=== PATIENT | male | born 1940 | race African-American/Black ===

== ENCOUNTER 2016-12-06 12:54 | Inpatient (IN) | payer MEDICARE, OTHER ==
[~2016-12-06] VITALS: Ht 121.9 cm; Wt 70.5 kg
[~2016-12-06 12:54] MED LIST: ACET325T9 PO; AMIT25TA PO; AMLO10TA2 PO; ASPI-482 PO; ASPI81TA9 PO; CALC500T PO; CARV12.52 PO; CARV6.25 PO; CETI10TA16 PO; CHOL10003 PO; CINA30TA PO; CLON1PAT2 TD; CLOP75TA PO; CLOP75TA27 PO; CYCL10TA2 PO; DOCU100C5 PO; EMOL250L TP; EPOE20006 IJ; ERGO500012 PO; FAMO20TA5 PO; FERROUS GLUCON325 M1 PO; FLUT16SP NS; FOLI1CAP10 PO; GABA-586 PO; HYDR-2672 PO; HYDR-2868 PO; HYDR-2869 PO; HYDR-971 PO; Hydrocodone/Acetaminophen PO; LACT1CAP6 PO; LANT1000 PO; LISI40TA PO; LOPE2TAB27 PO; LORA0.5T PO; MIRT15TA3 PO; NITR0.4T SL; OMEG1CAP6 PO; OXYC5TAB88 PO; PANT40TA5 PO; SERT100T PO; VITA1CAP PO
--- NOTE | 2016-12-06 13:40 | EKG ---
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
[2016-12-06 13:48] LABS: BASO # 0.1 x10^3/uL (0.0-0.2); BASO % 1 % (0-3); EOS % 0 % (0-3); HEMATOCRIT 35.8 % (39.0-53.0); HEMOGLOBIN 11.5 g/dL (13.0-17.5); LYMPH # 0.6 x10^3/uL (1.0-4.8); LYMPH % 6 % (24-48); MEAN CORPUSCULAR HEMOGLOBIN 28 pg (25-35); MEAN CORPUSCULAR HGB CONC 32 g/dL (31-37); MEAN CORPUSCULAR VOLUME 85 fL (79-100); MONO % 7 % (0-9); NEUT % 87 % (31-73); PLATELET COUNT 77 x10^3/uL (140-400); RED CELL DISTRIBUTION WIDTH 18.2 % (11.5-14.5); WHITE BLOOD COUNT 10.4 x10^3/uL (4.0-11.0)
--- NOTE | 2016-12-06 13:52 | PHYS DOC ---
Past Medical History Past Medical History: Heart Disease, Renal Failure (on Dialysis) Past Surgical History: Other Additional Past Surgical Histo: right AKA, left BKA, LUE dialysis shunt Alcohol Use: None Drug Use: None Adult General Chief Complaint Chief Complaint: WEAKNESS/GENERALIZED HPI HPI Patient is a 76 year old male who presents with for concern of inability to care for self at home in current condition. 3 days ago, he fell at home, had right hip pain, and was taken to the [place] emergency department to be diagnosed with a right hip fracture. Since that time, he has been unable to assist his with transfer from bed to chair and chair to bed. is greatly struggling to care for him at home and feels she is hurting herself to do so. He otherwise feels well and being weaker than normal. He was to attend dialysis today, however she brought him here for evaluation due to inability to care for him at home. He denies headache, chest pain, vision changes, palpitations, abdominal pain, nausea or vomiting, diarrhea, fever or chills, other injury. states he spent less than 2 hours in the emergency department at the [place] and was not admitted. Review of Systems Review of Systems Constitutional: Denies fever or chills [] Eyes: Denies change in visual acuity, redness, or eye pain [] HENT: Denies nasal congestion or sore throat [] Respiratory: Denies cough or shortness of breath [] Cardiovascular: No additional information not addressed in HPI [] GI: Denies abdominal pain, nausea, vomiting, bloody stools or diarrhea [] : Denies dysuria or hematuria [] Musculoskeletal: Denies back pain [] Integument: Denies rash or skin lesions [] Neurologic: Denies headache, focal weakness or sensory changes [] Endocrine: Denies polyuria or polydipsia [] Allergies Allergies Allergies Coded Allergies Type Severity Reaction Last Updated Verified aspirin Allergy Intermediate 07/19/15 Yes barium sulfate Allergy Intermediate 07/19/15 Yes calcium acetate Allergy Intermediate 07/19/15 Yes sevelamer Allergy Intermediate 07/19/15 Yes Physical Exam Physical Exam Constitutional: Well developed, well nourished, no acute distress, non-toxic appearance. [] HENT: Normocephalic, atraumatic, bilateral external ears normal, oropharynx moist, nose normal. [] Eyes: PERRLA, EOMI. [] Neck: Normal range of motion, supple. [] Cardiovascular:Heart rate regular rhythm [] Lungs & Thorax: Bilateral breath sounds clear to auscultation [] Abdomen: Bowel sounds normal, soft, no tenderness. [] Skin: Warm, dry, no erythema, no rash. [] Back: No tenderness, no CVA tenderness. [] Extremities: Right above-knee amputation, right lower extremity otherwise appears normal with no discoloration, has moderate tenderness to right groin with no palpable abnormality, femoral pulses intact, sensation intact to limp, will move some at the hip but with severe pain. [] Neurologic: Alert and oriented X 3, normal motor function, normal sensory function, no focal deficits noted. [] Psychologic: Affect normal, judgement normal, mood normal. [] Current Patient Data Vital Signs Vital Signs Date Time Temp Pulse Resp B/P Pulse Ox O2 Delivery O2 Flow Rate FiO2 12/06/16 14:57 81 20 155/67 97 Room Air 12/06/16 13:00 97.7 97.7 Lab Values Laboratory Tests Test 12/06/16 13:40 White Blood Count 10.4x10^3/uL (4.0-11.0) Red Blood Count 4.20x10^6/uL (4.30-5.70) L Hemoglobin 11.5g/dL (13.0-17.5) L Hematocrit 35.8% (39.0-53.0) L Mean Corpuscular Volume 85fL (79-100) Mean Corpuscular Hemoglobin 28pg (25-35) Mean Corpuscular Hemoglobin Concent 32g/dL (31-37) Red Cell Distribution Width 18.2% (11.5-14.5) H Platelet Count 77x10^3/uL (140-400) L Neutrophils (%) (Auto) 87% (31-73) H Lymphocytes (%) (Auto) 6% (24-48) L Monocytes (%) (Auto) 7% (0-9) Eosinophils (%) (Auto) 0% (0-3) Basophils (%) (Auto) 1% (0-3) Neutrophils # (Auto) 9.0x10^3uL (1.8-7.7) H Lymphocytes # (Auto) 0.6x10^3/uL (1.0-4.8) L Monocytes # (Auto) 0.7x10^3/uL (0.0-1.1) Eosinophils # (Auto) 0.0x10^3/uL (0.0-0.7) Basophils # (Auto) 0.1x10^3/uL (0.0-0.2) Segmented Neutrophils % 94% (35-66) H Lymphocytes % 3% (24-48) L Monocytes % 3% (0-10) Platelet Estimate Decreased (ADEQUATE) Polychromasia Slight Poikilocytosis Mod Anisocytosis Slight Target Cells Few Tear Drop Cells Occ Irena Cells Mod Schistocytes Few RBC Morphology Bizarre Forms Few Sodium Level 139mmol/L (136-145) Potassium Level 4.5mmol/L (3.5-5.1) Chloride Level 96mmol/L (98-107) L Carbon Dioxide Level 21mmol/L (21-32) Anion Gap 22 (6-14) H Blood Urea Nitrogen 75mg/dL (8-26) H Creatinine 12.3mg/dL (0.7-1.3) H Estimated GFR (Cockcroft-Gault) 4.8 Glucose Level 50mg/dL (70-99) L Calcium Level 9.6mg/dL (8.5-10.1) Laboratory Tests 12/06/16 13:40 Laboratory Tests 12/06/16 13:40 EKG EKG EKG as interpreted by me as sinus rhythm with interventricular block, rate 87, RI 222, QTC 513, no ectopy Radiology/Procedures Radiology/Procedures X-ray right hip and pelvis as interpreted by me with no obvious fracture or dislocation, but is difficult to interpret due to poor positioning and low bone density Pelvis CT without contrast IMPRESSION: Recent or acute minimally distracted right inferior pubic ramus fracture DICTATED and SIGNED BY: MADINA FERNANDES MD DATE: 12/06/16 3999 Course & Med Decision Making Course & Med Decision Making Pertinent Labs and Imaging studies reviewed. (See chart for details) Laboratory evaluation is unremarkable. Imaging as above. Will admit for pain control and possible placement. Discussed case with Dr. Morfin, who will admit. Orthopedics consult placed. Dragon Disclaimer Dragon Disclaimer This electronic medical record was generated, in whole or in part, using a voice recognition dictation system. Departure Departure Impression: Primary Impression: Inferior pubic ramus fracture Additional Impression: End stage renal disease on dialysis Disposition: 09 ADMITTED INPATIENT Condition: STABLE Referrals: NO PCP (PCP) Problem Qualifiers Primary Impression: Inferior pubic ramus fracture Encounter type: initial encounter Fracture type: closed Laterality: right Qualified Code: S32.591A - Other specified fracture of right pubis, initial encounter for closed fracture Karey ARDON MD Dec 06, 2016 13:52
[2016-12-06 13:56] LABS: CALCIUM 9.6 mg/dL (8.5-10.1); CREATININE 12.3 mg/dL (0.7-1.3); GFR 4.8; POTASSIUM 4.5 mmol/L (3.5-5.1)
[2016-12-06 14:37] LABS: ANISOCYTOSIS SLIGHT; BURR CELLS MOD; PLT ESTIMATE DECREASED (ADEQUATE); TARGET CELLS FEW
[2016-12-06 14:38] LABS: POIKILOCYTOSIS MOD; POLYCHROMASIA SLIGHT
[2016-12-06 14:39] LABS: SCHISTOCYTES FEW; TEAR DROP CELLS OCC
--- NOTE | 2016-12-06 14:42 | RAD ---
Pelvis with right hip, 2 views, 12/06/2016: History: Fall, injury The bony structures are demineralized. There are extensive arterial calcifications. Numerous artifacts overlie the pelvis. The bony structures are not optimally delineated. No fracture or dislocation is evident. There are moderate degenerative change at the hips, worse on the right.
--- NOTE | 2016-12-06 15:04 | RAD ---
Indication fall, pain. Axial images through the pelvis were obtained. Images were reformatted in the coronal and sagittal planes. Note is made of a plain film examination prior to the CT. A significant soft tissue finding is not seen. There is extensive vascular calcification. There may be a small left renal calculus. There is probable bony demineralization. There are degenerative changes in the visualized lumbar spine. There are advanced degenerative changes involving both hips right greater than left. No definite hip fracture is seen. There is, however, a minimally distracted acute or recent traumatic right inferior pubic ramus fracture. IMPRESSION: Recent or acute minimally distracted right inferior pubic ramus fracture PQRS Compliance Statement: One or more of the following individualized dose reduction techniques were utilized for this examination: 1. Automated exposure control 2. Adjustment of the mA and/or kV according to patient size 3. Use of iterative reconstruction technique
[2016-12-06] MEDS ORDERED: ACETAMINOPHEN 325 MG TABLET. PO PRN (15:15)
[2016-12-06] MEDS ORDERED: ONDANSETRON PF 4 MG/2 ML VIAL. IV PRN ×2 (15:15→17:00)
--- NOTE | 2016-12-06 16:02 | ACF ---
Admission Forms Criteria MUSCULOSKELETAL DISEASE GRG Clinical Indications for Admission to Inpatient Care (Place 'X' for any and all applicable criteria): Hospital admission is needed for appropriate care of the patient because of 1 or more of the following: [X]I. Fracture, dislocation, or other musculoskeletal injury requiring inpatient care(medical) as indicated by 1 or more of the following(4)(5)(6)(7) [ ]a) Vertebral fracture requiring observation for instability or neurologic compromise (8) [ ]b) Compartment syndrome (proven or cannot be ruled out during observation level of care) (9) [ ]c) Limb-threatening injury [ ]d) Major injury requiring inpatient stabilization such as traction initiation or external fixation before internal fixation or closure of complex or open fracture [X]e) Major injury requiring inpatient treatment after emergency or observation level care (as appropriate) [ ]f) Severe pain requiring acute inpatient management [ ]g) Injury with suspicion of abuse or neglect (eg., child, dependent elderly) [ ]II. Newly diagnosed or suspected bone, joint, or orthopedic device infection (e.g., osteomyelitis, septic arthritis) needing 1 or more of the following(1)(2)(3) [ ]a) IV antibiotics that cannot be initiated in other than inpatient setting (e.g., patient too unstable or home infusion not available) [ ]b) Device removal or replacement [ ]c) Bone or soft tissue debridement [ ]d) Joint drainage (drain placement or repetitive aspirations) [ ]III. Severe rheumatologic disease (e.g., systemic lupus erythematosus, rheumatoid arthritis) with complications or comorbidities (Also use Optimal Recovery Care Criteria or General Recovery Criteria as appropriate on the basis of predominant condition), including 1 or more of the following( 10)(11)(12)(13) [ ]a) Severe infection (e.g., OPEN HEAR[employer] STOCKYARD SUPERVISOR infection, sepsis) (14) [ ]b) Respiratory complications, including 1 or more of the following : [ ]i) Pleural effusion with respiratory compromise [ ]ii) Pulmonary hypertension with congestive failure [ ]iii) Respiratory failure [ ]iv) Pulmonary hemorrhage (15) [ ]c) Hematologic disease, including 1 or more of the following: [ ]i) Coagulopathy with bleeding [ ]ii) Thrombosis with hypercoagulable state [ ]iii) Thrombotic thrombocytopenic purpura [ ]d) Cerebritis with seizures, psychosis, or other severe abnormalities [ ]e) Vertebral destruction with monitoring needed for cervical myelopathy& possible respiratory compromise [ ]f) Exacerbation that requires inpatient treatment (e.g., intravenous immunosuppression) (16) [ ]g) Acute renal failure [ ]h) Cerebritis with seizures, psychosis, Altered mental status, or other neurologic abnormalities [ ]i) Pericardial effusion with tamponade [ ]j) Vertebral destruction, with monitoring needed for cervical myelopathy and possible respiratory compromise [ ]IV. Severe vasculitis with complications or comorbidities (Also use Optimal Recovery Care Criteria General Recovery Criteria as appropriate on the basis of predominant condition), including 1 or more of the following(11)(12)(17)(18)(19)(20) [ ]a) Exacerbation that requires inpatient treatment (e.g., intravenous immunosuppression) (19)(21) [ ]b) Pulmonary hemorrhage (15) [ ]c) OPEN HEAR[employer] STOCKYARD SUPERVISOR vasculitis with seizures, psychosis, Altered mental status that is severe or persistent, or other severe abnormalities (22) [ ]d) Cerebral infarction [ ]e) Gastrointestinal ischemia [ ]f) Gangrene or threatened amputation [ ]g) Renal failure (16) [ ]h) Other significant complications of vasculitis ( eg., tissue or organ ischemia, organ dysfunction ) [ ]V. Severe myopathy as indicated by 1 or more of the following (28)(29) [ ]a) New onset of airway compromise or inability to swallow [ ]b) Respiratory deterioration with observation needed for impending respiratory failure [ ]c) Exacerbation that requires inpatient treatment (e.g., intravenous immunosuppression) [ ]. Severe crystal gout (arthropathy) indicated by 1 or more of the following (23)(24) [ ]a) Severe pain requiring acute inpatient management [ ]b) Exacerbation that requires inpatient treatment (e.g., intravenous treatment) [ ]VII.Rhabdomyolysis and 1 or more of the following (25)(26)(27) [ ]a) Acute renal failure [ ]b) Need for intravenous hydration after emergency or observation level care (as appropriate) [ ]c) Inability to maintain oral hydration [ ]d) Change in mental status [ ]e) Electrolyte abnormality that remains after emergency or observation level care (as appropriate) [ ]VIII Post amputation complication, as indicated by ANY ONE of the following [ ]a) Infection [ ]b) Dehiscence [ ]c) Myodesis failure [ ]IX. Severe pain requiring acute inpatient management due to musculoskeletal condition [ ]X. Musculoskeletal Disease and ALL of the following: [ ]a) Symptom or finding for which emergency and observation care have failed or are not considered appropriate (Use General Criteria: Observation Care as appropriate) [ ]b) Presence of ANY ONE of the following [ ]i) A General Admission Criteria [ ]ii) A Pediatric General Admission Criteria The original [facility] content created by [facility] [employer] has been revised. The portions of the content which have been revised are identified through the use of italic text or in bold, and [facility] has neither reviewed nor approved the modified material. All other unmodified content is copyright [facility]. Please see references footnoted in the original [facility] edition 2016 Admission Criteria Met?: Yes BLAS JONAS Dec 06, 2016 16:02
[2016-12-06] MEDS: FENTANYL PF 100 MCG/2 ML VIAL. IV PRN ×2 (16:38→20:46)
[2016-12-06] MEDS ORDERED: LORAZEPAM 0.5 MG TABLET. PO PRN (17:00)
[2016-12-06] MEDS ORDERED: LANTHANUM CARBONATE 1,000 MG TAB.CHEW PO SCH (17:00)
--- NOTE | 2016-12-06 17:06 | PDOC1 ---
History and Physical Date of Admission Date of Admission DATE: 12/06/16 TIME: 17:01 Identification/Chief Complaint Chief Complaint hip pain from fx/fall - unable to take care of him at home Problems: Source Source: Caregiver, Chart review, Patient History of Present Illness History of Present Illness 76 y.o AA male who usually follows at [facility], fell last saturday, fx his pubis, non operable. Sent home, Lives with but unable to take care of him. PAin continues, VS and labs ok, MEds reviewed, Pt admitted for SNU/rehab, Pt agreeable to SNU, has been to [facility] 3 yrs ago Also ESRd on HD MWF missed sat session bec of pain.mobility issues. Seen at [facility], foreign hightower personally reviewed: IMPRESSION: Recent or acute minimally distracted right inferior pubic ramus fracture Past Medical History Cardiovascular: CAD, HTN, Other Pulmonary: COPD GI: Constipation Heme/Onc: Anemia NOS Musculoskeletal: Osteoarthritis Renal/: Chronic renal insuff Endocrine: Diabetes, Hyperparathyroidism Past Surgical History Past Surgical History: Other Family History Family History: No Significant, Diabetes, Heart Disease, Hypertension Social History Smoke: No ALCOHOL: none Drugs: None Current Problem List Problem List Problems Medical Problems: (1) End stage renal disease on dialysis Status: Acute (2) Inferior pubic ramus fracture Status: Acute Problems: Current Medications Current Medications Current Medications Ondansetron HCl (Zofran) 4 mg PRN Q8HRS PRN IV NAUSEA/VOMITING; Start 12/06/16 at 15:15; Stop 12/07/16 at 15:14 Fentanyl Citrate (Fentanyl 2ml Vial) 50 mcg PRN Q2HR PRN IV PAIN Last administered on 12/06/16t 16:38; Start 12/06/16 at 15:15; Stop 12/07/16 at 15:14 Acetaminophen (Tylenol) 650 mg PRN Q4HRS PRN PO FEVER; Start 12/06/16 at 15:15 ; Stop 12/07/16 at 15:14 Amlodipine Besylate (Norvasc) 10 mg DAILY PO ; Start 12/07/16 at 09:00; Status UNV Calcium Carbonate/ Glycine (Oscal) 500 mg TID PO ; Start 12/06/16 at 21:00; Status UNV Vitamin D (Vitamin D3) 2,000 unit QODAY PO ; Start 12/08/16 at 09:00; Status UNV Cinacalcet (Sensipar) 90 mg HS PO ; Start 12/06/16 at 21:00; Status UNV Ergocalciferol (Vitamin D2) 50,000 unit WEEKLY PO ; Start 12/13/16 at 09:00; Status UNV Famotidine (Pepcid) 20 mg HS PO ; Start 12/06/16 at 21:00; Status UNV Lanthanum Carbonate (Fosrenol) 1,000 mg TIDWMEALS PO ; Start 12/06/16 at 17:00; Status UNV Lorazepam (Ativan) 0.25 mg PRN DAILY PRN PO ANXIETY; Start 12/06/16 at 17:00; Status UNV Mirtazapine (Remeron) 15 mg QHS PO ; Start 12/06/16 at 21:00; Status UNV Non-Formulary Medication 14,300 unit three times a week IJ anemia; Start at 17:00; Status UNV Non-Formulary Medication 325 mg DAILY PO ; Start 12/07/16 at 09:00; Status UNV Non-Formulary Medication 1 mg DAILY PO ; Start 12/07/16 at 09:00; Status UNV Non-Formulary Medication 200 mg DAILY PO ANTI-DEPRESSANT; Start 12/07/16 at 09: 00; Status UNV Non-Formulary Medication 1 each DAILY PO ; Start 12/07/16 at 09:00; Status UNV Active Scripts Active Reported Fosrenol (Lanthanum Carbonate) 1,000 Mg Tab.chew 1,000 Mg PO TIDWMEALS Amlodipine Besylate 10 Mg Tablet 10 Mg PO DAILY Mirtazapine 15 Mg Tablet 5 Tab PO QHS Eucerin Intensive Repair (Emollient Combination No.72) 250 Ml Lotion 250 Ml TP Amlodipine Besylate 10 Mg Tablet 10 Mg PO DAILY Vitamin B Complex 1 Each Capsule 1 Each PO DAILY Renal Caps Softgel (Folic Acid/Vitamin B Comp W-C) 1 Mg Capsule 1 Mg PO DAILY Lorazepam 0.5 Mg Tablet 0.25 Mg PO PRN DAILY PRN Vitamin D2 (Ergocalciferol (Vitamin D2)) 50,000 Unit Capsule 50,000 Unit PO WEEKLY Vitamin D3 (Cholecalciferol (Vitamin D3)) 1,000 Unit Tablet 2,000 Unit PO QODAY Epogen (Epoetin Placido) 20,000 Unit/1 Ml Vial 14,300 Unit IJ THREE TIMES A WEEK Zoloft (Sertraline Hcl) 100 Mg Tablet 200 Mg PO DAILY Ferrous Gluconate 325 Mg Tablet 325 Mg PO DAILY Famotidine 20 Mg Tablet 20 Mg PO HS Sensipar (Cinacalcet Hcl) 30 Mg Tablet 90 Mg PO HS Calcium Carbonate 500 Mg Tablet 500 Mg PO TID Allergies Allergies: Coded Allergies: aspirin (Verified Allergy, Intermediate, 07/19/15) 07/01 PER RN, PT REPORTS BEING TESTED AT [facility], HE CAN TOLERATE UP TO 81MG X 2 DAILY WITHOUT DIFFICULTIES. barium sulfate (Verified Allergy, Intermediate, 07/19/15) calcium acetate (Verified Allergy, Intermediate, 07/19/15) sevelamer (Verified Allergy, Intermediate, 07/19/15) ROS General: No: Appetite, Chills, Fatigue, Malaise, Night Sweats, Other PSYCHOLOGICAL ROS: No: Anxiety, Behavioral Disorder, Concentration difficultie , Decreased libido, Depression, Disorientation, Hallucinations, Hostility, Irritablity, Memory difficulties, Mood Swings, Obsessive thoughts, Other, Physical abuse, Sexual abuse, Sleep disturbances, Suicidal ideation Eyes: No Blurry vision, No Decreased vision, No Double vision, No Dry eyes, No Excessive tearing, No Eye Pain, No Itchy Eyes, No Loss of vision, No Other, No Photophobia, No Scotomata, No Uses contacts, No Uses glasses HEENT: No: Epistaxis, Heacaches, Hearing change, Nasal congestion, Nasal discharge, Oral lesions, Other, Sinus pain, Sneezing, Snoring, Sore Throat, Tinnitus, Vertigo, Visual Changes, Vocal changes ALLERGY AND IMMUNOLOGY: No: Hives, Insect Bite Sensitivity, Itchy/Watery Eyes, Nasal Congestion, Other, Post Nasal Drip, Seasonal Allergies Hematological and Lymphatic: No: Bleeding Problems, Blood Clots, Blood Transfusions, Brusing, Night Sweats, Other, Pallor, Swollen Lymph Nodes Breast: No New/Changing Breast Lumps, No Nipple changes, No Nipple discharge, No Other Respiratory: No: Cough, Hemoptysis, Orthopnea, Other, Pleuritic Pain, SOB with excertion, Shortness of breath, Sputum Changes, Stridor, Tachypnea, Wheezing Cardiovascular: No Chest Pain, No Edema, No Lt Headedness, No Orthopnea, No Other, No Palpitations, No Paroxysmal Noc. Dyspnea Gastrointestinal: No Abdominal Pain, No Constipation, No Diarrhea, No Hematochezia, No Melena, No Nausea, No Other, No Vomiting Genitourinary: No , No , No , No , No , No , No , No Discharge, No Dysuria, No Flank Pain, No Frequency, No Hematuria, No Incontinence, No Other, No Pain, No Retention, No Urgency Musculoskeletal: Yes Joint Pain Neurological: No Behavorial Changes, No Bowel/Bladder ControlChng, No Confusion , No Dizziness, No Gait Disturbance, No Headaches, No Impaired Coord/balance, No Memory Loss, No Numbness/Tingling, No Other, No Seizures, No Speech Problems , No Tremors, No Visual Changes, No Weakness Skin: No Acne, No Dry Skin, No Eczema, No Hair Changes, No Lumps, No Mole Changes, No Mottling, No Nail Changes, No Other, No Pruritus, No Rash, No Skin Lesion Changes Physical Exam General: Alert, Oriented X3, Cooperative, No acute distress HEENT: Atraumatic, PERRLA, EOMI, Mucous membr. moist/pink Lungs: Clear to auscultation, Normal air movement Heart: S1S2 Cardiovascular: S1, S2 Breasts: Normal Male Genitals Exam: normal genitalia, normal prostate Rectal Exam: not examined PELVIC: Nml ext genitalia Extremities: No clubbing, No cyanosis, No edema, Normal pulses, No tenderness/ swelling Skin: No rashes, No breakdown, No significant lesion Neuro: Normal gait, Normal speech, Strength at 5/5 X4 ext, Normal tone, Sensation intact, Cranial nerves 3-12 NL, Reflexes 2+ Vitals Vitals Vital Signs Date Time Temp Pulse Resp B/P Pulse Ox O2 Delivery O2 Flow Rate FiO2 12/06/16 15:55 20 155/70 96 Room Air 12/06/16 14:57 81 12/06/16 13:00 97.7 97.7 Labs Labs Laboratory Tests Test 12/06/16 13:40 White Blood Count 10.4x10^3/uL (4.0-11.0) Red Blood Count 4.20x10^6/uL (4.30-5.70) Hemoglobin 11.5g/dL (13.0-17.5) Hematocrit 35.8% (39.0-53.0) Mean Corpuscular Volume 85fL (79-100) Mean Corpuscular Hemoglobin 28pg (25-35) Mean Corpuscular Hemoglobin Concent 32g/dL (31-37) Red Cell Distribution Width 18.2% (11.5-14.5) Platelet Count 77x10^3/uL (140-400) Neutrophils (%) (Auto) 87% (31-73) Lymphocytes (%) (Auto) 6% (24-48) Monocytes (%) (Auto) 7% (0-9) Eosinophils (%) (Auto) 0% (0-3) Basophils (%) (Auto) 1% (0-3) Neutrophils # (Auto) 9.0x10^3uL (1.8-7.7) Lymphocytes # (Auto) 0.6x10^3/uL (1.0-4.8) Monocytes # (Auto) 0.7x10^3/uL (0.0-1.1) Eosinophils # (Auto) 0.0x10^3/uL (0.0-0.7) Basophils # (Auto) 0.1x10^3/uL (0.0-0.2) Segmented Neutrophils % 94% (35-66) Lymphocytes % 3% (24-48) Monocytes % 3% (0-10) Platelet Estimate Decreased (ADEQUATE) Polychromasia Slight Poikilocytosis Mod Anisocytosis Slight Target Cells Few Tear Drop Cells Occ [place] Cells Mod Schistocytes Few RBC Morphology Bizarre Forms Few Sodium Level 139mmol/L (136-145) Potassium Level 4.5mmol/L (3.5-5.1) Chloride Level 96mmol/L (98-107) Carbon Dioxide Level 21mmol/L (21-32) Anion Gap 22 (6-14) Blood Urea Nitrogen 75mg/dL (8-26) Creatinine 12.3mg/dL (0.7-1.3) Estimated GFR (Cockcroft-Gault) 4.8 Glucose Level 50mg/dL (70-99) Calcium Level 9.6mg/dL (8.5-10.1) Laboratory Tests Test 12/06/16 13:40 White Blood Count 10.4x10^3/uL (4.0-11.0) Red Blood Count 4.20x10^6/uL (4.30-5.70) Hemoglobin 11.5g/dL (13.0-17.5) Hematocrit 35.8% (39.0-53.0) Mean Corpuscular Volume 85fL (79-100) Mean Corpuscular Hemoglobin 28pg (25-35) Mean Corpuscular Hemoglobin Concent 32g/dL (31-37) Red Cell Distribution Width 18.2% (11.5-14.5) Platelet Count 77x10^3/uL (140-400) Neutrophils (%) (Auto) 87% (31-73) Lymphocytes (%) (Auto) 6% (24-48) Monocytes (%) (Auto) 7% (0-9) Eosinophils (%) (Auto) 0% (0-3) Basophils (%) (Auto) 1% (0-3) Neutrophils # (Auto) 9.0x10^3uL (1.8-7.7) Lymphocytes # (Auto) 0.6x10^3/uL (1.0-4.8) Monocytes # (Auto) 0.7x10^3/uL (0.0-1.1) Eosinophils # (Auto) 0.0x10^3/uL (0.0-0.7) Basophils # (Auto) 0.1x10^3/uL (0.0-0.2) Segmented Neutrophils % 94% (35-66) Lymphocytes % 3% (24-48) Monocytes % 3% (0-10) Platelet Estimate Decreased (ADEQUATE) Polychromasia Slight Poikilocytosis Mod Anisocytosis Slight Target Cells Few Tear Drop Cells Occ [place] Cells Mod Schistocytes Few RBC Morphology Bizarre Forms Few Sodium Level 139mmol/L (136-145) Potassium Level 4.5mmol/L (3.5-5.1) Chloride Level 96mmol/L (98-107) Carbon Dioxide Level 21mmol/L (21-32) Anion Gap 22 (6-14) Blood Urea Nitrogen 75mg/dL (8-26) Creatinine 12.3mg/dL (0.7-1.3) Estimated GFR (Cockcroft-Gault) 4.8 Glucose Level 50mg/dL (70-99) Calcium Level 9.6mg/dL (8.5-10.1) VTE Prophylaxis Ordered VTE Prophylaxis Devices: Yes VTE Pharmacological Prophylaxi: Yes Assessment/Plan Assessment/Plan IMP: right inferior pubic ramus fracture from a fall ESRD o HD MWF CAD, COPD, AOCD, constipation - all chronic stable PLAn: PT/OT SW snu WBAT - verify with ortho HD per renal Can check vit 25 levels Resum meds Ok for renal diet Seen at ER 2 BEN ASHLEY MD Dec 06, 2016 17:06
[2016-12-06 17:23] VITALS: BP 153/63
[2016-12-06 17:40] VITALS: BP 153/63
[2016-12-06 19:00] VITALS: BP 140/65
[2016-12-06] MEDS: CALCIUM CARBONATE 500 MG TABLET PO SCH ×2 (20:44→20:55)
[2016-12-06] MEDS: FAMOTIDINE 20 MG TABLET. PO SCH ×2 (20:45→20:56)
[2016-12-06] MEDS: OXYCODONE/APAP 5/325 TABLET. PO PRN (20:45)
[2016-12-06] MEDS: MIRTAZAPINE 15 MG TABLET PO SCH ×2 (20:45→20:56)
[2016-12-06] MEDS: CINACALCET HCL 30 MG TABLET PO SCH ×2 (20:45→20:56)
[2016-12-06] MEDS: LANTHANUM CARBONATE 500 MG TAB.CHEW PO SCH (20:45)
[2016-12-06 22:34] VITALS: BP 147/62
[2016-12-07] MEDS: FENTANYL PF 100 MCG/2 ML VIAL. IV PRN (00:13)
[2016-12-07 03:00] VITALS: BP 123/66
[2016-12-07 07:00] VITALS: BP 160/61
[2016-12-07] MEDS ORDERED: DEXTROSE 50% 25 GM / 50ML DISP.SYRIN. IV ONE (07:43)
[2016-12-07] MEDS: DEXTROSE 50% 25 GM / 50ML DISP.SYRIN. IV PRN ×7 (07:48→20:53)
[2016-12-07] MEDS: FERROUS SULFATE 325 MG TABLET. PO SCH (08:00)
[2016-12-07] MEDS: VITAMIN B COMPLEX TABLET. PO SCH (09:00)
[2016-12-07] MEDS: FOLIC/VIT B COMP W-C (RENAL) TABLET. PO SCH (09:00)
[2016-12-07] MEDS: LANTHANUM CARBONATE 500 MG TAB.CHEW PO SCH ×3 (09:00→17:55)
[2016-12-07] MEDS: AMLODIPINE BESYLATE 10 MG TABLET. PO SCH (09:00)
[2016-12-07] MEDS: SERTRALINE 50 MG TABLET. PO SCH (09:00)
[2016-12-07] MEDS: CALCIUM CARBONATE 500 MG TABLET PO SCH ×3 (09:00→20:22)
--- NOTE | 2016-12-07 10:10 | PDOC ---
PROGRESS NOTES Chief Complaint Chief Complaint right inferior pubic ramus fracture from a fall - non surgical ESRD o HD MWF CAD, COPD, AOCD, constipation - all chronic stable NON COMPLIANCE History of Present Illness History of Present Illness Refused to atke his home meds yesterday "just because" Scheduled HD MWF MIssed wed session bec of hip pain - inf pubic ramus fx PLAN: HD per renal SW - SNU - reason for admit Encouraged complaince Dw RN and pt Vitals Vitals Vital Signs Date Time Temp Pulse Resp B/P Pulse Ox O2 Delivery O2 Flow Rate FiO2 12/07/16 07:00 98.0 80 18 160/61 Room Air 98.0 12/07/16 03:00 92 Physical Exam General: Alert, Oriented X3, Cooperative, No acute distress Lungs: Clear Extremities: No clubbing, No cyanosis, No edema, Normal pulses, No tenderness/ swelling Skin: No rashes, No breakdown, No significant lesion Labs LABS Laboratory Tests Test 12/06/16 13:40 12/07/16 08:23 12/07/16 08:30 12/07/16 08:47 White Blood Count 10.4x10^3/uL (4.0-11.0) Red Blood Count 4.20x10^6/uL (4.30-5.70) Hemoglobin 11.5g/dL (13.0-17.5) Hematocrit 35.8% (39.0-53.0) Mean Corpuscular Volume 85fL (79-100) Mean Corpuscular Hemoglobin 28pg (25-35) Mean Corpuscular Hemoglobin Concent 32g/dL (31-37) Red Cell Distribution Width 18.2% (11.5-14.5) Platelet Count 77x10^3/uL (140-400) Neutrophils (%) (Auto) 87% (31-73) Lymphocytes (%) (Auto) 6% (24-48) Monocytes (%) (Auto) 7% (0-9) Eosinophils (%) (Auto) 0% (0-3) Basophils (%) (Auto) 1% (0-3) Neutrophils # (Auto) 9.0x10^3uL (1.8-7.7) Lymphocytes # (Auto) 0.6x10^3/uL (1.0-4.8) Monocytes # (Auto) 0.7x10^3/uL (0.0-1.1) Eosinophils # (Auto) 0.0x10^3/uL (0.0-0.7) Basophils # (Auto) 0.1x10^3/uL (0.0-0.2) Segmented Neutrophils % 94% (35-66) Lymphocytes % 3% (24-48) Monocytes % 3% (0-10) Platelet Estimate Decreased (ADEQUATE) Polychromasia Slight Poikilocytosis Mod Anisocytosis Slight Target Cells Few Tear Drop Cells Occ [place] Cells Mod Schistocytes Few RBC Morphology Bizarre Forms Few Sodium Level 139mmol/L (136-145) Potassium Level 4.5mmol/L (3.5-5.1) Chloride Level 96mmol/L (98-107) Carbon Dioxide Level 21mmol/L (21-32) Anion Gap 22 (6-14) Blood Urea Nitrogen 75mg/dL (8-26) Creatinine 12.3mg/dL (0.7-1.3) Estimated GFR (Cockcroft-Gault) 4.8 Glucose Level 50mg/dL (70-99) 67mg/dL (70-99) Calcium Level 9.6mg/dL (8.5-10.1) Glucose (Fingerstick) 30mg/dL (70-99) 39mg/dL (70-99) Test 12/07/16 09:09 12/07/16 09:37 Glucose (Fingerstick) 64mg/dL (70-99) 136mg/dL (70-99) Review of Systems Review of Systems hip pain, non .v.d, cp, soa Assessment and Plan Assessmemt and Plan Problems Medical Problems: (1) End stage renal disease on dialysis Status: Acute (2) Inferior pubic ramus fracture Status: Acute Problems: Comment Review of Relevant I have reviewed the following items katherine (where applicable) has been applied. Labs Laboratory Tests Test 12/06/16 13:40 12/07/16 08:23 12/07/16 08:30 12/07/16 08:47 White Blood Count 10.4x10^3/uL (4.0-11.0) Red Blood Count 4.20x10^6/uL (4.30-5.70) Hemoglobin 11.5g/dL (13.0-17.5) Hematocrit 35.8% (39.0-53.0) Mean Corpuscular Volume 85fL (79-100) Mean Corpuscular Hemoglobin 28pg (25-35) Mean Corpuscular Hemoglobin Concent 32g/dL (31-37) Red Cell Distribution Width 18.2% (11.5-14.5) Platelet Count 77x10^3/uL (140-400) Neutrophils (%) (Auto) 87% (31-73) Lymphocytes (%) (Auto) 6% (24-48) Monocytes (%) (Auto) 7% (0-9) Eosinophils (%) (Auto) 0% (0-3) Basophils (%) (Auto) 1% (0-3) Neutrophils # (Auto) 9.0x10^3uL (1.8-7.7) Lymphocytes # (Auto) 0.6x10^3/uL (1.0-4.8) Monocytes # (Auto) 0.7x10^3/uL (0.0-1.1) Eosinophils # (Auto) 0.0x10^3/uL (0.0-0.7) Basophils # (Auto) 0.1x10^3/uL (0.0-0.2) Segmented Neutrophils % 94% (35-66) Lymphocytes % 3% (24-48) Monocytes % 3% (0-10) Platelet Estimate Decreased (ADEQUATE) Polychromasia Slight Poikilocytosis Mod Anisocytosis Slight Target Cells Few Tear Drop Cells Occ [place] Cells Mod Schistocytes Few RBC Morphology Bizarre Forms Few Sodium Level 139mmol/L (136-145) Potassium Level 4.5mmol/L (3.5-5.1) Chloride Level 96mmol/L (98-107) Carbon Dioxide Level 21mmol/L (21-32) Anion Gap 22 (6-14) Blood Urea Nitrogen 75mg/dL (8-26) Creatinine 12.3mg/dL (0.7-1.3) Estimated GFR (Cockcroft-Gault) 4.8 Glucose Level 50mg/dL (70-99) 67mg/dL (70-99) Calcium Level 9.6mg/dL (8.5-10.1) Glucose (Fingerstick) 30mg/dL (70-99) 39mg/dL (70-99) Test 12/07/16 09:09 12/07/16 09:37 Glucose (Fingerstick) 64mg/dL (70-99) 136mg/dL (70-99) Laboratory Tests Test 12/06/16 13:40 12/07/16 08:23 12/07/16 08:30 12/07/16 08:47 White Blood Count 10.4x10^3/uL (4.0-11.0) Red Blood Count 4.20x10^6/uL (4.30-5.70) Hemoglobin 11.5g/dL (13.0-17.5) Hematocrit 35.8% (39.0-53.0) Mean Corpuscular Volume 85fL (79-100) Mean Corpuscular Hemoglobin 28pg (25-35) Mean Corpuscular Hemoglobin Concent 32g/dL (31-37) Red Cell Distribution Width 18.2% (11.5-14.5) Platelet Count 77x10^3/uL (140-400) Neutrophils (%) (Auto) 87% (31-73) Lymphocytes (%) (Auto) 6% (24-48) Monocytes (%) (Auto) 7% (0-9) Eosinophils (%) (Auto) 0% (0-3) Basophils (%) (Auto) 1% (0-3) Neutrophils # (Auto) 9.0x10^3uL (1.8-7.7) Lymphocytes # (Auto) 0.6x10^3/uL (1.0-4.8) Monocytes # (Auto) 0.7x10^3/uL (0.0-1.1) Eosinophils # (Auto) 0.0x10^3/uL (0.0-0.7) Basophils # (Auto) 0.1x10^3/uL (0.0-0.2) Segmented Neutrophils % 94% (35-66) Lymphocytes % 3% (24-48) Monocytes % 3% (0-10) Platelet Estimate Decreased (ADEQUATE) Polychromasia Slight Poikilocytosis Mod Anisocytosis Slight Target Cells Few Tear Drop Cells Occ Irena Cells Mod Schistocytes Few RBC Morphology Bizarre Forms Few Sodium Level 139mmol/L (136-145) Potassium Level 4.5mmol/L (3.5-5.1) Chloride Level 96mmol/L (98-107) Carbon Dioxide Level 21mmol/L (21-32) Anion Gap 22 (6-14) Blood Urea Nitrogen 75mg/dL (8-26) Creatinine 12.3mg/dL (0.7-1.3) Estimated GFR (Cockcroft-Gault) 4.8 Glucose Level 50mg/dL (70-99) 67mg/dL (70-99) Calcium Level 9.6mg/dL (8.5-10.1) Glucose (Fingerstick) 30mg/dL (70-99) 39mg/dL (70-99) Test 12/07/16 09:09 12/07/16 09:37 Glucose (Fingerstick) 64mg/dL (70-99) 136mg/dL (70-99) Medications Current Medications Ondansetron HCl (Zofran) 4 mg PRN Q8HRS PRN IV NAUSEA/VOMITING; Start 12/06/16 at 15:15; Stop 12/06/16 at 17:01; Status DC Fentanyl Citrate (Fentanyl 2ml Vial) 50 mcg PRN Q2HR PRN IV PAIN Last administered on 12/07/16t 00:13; Start 12/06/16 at 15:15; Stop 12/07/16 at 15:14 Acetaminophen (Tylenol) 650 mg PRN Q4HRS PRN PO FEVER; Start 12/06/16 at 15:15 ; Stop 12/07/16 at 15:14 Amlodipine Besylate (Norvasc) 10 mg DAILY PO ; Start 12/07/16 at 09:00 Calcium Carbonate/ Glycine (Oscal) 500 mg TID PO ; Start 12/06/16 at 21:00 Vitamin D (Vitamin D3) 2,000 unit QODAY PO ; Start 12/08/16 at 09:00 Cinacalcet (Sensipar) 90 mg HS PO ; Start 12/06/16 at 21:00 Ergocalciferol (Vitamin D2) 50,000 unit WEEKLY PO ; Start 12/13/16 at 09:00 Famotidine (Pepcid) 20 mg Q48H PO ; Start 12/06/16 at 21:00 Lanthanum Carbonate (Fosrenol) 1,000 mg TIDWMEALS PO ; Start 12/06/16 at 17:00; Status Cancel Lorazepam (Ativan) 0.25 mg PRN DAILY PRN PO ANXIETY; Start 12/06/16 at 17:00 Mirtazapine (Remeron) 15 mg QHS PO ; Start 12/06/16 at 21:00 Darbepoetin Placido (Aranesp) 100 mcg WEEKLYHS SQ ; Start 12/13/16 at 21:00 Ferrous Sulfate (Feosol) 325 mg DAILYWBKFT PO ; Start 12/07/16 at 08:00 Vitamin B Complex/ Vitamin C (Blank-Cliff) 1 tab DAILY PO ; Start 12/07/16 at 09: 00 Sertraline HCl (Zoloft) 200 mg DAILY PO ; Start 12/07/16 at 09:00 Vitamin B Complex (Kirill B) 1 tab DAILY PO ; Start 12/07/16 at 09:00 Ondansetron HCl (Zofran) 4 mg PRN Q6HRS PRN IV NAUSEA/VOMITING Last administered on 12/07/16 00:13; Start 12/06/16 at 17:00 Oxycodone/ Acetaminophen (Percocet 5/325) 1 tab PRN Q4HRS PRN PO PAIN; Start at 17:00 Lanthanum Carbonate (Fosrenol) 1,000 mg TIDAFTMEAL PO Last administered on 12/06 20:45; Start 12/06/16 at 18:00 Dextrose (Dextrose 50%-Water Syringe) 25 gm STK-MED ONCE IV ; Start 12/07/16 at 07:43; Stop 12/07/16 at 07:44; Status DC Dextrose (Dextrose 50%-Water Syringe) 12.5 gm PRN Q15MIN PRN IV SEE COMMENTS Last administered on 12/07/16 09:15; Start 12/07/16 at 07:45 Active Scripts Active Reported Fosrenol (Lanthanum Carbonate) 1,000 Mg Tab.chew 1,000 Mg PO TIDWMEALS Amlodipine Besylate 10 Mg Tablet 10 Mg PO DAILY Mirtazapine 15 Mg Tablet 5 Tab PO QHS Eucerin Intensive Repair (Emollient Combination No.72) 250 Ml Lotion 250 Ml TP Amlodipine Besylate 10 Mg Tablet 10 Mg PO DAILY Vitamin B Complex 1 Each Capsule 1 Each PO DAILY Renal Caps Softgel (Folic Acid/Vitamin B Comp W-C) 1 Mg Capsule 1 Mg PO DAILY Lorazepam 0.5 Mg Tablet 0.25 Mg PO PRN DAILY PRN Vitamin D2 (Ergocalciferol (Vitamin D2)) 50,000 Unit Capsule 50,000 Unit PO WEEKLY Vitamin D3 (Cholecalciferol (Vitamin D3)) 1,000 Unit Tablet 2,000 Unit PO QODAY Epogen (Epoetin Placido) 20,000 Unit/1 Ml Vial 14,300 Unit IJ THREE TIMES A WEEK Zoloft (Sertraline Hcl) 100 Mg Tablet 200 Mg PO DAILY Ferrous Gluconate 325 Mg Tablet 325 Mg PO DAILY Famotidine 20 Mg Tablet 20 Mg PO HS Sensipar (Cinacalcet Hcl) 30 Mg Tablet 90 Mg PO HS Calcium Carbonate 500 Mg Tablet 500 Mg PO TID Vitals/I & O Vital Sign - Last 24 Hours 12/06/16 12/06/16 12/06/16 12/06/16 13:00 13:30 14:00 14:57 Temp 97.7 97.7 Pulse 91 82 81 Resp 18 20 B/P 176/78 185/80 150/65 155/67 Pulse Ox 98 99 97 97 O2 Delivery Room Air Room Air Room Air Room Air 12/06/16 12/06/16 12/06/16 12/06/16 15:55 17:22 17:23 17:23 Temp 98.6 98.6 98.6 98.6 Pulse 81 81 Resp 20 B/P 155/70 153/63 153/63 Pulse Ox 96 96 O2 Delivery Room Air Room Air Room Air 12/06/16 12/06/16 12/06/16 12/06/16 17:40 17:52 19:00 20:00 Temp 98.6 97.3 98.6 97.3 Pulse 81 80 Resp B/P 153/63 140/65 Pulse Ox 96 91 O2 Delivery Room Air Room Air Room Air 12/06/16 12/07/16 12/07/16 22:34 03:00 07:00 Temp 98.3 98.1 98.0 98.3 98.1 98.0 Pulse 74 87 80 Resp 18 B/P 147/62 123/66 160/61 Pulse Ox 92 92 O2 Delivery Room Air Room Air Room Air Intake and Output 12/06/16 12/06/16 12/07/16 15:00 23:00 07:00 Intake Total 120 ml 400 ml Balance 120 ml 400 ml BEN THEODORE MD Dec 07, 2016 10:10
[2016-12-07 11:10] VITALS: BP 132/52
--- NOTE | 2016-12-07 14:02 | PDOC2 ---
CONSULT Date of Consult Date of Consult DATE: 12/07/16 TIME: 14:01 Reason for Consult Reason for Consult: ESRD Referring Physician Referring Physician: Dr Morfin Identification/Chief Complaint Chief Complaint hiop Pain Problems: Source Source: Chart review, Patient History of Present Illness Reason for Visit: as Dictated Past Medical History Cardiovascular: CAD, HTN, Other Pulmonary: COPD GI: Constipation Heme/Onc: Anemia NOS Musculoskeletal: Osteoarthritis Renal/: Chronic renal insuff Endocrine: Diabetes, Hyperparathyroidism Past Surgical History Past Surgical History: Other Family History Family History: No Significant, Diabetes, Heart Disease, Hypertension Social History No ALCOHOL: none Drugs: None Lives: with Family Current Problem List Problem List Problems Medical Problems: (1) End stage renal disease on dialysis Status: Acute (2) Inferior pubic ramus fracture Status: Acute Current Medications Current Medications Current Medications Ondansetron HCl (Zofran) 4 mg PRN Q8HRS PRN IV NAUSEA/VOMITING; Start 12/06/16 at 15:15; Stop 12/06/16 at 17:01; Status DC Fentanyl Citrate (Fentanyl 2ml Vial) 50 mcg PRN Q2HR PRN IV PAIN Last administered on 12/07/16t 00:13; Start 12/06/16 at 15:15; Stop 12/07/16 at 15:14 Acetaminophen (Tylenol) 650 mg PRN Q4HRS PRN PO FEVER; Start 12/06/16 at 15:15 ; Stop 12/07/16 at 15:14 Amlodipine Besylate (Norvasc) 10 mg DAILY PO ; Start 12/07/16 at 09:00 Calcium Carbonate/ Glycine (Oscal) 500 mg TID PO ; Start 12/06/16 at 21:00 Vitamin D (Vitamin D3) 2,000 unit QODAY PO ; Start 12/08/16 at 09:00 Cinacalcet (Sensipar) 90 mg HS PO ; Start 12/06/16 at 21:00 Ergocalciferol (Vitamin D2) 50,000 unit WEEKLY PO ; Start 12/13/16 at 09:00 Famotidine (Pepcid) 20 mg Q48H PO ; Start 12/06/16 at 21:00 Lanthanum Carbonate (Fosrenol) 1,000 mg TIDWMEALS PO ; Start 12/06/16 at 17:00; Status Cancel Lorazepam (Ativan) 0.25 mg PRN DAILY PRN PO ANXIETY; Start 12/06/16 at 17:00 Mirtazapine (Remeron) 15 mg QHS PO ; Start 12/06/16 at 21:00 Darbepoetin Placido (Aranesp) 100 mcg WEEKLYHS SQ ; Start 12/13/16 at 21:00 Ferrous Sulfate (Feosol) 325 mg DAILYWBKFT PO ; Start 12/07/16 at 08:00 Vitamin B Complex/ Vitamin C (Blank-Cliff) 1 tab DAILY PO ; Start 12/07/16 at 09: 00 Sertraline HCl (Zoloft) 200 mg DAILY PO ; Start 12/07/16 at 09:00 Vitamin B Complex (Kirill B) 1 tab DAILY PO ; Start 12/07/16 at 09:00 Ondansetron HCl (Zofran) 4 mg PRN Q6HRS PRN IV NAUSEA/VOMITING Last administered on 12/07/16 00:13; Start 12/06/16 at 17:00 Oxycodone/ Acetaminophen (Percocet 5/325) 1 tab PRN Q4HRS PRN PO PAIN; Start at 17:00 Lanthanum Carbonate (Fosrenol) 1,000 mg TIDAFTMEAL PO Last administered on 12/06 20:45; Start 12/06/16 at 18:00 Dextrose (Dextrose 50%-Water Syringe) 25 gm STK-MED ONCE IV ; Start 12/07/16 at 07:43; Stop 12/07/16 at 07:44; Status DC Dextrose (Dextrose 50%-Water Syringe) 12.5 gm PRN Q15MIN PRN IV SEE COMMENTS Last administered on 12/07/16 12:01; Start 12/07/16 at 07:45 Active Scripts Active Reported Fosrenol (Lanthanum Carbonate) 1,000 Mg Tab.chew 1,000 Mg PO TIDWMEALS Amlodipine Besylate 10 Mg Tablet 10 Mg PO DAILY Mirtazapine 15 Mg Tablet 5 Tab PO QHS Eucerin Intensive Repair (Emollient Combination No.72) 250 Ml Lotion 250 Ml TP Amlodipine Besylate 10 Mg Tablet 10 Mg PO DAILY Vitamin B Complex 1 Each Capsule 1 Each PO DAILY Renal Caps Softgel (Folic Acid/Vitamin B Comp W-C) 1 Mg Capsule 1 Mg PO DAILY Lorazepam 0.5 Mg Tablet 0.25 Mg PO PRN DAILY PRN Vitamin D2 (Ergocalciferol (Vitamin D2)) 50,000 Unit Capsule 50,000 Unit PO WEEKLY Vitamin D3 (Cholecalciferol (Vitamin D3)) 1,000 Unit Tablet 2,000 Unit PO QODAY Epogen (Epoetin Placido) 20,000 Unit/1 Ml Vial 14,300 Unit IJ THREE TIMES A WEEK Zoloft (Sertraline Hcl) 100 Mg Tablet 200 Mg PO DAILY Ferrous Gluconate 325 Mg Tablet 325 Mg PO DAILY Famotidine 20 Mg Tablet 20 Mg PO HS Sensipar (Cinacalcet Hcl) 30 Mg Tablet 90 Mg PO HS Calcium Carbonate 500 Mg Tablet 500 Mg PO TID Allergies Allergies: Coded Allergies: aspirin (Verified Allergy, Intermediate, 07/19/15) 07/01 PER RN, PT REPORTS BEING TESTED AT [facility], HE CAN TOLERATE UP TO 81MG X 2 DAILY WITHOUT DIFFICULTIES. barium sulfate (Verified Allergy, Intermediate, 07/19/15) calcium acetate (Verified Allergy, Intermediate, 07/19/15) sevelamer (Verified Allergy, Intermediate, 07/19/15) Uncoded Allergies: dark paty (Adverse Reaction, Unknown, 12/07/16) ROS Review of System - ve x 14 systems x for hiop pain Physical Exam Physical Exam General Appearance: Awake Alert Oriented x 3 In min Distress Eyes: VIsion Unchanged Conjunctiva Normal EN: No EN Drainage Mucous Memb. dryish Neck: no JVD no JVP Supple no Thyromegaly CVS: S1 S2 + Murmur No Gallop No Rub no Edema Resp: no Rales no Rhonchi no Acc. Muscle use GI: BAS +ve NO Bruit Non Tender Non Distended : no CVA tenderness; no Suprapubic Tenderness SKIN: no visible Rashes Breast Exam deferred Mu.Sk: Adequate ROM ch Muscle Atrophy Obdulio lower ext amputation Heme: Unable to palpate Obvious LAD no palp Splenomegaly NEURO: Good Strength and Tone Cranial Nerves II - XII grossly intact Psych: Ch Depressed no Active hallucination Vital Signs Vital Signs Date Time Temp Pulse Resp B/P Pulse Ox O2 Delivery O2 Flow Rate FiO2 12/07/16 11:10 97.0 69 20 132/52 100 Room Air 97.0 Assessment & Plan ESRD: Dialysis as below F 180 NR 4.0 Hrs 3 K 2.5 Ca 140 Na 40 HC03 Qb 350 + Qd 500+ Heparin 0 Units Uf to dry weight as tolerated May give 25-50 gms of 25% Albumin if needed to maintain Hemodynamic stability Treatment plan reviewed and discussed with liability claims manager Anemia: no Epogen ordered for hgb > 10; Transfuse with next HD as needed. HTN: Current BP meds reviewed. See orders for changes. Bone & Mineral: follow phos and alter binder regimen based on PO Inkate and trend of labs. Discussed Plan of Care and prognosis etc. at length with family. Labs Labs Laboratory Tests Test 12/06/16 13:40 12/07/16 08:23 12/07/16 08:30 12/07/16 08:47 White Blood Count 10.4x10^3/uL (4.0-11.0) Red Blood Count 4.20x10^6/uL (4.30-5.70) Hemoglobin 11.5g/dL (13.0-17.5) Hematocrit 35.8% (39.0-53.0) Mean Corpuscular Volume 85fL (79-100) Mean Corpuscular Hemoglobin 28pg (25-35) Mean Corpuscular Hemoglobin Concent 32g/dL (31-37) Red Cell Distribution Width 18.2% (11.5-14.5) Platelet Count 77x10^3/uL (140-400) Neutrophils (%) (Auto) 87% (31-73) Lymphocytes (%) (Auto) 6% (24-48) Monocytes (%) (Auto) 7% (0-9) Eosinophils (%) (Auto) 0% (0-3) Basophils (%) (Auto) 1% (0-3) Neutrophils # (Auto) 9.0x10^3uL (1.8-7.7) Lymphocytes # (Auto) 0.6x10^3/uL (1.0-4.8) Monocytes # (Auto) 0.7x10^3/uL (0.0-1.1) Eosinophils # (Auto) 0.0x10^3/uL (0.0-0.7) Basophils # (Auto) 0.1x10^3/uL (0.0-0.2) Segmented Neutrophils % 94% (35-66) Lymphocytes % 3% (24-48) Monocytes % 3% (0-10) Platelet Estimate Decreased (ADEQUATE) Polychromasia Slight Poikilocytosis Mod Anisocytosis Slight Target Cells Few Tear Drop Cells Occ Irena Cells Mod Schistocytes Few RBC Morphology Bizarre Forms Few Sodium Level 139mmol/L (136-145) Potassium Level 4.5mmol/L (3.5-5.1) Chloride Level 96mmol/L (98-107) Carbon Dioxide Level 21mmol/L (21-32) Anion Gap 22 (6-14) Blood Urea Nitrogen 75mg/dL (8-26) Creatinine 12.3mg/dL (0.7-1.3) Estimated GFR (Cockcroft-Gault) 4.8 Glucose Level 50mg/dL (70-99) 67mg/dL (70-99) Calcium Level 9.6mg/dL (8.5-10.1) Glucose (Fingerstick) 30mg/dL (70-99) 39mg/dL (70-99) Test 12/07/16 09:09 12/07/16 09:37 12/07/16 11:57 12/07/16 12:23 Glucose (Fingerstick) 64mg/dL (70-99) 136mg/dL (70-99) 55mg/dL (70-99) 89mg/dL (70-99) Laboratory Tests Test 12/07/16 08:23 12/07/16 08:30 12/07/16 08:47 12/07/16 09:09 Glucose (Fingerstick) 30mg/dL (70-99) 39mg/dL (70-99) 64mg/dL (70-99) Glucose Level 67mg/dL (70-99) Test 12/07/16 09:37 12/07/16 11:57 12/07/16 12:23 Glucose (Fingerstick) 136mg/dL (70-99) 55mg/dL (70-99) 89mg/dL (70-99) Images Images IMPRESSION: Recent or acute minimally distracted right inferior pubic ramus fracture SHAQ KESSLER MD Dec 07, 2016 14:02
[2016-12-07] MEDS ORDERED: MAGNESIUM SULFATE 2GM 50 ML IV PRN (14:15)
--- NOTE | 2016-12-07 15:33 | PDOC ---
Dialysis Progress Note Dialysis Note Dialysis Note Seen on Hemodialysis, tolerating treatment Well Vitals on Hemodialysis: 104/73 57 afeb General Appearance: Awake: Alert Oriented x 2-3 Neck: No JVD or JVP Chest: CTA Obdulio Heart: S1 S2 Abdomen - Soft NTND Extremities - No Edema ESRD: Dialysis as below F 180 NR 3.5 Hrs 3 K 2.5 Ca 140 Na 35 HC03 Qb 350 + Qd 500+ Heparin 0 Units Uf 0 Kgs or to dry weight as tolerated May give 25-50 gms of 25% Albumin if needed to maintain Hemodynamic stability Treatment plan reviewed and discussed with teachers aide [ ] Vitals Vital Signs Vital Signs Date Time Temp Pulse Resp B/P Pulse Ox O2 Delivery O2 Flow Rate FiO2 12/07/16 11:10 97.0 69 20 132/52 100 Room Air 97.0 Labs Last Labs Laboratory Tests Test 12/06/16 13:40 12/07/16 08:23 12/07/16 08:30 12/07/16 08:47 White Blood Count 10.4x10^3/uL (4.0-11.0) Red Blood Count 4.20x10^6/uL (4.30-5.70) Hemoglobin 11.5g/dL (13.0-17.5) Hematocrit 35.8% (39.0-53.0) Mean Corpuscular Volume 85fL (79-100) Mean Corpuscular Hemoglobin 28pg (25-35) Mean Corpuscular Hemoglobin Concent 32g/dL (31-37) Red Cell Distribution Width 18.2% (11.5-14.5) Platelet Count 77x10^3/uL (140-400) Neutrophils (%) (Auto) 87% (31-73) Lymphocytes (%) (Auto) 6% (24-48) Monocytes (%) (Auto) 7% (0-9) Eosinophils (%) (Auto) 0% (0-3) Basophils (%) (Auto) 1% (0-3) Neutrophils # (Auto) 9.0x10^3uL (1.8-7.7) Lymphocytes # (Auto) 0.6x10^3/uL (1.0-4.8) Monocytes # (Auto) 0.7x10^3/uL (0.0-1.1) Eosinophils # (Auto) 0.0x10^3/uL (0.0-0.7) Basophils # (Auto) 0.1x10^3/uL (0.0-0.2) Segmented Neutrophils % 94% (35-66) Lymphocytes % 3% (24-48) Monocytes % 3% (0-10) Platelet Estimate Decreased (ADEQUATE) Polychromasia Slight Poikilocytosis Mod Anisocytosis Slight Target Cells Few Tear Drop Cells Occ Irena Cells Mod Schistocytes Few RBC Morphology Bizarre Forms Few Sodium Level 139mmol/L (136-145) Potassium Level 4.5mmol/L (3.5-5.1) Chloride Level 96mmol/L (98-107) Carbon Dioxide Level 21mmol/L (21-32) Anion Gap 22 (6-14) Blood Urea Nitrogen 75mg/dL (8-26) Creatinine 12.3mg/dL (0.7-1.3) Estimated GFR (Cockcroft-Gault) 4.8 Glucose Level 50mg/dL (70-99) 67mg/dL (70-99) Calcium Level 9.6mg/dL (8.5-10.1) Glucose (Fingerstick) 30mg/dL (70-99) 39mg/dL (70-99) Test 12/07/16 09:09 12/07/16 09:37 12/07/16 11:57 12/07/16 12:23 Glucose (Fingerstick) 64mg/dL (70-99) 136mg/dL (70-99) 55mg/dL (70-99) 89mg/dL (70-99) Test 12/07/16 15:03 Glucose (Fingerstick) 74mg/dL (70-99) Laboratory Tests Test 12/07/16 08:23 12/07/16 08:30 12/07/16 08:47 12/07/16 09:09 Glucose (Fingerstick) 30mg/dL (70-99) 39mg/dL (70-99) 64mg/dL (70-99) Glucose Level 67mg/dL (70-99) Test 12/07/16 09:37 12/07/16 11:57 12/07/16 12:23 12/07/16 15:03 Glucose (Fingerstick) 136mg/dL (70-99) 55mg/dL (70-99) 89mg/dL (70-99) 74mg/dL (70-99) Assessment Assessment Problems Medical Problems: (1) End stage renal disease on dialysis Status: Acute (2) Inferior pubic ramus fracture Status: Acute Problems: Plan Plan of Care Problems Medical Problems: (1) End stage renal disease on dialysis Status: Acute (2) Inferior pubic ramus fracture Status: Acute SHAQ KESSLER MD Dec 07, 2016 15:32
[2016-12-07] MEDS ORDERED: IV NORMAL SALINE 1000ML BAG 1,000 ML IV PRN (17:13)
[2016-12-07] MEDS ORDERED: DIALYSIS PATIENT. MC PRN ×2 (17:15)
[2016-12-07 19:25] VITALS: BP 149/56
[2016-12-07] MEDS: MIRTAZAPINE 15 MG TABLET PO SCH (20:22)
[2016-12-07] MEDS: CINACALCET HCL 30 MG TABLET PO SCH (20:22)
[2016-12-07 23:25] VITALS: BP 135/56
--- NOTE | 2016-12-08 00:20 | CONS ---
DATE OF CONSULTATION: 12/07/2016 REFERRING PROVIDER: Zenaida Morfin MD. CONSULTING PROVIDER: Wayne Vazquez MD REASON FOR CONSULTATION: Right pelvis fracture. CHIEF COMPLAINT: Right-sided hip and pelvis pain anteriorly. HISTORY OF PRESENT ILLNESS: The patient is a very pleasant 76-year-old male, who was apparently had a fall last Saturday; suffered a fractured pubic rami and was discharged from the [facility] from the ER for this injury. The patient went home with his who has been unable to provide care for him and he has lot of pain, he tells me. He was admitted for anticipated placement. He tells me that his pain is worse with any attempted movement of his right lower extremity. He feels in his groin, it does not really radiate. 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 ALLERGIES: ASPIRIN, BARIUM, CALCIUM, AND SEVELAMER. PAST MEDICAL HISTORY: Coronary artery disease, hypertension, COPD, constipation, anemia, osteoarthritis, bilateral lower extremity amputations and chronic kidney disease on dialysis, and hyperparathyroidism. FAMILY HISTORY: Noncontributory. SOCIAL HISTORY: No alcohol or tobacco. He lives with his . PHYSICAL EXAMINATION: GENERAL: The patient is alert and oriented. He answers and asks questions appropriately. He is examined lying in hospital bed. HEENT: Head, normocephalic, atraumatic. Extraocular muscles are intact. CARDIOVASCULAR: Regular rate and rhythm. No edema in his upper extremities. LUNGS: Respirations are unlabored with symmetric chest rise. ABDOMEN: Soft, nondistended. EXTREMITIES: Examination of bilateral lower extremities reveals above-knee amputation on the right and below-knee amputation on the left. He has a small superficial skin wound. He has a distal stump on his right knee and anteriorly at his left stump. He has pain with any attempted movement of his right lower extremity. Tenderness laterally at his hip as well. IMAGING: Hip and pelvis x-ray and pelvis CT were interpreted by myself. The report was also reviewed. He has an inferior pubic rami fracture on the right side. IMPRESSION: Closed right sided pelvis fracture. PLAN: He can participate in therapy and mobilization as tolerated. His fracture is not require any operative intervention. From my standpoint, he can be transferred whenever bed is available and he is medically stable. Thank you for this consultation. Please feel free to contact me should there be any question on this gentleman. WAYNE VAZQUEZ MD DR: TALON/eb JOB#: [id number] / [id number] GEORGINA
--- NOTE | 2016-12-08 01:24 | CONS ---
DATE OF CONSULTATION: PRIMARY PHYSICIAN: Dr. Rdz. REASON FOR CONSULTATION: ESRD dialysis. HISTORY OF PRESENT ILLNESS: The patient is a pleasant 76-year-old gentleman. He is also a and gets most of his care at the [facility], except when he gets in real trouble. He apparently missed his dialysis on Saturday after he sustained a fall while trying to transfer from his chair to the car. He was taken to the [facility]. I do not know if he was truly diagnosed with a right hip fracture as detailed in the ER note, however, that does not appear to be the case based on radiology studies from here. He is not able to tell me much. He, thereafter, missed Saturday dialysis and was brought here yesterday. We are consulted for the same. Today is his regular scheduled dialysis day and we will proceed with the same. His was having a lot of problems taking care of him at home, especially associated with his pain and the fact that he cannot assist himself with transferring. He also has ongoing issues with hypoglycemia here currently. 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 . SHAQ KESSLER MD DR: CECELIA/eb JOB#: [id number] / [id number]
[2016-12-08 03:30] VITALS: BP 121/62
[2016-12-08] MEDS: OXYCODONE/APAP 5/325 TABLET. PO PRN (05:02)
[2016-12-08 07:00] VITALS: BP 105/43
[2016-12-08] MEDS: DEXTROSE 50% 25 GM / 50ML DISP.SYRIN. IV PRN (07:50)
[2016-12-08 08:09] LABS: ALBUMIN 2.6 g/dL (3.4-5.0); CALCIUM 8.6 mg/dL (8.5-10.1); CREATININE 9.2 mg/dL (0.7-1.3); GFR 6.8; PHOSPHORUS 5.1 mg/dL (2.6-4.7); POTASSIUM 3.5 mmol/L (3.5-5.1)
[2016-12-08] MEDS: LANTHANUM CARBONATE 500 MG TAB.CHEW PO SCH ×3 (09:00→18:00)
--- NOTE | 2016-12-08 09:41 | PDOC ---
PROGRESS NOTES Chief Complaint Chief Complaint right inferior pubic ramus fracture from a fall - non surgical ESRD o HD MWF CAD, COPD, AOCD, constipation - all chronic stable NON COMPLIANCE History of Present Illness History of Present Illness Out having HD Dw SW Saturday - SNU on saturday ENTRY: Refused to atke his home meds yesterday "just because" Scheduled HD MWF MIssed sat session bec of hip pain - inf pubic ramus fx PLAN: HD per renal SW - SNU - reason for admit Encouraged complaince Bandar RN and pt Vitals Vitals Vital Signs Date Time Temp Pulse Resp B/P Pulse Ox O2 Delivery O2 Flow Rate FiO2 12/08/16 08:00 Room Air 12/08/16 07:00 97.9 62 20 105/43 98 97.9 Physical Exam General: Alert, Oriented X3, Cooperative, No acute distress Lungs: Clear Extremities: No clubbing, No cyanosis, No edema, Normal pulses, No tenderness/ swelling Skin: No rashes, No breakdown, No significant lesion Labs LABS Laboratory Tests Test 12/07/16 11:57 12/07/16 12:23 12/07/16 15:03 12/07/16 17:02 Glucose (Fingerstick) 55mg/dL (70-99) 89mg/dL (70-99) 74mg/dL (70-99) 70mg/dL (70-99) Test 12/07/16 20:39 12/07/16 21:38 12/08/16 07:00 12/08/16 07:44 Glucose (Fingerstick) 35mg/dL (70-99) 97mg/dL (70-99) 64mg/dL (70-99) Hemoglobin 10.2g/dL (13.0-17.5) Sodium Level 141mmol/L (136-145) Potassium Level 3.5mmol/L (3.5-5.1) Chloride Level 101mmol/L (98-107) Carbon Dioxide Level 25mmol/L (21-32) Anion Gap 15 (6-14) Blood Urea Nitrogen 53mg/dL (8-26) Creatinine 9.2mg/dL (0.7-1.3) Estimated GFR (Cockcroft-Gault) 6.8 Glucose Level 74mg/dL (70-99) Calcium Level 8.6mg/dL (8.5-10.1) Phosphorus Level 5.1mg/dL (2.6-4.7) Magnesium Level 1.9mg/dL (1.8-2.4) Albumin 2.6g/dL (3.4-5.0) Test 12/08/16 08:02 Glucose (Fingerstick) 93mg/dL (70-99) Review of Systems Review of Systems denies 14 pt Assessment and Plan Assessmemt and Plan Problems Medical Problems: (1) End stage renal disease on dialysis Status: Acute (2) Inferior pubic ramus fracture Status: Acute Problems: Comment Review of Relevant I have reviewed the following items katherine (where applicable) has been applied. Labs Laboratory Tests Test 12/06/16 13:40 12/07/16 07:00 12/07/16 08:23 12/07/16 08:30 White Blood Count 10.4x10^3/uL (4.0-11.0) Red Blood Count 4.20x10^6/uL (4.30-5.70) Hemoglobin 11.5g/dL (13.0-17.5) Hematocrit 35.8% (39.0-53.0) Mean Corpuscular Volume 85fL (79-100) Mean Corpuscular Hemoglobin 28pg (25-35) Mean Corpuscular Hemoglobin Concent 32g/dL (31-37) Red Cell Distribution Width 18.2% (11.5-14.5) Platelet Count 77x10^3/uL (140-400) Neutrophils (%) (Auto) 87% (31-73) Lymphocytes (%) (Auto) 6% (24-48) Monocytes (%) (Auto) 7% (0-9) Eosinophils (%) (Auto) 0% (0-3) Basophils (%) (Auto) 1% (0-3) Neutrophils # (Auto) 9.0x10^3uL (1.8-7.7) Lymphocytes # (Auto) 0.6x10^3/uL (1.0-4.8) Monocytes # (Auto) 0.7x10^3/uL (0.0-1.1) Eosinophils # (Auto) 0.0x10^3/uL (0.0-0.7) Basophils # (Auto) 0.1x10^3/uL (0.0-0.2) Segmented Neutrophils % 94% (35-66) Lymphocytes % 3% (24-48) Monocytes % 3% (0-10) Platelet Estimate Decreased (ADEQUATE) Polychromasia Slight Poikilocytosis Mod Anisocytosis Slight Target Cells Few Tear Drop Cells Occ Irena Cells Mod Schistocytes Few RBC Morphology Bizarre Forms Few Sodium Level 139mmol/L (136-145) Potassium Level 4.5mmol/L (3.5-5.1) Chloride Level 96mmol/L (98-107) Carbon Dioxide Level 21mmol/L (21-32) Anion Gap 22 (6-14) Blood Urea Nitrogen 75mg/dL (8-26) Creatinine 12.3mg/dL (0.7-1.3) Estimated GFR (Cockcroft-Gault) 4.8 Glucose Level 50mg/dL (70-99) 67mg/dL (70-99) Calcium Level 9.6mg/dL (8.5-10.1) Nasal Screen MRSA (PCR) Negative (Negative) Glucose (Fingerstick) 30mg/dL (70-99) Test 12/07/16 08:47 12/07/16 09:09 12/07/16 09:37 12/07/16 11:57 Glucose (Fingerstick) 39mg/dL (70-99) 64mg/dL (70-99) 136mg/dL (70-99) 55mg/dL (70-99) Test 12/07/16 12:23 12/07/16 15:03 12/07/16 17:02 12/07/16 20:39 Glucose (Fingerstick) 89mg/dL (70-99) 74mg/dL (70-99) 70mg/dL (70-99) 35mg/dL (70-99) Test 12/07/16 21:38 12/08/16 07:00 12/08/16 07:44 12/08/16 08:02 Glucose (Fingerstick) 97mg/dL (70-99) 64mg/dL (70-99) 93mg/dL (70-99) Hemoglobin 10.2g/dL (13.0-17.5) Sodium Level 141mmol/L (136-145) Potassium Level 3.5mmol/L (3.5-5.1) Chloride Level 101mmol/L (98-107) Carbon Dioxide Level 25mmol/L (21-32) Anion Gap 15 (6-14) Blood Urea Nitrogen 53mg/dL (8-26) Creatinine 9.2mg/dL (0.7-1.3) Estimated GFR (Cockcroft-Gault) 6.8 Glucose Level 74mg/dL (70-99) Calcium Level 8.6mg/dL (8.5-10.1) Phosphorus Level 5.1mg/dL (2.6-4.7) Magnesium Level 1.9mg/dL (1.8-2.4) Albumin 2.6g/dL (3.4-5.0) Laboratory Tests Test 12/07/16 11:57 12/07/16 12:23 12/07/16 15:03 12/07/16 17:02 Glucose (Fingerstick) 55mg/dL (70-99) 89mg/dL (70-99) 74mg/dL (70-99) 70mg/dL (70-99) Test 12/07/16 20:39 12/07/16 21:38 12/08/16 07:00 12/08/16 07:44 Glucose (Fingerstick) 35mg/dL (70-99) 97mg/dL (70-99) 64mg/dL (70-99) Hemoglobin 10.2g/dL (13.0-17.5) Sodium Level 141mmol/L (136-145) Potassium Level 3.5mmol/L (3.5-5.1) Chloride Level 101mmol/L (98-107) Carbon Dioxide Level 25mmol/L (21-32) Anion Gap 15 (6-14) Blood Urea Nitrogen 53mg/dL (8-26) Creatinine 9.2mg/dL (0.7-1.3) Estimated GFR (Cockcroft-Gault) 6.8 Glucose Level 74mg/dL (70-99) Calcium Level 8.6mg/dL (8.5-10.1) Phosphorus Level 5.1mg/dL (2.6-4.7) Magnesium Level 1.9mg/dL (1.8-2.4) Albumin 2.6g/dL (3.4-5.0) Test 12/08/16 08:02 Glucose (Fingerstick) 93mg/dL (70-99) Medications Current Medications Ondansetron HCl (Zofran) 4 mg PRN Q8HRS PRN IV NAUSEA/VOMITING; Start 12/06/16 at 15:15; Stop 12/06/16 at 17:01; Status DC Fentanyl Citrate (Fentanyl 2ml Vial) 50 mcg PRN Q2HR PRN IV PAIN Last administered on 12/07/16 00:13; Start 12/06/16 at 15:15; Stop 12/07/16 at 15:14 ; Status DC Acetaminophen (Tylenol) 650 mg PRN Q4HRS PRN PO FEVER; Start 12/06/16 at 15:15 ; Stop 12/07/16 at 15:14; Status DC Amlodipine Besylate (Norvasc) 10 mg DAILY PO ; Start 12/07/16 at 09:00 Calcium Carbonate/ Glycine (Oscal) 500 mg TID PO ; Start 12/06/16 at 21:00 Vitamin D (Vitamin D3) 2,000 unit QODAY PO ; Start 12/08/16 at 09:00 Cinacalcet (Sensipar) 90 mg HS PO ; Start 12/06/16 at 21:00 Ergocalciferol (Vitamin D2) 50,000 unit WEEKLY PO ; Start 12/13/16 at 09:00 Famotidine (Pepcid) 20 mg Q48H PO ; Start 12/06/16 at 21:00 Lanthanum Carbonate (Fosrenol) 1,000 mg TIDWMEALS PO ; Start 12/06/16 at 17:00; Status Cancel Lorazepam (Ativan) 0.25 mg PRN DAILY PRN PO ANXIETY Last administered on 04:59; Start 12/06/16 at 17:00 Mirtazapine (Remeron) 15 mg QHS PO ; Start 12/06/16 at 21:00 Darbepoetin Placido (Aranesp) 100 mcg WEEKLYHS SQ ; Start 12/13/16 at 21:00; Stop 12/13/16 at 21:00; Status DC Ferrous Sulfate (Feosol) 325 mg DAILYWBKFT PO ; Start 12/07/16 at 08:00 Vitamin B Complex/ Vitamin C (Blank-Cliff) 1 tab DAILY PO ; Start 12/07/16 at 09: 00 Sertraline HCl (Zoloft) 200 mg DAILY PO ; Start 12/07/16 at 09:00 Vitamin B Complex (Kirill B) 1 tab DAILY PO ; Start 12/07/16 at 09:00 Ondansetron HCl (Zofran) 4 mg PRN Q6HRS PRN IV NAUSEA/VOMITING Last administered on 12/07/16 00:13; Start 12/06/16 at 17:00 Oxycodone/ Acetaminophen (Percocet 5/325) 1 tab PRN Q4HRS PRN PO PAIN Last administered on 12/08/16 05:02; Start 12/06/16 at 17:00 Lanthanum Carbonate (Fosrenol) 1,000 mg TIDAFTMEAL PO Last administered on 12/06 20:45; Start 12/06/16 at 18:00 Dextrose (Dextrose 50%-Water Syringe) 25 gm STK-MED ONCE IV ; Start 12/07/16 at 07:43; Stop 12/07/16 at 07:44; Status DC Dextrose 12.5 gm 12.5 gm PRN Q15MIN PRN IV SEE COMMENTS Last administered on 07:50; Start 12/07/16 at 07:45 Magnesium Sulfate/ Dextrose 50 ml @ 25 mls/hr PRN DAILY PRN IV for Mag < 1.7 on am labs; Start 12/07/16 at 14:15 Sodium Chloride (Iv Sodium Chloride 0.9% 1000ml Bag) 1,000 ml @ 1,000 mls/hr Q1H PRN IV hypotension; Start 12/07/16 at 17:13; Stop 12/07/16 at 23:12; Status DC Info (PHARMACY MONITORING -- do not chart) 1 each PRN DAILY PRN MC SEE COMMENTS ; Start 12/07/16 at 17:15; Status UNV Info (PHARMACY MONITORING -- do not chart) 1 each PRN DAILY PRN MC SEE COMMENTS ; Start 12/07/16 at 17:15 Active Scripts Active Reported Fosrenol (Lanthanum Carbonate) 1,000 Mg Tab.chew 1,000 Mg PO TIDWMEALS Amlodipine Besylate 10 Mg Tablet 10 Mg PO DAILY Mirtazapine 15 Mg Tablet 5 Tab PO QHS Eucerin Intensive Repair (Emollient Combination No.72) 250 Ml Lotion 250 Ml TP Amlodipine Besylate 10 Mg Tablet 10 Mg PO DAILY Vitamin B Complex 1 Each Capsule 1 Each PO DAILY Renal Caps Softgel (Folic Acid/Vitamin B Comp W-C) 1 Mg Capsule 1 Mg PO DAILY Lorazepam 0.5 Mg Tablet 0.25 Mg PO PRN DAILY PRN Vitamin D2 (Ergocalciferol (Vitamin D2)) 50,000 Unit Capsule 50,000 Unit PO WEEKLY Vitamin D3 (Cholecalciferol (Vitamin D3)) 1,000 Unit Tablet 2,000 Unit PO QODAY Epogen (Epoetin Placido) 20,000 Unit/1 Ml Vial 14,300 Unit IJ THREE TIMES A WEEK Zoloft (Sertraline Hcl) 100 Mg Tablet 200 Mg PO DAILY Ferrous Gluconate 325 Mg Tablet 325 Mg PO DAILY Famotidine 20 Mg Tablet 20 Mg PO HS Sensipar (Cinacalcet Hcl) 30 Mg Tablet 90 Mg PO HS Calcium Carbonate 500 Mg Tablet 500 Mg PO TID Vitals/I & O Vital Sign - Last 24 Hours 12/07/16 12/07/16 12/07/16 12/07/16 11:10 19:25 20:00 23:25 Temp 97.0 96.6 96.5 97.0 96.6 96.5 Pulse 69 78 78 Resp 20 24 20 B/P 132/52 149/56 135/56 Pulse Ox 100 100 99 O2 Delivery Room Air Room Air Room Air Room Air 12/08/16 12/08/16 12/08/16 12/08/16 03:30 05:02 06:02 07:00 Temp 96.8 97.9 96.8 97.9 Pulse 78 62 Resp 20 20 B/P 121/62 105/43 Pulse Ox 98 98 98 98 O2 Delivery Room Air Room Air Room Air Room Air 12/08/16 08:00 O2 Delivery Room Air Intake and Output 12/07/16 12/07/16 12/08/16 15:00 23:00 07:00 Intake Total 120 ml 220 ml 200 ml Output Total 2 ml Balance 120 ml 218 ml 200 ml BEN THEODORE MD Dec 08, 2016 09:41
[2016-12-08] MEDS ORDERED: IV NORMAL SALINE 1000ML BAG 1,000 ML IV PRN (10:55)
[2016-12-08] MEDS ORDERED: DIALYSIS PATIENT. MC PRN (11:00)
--- NOTE | 2016-12-08 12:18 | PDOC ---
Renal-Progress Notes Subjective Notes Notes SOME HIP PAIN History of Present Illness Hx of present illness NO CHANGE Vitals Vitals Vital Signs Date Time Temp Pulse Resp B/P Pulse Ox O2 Delivery O2 Flow Rate FiO2 12/08/16 08:00 Room Air 12/08/16 07:00 97.9 62 20 105/43 98 97.9 Weight Weight [ ] I.O. Intake and Output Intake and Output 12/08/16 06:59 Intake Total 540 ml Output Total 2 ml Balance 538 ml Intake Oral 540 ml Output Urine Total 2 ml # Bowel Movements 3 Labs Labs Laboratory Tests Test 12/07/16 12:23 12/07/16 15:03 12/07/16 17:02 12/07/16 20:39 Glucose (Fingerstick) 89mg/dL (70-99) 74mg/dL (70-99) 70mg/dL (70-99) 35mg/dL (70-99) Test 12/07/16 21:38 12/08/16 07:00 12/08/16 07:44 12/08/16 08:02 Glucose (Fingerstick) 97mg/dL (70-99) 64mg/dL (70-99) 93mg/dL (70-99) Hemoglobin 10.2g/dL (13.0-17.5) Sodium Level 141mmol/L (136-145) Potassium Level 3.5mmol/L (3.5-5.1) Chloride Level 101mmol/L (98-107) Carbon Dioxide Level 25mmol/L (21-32) Anion Gap 15 (6-14) Blood Urea Nitrogen 53mg/dL (8-26) Creatinine 9.2mg/dL (0.7-1.3) Estimated GFR (Cockcroft-Gault) 6.8 Glucose Level 74mg/dL (70-99) Calcium Level 8.6mg/dL (8.5-10.1) Phosphorus Level 5.1mg/dL (2.6-4.7) Magnesium Level 1.9mg/dL (1.8-2.4) Albumin 2.6g/dL (3.4-5.0) Test 12/08/16 11:00 Glucose (Fingerstick) 92mg/dL (70-99) Review of Systems Constitutional: yes: alert Ears/Nose/Throat: Yes: no symptom reported Eyes: Yes: no symptom reported Musculoskeletal: Yes: joint pain Skin: Yes no symptom reported Psychiatric/Neurological: Yes: no symptom reported Physical Exam General Appearance: no apparent distress Skin: warm Respiratory: bilateral CTA Heart: S1S2 Abdomen: soft, bowel sounds present Extremities: pulses present Neurology: alert Musculoskeletal: Osteoarthritis Assessment Assessment IMP ESRD ANEMIA RIGHT HIP FX PLAN HD TODAY UF TO DW WILL FOLLOW CARLA BARRETO MD Dec 08, 2016 12:18
[2016-12-08] MEDS: AMLODIPINE BESYLATE 10 MG TABLET. PO SCH (12:54)
[2016-12-08] MEDS: CALCIUM CARBONATE 500 MG TABLET PO SCH ×3 (12:54→21:47)
[2016-12-08] MEDS: CHOLECALCIFEROL (VITAMIN D3) 1,000 UNIT TABLET PO SCH (12:54)
[2016-12-08] MEDS: FOLIC/VIT B COMP W-C (RENAL) TABLET. PO SCH (12:54)
[2016-12-08] MEDS: FERROUS SULFATE 325 MG TABLET. PO SCH (12:54)
[2016-12-08] MEDS: VITAMIN B COMPLEX TABLET. PO SCH (12:55)
[2016-12-08] MEDS: SERTRALINE 50 MG TABLET. PO SCH (12:55)
[2016-12-08 14:58] VITALS: BP 97/39
[2016-12-08] MEDS ORDERED: HALOPERIDOL LACTATE 5 MG/ML VIAL. IVP PRN (18:15)
[2016-12-08] MEDS ORDERED: LORAZEPAM 0.5 MG TABLET. PO PRN (18:15)
[2016-12-08 19:20] VITALS: BP 125/54
[2016-12-08] MEDS: CINACALCET HCL 30 MG TABLET PO SCH (21:46)
[2016-12-08] MEDS: FAMOTIDINE 20 MG TABLET. PO SCH (21:47)
[2016-12-08] MEDS: MIRTAZAPINE 15 MG TABLET PO SCH (21:47)
[2016-12-09] MEDS: DEXTROSE 50% 25 GM / 50ML DISP.SYRIN. IV PRN ×3 (03:05→11:53)
[2016-12-09 03:56] VITALS: BP 131/53
[2016-12-09 07:00] VITALS: BP 117/48
[2016-12-09 07:11] LABS: ALBUMIN 2.8 g/dL (3.4-5.0); CALCIUM 8.8 mg/dL (8.5-10.1); CREATININE 7.9 mg/dL (0.7-1.3); GFR 8.1; PHOSPHORUS 4.5 mg/dL (2.6-4.7); POTASSIUM 3.6 mmol/L (3.5-5.1)
[2016-12-09] MEDS: FERROUS SULFATE 325 MG TABLET. PO SCH (08:00)
[2016-12-09] MEDS: AMLODIPINE BESYLATE 10 MG TABLET. PO SCH (09:00)
[2016-12-09] MEDS: FOLIC/VIT B COMP W-C (RENAL) TABLET. PO SCH (09:00)
[2016-12-09] MEDS: LANTHANUM CARBONATE 500 MG TAB.CHEW PO SCH ×3 (09:00→17:24)
[2016-12-09] MEDS: SERTRALINE 50 MG TABLET. PO SCH (09:00)
[2016-12-09] MEDS: CALCIUM CARBONATE 500 MG TABLET PO SCH ×3 (09:00→21:09)
[2016-12-09] MEDS: VITAMIN B COMPLEX TABLET. PO SCH (09:00)
--- NOTE | 2016-12-09 10:45 | PDOC ---
Renal-Progress Notes Subjective Notes Notes NONE History of Present Illness Hx of present illness NO CHANGE Vitals Vitals Vital Signs Date Time Temp Pulse Resp B/P Pulse Ox O2 Delivery O2 Flow Rate FiO2 12/09/16 07:41 Room Air 12/09/16 07:00 97.1 71 20 117/48 97 97.1 Weight Weight [ ] I.O. Intake and Output Intake and Output 12/09/16 07:00 Intake Total 590 ml Balance 590 ml Intake Oral 590 ml # Bowel Movements 1 Labs Labs Laboratory Tests Test 12/08/16 11:00 12/08/16 12:28 12/08/16 14:57 12/08/16 16:44 Glucose (Fingerstick) 92mg/dL (70-99) 79mg/dL (70-99) 82mg/dL (70-99) 92mg/dL (70-99) Test 12/08/16 21:46 12/09/16 02:58 12/09/16 03:50 12/09/16 06:48 Glucose (Fingerstick) 97mg/dL (70-99) 62mg/dL (70-99) 91mg/dL (70-99) Sodium Level 139mmol/L (136-145) Potassium Level 3.6mmol/L (3.5-5.1) Chloride Level 100mmol/L (98-107) Carbon Dioxide Level 27mmol/L (21-32) Anion Gap 12 (6-14) Blood Urea Nitrogen 40mg/dL (8-26) Creatinine 7.9mg/dL (0.7-1.3) Estimated GFR (Cockcroft-Gault) 8.1 Glucose Level 86mg/dL (70-99) Calcium Level 8.8mg/dL (8.5-10.1) Phosphorus Level 4.5mg/dL (2.6-4.7) Magnesium Level 1.7mg/dL (1.8-2.4) Albumin 2.8g/dL (3.4-5.0) Test 12/09/16 08:15 Glucose (Fingerstick) 85mg/dL (70-99) Review of Systems Constitutional: yes: alert Ears/Nose/Throat: Yes: no symptom reported Eyes: Yes: no symptom reported Musculoskeletal: Yes: joint pain Skin: Yes no symptom reported Psychiatric/Neurological: Yes: no symptom reported Physical Exam General Appearance: no apparent distress Skin: warm Respiratory: bilateral CTA Heart: S1S2 Abdomen: soft, bowel sounds present Extremities: pulses present Neurology: alert Musculoskeletal: Osteoarthritis Assessment Assessment IMP ESRD ANEMIA RIGHT HIP FX PLAN HD TOMORROW WILL FOLLOW LABS IN AM CARLA BARRETO MD Dec 09, 2016 10:45
[2016-12-09 11:00] VITALS: BP 115/54
--- NOTE | 2016-12-09 12:48 | PDOC ---
PROGRESS NOTES Chief Complaint Chief Complaint right inferior pubic ramus fracture from a fall - non surgical ESRD on HD MWF CAD, COPD, AOCD, constipation - all chronic stable NON COMPLIANCE gen weakness, needs SNU (REASON for admission) History of Present Illness History of Present Illness NO issues over the weekend Asleep did not awaken SOme non compliance - wont take meds certain days ESRD on HD= Pubic rami fxs are non surgical Needs SNU hence this admission PLan: saturday - SNU ut saturday Saturday Ny saturday toSNU Vitals Vitals Vital Signs Date Time Temp Pulse Resp B/P Pulse Ox O2 Delivery O2 Flow Rate FiO2 12/09/16 11:00 98.6 60 18 115/54 98 Room Air 98.6 Physical Exam General: Alert, Oriented X3, Cooperative, No acute distress Lungs: Clear Extremities: No clubbing, No cyanosis, No edema, Normal pulses, No tenderness/ swelling Skin: No rashes, No breakdown, No significant lesion Labs LABS Laboratory Tests Test 12/08/16 14:57 12/08/16 16:44 12/08/16 21:46 12/09/16 02:58 Glucose (Fingerstick) 82mg/dL (70-99) 92mg/dL (70-99) 97mg/dL (70-99) 62mg/dL (70-99) Test 12/09/16 03:50 12/09/16 06:48 12/09/16 08:15 12/09/16 11:40 Glucose (Fingerstick) 91mg/dL (70-99) 85mg/dL (70-99) 66mg/dL (70-99) Sodium Level 139mmol/L (136-145) Potassium Level 3.6mmol/L (3.5-5.1) Chloride Level 100mmol/L (98-107) Carbon Dioxide Level 27mmol/L (21-32) Anion Gap 12 (6-14) Blood Urea Nitrogen 40mg/dL (8-26) Creatinine 7.9mg/dL (0.7-1.3) Estimated GFR (Cockcroft-Gault) 8.1 Glucose Level 86mg/dL (70-99) Calcium Level 8.8mg/dL (8.5-10.1) Phosphorus Level 4.5mg/dL (2.6-4.7) Magnesium Level 1.7mg/dL (1.8-2.4) Albumin 2.8g/dL (3.4-5.0) Test 12/09/16 12:05 Glucose (Fingerstick) 121mg/dL (70-99) Review of Systems Review of Systems dementia Assessment and Plan Assessmemt and Plan Problems Medical Problems: (1) End stage renal disease on dialysis Status: Acute (2) Inferior pubic ramus fracture Status: Acute Problems: Comment Review of Relevant I have reviewed the following items katherine (where applicable) has been applied. Labs Laboratory Tests Test 12/07/16 15:03 12/07/16 17:02 12/07/16 20:39 12/07/16 21:38 Glucose (Fingerstick) 74mg/dL (70-99) 70mg/dL (70-99) 35mg/dL (70-99) 97mg/dL (70-99) Test 12/08/16 07:00 12/08/16 07:44 12/08/16 08:02 12/08/16 11:00 Hemoglobin 10.2g/dL (13.0-17.5) Sodium Level 141mmol/L (136-145) Potassium Level 3.5mmol/L (3.5-5.1) Chloride Level 101mmol/L (98-107) Carbon Dioxide Level 25mmol/L (21-32) Anion Gap 15 (6-14) Blood Urea Nitrogen 53mg/dL (8-26) Creatinine 9.2mg/dL (0.7-1.3) Estimated GFR (Cockcroft-Gault) 6.8 Glucose Level 74mg/dL (70-99) Calcium Level 8.6mg/dL (8.5-10.1) Phosphorus Level 5.1mg/dL (2.6-4.7) Magnesium Level 1.9mg/dL (1.8-2.4) Albumin 2.6g/dL (3.4-5.0) Glucose (Fingerstick) 64mg/dL (70-99) 93mg/dL (70-99) 92mg/dL (70-99) Test 12/08/16 12:28 12/08/16 14:57 12/08/16 16:44 12/08/16 21:46 Glucose (Fingerstick) 79mg/dL (70-99) 82mg/dL (70-99) 92mg/dL (70-99) 97mg/dL (70-99) Test 12/09/16 02:58 12/09/16 03:50 12/09/16 06:48 12/09/16 08:15 Glucose (Fingerstick) 62mg/dL (70-99) 91mg/dL (70-99) 85mg/dL (70-99) Sodium Level 139mmol/L (136-145) Potassium Level 3.6mmol/L (3.5-5.1) Chloride Level 100mmol/L (98-107) Carbon Dioxide Level 27mmol/L (21-32) Anion Gap 12 (6-14) Blood Urea Nitrogen 40mg/dL (8-26) Creatinine 7.9mg/dL (0.7-1.3) Estimated GFR (Cockcroft-Gault) 8.1 Glucose Level 86mg/dL (70-99) Calcium Level 8.8mg/dL (8.5-10.1) Phosphorus Level 4.5mg/dL (2.6-4.7) Magnesium Level 1.7mg/dL (1.8-2.4) Albumin 2.8g/dL (3.4-5.0) Test 12/09/16 11:40 12/09/16 12:05 Glucose (Fingerstick) 66mg/dL (70-99) 121mg/dL (70-99) Laboratory Tests Test 12/08/16 14:57 12/08/16 16:44 12/08/16 21:46 12/09/16 02:58 Glucose (Fingerstick) 82mg/dL (70-99) 92mg/dL (70-99) 97mg/dL (70-99) 62mg/dL (70-99) Test 12/09/16 03:50 12/09/16 06:48 12/09/16 08:15 12/09/16 11:40 Glucose (Fingerstick) 91mg/dL (70-99) 85mg/dL (70-99) 66mg/dL (70-99) Sodium Level 139mmol/L (136-145) Potassium Level 3.6mmol/L (3.5-5.1) Chloride Level 100mmol/L (98-107) Carbon Dioxide Level 27mmol/L (21-32) Anion Gap 12 (6-14) Blood Urea Nitrogen 40mg/dL (8-26) Creatinine 7.9mg/dL (0.7-1.3) Estimated GFR (Cockcroft-Gault) 8.1 Glucose Level 86mg/dL (70-99) Calcium Level 8.8mg/dL (8.5-10.1) Phosphorus Level 4.5mg/dL (2.6-4.7) Magnesium Level 1.7mg/dL (1.8-2.4) Albumin 2.8g/dL (3.4-5.0) Test 12/09/16 12:05 Glucose (Fingerstick) 121mg/dL (70-99) Medications Current Medications Ondansetron HCl (Zofran) 4 mg PRN Q8HRS PRN IV NAUSEA/VOMITING; Start 12/06/16 at 15:15; Stop 12/06/16 at 17:01; Status DC Fentanyl Citrate (Fentanyl 2ml Vial) 50 mcg PRN Q2HR PRN IV PAIN Last administered on 12/07/16 00:13; Start 12/06/16 at 15:15; Stop 12/07/16 at 15:14 ; Status DC Acetaminophen (Tylenol) 650 mg PRN Q4HRS PRN PO FEVER; Start 12/06/16 at 15:15 ; Stop 12/07/16 at 15:14; Status DC Amlodipine Besylate (Norvasc) 10 mg DAILY PO Last administered on 12/08/16 12: 54; Start 12/07/16 at 09:00 Calcium Carbonate/ Glycine (Oscal) 500 mg TID PO Last administered on 21:47; Start 12/06/16 at 21:00 Vitamin D (Vitamin D3) 2,000 unit QODAY PO Last administered on 12/08/16 12:54 ; Start 12/08/16 at 09:00 Cinacalcet (Sensipar) 90 mg HS PO Last administered on 12/08/16 21:46; Start 12/06/16 at 21:00 Ergocalciferol (Vitamin D2) 50,000 unit WEEKLY PO ; Start 12/13/16 at 09:00 Famotidine (Pepcid) 20 mg Q48H PO Last administered on 12/08/16 21:47; Start 12/06/16 at 21:00 Lanthanum Carbonate (Fosrenol) 1,000 mg TIDWMEALS PO ; Start 12/06/16 at 17:00; Status Cancel Lorazepam (Ativan) 0.25 mg PRN DAILY PRN PO ANXIETY Last administered on 04:59; Start 12/06/16 at 17:00; Stop 12/08/16 at 19:33; Status DC Mirtazapine (Remeron) 15 mg QHS PO Last administered on 12/08/16 21:47; Start 12/06/16 at 21:00 Darbepoetin Placido (Aranesp) 100 mcg WEEKLYHS SQ ; Start 12/13/16 at 21:00; Stop 12/13/16 at 21:00; Status DC Ferrous Sulfate (Feosol) 325 mg DAILYWBKFT PO Last administered on 12/08/16 12 :54; Start 12/07/16 at 08:00 Vitamin B Complex/ Vitamin C (Blank-Cliff) 1 tab DAILY PO Last administered on 12:54; Start 12/07/16 at 09:00 Sertraline HCl (Zoloft) 200 mg DAILY PO Last administered on 12/08/16 12:55; Start 12/07/16 at 09:00 Vitamin B Complex (Kirill B) 1 tab DAILY PO Last administered on 12/08/16 12:55 ; Start 12/07/16 at 09:00 Ondansetron HCl (Zofran) 4 mg PRN Q6HRS PRN IV NAUSEA/VOMITING Last administered on 12/07/16 00:13; Start 12/06/16 at 17:00 Oxycodone/ Acetaminophen (Percocet 5/325) 1 tab PRN Q4HRS PRN PO PAIN Last administered on 12/08/16 05:02; Start 12/06/16 at 17:00 Lanthanum Carbonate (Fosrenol) 1,000 mg TIDAFTMEAL PO Last administered on 12/08 12:55; Start 12/06/16 at 18:00 Dextrose (Dextrose 50%-Water Syringe) 25 gm STK-MED ONCE IV ; Start 12/07/16 at 07:43; Stop 12/07/16 at 07:44; Status DC Dextrose 12.5 gm 12.5 gm PRN Q15MIN PRN IV SEE COMMENTS Last administered on t 11:53; Start 12/07/16 at 07:45 Magnesium Sulfate/ Dextrose 50 ml @ 25 mls/hr PRN DAILY PRN IV for Mag < 1.7 on am labs; Start 12/07/16 at 14:15 Sodium Chloride (Iv Sodium Chloride 0.9% 1000ml Bag) 1,000 ml @ 1,000 mls/hr Q1H PRN IV hypotension; Start 12/07/16 at 17:13; Stop 12/07/16 at 23:12; Status DC Info (PHARMACY MONITORING -- do not chart) 1 each PRN DAILY PRN MC SEE COMMENTS ; Start 12/07/16 at 17:15; Status UNV Info 1 each 1 each PRN DAILY PRN MC SEE COMMENTS; Start 12/07/16 at 17:15 Sodium Chloride (Iv Sodium Chloride 0.9% 1000ml Bag) 1,000 ml @ 1,000 mls/hr Q1H PRN IV hypotension; Start 12/08/16 at 10:55; Stop 12/08/16 at 16:54; Status DC Info (PHARMACY MONITORING -- do not chart) 1 each PRN DAILY PRN MC SEE COMMENTS ; Start 12/08/16 at 11:00; Status UNV Haloperidol Lactate (Haldol) 2 mg PRN Q4HRS PRN IVP AGITATION; Start 12/08/16 at 18:15 Lorazepam (Ativan) 0.5 mg PRN Q6HRS PRN PO ANXIETY / AGITATION Last administered on 12/08/16 21:47; Start 12/08/16 at 18:15 Active Scripts Active Reported Fosrenol (Lanthanum Carbonate) 1,000 Mg Tab.chew 1,000 Mg PO TIDWMEALS Amlodipine Besylate 10 Mg Tablet 10 Mg PO DAILY Mirtazapine 15 Mg Tablet 5 Tab PO QHS Eucerin Intensive Repair (Emollient Combination No.72) 250 Ml Lotion 250 Ml TP Amlodipine Besylate 10 Mg Tablet 10 Mg PO DAILY Vitamin B Complex 1 Each Capsule 1 Each PO DAILY Renal Caps Softgel (Folic Acid/Vitamin B Comp W-C) 1 Mg Capsule 1 Mg PO DAILY Lorazepam 0.5 Mg Tablet 0.25 Mg PO PRN DAILY PRN Vitamin D2 (Ergocalciferol (Vitamin D2)) 50,000 Unit Capsule 50,000 Unit PO WEEKLY Vitamin D3 (Cholecalciferol (Vitamin D3)) 1,000 Unit Tablet 2,000 Unit PO QODAY Epogen (Epoetin [place]) 20,000 Unit/1 Ml Vial 14,300 Unit IJ THREE TIMES A WEEK Zoloft (Sertraline Hcl) 100 Mg Tablet 200 Mg PO DAILY Ferrous Gluconate 325 Mg Tablet 325 Mg PO DAILY Famotidine 20 Mg Tablet 20 Mg PO HS Sensipar (Cinacalcet Hcl) 30 Mg Tablet 90 Mg PO HS Calcium Carbonate 500 Mg Tablet 500 Mg PO TID Vitals/I & O Vital Sign - Last 24 Hours 12/08/16 12/08/16 12/08/16 12/08/16 12:54 14:58 19:20 20:00 Temp 97.9 97.9 97.9 97.9 Pulse 62 74 81 Resp 12 16 B/P 140/70 97/39 125/54 Pulse Ox 98 96 O2 Delivery Room Air Room Air Room Air 12/08/16 12/09/16 12/09/16 12/09/16 23:25 03:56 07:00 07:41 Temp 97.9 97.1 97.9 97.1 Pulse 84 71 Resp 16 20 B/P 131/53 117/48 Pulse Ox 90 97 O2 Delivery Room Air Room Air Room Air Room Air 12/09/16 11:00 Temp 98.6 98.6 Pulse 60 Resp 18 B/P 115/54 Pulse Ox 98 O2 Delivery Room Air Intake and Output 12/08/16 12/08/16 12/09/16 15:00 23:00 07:00 Intake Total 250 ml 340 ml Balance 250 ml 340 ml BEN THEODORE MD Dec 09, 2016 12:48
[2016-12-09 15:00] VITALS: BP 99/49
--- NOTE | 2016-12-09 15:09 | PDOC ---
ORTHO PROGRESS NOTES Subjective R hip pain with any motion. No acute events Vitals Vital Signs Date Time Temp Pulse Resp B/P Pulse Ox O2 Delivery O2 Flow Rate FiO2 12/09/16 15:00 99.2 71 20 99/49 94 Room Air 99.2 Labs Laboratory Tests Test 12/07/16 17:02 12/07/16 20:39 12/07/16 21:38 12/08/16 07:00 Glucose (Fingerstick) 70mg/dL (70-99) 35mg/dL (70-99) 97mg/dL (70-99) Hemoglobin 10.2g/dL (13.0-17.5) Sodium Level 141mmol/L (136-145) Potassium Level 3.5mmol/L (3.5-5.1) Chloride Level 101mmol/L (98-107) Carbon Dioxide Level 25mmol/L (21-32) Anion Gap 15 (6-14) Blood Urea Nitrogen 53mg/dL (8-26) Creatinine 9.2mg/dL (0.7-1.3) Estimated GFR (Cockcroft-Gault) 6.8 Glucose Level 74mg/dL (70-99) Calcium Level 8.6mg/dL (8.5-10.1) Phosphorus Level 5.1mg/dL (2.6-4.7) Magnesium Level 1.9mg/dL (1.8-2.4) Albumin 2.6g/dL (3.4-5.0) Test 12/08/16 07:44 12/08/16 08:02 12/08/16 11:00 12/08/16 12:28 Glucose (Fingerstick) 64mg/dL (70-99) 93mg/dL (70-99) 92mg/dL (70-99) 79mg/dL (70-99) Test 12/08/16 14:57 12/08/16 16:44 12/08/16 21:46 12/09/16 02:58 Glucose (Fingerstick) 82mg/dL (70-99) 92mg/dL (70-99) 97mg/dL (70-99) 62mg/dL (70-99) Test 12/09/16 03:50 12/09/16 06:48 12/09/16 08:15 12/09/16 11:40 Glucose (Fingerstick) 91mg/dL (70-99) 85mg/dL (70-99) 66mg/dL (70-99) Sodium Level 139mmol/L (136-145) Potassium Level 3.6mmol/L (3.5-5.1) Chloride Level 100mmol/L (98-107) Carbon Dioxide Level 27mmol/L (21-32) Anion Gap 12 (6-14) Blood Urea Nitrogen 40mg/dL (8-26) Creatinine 7.9mg/dL (0.7-1.3) Estimated GFR (Cockcroft-Gault) 8.1 Glucose Level 86mg/dL (70-99) Calcium Level 8.8mg/dL (8.5-10.1) Phosphorus Level 4.5mg/dL (2.6-4.7) Magnesium Level 1.7mg/dL (1.8-2.4) Albumin 2.8g/dL (3.4-5.0) Test 12/09/16 12:05 Glucose (Fingerstick) 121mg/dL (70-99) Laboratory Tests Test 12/08/16 16:44 12/08/16 21:46 12/09/16 02:58 12/09/16 03:50 Glucose (Fingerstick) 92mg/dL (70-99) 97mg/dL (70-99) 62mg/dL (70-99) 91mg/dL (70-99) Test 12/09/16 06:48 12/09/16 08:15 12/09/16 11:40 12/09/16 12:05 Sodium Level 139mmol/L (136-145) Potassium Level 3.6mmol/L (3.5-5.1) Chloride Level 100mmol/L (98-107) Carbon Dioxide Level 27mmol/L (21-32) Anion Gap 12 (6-14) Blood Urea Nitrogen 40mg/dL (8-26) Creatinine 7.9mg/dL (0.7-1.3) Estimated GFR (Cockcroft-Gault) 8.1 Glucose Level 86mg/dL (70-99) Calcium Level 8.8mg/dL (8.5-10.1) Phosphorus Level 4.5mg/dL (2.6-4.7) Magnesium Level 1.7mg/dL (1.8-2.4) Albumin 2.8g/dL (3.4-5.0) Glucose (Fingerstick) 85mg/dL (70-99) 66mg/dL (70-99) 121mg/dL (70-99) Notes Resting RLE: exam unchanged no new wounds Assessment and Plan placement activity/transfers as SHUN Calderon II, MD Dec 09, 2016 15:09
[2016-12-09 19:38] VITALS: BP 134/58
[2016-12-09] MEDS: MIRTAZAPINE 15 MG TABLET PO SCH (21:09)
[2016-12-09] MEDS: CINACALCET HCL 30 MG TABLET PO SCH (21:09)
[2016-12-09 23:44] VITALS: BP 122/53
[2016-12-10 03:15] VITALS: BP 126/55
[2016-12-10 06:12] LABS: ALBUMIN 2.7 g/dL (3.4-5.0); CREATININE 9.2 mg/dL (0.7-1.3); GFR 6.8; POTASSIUM 3.9 mmol/L (3.5-5.1)
[2016-12-10 06:58] LABS: CALCIUM 8.3 mg/dL (8.5-10.1)
[2016-12-10 07:00] VITALS: BP 115/47
[2016-12-10] MEDS: CALCIUM CARBONATE 500 MG TABLET PO SCH ×3 (09:00→20:34)
[2016-12-10] MEDS: LANTHANUM CARBONATE 500 MG TAB.CHEW PO SCH ×3 (09:00→18:00)
[2016-12-10] MEDS ORDERED: IV NORMAL SALINE 1000ML BAG 1,000 ML IV PRN (09:26)
[2016-12-10] MEDS ORDERED: DIALYSIS PATIENT. MC PRN ×2 (09:30)
--- NOTE | 2016-12-10 10:45 | PDOC ---
KENIAGABBIEWEN J LONG TERM CARE PHARMACIST 12/10/16 1045: ORTHO PROGRESS NOTES Subjective Patient denies any pain. Currently not feeling well, on dialysis. Vitals Vital Signs Date Time Temp Pulse Resp B/P Pulse Ox O2 Delivery O2 Flow Rate FiO2 12/10/16 08:00 Room Air 12/10/16 07:00 97.7 67 20 115/47 99 97.7 Labs Laboratory Tests Test 12/08/16 11:00 12/08/16 12:28 12/08/16 14:57 12/08/16 16:44 Glucose (Fingerstick) 92mg/dL (70-99) 79mg/dL (70-99) 82mg/dL (70-99) 92mg/dL (70-99) Test 12/08/16 21:46 12/09/16 02:58 12/09/16 03:50 12/09/16 06:48 Glucose (Fingerstick) 97mg/dL (70-99) 62mg/dL (70-99) 91mg/dL (70-99) Sodium Level 139mmol/L (136-145) Potassium Level 3.6mmol/L (3.5-5.1) Chloride Level 100mmol/L (98-107) Carbon Dioxide Level 27mmol/L (21-32) Anion Gap 12 (6-14) Blood Urea Nitrogen 40mg/dL (8-26) Creatinine 7.9mg/dL (0.7-1.3) Estimated GFR (Cockcroft-Gault) 8.1 Glucose Level 86mg/dL (70-99) Calcium Level 8.8mg/dL (8.5-10.1) Phosphorus Level 4.5mg/dL (2.6-4.7) Magnesium Level 1.7mg/dL (1.8-2.4) Albumin 2.8g/dL (3.4-5.0) Test 12/09/16 08:15 12/09/16 11:40 12/09/16 12:05 12/09/16 16:34 Glucose (Fingerstick) 85mg/dL (70-99) 66mg/dL (70-99) 121mg/dL (70-99) 74mg/dL (70-99) Test 12/09/16 20:42 12/09/16 22:10 12/10/16 02:13 12/10/16 05:25 Glucose (Fingerstick) 71mg/dL (70-99) 72mg/dL (70-99) 97mg/dL (70-99) Sodium Level 139mmol/L (136-145) Potassium Level 3.9mmol/L (3.5-5.1) Chloride Level 99mmol/L (98-107) Carbon Dioxide Level 27mmol/L (21-32) Anion Gap 13 (6-14) Blood Urea Nitrogen 47mg/dL (8-26) Creatinine 9.2mg/dL (0.7-1.3) Estimated GFR (Cockcroft-Gault) 6.8 Glucose Level 72mg/dL (70-99) Calcium Level 8.3mg/dL (8.5-10.1) Phosphorus Level 5.0mg/dL (2.6-4.7) Magnesium Level 1.7mg/dL (1.8-2.4) Albumin 2.7g/dL (3.4-5.0) Test 12/10/16 07:14 Glucose (Fingerstick) 68mg/dL (70-99) Laboratory Tests Test 12/09/16 11:40 12/09/16 12:05 12/09/16 16:34 12/09/16 20:42 Glucose (Fingerstick) 66mg/dL (70-99) 121mg/dL (70-99) 74mg/dL (70-99) 71mg/dL (70-99) Test 12/09/16 22:10 12/10/16 02:13 12/10/16 05:25 12/10/16 07:14 Glucose (Fingerstick) 72mg/dL (70-99) 97mg/dL (70-99) 68mg/dL (70-99) Sodium Level 139mmol/L (136-145) Potassium Level 3.9mmol/L (3.5-5.1) Chloride Level 99mmol/L (98-107) Carbon Dioxide Level 27mmol/L (21-32) Anion Gap 13 (6-14) Blood Urea Nitrogen 47mg/dL (8-26) Creatinine 9.2mg/dL (0.7-1.3) Estimated GFR (Cockcroft-Gault) 6.8 Glucose Level 72mg/dL (70-99) Calcium Level 8.3mg/dL (8.5-10.1) Phosphorus Level 5.0mg/dL (2.6-4.7) Magnesium Level 1.7mg/dL (1.8-2.4) Albumin 2.7g/dL (3.4-5.0) Notes Awake and answer questions appropriately. somewhat lethargic,currently getting dialysis treatment. Breathing nonlabored. Mildly tender over pubic rami. Bilateral LE amputations. Problems: (1) Inferior pubic ramus fracture Assessment and Plan AAT ok conservative treatment, no surgical treatment indicated. Educated patient that this will take time to heal but ok to be active as tolerated. Follow up with orthopedics in two weeks SHUN VAZQUEZ II, MD 12/10/16 1248: Problem Qualifiers (1) Inferior pubic ramus fracture: Encounter type: initial encounter Fracture type: closed Laterality: right Qualified Code: S32.591A - Other specified fracture of right pubis, initial encounter for closed fracture WEN LINCOLN APRN Dec 10, 2016 10:45 SHUN VAZQUEZ II, MD Dec 10, 2016 12:48
[2016-12-10] MEDS: VITAMIN B COMPLEX TABLET. PO SCH (14:33)
[2016-12-10] MEDS: FERROUS SULFATE 325 MG TABLET. PO SCH (14:34)
[2016-12-10] MEDS: FOLIC/VIT B COMP W-C (RENAL) TABLET. PO SCH (14:34)
[2016-12-10] MEDS: SERTRALINE 50 MG TABLET. PO SCH (14:35)
[2016-12-10] MEDS: CHOLECALCIFEROL (VITAMIN D3) 1,000 UNIT TABLET PO SCH (14:35)
[2016-12-10] MEDS: AMLODIPINE BESYLATE 10 MG TABLET. PO SCH (14:36)
[2016-12-10 15:00] VITALS: BP 147/57
[2016-12-10 19:54] VITALS: BP 136/55
[2016-12-10] MEDS: MIRTAZAPINE 15 MG TABLET PO SCH (20:34)
[2016-12-10] MEDS: CINACALCET HCL 30 MG TABLET PO SCH (20:34)
[2016-12-10] MEDS: FAMOTIDINE 20 MG TABLET. PO SCH (20:34)
--- NOTE | 2016-12-10 21:18 | PDOC ---
PROGRESS NOTES Chief Complaint Chief Complaint right inferior pubic ramus fracture from a fall: recommend non surgical management, PT/OT, SNU vs ARF, labs reviewed. ESRD on HD MWF: Nephrology following. CAD, COPD, AOCD, constipation - all chronic stable NON COMPLIANCE History of Present Illness History of Present Illness seen in hd no complaints no fever pain controlled Vitals Vitals Vital Signs Date Time Temp Pulse Resp B/P Pulse Ox O2 Delivery O2 Flow Rate FiO2 12/10/16 20:00 Room Air 12/10/16 19:54 99.3 76 20 136/55 99 99.3 Physical Exam General: Alert, Oriented X3, Cooperative, No acute distress Heart: Normal S1, Normal S2 Lungs: Clear Extremities: No clubbing, No cyanosis, No edema, Normal pulses, No tenderness/ swelling Skin: No rashes, No significant lesion Labs LABS Laboratory Tests Test 12/09/16 22:10 12/10/16 02:13 12/10/16 05:25 12/10/16 07:14 Glucose (Fingerstick) 72mg/dL (70-99) 97mg/dL (70-99) 68mg/dL (70-99) Sodium Level 139mmol/L (136-145) Potassium Level 3.9mmol/L (3.5-5.1) Chloride Level 99mmol/L (98-107) Carbon Dioxide Level 27mmol/L (21-32) Anion Gap 13 (6-14) Blood Urea Nitrogen 47mg/dL (8-26) Creatinine 9.2mg/dL (0.7-1.3) Estimated GFR (Cockcroft-Gault) 6.8 Glucose Level 72mg/dL (70-99) Calcium Level 8.3mg/dL (8.5-10.1) Phosphorus Level 5.0mg/dL (2.6-4.7) Magnesium Level 1.7mg/dL (1.8-2.4) Albumin 2.7g/dL (3.4-5.0) Test 12/10/16 16:49 12/10/16 20:56 Glucose (Fingerstick) 92mg/dL (70-99) 75mg/dL (70-99) Assessment and Plan Assessmemt and Plan Problems Medical Problems: (1) End stage renal disease on dialysis Status: Acute (2) Inferior pubic ramus fracture Status: Acute Problems: Comment Review of Relevant I have reviewed the following items katherine (where applicable) has been applied. Labs Laboratory Tests Test 12/08/16 21:46 12/09/16 02:58 12/09/16 03:50 12/09/16 06:48 Glucose (Fingerstick) 97mg/dL (70-99) 62mg/dL (70-99) 91mg/dL (70-99) Sodium Level 139mmol/L (136-145) Potassium Level 3.6mmol/L (3.5-5.1) Chloride Level 100mmol/L (98-107) Carbon Dioxide Level 27mmol/L (21-32) Anion Gap 12 (6-14) Blood Urea Nitrogen 40mg/dL (8-26) Creatinine 7.9mg/dL (0.7-1.3) Estimated GFR (Cockcroft-Gault) 8.1 Glucose Level 86mg/dL (70-99) Calcium Level 8.8mg/dL (8.5-10.1) Phosphorus Level 4.5mg/dL (2.6-4.7) Magnesium Level 1.7mg/dL (1.8-2.4) Albumin 2.8g/dL (3.4-5.0) Test 12/09/16 08:15 12/09/16 11:40 12/09/16 12:05 12/09/16 16:34 Glucose (Fingerstick) 85mg/dL (70-99) 66mg/dL (70-99) 121mg/dL (70-99) 74mg/dL (70-99) Test 12/09/16 20:42 12/09/16 22:10 12/10/16 02:13 12/10/16 05:25 Glucose (Fingerstick) 71mg/dL (70-99) 72mg/dL (70-99) 97mg/dL (70-99) Sodium Level 139mmol/L (136-145) Potassium Level 3.9mmol/L (3.5-5.1) Chloride Level 99mmol/L (98-107) Carbon Dioxide Level 27mmol/L (21-32) Anion Gap 13 (6-14) Blood Urea Nitrogen 47mg/dL (8-26) Creatinine 9.2mg/dL (0.7-1.3) Estimated GFR (Cockcroft-Gault) 6.8 Glucose Level 72mg/dL (70-99) Calcium Level 8.3mg/dL (8.5-10.1) Phosphorus Level 5.0mg/dL (2.6-4.7) Magnesium Level 1.7mg/dL (1.8-2.4) Albumin 2.7g/dL (3.4-5.0) Test 12/10/16 07:14 12/10/16 16:49 12/10/16 20:56 Glucose (Fingerstick) 68mg/dL (70-99) 92mg/dL (70-99) 75mg/dL (70-99) Laboratory Tests Test 12/09/16 22:10 12/10/16 02:13 12/10/16 05:25 12/10/16 07:14 Glucose (Fingerstick) 72mg/dL (70-99) 97mg/dL (70-99) 68mg/dL (70-99) Sodium Level 139mmol/L (136-145) Potassium Level 3.9mmol/L (3.5-5.1) Chloride Level 99mmol/L (98-107) Carbon Dioxide Level 27mmol/L (21-32) Anion Gap 13 (6-14) Blood Urea Nitrogen 47mg/dL (8-26) Creatinine 9.2mg/dL (0.7-1.3) Estimated GFR (Cockcroft-Gault) 6.8 Glucose Level 72mg/dL (70-99) Calcium Level 8.3mg/dL (8.5-10.1) Phosphorus Level 5.0mg/dL (2.6-4.7) Magnesium Level 1.7mg/dL (1.8-2.4) Albumin 2.7g/dL (3.4-5.0) Test 12/10/16 16:49 12/10/16 20:56 Glucose (Fingerstick) 92mg/dL (70-99) 75mg/dL (70-99) Medications Current Medications Ondansetron HCl (Zofran) 4 mg PRN Q8HRS PRN IV NAUSEA/VOMITING; Start 12/06/16 at 15:15; Stop 12/06/16 at 17:01; Status DC Fentanyl Citrate (Fentanyl 2ml Vial) 50 mcg PRN Q2HR PRN IV PAIN Last administered on 12/07/16 00:13; Start 12/06/16 at 15:15; Stop 12/07/16 at 15:14 ; Status DC Acetaminophen (Tylenol) 650 mg PRN Q4HRS PRN PO FEVER; Start 12/06/16 at 15:15 ; Stop 12/07/16 at 15:14; Status DC Amlodipine Besylate (Norvasc) 10 mg DAILY PO Last administered on 12/10/16 14: 36; Start 12/07/16 at 09:00 Calcium Carbonate/ Glycine (Oscal) 500 mg TID PO Last administered on 21:09; Start 12/06/16 at 21:00 Vitamin D (Vitamin D3) 2,000 unit QODAY PO Last administered on 12/10/16 14:35 ; Start 12/08/16 at 09:00 Cinacalcet (Sensipar) 90 mg HS PO Last administered on 12/09/16 21:09; Start 12/06/16 at 21:00 Ergocalciferol (Vitamin D2) 50,000 unit WEEKLY PO ; Start 12/13/16 at 09:00 Famotidine (Pepcid) 20 mg Q48H PO Last administered on 12/08/16 21:47; Start 12/06/16 at 21:00 Lanthanum Carbonate (Fosrenol) 1,000 mg TIDWMEALS PO ; Start 12/06/16 at 17:00; Status Cancel Lorazepam (Ativan) 0.25 mg PRN DAILY PRN PO ANXIETY Last administered on 04:59; Start 12/06/16 at 17:00; Stop 12/08/16 at 19:33; Status DC Mirtazapine (Remeron) 15 mg QHS PO Last administered on 12/09/16 21:09; Start 12/06/16 at 21:00 Darbepoetin Placido (Aranesp) 100 mcg WEEKLYHS SQ ; Start 12/13/16 at 21:00; Stop 12/13/16 at 21:00; Status DC Ferrous Sulfate (Feosol) 325 mg DAILYWBKFT PO Last administered on 12/10/16 14 :34; Start 12/07/16 at 08:00 Vitamin B Complex/ Vitamin C (Blank-Cliff) 1 tab DAILY PO Last administered on 14:34; Start 12/07/16 at 09:00 Sertraline HCl (Zoloft) 200 mg DAILY PO Last administered on 12/10/16 14:35; Start 12/07/16 at 09:00 Vitamin B Complex (Kirill B) 1 tab DAILY PO Last administered on 12/10/16 14:33 ; Start 12/07/16 at 09:00 Ondansetron HCl (Zofran) 4 mg PRN Q6HRS PRN IV NAUSEA/VOMITING Last administered on 12/07/16 00:13; Start 12/06/16 at 17:00 Oxycodone/ Acetaminophen (Percocet 5/325) 1 tab PRN Q4HRS PRN PO PAIN Last administered on 12/08/16 05:02; Start 12/06/16 at 17:00 Lanthanum Carbonate (Fosrenol) 1,000 mg TIDAFTMEAL PO Last administered on 12/08 12:55; Start 12/06/16 at 18:00 Dextrose (Dextrose 50%-Water Syringe) 25 gm STK-MED ONCE IV ; Start 12/07/16 at 07:43; Stop 12/07/16 at 07:44; Status DC Dextrose 12.5 gm 12.5 gm PRN Q15MIN PRN IV SEE COMMENTS Last administered on 11:53; Start 12/07/16 at 07:45 Magnesium Sulfate/ Dextrose 50 ml @ 25 mls/hr PRN DAILY PRN IV for Mag < 1.7 on am labs; Start 12/07/16 at 14:15 Sodium Chloride (Iv Sodium Chloride 0.9% 1000ml Bag) 1,000 ml @ 1,000 mls/hr Q1H PRN IV hypotension; Start 12/07/16 at 17:13; Stop 12/07/16 at 23:12; Status DC Info (PHARMACY MONITORING -- do not chart) 1 each PRN DAILY PRN MC SEE COMMENTS ; Start 12/07/16 at 17:15; Status UNV Info 1 each 1 each PRN DAILY PRN MC SEE COMMENTS; Start 12/07/16 at 17:15; Stop 12/10/16 at 09:32; Status DC Sodium Chloride (Iv Sodium Chloride 0.9% 1000ml Bag) 1,000 ml @ 1,000 mls/hr Q1H PRN IV hypotension; Start 12/08/16 at 10:55; Stop 12/08/16 at 16:54; Status DC Info (PHARMACY MONITORING -- do not chart) 1 each PRN DAILY PRN MC SEE COMMENTS ; Start 12/08/16 at 11:00; Status UNV Haloperidol Lactate (Haldol) 2 mg PRN Q4HRS PRN IVP AGITATION; Start 12/08/16 at 18:15 Lorazepam 0.5 mg 0.5 mg PRN Q6HRS PRN PO ANXIETY / AGITATION Last administered on 12/08/16t 21:47; Start 12/08/16 at 18:15 Sodium Chloride (Iv Sodium Chloride 0.9% 1000ml Bag) 1,000 ml @ 1,000 mls/hr Q1H PRN IV hypotension; Start 12/10/16 at 09:26; Stop 12/10/16 at 15:25; Status DC Info (PHARMACY MONITORING -- do not chart) 1 each PRN DAILY PRN MC SEE COMMENTS ; Start 12/10/16 at 09:30; Stop 12/10/16 at 09:32; Status DC Info (PHARMACY MONITORING -- do not chart) 1 each PRN DAILY PRN MC SEE COMMENTS ; Start 12/10/16 at 09:30 Active Scripts Active Reported Fosrenol (Lanthanum Carbonate) 1,000 Mg Tab.chew 1,000 Mg PO TIDWMEALS Amlodipine Besylate 10 Mg Tablet 10 Mg PO DAILY Mirtazapine 15 Mg Tablet 5 Tab PO QHS Eucerin Intensive Repair (Emollient Combination No.72) 250 Ml Lotion 250 Ml TP Amlodipine Besylate 10 Mg Tablet 10 Mg PO DAILY Vitamin B Complex 1 Each Capsule 1 Each PO DAILY Renal Caps Softgel (Folic Acid/Vitamin B Comp W-C) 1 Mg Capsule 1 Mg PO DAILY Lorazepam 0.5 Mg Tablet 0.25 Mg PO PRN DAILY PRN Vitamin D2 (Ergocalciferol (Vitamin D2)) 50,000 Unit Capsule 50,000 Unit PO WEEKLY Vitamin D3 (Cholecalciferol (Vitamin D3)) 1,000 Unit Tablet 2,000 Unit PO QODAY Epogen (Epoetin Placido) 20,000 Unit/1 Ml Vial 14,300 Unit IJ THREE TIMES A WEEK Zoloft (Sertraline Hcl) 100 Mg Tablet 200 Mg PO DAILY Ferrous Gluconate 325 Mg Tablet 325 Mg PO DAILY Famotidine 20 Mg Tablet 20 Mg PO HS Sensipar (Cinacalcet Hcl) 30 Mg Tablet 90 Mg PO HS Calcium Carbonate 500 Mg Tablet 500 Mg PO TID Vitals/I & O Vital Sign - Last 24 Hours 12/09/16 12/10/16 12/10/16 12/10/16 23:44 03:15 07:00 08:00 Temp 97.7 97.8 97.7 97.7 97.8 97.7 Pulse 63 61 67 Resp 18 18 20 B/P 122/53 126/55 115/47 Pulse Ox 100 100 99 O2 Delivery Room Air Room Air Room Air Room Air 12/10/16 12/10/16 12/10/16 12/10/16 14:36 15:00 19:54 20:00 Temp 97.7 99.3 97.7 99.3 Pulse 77 80 76 Resp 18 20 B/P 133/47 147/57 136/55 Pulse Ox 98 99 O2 Delivery Room Air Room Air Room Air Intake and Output 12/09/16 12/09/16 12/10/16 15:00 23:00 07:00 Intake Total 0 ml Output Total 0 ml 0 ml Balance 0 ml 0 ml ALYSSA WU MD Dec 10, 2016 21:18
[2016-12-10 23:20] VITALS: BP 126/61
--- NOTE | 2016-12-10 23:54 | PDOC4 ---
PROCEDURE Procedure RENAL DIALYSIS / [facility] HD done F 180/ HCO3 / 3 K Qb 450 Qd 600 UF 1-2 kg No complications. Well tolerated. MACARIO LOWE MD Dec 10, 2016 23:54
[2016-12-11 03:17] VITALS: BP 121/55
[2016-12-11 05:07] LABS: ALBUMIN 2.8 g/dL (3.4-5.0); CALCIUM 8.8 mg/dL (8.5-10.1); CREATININE 7.2 mg/dL (0.7-1.3); PHOSPHORUS 4.1 mg/dL (2.6-4.7); POTASSIUM 4.2 mmol/L (3.5-5.1)
[2016-12-11 07:00] VITALS: BP 145/52
[2016-12-11] MEDS: LANTHANUM CARBONATE 500 MG TAB.CHEW PO SCH ×3 (09:00→18:00)
[2016-12-11] MEDS: CALCIUM CARBONATE 500 MG TABLET PO SCH ×2 (09:00→15:50)
[2016-12-11] MEDS: AMLODIPINE BESYLATE 10 MG TABLET. PO SCH (09:23)
[2016-12-11] MEDS: SERTRALINE 50 MG TABLET. PO SCH (09:24)
[2016-12-11] MEDS: OXYCODONE/APAP 5/325 TABLET. PO PRN (09:25)
[2016-12-11] MEDS: FERROUS SULFATE 325 MG TABLET. PO SCH (09:27)
[2016-12-11] MEDS: VITAMIN B COMPLEX TABLET. PO SCH (09:27)
[2016-12-11] MEDS: FOLIC/VIT B COMP W-C (RENAL) TABLET. PO SCH (09:27)
[2016-12-11 11:00] VITALS: BP 136/47
--- NOTE | 2016-12-11 12:19 | PDOC ---
SUBJECTIVE ROS ESRD doing better, pain is controlled, still unable to transfer CVS: no Orthopnea, no CP RESP: no SOB, no ESTEVEZ GI: no Nausea, no Vomiting : no Dysuria, no Urgency OBJECTIVE Vital Signs Vital Signs Date Time Temp Pulse Resp B/P Pulse Ox O2 Delivery O2 Flow Rate FiO2 12/11/16 12:11 Room Air 12/11/16 11:00 97.6 69 18 136/47 96 97.6 I & 0 Intake and Output 12/11/16 07:00 Intake Total 180 ml Output Total 0 ml Balance 180 ml Intake Oral 180 ml Output Urine Total 0 ml # Voids 2 PHYSICAL EXAM Physical Exam General Appearance: Awake Alert Oriented x 3 In min Distress Eyes: VIsion Unchanged Conjunctiva Normal EN: No EN Drainage Mucous Memb. dryish Neck: no JVD no JVP Supple no Thyromegaly CVS: S1 S2 + Murmur No Gallop No Rub no Edema Resp: no Rales no Rhonchi no Acc. Muscle use GI: BAS +ve NO Bruit Non Tender Non Distended : no CVA tenderness; no Suprapubic Tenderness DIAGNOSIS/ASSESSMENT Assessment & Plan ESRD: Current fluid and E-lyte status does not necessitate emergent need for dialysis. Will re-evaluate for dialysis in the am and continue on MWf schedule. ANEMIA; no Aranap ordered for hgb > 10, Transfuse with next HD as needed HTN: Current BP meds as reviewed. See orders for changes. Pelvic # with difficulty transferring from bed to W/ch with slide board - to MAR today as i have been informed Discussed Plan of Care with pt at bedside Problems: COMMENT/RELEVANT DATA Meds Current Medications Medications (Trade) Dose Ordered Sig/Juan Carlos Start Time Stop Time Status Last Admin Dose Admin Acetaminophen (Tylenol) 650 mg PRN Q4HRS PRN 12/06/16 15:15 12/07/16 15:14 DC Amlodipine Besylate (Norvasc) 10 mg DAILY 12/07/16 09:00 12/11/16 09:23 10 MG Calcium Carbonate/ Glycine (Oscal) 500 mg TID 12/06/16 21:00 12/09/16 21:09 500 MG Cinacalcet (Sensipar) 90 mg HS 12/06/16 21:00 12/09/16 21:09 90 MG Darbepoetin Placido (Aranesp) 100 mcg WEEKLYHS 12/13/16 21:00 12/13/16 21:00 DC Dextrose (Dextrose 50%-Water Syringe) 25 gm STK-MED ONCE 12/07/16 07:43 12/07/16 07:44 DC Dextrose 12.5 gm 12.5 gm PRN Q15MIN PRN 12/07/16 07:45 12/09/16 11:53 12.5 GM Ergocalciferol (Vitamin D2) 50,000 unit WEEKLY 12/13/16 09:00 Famotidine (Pepcid) 20 mg Q48H 12/06/16 21:00 12/08/16 21:47 20 MG Fentanyl Citrate (Fentanyl 2ml Vial) 50 mcg PRN Q2HR PRN 12/06/16 15:15 12/07/16 15:14 DC 12/07/16 00:13 50 MCG Ferrous Sulfate (Feosol) 325 mg DAILYWBKFT 12/07/16 08:00 12/11/16 09:27 325 MG Haloperidol Lactate (Haldol) 2 mg PRN Q4HRS PRN 12/08/16 18:15 Info (PHARMACY MONITORING -- do not chart) 1 each PRN DAILY PRN 12/10/16 09:30 Lanthanum Carbonate (Fosrenol) 1,000 mg TIDAFTMEAL 12/06/16 18:00 12/08/16 12:55 1,000 MG Lorazepam (Ativan) 0.25 mg PRN DAILY PRN 12/06/16 17:00 12/08/16 19:33 DC 12/08/16 04:59 0.25 MG Lorazepam 0.5 mg 0.5 mg PRN Q6HRS PRN 12/08/16 18:15 12/08/16 21:47 0.5 MG Magnesium Sulfate/ Dextrose (Magnesium Sulfate PREMIX 2GM) 50 ml @ 25 mls/hr PRN DAILY PRN 12/07/16 14:15 Mirtazapine (Remeron) 15 mg QHS 12/06/16 21:00 12/09/16 21:09 15 MG Ondansetron HCl (Zofran) 4 mg PRN Q6HRS PRN 12/06/16 17:00 12/07/16 00:13 4 MG Oxycodone/ Acetaminophen (Percocet 5/325) 1 tab PRN Q4HRS PRN 12/06/16 17:00 12/11/16 09:25 1 TAB Sertraline HCl (Zoloft) 200 mg DAILY 12/07/16 09:00 12/11/16 09:24 200 MG Sodium Chloride (Iv Sodium Chloride 0.9% 1000ml Bag) 1,000 ml @ 1,000 mls/hr Q1H PRN 12/10/16 09:26 12/10/16 15:25 DC Vitamin B Complex (Kirill B) 1 tab DAILY 12/07/16 09:00 12/11/16 09:27 1 TAB Vitamin B Complex/ Vitamin C (Blank-Cliff) 1 tab DAILY 12/07/16 09:00 12/11/16 09:27 1 TAB Vitamin D (Vitamin D3) 2,000 unit QODAY 12/08/16 09:00 12/10/16 14:35 2,000 UNIT Lab Laboratory Tests Test 12/10/16 16:49 12/10/16 20:56 12/11/16 04:34 12/11/16 07:31 Glucose (Fingerstick) 92mg/dL (70-99) 75mg/dL (70-99) 66mg/dL (70-99) Sodium Level 138mmol/L (136-145) Potassium Level 4.2mmol/L (3.5-5.1) Chloride Level 102mmol/L (98-107) Carbon Dioxide Level 25mmol/L (21-32) Anion Gap 11 (6-14) Blood Urea Nitrogen 33mg/dL (8-26) Creatinine 7.2mg/dL (0.7-1.3) Estimated GFR (Cockcroft-Gault) 9.0 Glucose Level 80mg/dL (70-99) Calcium Level 8.8mg/dL (8.5-10.1) Phosphorus Level 4.1mg/dL (2.6-4.7) Magnesium Level 1.8mg/dL (1.8-2.4) Albumin 2.8g/dL (3.4-5.0) Test 12/11/16 11:59 Glucose (Fingerstick) 107mg/dL (70-99) SHAQ KESSLER MD Dec 11, 2016 12:19
--- NOTE | 2016-12-11 13:39 | PDOC ---
PROGRESS NOTES Chief Complaint Chief Complaint right inferior pubic ramus fracture from a fall: recommend non surgical management, PT/OT, SNU vs ARF, labs reviewed. ESRD on HD MWF: Nephrology following. CAD, COPD, AOCD, constipation - all chronic stable NON COMPLIANCE History of Present Illness History of Present Illness seen in hd no complaints no fever pain controlled Vitals Vitals Vital Signs Date Time Temp Pulse Resp B/P Pulse Ox O2 Delivery O2 Flow Rate FiO2 12/11/16 12:11 Room Air 12/11/16 11:00 97.6 69 18 136/47 96 97.6 Physical Exam General: Alert, Oriented X3, Cooperative, No acute distress Heart: Normal S1, Normal S2 Lungs: Clear Extremities: No clubbing, No cyanosis, No edema, Normal pulses, No tenderness/ swelling Skin: No rashes, No significant lesion Labs LABS Laboratory Tests Test 12/10/16 16:49 12/10/16 20:56 12/11/16 04:34 12/11/16 07:31 Glucose (Fingerstick) 92mg/dL (70-99) 75mg/dL (70-99) 66mg/dL (70-99) Sodium Level 138mmol/L (136-145) Potassium Level 4.2mmol/L (3.5-5.1) Chloride Level 102mmol/L (98-107) Carbon Dioxide Level 25mmol/L (21-32) Anion Gap 11 (6-14) Blood Urea Nitrogen 33mg/dL (8-26) Creatinine 7.2mg/dL (0.7-1.3) Estimated GFR (Cockcroft-Gault) 9.0 Glucose Level 80mg/dL (70-99) Calcium Level 8.8mg/dL (8.5-10.1) Phosphorus Level 4.1mg/dL (2.6-4.7) Magnesium Level 1.8mg/dL (1.8-2.4) Albumin 2.8g/dL (3.4-5.0) Test 12/11/16 11:59 Glucose (Fingerstick) 107mg/dL (70-99) Assessment and Plan Assessmemt and Plan Problems Medical Problems: (1) End stage renal disease on dialysis Status: Acute (2) Inferior pubic ramus fracture Status: Acute Problems: Comment Review of Relevant I have reviewed the following items katherine (where applicable) has been applied. Labs Laboratory Tests Test 12/09/16 16:34 12/09/16 20:42 12/09/16 22:10 12/10/16 02:13 Glucose (Fingerstick) 74mg/dL (70-99) 71mg/dL (70-99) 72mg/dL (70-99) 97mg/dL (70-99) Test 12/10/16 05:25 12/10/16 07:14 12/10/16 16:49 12/10/16 20:56 Sodium Level 139mmol/L (136-145) Potassium Level 3.9mmol/L (3.5-5.1) Chloride Level 99mmol/L (98-107) Carbon Dioxide Level 27mmol/L (21-32) Anion Gap 13 (6-14) Blood Urea Nitrogen 47mg/dL (8-26) Creatinine 9.2mg/dL (0.7-1.3) Estimated GFR (Cockcroft-Gault) 6.8 Glucose Level 72mg/dL (70-99) Calcium Level 8.3mg/dL (8.5-10.1) Phosphorus Level 5.0mg/dL (2.6-4.7) Magnesium Level 1.7mg/dL (1.8-2.4) Albumin 2.7g/dL (3.4-5.0) Glucose (Fingerstick) 68mg/dL (70-99) 92mg/dL (70-99) 75mg/dL (70-99) Test 12/11/16 04:34 12/11/16 07:31 12/11/16 11:59 Sodium Level 138mmol/L (136-145) Potassium Level 4.2mmol/L (3.5-5.1) Chloride Level 102mmol/L (98-107) Carbon Dioxide Level 25mmol/L (21-32) Anion Gap 11 (6-14) Blood Urea Nitrogen 33mg/dL (8-26) Creatinine 7.2mg/dL (0.7-1.3) Estimated GFR (Cockcroft-Gault) 9.0 Glucose Level 80mg/dL (70-99) Calcium Level 8.8mg/dL (8.5-10.1) Phosphorus Level 4.1mg/dL (2.6-4.7) Magnesium Level 1.8mg/dL (1.8-2.4) Albumin 2.8g/dL (3.4-5.0) Glucose (Fingerstick) 66mg/dL (70-99) 107mg/dL (70-99) Laboratory Tests Test 12/10/16 16:49 12/10/16 20:56 12/11/16 04:34 12/11/16 07:31 Glucose (Fingerstick) 92mg/dL (70-99) 75mg/dL (70-99) 66mg/dL (70-99) Sodium Level 138mmol/L (136-145) Potassium Level 4.2mmol/L (3.5-5.1) Chloride Level 102mmol/L (98-107) Carbon Dioxide Level 25mmol/L (21-32) Anion Gap 11 (6-14) Blood Urea Nitrogen 33mg/dL (8-26) Creatinine 7.2mg/dL (0.7-1.3) Estimated GFR (Cockcroft-Gault) 9.0 Glucose Level 80mg/dL (70-99) Calcium Level 8.8mg/dL (8.5-10.1) Phosphorus Level 4.1mg/dL (2.6-4.7) Magnesium Level 1.8mg/dL (1.8-2.4) Albumin 2.8g/dL (3.4-5.0) Test 12/11/16 11:59 Glucose (Fingerstick) 107mg/dL (70-99) Medications Current Medications Ondansetron HCl (Zofran) 4 mg PRN Q8HRS PRN IV NAUSEA/VOMITING; Start 12/06/16 at 15:15; Stop 12/06/16 at 17:01; Status DC Fentanyl Citrate (Fentanyl 2ml Vial) 50 mcg PRN Q2HR PRN IV PAIN Last administered on 12/07/16t 00:13; Start 12/06/16 at 15:15; Stop 12/07/16 at 15:14 ; Status DC Acetaminophen (Tylenol) 650 mg PRN Q4HRS PRN PO FEVER; Start 12/06/16 at 15:15 ; Stop 12/07/16 at 15:14; Status DC Amlodipine Besylate (Norvasc) 10 mg DAILY PO Last administered on 12/11/16 09: 23; Start 12/07/16 at 09:00 Calcium Carbonate/ Glycine (Oscal) 500 mg TID PO Last administered on 21:09; Start 12/06/16 at 21:00 Vitamin D (Vitamin D3) 2,000 unit QODAY PO Last administered on 12/10/16 14:35 ; Start 12/08/16 at 09:00 Cinacalcet (Sensipar) 90 mg HS PO Last administered on 12/09/16 21:09; Start 12/06/16 at 21:00 Ergocalciferol (Vitamin D2) 50,000 unit WEEKLY PO ; Start 12/13/16 at 09:00 Famotidine (Pepcid) 20 mg Q48H PO Last administered on 12/08/16 21:47; Start 12/06/16 at 21:00 Lanthanum Carbonate (Fosrenol) 1,000 mg TIDWMEALS PO ; Start 12/06/16 at 17:00; Status Cancel Lorazepam (Ativan) 0.25 mg PRN DAILY PRN PO ANXIETY Last administered on 04:59; Start 12/06/16 at 17:00; Stop 12/08/16 at 19:33; Status DC Mirtazapine (Remeron) 15 mg QHS PO Last administered on 12/09/16 21:09; Start 12/06/16 at 21:00 Darbepoetin Placido (Aranesp) 100 mcg WEEKLYHS SQ ; Start 12/13/16 at 21:00; Stop 12/13/16 at 21:00; Status DC Ferrous Sulfate (Feosol) 325 mg DAILYWBKFT PO Last administered on 12/11/16 09 :27; Start 12/07/16 at 08:00 Vitamin B Complex/ Vitamin C (Blank-Cliff) 1 tab DAILY PO Last administered on 09:27; Start 12/07/16 at 09:00 Sertraline HCl (Zoloft) 200 mg DAILY PO Last administered on 12/11/16 09:24; Start 12/07/16 at 09:00 Vitamin B Complex (Kirill B) 1 tab DAILY PO Last administered on 12/11/16 09:27 ; Start 12/07/16 at 09:00 Ondansetron HCl (Zofran) 4 mg PRN Q6HRS PRN IV NAUSEA/VOMITING Last administered on 12/07/16 00:13; Start 12/06/16 at 17:00 Oxycodone/ Acetaminophen (Percocet 5/325) 1 tab PRN Q4HRS PRN PO PAIN Last administered on 12/11/16 09:25; Start 12/06/16 at 17:00 Lanthanum Carbonate (Fosrenol) 1,000 mg TIDAFTMEAL PO Last administered on 12/08 12:55; Start 12/06/16 at 18:00 Dextrose (Dextrose 50%-Water Syringe) 25 gm STK-MED ONCE IV ; Start 12/07/16 at 07:43; Stop 12/07/16 at 07:44; Status DC Dextrose 12.5 gm 12.5 gm PRN Q15MIN PRN IV SEE COMMENTS Last administered on 11:53; Start 12/07/16 at 07:45 Magnesium Sulfate/ Dextrose 50 ml @ 25 mls/hr PRN DAILY PRN IV for Mag < 1.7 on am labs; Start 12/07/16 at 14:15 Sodium Chloride (Iv Sodium Chloride 0.9% 1000ml Bag) 1,000 ml @ 1,000 mls/hr Q1H PRN IV hypotension; Start 12/07/16 at 17:13; Stop 12/07/16 at 23:12; Status DC Info (PHARMACY MONITORING -- do not chart) 1 each PRN DAILY PRN MC SEE COMMENTS ; Start 12/07/16 at 17:15; Status UNV Info 1 each 1 each PRN DAILY PRN MC SEE COMMENTS; Start 12/07/16 at 17:15; Stop 12/10/16 at 09:32; Status DC Sodium Chloride (Iv Sodium Chloride 0.9% 1000ml Bag) 1,000 ml @ 1,000 mls/hr Q1H PRN IV hypotension; Start 12/08/16 at 10:55; Stop 12/08/16 at 16:54; Status DC Info (PHARMACY MONITORING -- do not chart) 1 each PRN DAILY PRN MC SEE COMMENTS ; Start 12/08/16 at 11:00; Status UNV Haloperidol Lactate (Haldol) 2 mg PRN Q4HRS PRN IVP AGITATION; Start 12/08/16 at 18:15 Lorazepam 0.5 mg 0.5 mg PRN Q6HRS PRN PO ANXIETY / AGITATION Last administered on 12/08/16t 21:47; Start 12/08/16 at 18:15 Sodium Chloride (Iv Sodium Chloride 0.9% 1000ml Bag) 1,000 ml @ 1,000 mls/hr Q1H PRN IV hypotension; Start 12/10/16 at 09:26; Stop 12/10/16 at 15:25; Status DC Info (PHARMACY MONITORING -- do not chart) 1 each PRN DAILY PRN MC SEE COMMENTS ; Start 12/10/16 at 09:30; Stop 12/10/16 at 09:32; Status DC Info (PHARMACY MONITORING -- do not chart) 1 each PRN DAILY PRN MC SEE COMMENTS ; Start 12/10/16 at 09:30 Active Scripts Active Reported Fosrenol (Lanthanum Carbonate) 1,000 Mg Tab.chew 1,000 Mg PO TIDWMEALS Amlodipine Besylate 10 Mg Tablet 10 Mg PO DAILY Mirtazapine 15 Mg Tablet 5 Tab PO QHS Eucerin Intensive Repair (Emollient Combination No.72) 250 Ml Lotion 250 Ml TP Amlodipine Besylate 10 Mg Tablet 10 Mg PO DAILY Vitamin B Complex 1 Each Capsule 1 Each PO DAILY Renal Caps Softgel (Folic Acid/Vitamin B Comp W-C) 1 Mg Capsule 1 Mg PO DAILY Lorazepam 0.5 Mg Tablet 0.25 Mg PO PRN DAILY PRN Vitamin D2 (Ergocalciferol (Vitamin D2)) 50,000 Unit Capsule 50,000 Unit PO WEEKLY Vitamin D3 (Cholecalciferol (Vitamin D3)) 1,000 Unit Tablet 2,000 Unit PO QODAY Epogen (Epoetin Placido) 20,000 Unit/1 Ml Vial 14,300 Unit IJ THREE TIMES A WEEK Zoloft (Sertraline Hcl) 100 Mg Tablet 200 Mg PO DAILY Ferrous Gluconate 325 Mg Tablet 325 Mg PO DAILY Famotidine 20 Mg Tablet 20 Mg PO HS Sensipar (Cinacalcet Hcl) 30 Mg Tablet 90 Mg PO HS Calcium Carbonate 500 Mg Tablet 500 Mg PO TID Vitals/I & O Vital Sign - Last 24 Hours 12/10/16 12/10/16 12/10/16 12/10/16 14:36 15:00 19:54 20:00 Temp 97.7 99.3 97.7 99.3 Pulse 77 80 76 Resp 20 B/P 133/47 147/57 136/55 Pulse Ox 98 99 O2 Delivery Room Air Room Air Room Air 12/10/16 12/11/16 12/11/16 12/11/16 23:20 03:17 07:00 08:00 Temp 96.4 96.0 98.1 96.4 96.0 98.1 Pulse 83 75 64 Resp 18 18 B/P 126/61 121/55 145/52 Pulse Ox 98 98 99 O2 Delivery Room Air Room Air Room Air Room Air 12/11/16 12/11/16 12/11/16 12/11/16 09:23 09:25 11:00 12:11 Temp 97.6 97.6 Pulse 64 69 Resp 18 B/P 145/52 136/47 Pulse Ox 96 O2 Delivery Room Air Room Air Room Air Intake and Output 12/10/16 12/10/16 12/11/16 15:00 23:00 07:00 Intake Total 180 ml Output Total 0 ml 0 ml Balance 0 ml 180 ml ALYSSA WU MD Dec 11, 2016 13:39
[2016-12-11 15:00] VITALS: BP 126/52
[2016-12-13] MEDS ORDERED: ERGOCALCIFEROL (VITAMIN D2) 50,000 UNIT CAPSULE. PO SCH (09:00)
[2016-12-13] MEDS ORDERED: DARBEPOETIN ALFA 100 MCG/0.5 ML DISP.SYRIN. SQ SCH (21:00)
== END 2016-12-11 19:40 | DRG 535 ==
LOC: ER 12:54 → 6 SOUTH 14:40
PROVIDERS: ADMIT Internal Medicine; ATTEND Internal Medicine
PROC: 5A1D60Z (ICD-10-PCS; principal; 2016-12-10)
DX: S32.591A Other specified fracture of right pubis, initial encounter for closed fracture (principal); N18.6 End stage renal disease; I13.2 Hypertensive heart and chronic kidney disease with heart failure and with stage 5 chronic kidney disease, or end stage renal disease; J44.9 Chronic obstructive pulmonary disease, unspecified; D63.8 Anemia in other chronic diseases classified elsewhere; E11.22 Type 2 diabetes mellitus with diabetic chronic kidney disease; E11.42 Type 2 diabetes mellitus with diabetic polyneuropathy; E11.649 Type 2 diabetes mellitus with hypoglycemia without coma; F43.10 Post-traumatic stress disorder, unspecified; I25.10 Atherosclerotic heart disease of native coronary artery without angina pectoris; I50.9 Heart failure, unspecified; K59.00 Constipation, unspecified; W19.XXXA Unspecified fall, initial encounter; M19.90 Unspecified osteoarthritis, unspecified site; E21.3 Hyperparathyroidism, unspecified; Z96.1 Presence of intraocular lens; Z82.49 Family history of ischemic heart disease and other diseases of the circulatory system; Z83.3 Family history of diabetes mellitus; Z86.73 Personal history of transient ischemic attack (TIA), and cerebral infarction without residual deficits; Z89.512 Acquired absence of left leg below knee; Z89.611 Acquired absence of right leg above knee; Z91.19 Patient's noncompliance with other medical treatment and regimen; Z99.2 Dependence on renal dialysis; Z88.6 Allergy status to analgesic agent; Z88.2 Allergy status to sulfonamides; Z88.8 Allergy status to other drugs, medicaments and biological substances; Z91.018 Allergy to other foods; Z91.15 Patient's noncompliance with renal dialysis; Y93.89 Activity, other specified; Y92.008 Other place in unspecified non-institutional (private) residence as the place of occurrence of the external cause; Y99.8 Other external cause status
CPT/HCPCS: 36415; 72192; 73501; 80048; 80069; 82947; 83735; 85007; 85018; 85027; 87641; 93005; J2405; J3010; J7042; 97530; 99285-25

== ENCOUNTER 2016-12-21 14:23 | Inpatient (IN) | payer MEDICARE, OTHER ==
[~2016-12-21] VITALS: Ht 188 cm; Wt 91.2 kg
[~2016-12-21 14:23] MED LIST changes: +ASPI-612 PO; -ASPI81TA9 PO; -CINA30TA PO; +CINA30TA2 PO; -CLOP75TA27 PO; +CLOP75TA57 PO; +DOCU100C28 PO; -DOCU100C5 PO; -ERGO500012 PO; +ERGO500027 PO; -HYDR-2672 PO; +HYDR-2766 PO
[2016-12-21] MEDS ORDERED: COLE1TAB PO (18:02)
[2016-12-21] MEDS ORDERED: TRAM50TA PO (18:02)
[2016-12-21] MEDS ORDERED: ACET325T9 PO (18:02)
[2016-12-21] MEDS ORDERED: ACETAMINOPHEN 325 MG TABLET. PO PRN ×2 (18:15)
[2016-12-21] MEDS ORDERED: PROCHLORPERAZINE 10 MG/2 ML VIAL. IV PRN (18:15)
[2016-12-21] MEDS ORDERED: traMADol 50 MG TABLET PO PRN (18:15)
[2016-12-21] MEDS ORDERED: MAGNESIUM HYDROXIDE 2,400 MG/30 ML ORAL.SUSP. PO PRN (18:15)
[2016-12-21] MEDS ORDERED: MAG HYDROX/ALUMINUM HYD/SIMETH 30 ML ORAL.SUSP PO PRN (18:15)
[2016-12-21] MEDS ORDERED: ONDANSETRON PF 4 MG/2 ML VIAL. IV PRN (18:15)
[2016-12-21] MEDS ORDERED: LORazepam 0.5 MG TABLET PO PRN (18:15)
[2016-12-21] MEDS ORDERED: BISACODYL 10 MG SUPP.RECT. PR PRN (18:15)
[2016-12-21] MEDS ORDERED: PROCHLORPERAZINE 25 MG SUPP.RECT. PR PRN (18:15)
[2016-12-21] MEDS ORDERED: CALCIUM CARBONATE 500 MG TAB.CHEW PO PRN (18:15)
[2016-12-21] MEDS ORDERED: MORPHINE SULFATE 2 MG/ML DISP.SYRIN. IV PRN (18:15)
[2016-12-21 19:00] VITALS: BP 123/47
[2016-12-21] MEDS ORDERED: VANCOMYCIN 1.25 GM in IV NORMAL SALINE 250ML 250 ML IV ONE (20:00)
[2016-12-21 20:44] VITALS: BP 123/47
[2016-12-21] MEDS: CINACALCET HCL 30 MG TABLET PO SCH (21:51)
[2016-12-21] MEDS: CALCIUM CARBONATE 500 MG TABLET PO SCH (21:51)
[2016-12-21] MEDS: COLESTIPOL HCL 1 GM TABLET PO SCH (21:51)
[2016-12-21] MEDS: DOCUSATE SODIUM 100 MG CAPSULE. PO SCH (21:52)
[2016-12-21] MEDS: MIRTAZAPINE 15 MG TABLET PO SCH (21:52)
[2016-12-21] MEDS: FAMOTIDINE 20 MG TABLET. PO SCH (21:54)
[2016-12-21] MEDS: oxyCODONE IR 5 MG TABLET PO PRN (21:56)
[2016-12-21 23:12] VITALS: BP 106/54
[2016-12-21 23:16] LABS: BASO # 0.1 x10^3/uL (0.0-0.2); BASO % 1 % (0-3); EOS % 1 % (0-3); HEMATOCRIT 38.6 % (39.0-53.0); HEMOGLOBIN 12.4 g/dL (13.0-17.5); LYMPH # 0.7 x10^3/uL (1.0-4.8); LYMPH % 7 % (24-48); MEAN CORPUSCULAR HEMOGLOBIN 27 pg (25-35); MEAN CORPUSCULAR HGB CONC 32 g/dL (31-37); MEAN CORPUSCULAR VOLUME 85 fL (79-100); MONO % 6 % (0-9); NEUT % 86 % (31-73); PLATELET COUNT 114 x10^3/uL (140-400); RED BLOOD COUNT 4.56 x10^6/uL (4.30-5.70); RED CELL DISTRIBUTION WIDTH 16.8 % (11.5-14.5); WHITE BLOOD COUNT 10.3 x10^3/uL (4.0-11.0)
[2016-12-21 23:39] LABS: % EOS 1 % (0-5)
[2016-12-21 23:41] LABS: PLT ESTIMATE DECREASED (ADEQUATE); POLYCHROMASIA SLIGHT; TOXIC GRANULATION SLIGHT
[2016-12-22] VITALS (8 sets, daily range): BP systolic 103–128; BP diastolic 37–69
[2016-12-22 06:03] LABS: INR 1.4 (0.8-1.1)
[2016-12-22] MEDS: FERROUS SULFATE 325 MG TABLET. PO SCH (08:00)
[2016-12-22] MEDS ORDERED: LANTHANUM CARBONATE 1,000 MG TAB.CHEW PO SCH (08:00)
--- NOTE | 2016-12-22 08:33 | PDOC2 ---
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 concern that coccyx ulcer required debridement. 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, fisulta ) Family History Family History: No Significant, Diabetes, Heart Disease, Hypertension Social History No ALCOHOL: none Drugs: None Lives: with Family Current Medications Current Medications Current Medications Ondansetron HCl (Zofran) 4 mg PRN Q6HRS PRN IV NAUSEA/VOMITING; Start 12/21/16 at 18:15 Prochlorperazine Edisylate (Compazine) 10 mg PRN Q6HRS PRN IV NAUSEA/VOMITING; Start 12/21/16 at 18:15 Prochlorperazine (Compazine) 25 mg PRN Q12HR PRN NE NAUSEA/VOMITING; Start 12/21 at 18:15 Al Hydroxide/Mg Hydroxide (Mylanta Plus Xs) 30 ml PRN Q3HRS PRN PO HEARTBURN / GAS; Start 12/21/16 at 18:15 Calcium Carbonate/ Glycine (Tums) 500 mg PRN Q3HRS PRN PO UPSET STOMACH; Start 12/21/16 at 18:15 Oxycodone HCl (Roxicodone) 5 mg PRN Q3HRS PRN PO BREAKTHROUGH PAIN Last administered on 12/21/16 21:56; Start 12/21/16 at 18:15 Morphine Sulfate 1 mg PRN Q1HR PRN IV PAIN Last administered on 12/22/16 01:28 ; Start 12/21/16 at 18:15 Acetaminophen (Tylenol) 650 mg PRN Q6HRS PRN PO Headaches, Temp > 101.5F; Start 12/21/16 at 18:15 Docusate Sodium (Colace) 100 mg BID PO Last administered on 12/21/16 21:52; Start 12/21/16 at 21:00 Magnesium Hydroxide (Milk Of Magnesia) 2,400 mg PRN Q12HR PRN PO CONSTIPATION; Start 12/21/16 at 18:15 Bisacodyl (Dulcolax Supp) 10 mg PRN DAILY PRN NE CONSTIPATION; Start 12/21/16 at 18:15 Acetaminophen (Tylenol) 325 mg PRN Q4HRS PRN PO PAIN/FEVER; Start 12/21/16 at 18 :15 Amlodipine Besylate (Norvasc) 10 mg DAILY PO ; Start 12/22/16 at 09:00 Calcium Carbonate/ Glycine (Oscal) 500 mg TID PO Last administered on 12/21/16 21:51; Start 12/21/16 at 21:00 Vitamin D (Vitamin D3) 2,000 unit QODAY PO ; Start 12/23/16 at 09:00 Cinacalcet (Sensipar) 90 mg HS PO Last administered on 12/21/16 21:51; Start at 21:00 Colestipol HCl (Colestid) 1 gm BID PO Last administered on 12/21/16 21:51; Start 12/21/16 at 21:00 Ergocalciferol (Vitamin D2) 50,000 unit WEEKLY PO ; Start 12/28/16 at 09:00 Famotidine (Pepcid) 20 mg HS PO Last administered on 12/21/16 21:54; Start 12/21 at 21:00 Lanthanum Carbonate (Fosrenol) 1,000 mg TIDWMEALS PO ; Start 12/22/16 at 08:00; Stop 12/22/16 at 08:00; Status DC Lorazepam (Ativan) 0.25 mg PRN DAILY PRN PO ANXIETY Last administered on 21:54; Start 12/21/16 at 18:15 Mirtazapine (Remeron) 7.5 mg QHS PO Last administered on 12/21/16 21:52; Start 12/21/16 at 21:00 Tramadol HCl (Ultram) 25 mg PRN Q6HRS PRN PO PAIN Last administered on 21:53; Start 12/21/16 at 18:15 Darbepoetin Placido (Aranesp) 100 mcg WEEKLYHS SQ ; Start 12/22/16 at 21:00 Ferrous Sulfate (Feosol) 325 mg DAILYWBKFT PO ; Start 12/22/16 at 08:00 Vitamin B Complex/ Vitamin C (Blank-Cliff) 1 tab DAILY PO ; Start 12/22/16 at 09:00 Sertraline HCl (Zoloft) 200 mg DAILY PO ; Start 12/22/16 at 09:00 Non-Formulary Medication 1 each DAILY PO ; Start 12/22/16 at 09:00; Status UNV Lanthanum Carbonate (Fosrenol) 1,000 mg TIDAFTMEAL PO ; Start 12/22/16 at 09:00; Stop 12/22/16 at 09:00; Status DC Lanthanum Carbonate (Fosrenol) 1,000 mg TIDAFTMEAL PO ; Start 12/22/16 at 09:00 Vancomycin HCl 1.25 gm/Sodium Chloride 250 ml @ 166.667 mls/hr 1X ONCE IV Last administered on 12/21/16t 22:31; Start 12/21/16 at 20:00; Stop 12/21/16 at 21: 29; Status DC Morphine Sulfate 2 mg PRN Q2HR PRN IV PAIN; Start 12/22/16 at 02:15 Active Scripts Active Reported Tylenol (Acetaminophen) 325 Mg Tablet 1 Tab PO PRN Q4HRS Tramadol Hcl 50 Mg Tablet 0.5 Tab PO PRN Q6HRS Colestid (Colestipol Hcl) 1 Gm Tablet 1 Gm PO BID Fosrenol (Lanthanum Carbonate) 1,000 Mg Tab.chew 1,000 Mg PO TIDWMEALS Amlodipine Besylate 10 Mg Tablet 10 Mg PO DAILY Mirtazapine 15 Mg Tablet 5 Tab PO QHS Eucerin Intensive Repair (Emollient Combination No.72) 250 Ml Lotion 250 Ml TP Amlodipine Besylate 10 Mg Tablet 10 Mg PO DAILY Vitamin B Complex 1 Each Capsule 1 Each PO DAILY Renal Caps Softgel (Folic Acid/Vitamin B Comp W-C) 1 Mg Capsule 1 Mg PO DAILY Lorazepam 0.5 Mg Tablet 0.25 Mg PO PRN DAILY PRN Vitamin D2 (Ergocalciferol (Vitamin D2)) 50,000 Unit Capsule 50,000 Unit PO WEEKLY Vitamin D3 (Cholecalciferol (Vitamin D3)) 1,000 Unit Tablet 2,000 Unit PO QODAY Epogen (Epoetin Placido) 20,000 Unit/1 Ml Vial 14,300 Unit IJ THREE TIMES A WEEK Zoloft (Sertraline Hcl) 100 Mg Tablet 200 Mg PO DAILY Ferrous Gluconate 325 Mg Tablet 325 Mg PO DAILY Famotidine 20 Mg Tablet 20 Mg PO HS Sensipar (Cinacalcet Hcl) 30 Mg Tablet 90 Mg PO HS Calcium Carbonate 500 Mg Tablet 500 Mg PO TID Allergies Allergies: Coded Allergies: aspirin (Verified Allergy, Intermediate, 07/19/15) 07/01 PER RN, PT REPORTS BEING TESTED AT [facility], HE CAN TOLERATE UP TO 81MG X 2 DAILY WITHOUT DIFFICULTIES. barium sulfate (Verified Allergy, Intermediate, 07/19/15) calcium acetate (Verified Allergy, Intermediate, 07/19/15) sevelamer (Verified Allergy, Intermediate, 07/19/15) Uncoded Allergies: dark paty (Adverse Reaction, Unknown, 12/07/16) ROS General: No: Chills, Other (fevers) PSYCHOLOGICAL ROS: No: Anxiety, Depression Eyes: No Blurry vision, No Double vision HEENT: No: Heacaches, Sore Throat Hematological and Lymphatic: No: Bleeding Problems, Blood Clots Respiratory: No: Cough, Shortness of breath Cardiovascular: No Chest Pain, No Palpitations Gastrointestinal: No Nausea, No Vomiting Genitourinary: No Dysuria, No Hematuria Musculoskeletal: Yes Joint Stiffness, Yes Muscular Weakness Neurological: No Confusion, No Numbness/Tingling Skin: Yes Other (see hpi) Physical Exam General: Alert, Cooperative, No acute distress HEENT: Atraumatic, Mucous membr. moist/pink Lungs: Clear to auscultation, Normal air movement Heart: Regular rate, Normal S1, Normal S2 Abdomen: Soft, No tenderness Extremities: Other (skin breakdown to bilateral amputation sites of lower extremities ) Skin: Other (large ulcer to coccxy, malodorous, boggy wound bed, slough type tissue) Neuro: Normal speech, Sensation intact Psych/Mental Status: Mental status NL, Mood NL Vitals VITALS Vital Signs Date Time Temp Pulse Resp B/P (MAP) Pulse Ox O2 Delivery O2 Flow Rate FiO2 12/22/16 02:02 22 Room Air 12/21/16 23:12 97.7 77 106/54 (71) 97.7 12/21/16 20:44 94 Labs Labs Laboratory Tests Test 12/21/16 22:35 12/21/16 22:54 12/22/16 04:35 White Blood Count 10.3 x10^3/uL (4.0-11.0) Red Blood Count 4.56 x10^6/uL (4.30-5.70) Hemoglobin 12.4 g/dL (13.0-17.5) Hematocrit 38.6 % (39.0-53.0) Mean Corpuscular Volume 85 fL (79-100) Mean Corpuscular Hemoglobin 27 pg (25-35) Mean Corpuscular Hemoglobin Concent 32 g/dL (31-37) Red Cell Distribution Width 16.8 % (11.5-14.5) Platelet Count 114 x10^3/uL (140-400) Neutrophils (%) (Auto) 86 % (31-73) Lymphocytes (%) (Auto) 7 % (24-48) Monocytes (%) (Auto) 6 % (0-9) Eosinophils (%) (Auto) 1 % (0-3) Basophils (%) (Auto) 1 % (0-3) Neutrophils # (Auto) 8.9 x10^3uL (1.8-7.7) Lymphocytes # (Auto) 0.7 x10^3/uL (1.0-4.8) Monocytes # (Auto) 0.6 x10^3/uL (0.0-1.1) Eosinophils # (Auto) 0.1 x10^3/uL (0.0-0.7) Basophils # (Auto) 0.1 x10^3/uL (0.0-0.2) Segmented Neutrophils % 83 % (35-66) Band Neutrophils % 1 % (0-9) Lymphocytes % 10 % (24-48) Monocytes % 5 % (0-10) Eosinophils % 1 % (0-5) Toxic Granulation Slight Platelet Estimate Decreased (ADEQUATE) Polychromasia Slight Erythrocyte Sedimentation Rate 52 (0-15) Glucose (Fingerstick) 68 mg/dL (70-99) Prothrombin Time 16.0 SEC (11.7-14.0) Prothromb Time International Ratio 1.4 (0.8-1.1) Laboratory Tests Test 12/21/16 22:35 12/21/16 22:54 12/22/16 04:35 White Blood Count 10.3 x10^3/uL (4.0-11.0) Red Blood Count 4.56 x10^6/uL (4.30-5.70) Hemoglobin 12.4 g/dL (13.0-17.5) Hematocrit 38.6 % (39.0-53.0) Mean Corpuscular Volume 85 fL (79-100) Mean Corpuscular Hemoglobin 27 pg (25-35) Mean Corpuscular Hemoglobin Concent 32 g/dL (31-37) Red Cell Distribution Width 16.8 % (11.5-14.5) Platelet Count 114 x10^3/uL (140-400) Neutrophils (%) (Auto) 86 % (31-73) Lymphocytes (%) (Auto) 7 % (24-48) Monocytes (%) (Auto) 6 % (0-9) Eosinophils (%) (Auto) 1 % (0-3) Basophils (%) (Auto) 1 % (0-3) Neutrophils # (Auto) 8.9 x10^3uL (1.8-7.7) Lymphocytes # (Auto) 0.7 x10^3/uL (1.0-4.8) Monocytes # (Auto) 0.6 x10^3/uL (0.0-1.1) Eosinophils # (Auto) 0.1 x10^3/uL (0.0-0.7) Basophils # (Auto) 0.1 x10^3/uL (0.0-0.2) Segmented Neutrophils % 83 % (35-66) Band Neutrophils % 1 % (0-9) Lymphocytes % 10 % (24-48) Monocytes % 5 % (0-10) Eosinophils % 1 % (0-5) Toxic Granulation Slight Platelet Estimate Decreased (ADEQUATE) Polychromasia Slight Erythrocyte Sedimentation Rate 52 (0-15) Glucose (Fingerstick) 68 mg/dL (70-99) Prothrombin Time 16.0 SEC (11.7-14.0) Prothromb Time International Ratio 1.4 (0.8-1.1) Assessment/Plan Assessment/Plan coccyx ulcer, will review with Dr Maxwell for debridement npo ESRD, dialysis, CAD, CHF AISLINN MAXWELL MD 12/22/16 0848: CONSULT Allergies Allergies: Coded Allergies: aspirin (Verified Allergy, Intermediate, 07/19/15) 07/01 PER RN, PT REPORTS BEING TESTED AT [facility], HE CAN TOLERATE UP TO 81MG X 2 DAILY WITHOUT DIFFICULTIES. barium sulfate (Verified Allergy, Intermediate, 07/19/15) calcium acetate (Verified Allergy, Intermediate, 07/19/15) sevelamer (Verified Allergy, Intermediate, 07/19/15) Uncoded Allergies: dark paty (Adverse Reaction, Unknown, 12/07/16) Assessment/Plan Assessment/Plan Patient seen and examined by me. Coccyx wound with foul odor and necrotic tissue will plan debridement today. Agree with Karlie's assessment and plan. SURYA RODRIGUEZ APRN December 22, 2016 08:32 AISLINN MAXWELL MD December 22, 2016 08:48
[2016-12-22] MEDS: COLESTIPOL HCL 1 GM TABLET PO SCH ×2 (09:00→21:00)
[2016-12-22] MEDS ORDERED: HYDROmorphone 2 MG/ML VIAL IV PRN (09:00)
[2016-12-22] MEDS ORDERED: ONDANSETRON PF 4 MG/2 ML VIAL. IV PRN (09:00)
[2016-12-22] MEDS ORDERED: LIDOCAINE 1% 1 ML SYRINGE. ID PRN (09:00)
[2016-12-22] MEDS: SERTRALINE 50 MG TABLET. PO SCH (09:00)
[2016-12-22] MEDS: CALCIUM CARBONATE 500 MG TABLET PO SCH ×3 (09:00→22:13)
[2016-12-22] MEDS ORDERED: IV RINGERS,LACTATED 1000ML 1,000 ML IV SCH (09:00)
[2016-12-22] MEDS: DOCUSATE SODIUM 100 MG CAPSULE. PO SCH ×2 (09:00→21:00)
[2016-12-22] MEDS ORDERED: VITAMIN B COMPLEX PO SCH (09:00)
[2016-12-22] MEDS ORDERED: fentaNYL PF VIAL 100 MCG/2 ML VIAL IV PRN ×2 (09:00)
[2016-12-22] MEDS: LANTHANUM CARBONATE 500 MG TAB.CHEW PO SCH ×3 (09:00→18:00)
[2016-12-22] MEDS: amLODIPine BESYLATE 10 MG TABLET PO SCH (09:00)
[2016-12-22] MEDS: FOLIC/VIT B COMP W-C (RENAL) TABLET. PO SCH (09:00)
[2016-12-22] MEDS ORDERED: LANTHANUM CARBONATE 500 MG TAB.CHEW PO SCH (09:00)
[2016-12-22] MEDS ORDERED: PROCHLORPERAZINE 10 MG/2 ML VIAL. IV PRN (09:00)
--- NOTE | 2016-12-22 10:23 | PDOC1 ---
History and Physical Date of Admission Date of Admission DATE: 12/22/16 TIME: 10:18 Identification/Chief Complaint Chief Complaint sent from [facility] of coccygeal wound that is foul smelling Problems: Source Source: Caregiver, Chart review History of Present Illness History of Present Illness 76 y.o AA male, bilateral amputee, hx PVD and esrd on HD< bed bound, and possibly chronic encephalopathy, transferred from [facility] to here for possible need of debridement of coccygeal wound. Was described as foul smelling in facility, WBC 11, no fevres in [facility]. Here, wound inspected, cries in pain upon inspection,. got 1 dose of VANc (Renal pt), ESR 50s, WBC 10, seen by GS - planned for I and D today, Rest of hx is limited, no family at bedside Past Medical History Cardiovascular: CAD, HTN, Other Pulmonary: COPD GI: Constipation Heme/Onc: Anemia NOS Musculoskeletal: Osteoarthritis Renal/: Chronic renal insuff Endocrine: Diabetes, Hyperparathyroidism Past Surgical History Past Surgical History: Other Family History Family History: No Significant, Diabetes, Heart Disease, Hypertension Social History Smoke: No ALCOHOL: none Drugs: None Current Medications Current Medications Current Medications Ondansetron HCl (Zofran) 4 mg PRN Q6HRS PRN IV NAUSEA/VOMITING; Start 12/21/16 at 18:15 Prochlorperazine Edisylate (Compazine) 10 mg PRN Q6HRS PRN IV NAUSEA/VOMITING; Start 12/21/16 at 18:15 Prochlorperazine (Compazine) 25 mg PRN Q12HR PRN AL NAUSEA/VOMITING; Start 12/21 at 18:15 Al Hydroxide/Mg Hydroxide (Mylanta Plus Xs) 30 ml PRN Q3HRS PRN PO HEARTBURN / GAS; Start 12/21/16 at 18:15 Calcium Carbonate/ Glycine (Tums) 500 mg PRN Q3HRS PRN PO UPSET STOMACH; Start 12/21/16 at 18:15 Oxycodone HCl (Roxicodone) 5 mg PRN Q3HRS PRN PO BREAKTHROUGH PAIN Last administered on 12/21/16 21:56; Start 12/21/16 at 18:15 Morphine Sulfate 1 mg PRN Q1HR PRN IV PAIN Last administered on 12/22/16 01:28 ; Start 12/21/16 at 18:15 Acetaminophen (Tylenol) 650 mg PRN Q6HRS PRN PO Headaches, Temp > 101.5F; Start 12/21/16 at 18:15 Docusate Sodium (Colace) 100 mg BID PO Last administered on 12/21/16 21:52; Start 12/21/16 at 21:00 Magnesium Hydroxide (Milk Of Magnesia) 2,400 mg PRN Q12HR PRN PO CONSTIPATION; Start 12/21/16 at 18:15 Bisacodyl (Dulcolax Supp) 10 mg PRN DAILY PRN AL CONSTIPATION; Start 12/21/16 at 18:15 Acetaminophen (Tylenol) 325 mg PRN Q4HRS PRN PO PAIN/FEVER; Start 12/21/16 at 18 :15 Amlodipine Besylate (Norvasc) 10 mg DAILY PO ; Start 12/22/16 at 09:00 Calcium Carbonate/ Glycine (Oscal) 500 mg TID PO Last administered on 12/21/16 21:51; Start 12/21/16 at 21:00 Vitamin D (Vitamin D3) 2,000 unit QODAY PO ; Start 12/23/16 at 09:00 Cinacalcet (Sensipar) 90 mg HS PO Last administered on 12/21/16 21:51; Start at 21:00 Colestipol HCl (Colestid) 1 gm BID PO Last administered on 12/21/16 21:51; Start 12/21/16 at 21:00 Ergocalciferol (Vitamin D2) 50,000 unit WEEKLY PO ; Start 12/28/16 at 09:00 Famotidine (Pepcid) 20 mg HS PO Last administered on 12/21/16 21:54; Start 12/21 at 21:00 Lanthanum Carbonate (Fosrenol) 1,000 mg TIDWMEALS PO ; Start 12/22/16 at 08:00; Stop 12/22/16 at 08:00; Status DC Lorazepam (Ativan) 0.25 mg PRN DAILY PRN PO ANXIETY Last administered on 21:54; Start 12/21/16 at 18:15 Mirtazapine (Remeron) 7.5 mg QHS PO Last administered on 12/21/16 21:52; Start 12/21/16 at 21:00 Tramadol HCl (Ultram) 25 mg PRN Q6HRS PRN PO PAIN Last administered on 21:53; Start 12/21/16 at 18:15 Darbepoetin Placido (Aranesp) 100 mcg WEEKLYHS SQ ; Start 12/22/16 at 21:00 Ferrous Sulfate (Feosol) 325 mg DAILYWBKFT PO ; Start 12/22/16 at 08:00 Vitamin B Complex/ Vitamin C (Blank-Cliff) 1 tab DAILY PO ; Start 12/22/16 at 09:00 Sertraline HCl (Zoloft) 200 mg DAILY PO ; Start 12/22/16 at 09:00 Non-Formulary Medication 1 each DAILY PO ; Start 12/22/16 at 09:00; Status UNV Lanthanum Carbonate (Fosrenol) 1,000 mg TIDAFTMEAL PO ; Start 12/22/16 at 09:00; Stop 12/22/16 at 09:00; Status DC Lanthanum Carbonate (Fosrenol) 1,000 mg TIDAFTMEAL PO ; Start 12/22/16 at 09:00 Vancomycin HCl 1.25 gm/Sodium Chloride 250 ml @ 166.667 mls/hr 1X ONCE IV Last administered on 12/21/16 22:31; Start 12/21/16 at 20:00; Stop 12/21/16 at 21: 29; Status DC Morphine Sulfate 2 mg PRN Q2HR PRN IV PAIN; Start 12/22/16 at 02:15 Ondansetron HCl (Zofran) 4 mg PRN Q6HRS PRN IV NAUSEA/VOMITING; Start 12/22/16 at 09:00; Stop 12/22/16 at 18:00 Fentanyl Citrate (Fentanyl 2ml Vial) 25 mcg PRN Q5MIN PRN IV MILD PAIN; Start 12/22/16 at 09:00; Stop 12/22/16 at 18:00 Fentanyl Citrate (Fentanyl 2ml Vial) 50 mcg PRN Q5MIN PRN IV MODERATE PAIN; Start 12/22/16 at 09:00; Stop 12/22/16 at 18:00 Morphine Sulfate 1 mg PRN Q10MIN PRN IV SEVERE PAIN; Start 12/22/16 at 09:00; Stop 12/22/16 at 18:00 Ringer's Solution 1,000 ml @ 30 mls/hr Q24H IV ; Start 12/22/16 at 09:00; Stop 12/22/16 at 20:59 Lidocaine HCl 2 ml PRN 1X PRN ID PRIOR TO IV START; Start 12/22/16 at 09:00; Stop 12/22/16 at 18:00 Hydromorphone HCl (Dilaudid) 0.5 mg PRN Q10MIN PRN IV SEV PAIN, Second choice; Start 12/22/16 at 09:00; Stop 12/22/16 at 18:00 Prochlorperazine Edisylate (Compazine) 5 mg PACU PRN PRN IV NAUSEA, MRX1; Start 12/22/16 at 09:00; Stop 12/22/16 at 18:00 Active Scripts Active Reported Tylenol (Acetaminophen) 325 Mg Tablet 1 Tab PO PRN Q4HRS Tramadol Hcl 50 Mg Tablet 0.5 Tab PO PRN Q6HRS Colestid (Colestipol Hcl) 1 Gm Tablet 1 Gm PO BID Fosrenol (Lanthanum Carbonate) 1,000 Mg Tab.chew 1,000 Mg PO TIDWMEALS Amlodipine Besylate 10 Mg Tablet 10 Mg PO DAILY Mirtazapine 15 Mg Tablet 5 Tab PO QHS Eucerin Intensive Repair (Emollient Combination No.72) 250 Ml Lotion 250 Ml TP Amlodipine Besylate 10 Mg Tablet 10 Mg PO DAILY Vitamin B Complex 1 Each Capsule 1 Each PO DAILY Renal Caps Softgel (Folic Acid/Vitamin B Comp W-C) 1 Mg Capsule 1 Mg PO DAILY Lorazepam 0.5 Mg Tablet 0.25 Mg PO PRN DAILY PRN Vitamin D2 (Ergocalciferol (Vitamin D2)) 50,000 Unit Capsule 50,000 Unit PO WEEKLY Vitamin D3 (Cholecalciferol (Vitamin D3)) 1,000 Unit Tablet 2,000 Unit PO QODAY Epogen (Epoetin Placido) 20,000 Unit/1 Ml Vial 14,300 Unit IJ THREE TIMES A WEEK Zoloft (Sertraline Hcl) 100 Mg Tablet 200 Mg PO DAILY Ferrous Gluconate 325 Mg Tablet 325 Mg PO DAILY Famotidine 20 Mg Tablet 20 Mg PO HS Sensipar (Cinacalcet Hcl) 30 Mg Tablet 90 Mg PO HS Calcium Carbonate 500 Mg Tablet 500 Mg PO TID Allergies Allergies: Coded Allergies: aspirin (Verified Allergy, Intermediate, 07/19/15) 07/01 PER RN, PT REPORTS BEING TESTED AT [facility], HE CAN TOLERATE UP TO 81MG X 2 DAILY WITHOUT DIFFICULTIES. barium sulfate (Verified Allergy, Intermediate, 07/19/15) calcium acetate (Verified Allergy, Intermediate, 07/19/15) sevelamer (Verified Allergy, Intermediate, 07/19/15) Uncoded Allergies: dark paty (Adverse Reaction, Unknown, 12/07/16) ROS Review of System dementia - cant be obtained Physical Exam General: No acute distress HEENT: Atraumatic, PERRLA, EOMI, Mucous membr. moist/pink Heart: S1S2, RRR, no thrills, no rubs, no gallops, no murmurs Cardiovascular: S1, S2 Abdomen: Normal bowel sounds, Soft, No tenderness, No hepatosplenomegaly, No masses Male Genitals Exam: normal genitalia, normal prostate Rectal Exam: not examined Extremities: Other (grade 3 coccygeal wound, pus draiange, foul smelling tender to inspection) Vitals Vitals Vital Signs Date Time Temp Pulse Resp B/P (MAP) Pulse Ox O2 Delivery O2 Flow Rate FiO2 12/22/16 02:02 22 Room Air 12/21/16 23:12 97.7 77 106/54 (71) 97.7 12/21/16 20:44 94 Labs Labs Laboratory Tests Test 12/21/16 22:35 12/21/16 22:54 12/22/16 04:35 White Blood Count 10.3 x10^3/uL (4.0-11.0) Red Blood Count 4.56 x10^6/uL (4.30-5.70) Hemoglobin 12.4 g/dL (13.0-17.5) Hematocrit 38.6 % (39.0-53.0) Mean Corpuscular Volume 85 fL (79-100) Mean Corpuscular Hemoglobin 27 pg (25-35) Mean Corpuscular Hemoglobin Concent 32 g/dL (31-37) Red Cell Distribution Width 16.8 % (11.5-14.5) Platelet Count 114 x10^3/uL (140-400) Neutrophils (%) (Auto) 86 % (31-73) Lymphocytes (%) (Auto) 7 % (24-48) Monocytes (%) (Auto) 6 % (0-9) Eosinophils (%) (Auto) 1 % (0-3) Basophils (%) (Auto) 1 % (0-3) Neutrophils # (Auto) 8.9 x10^3uL (1.8-7.7) Lymphocytes # (Auto) 0.7 x10^3/uL (1.0-4.8) Monocytes # (Auto) 0.6 x10^3/uL (0.0-1.1) Eosinophils # (Auto) 0.1 x10^3/uL (0.0-0.7) Basophils # (Auto) 0.1 x10^3/uL (0.0-0.2) Segmented Neutrophils % 83 % (35-66) Band Neutrophils % 1 % (0-9) Lymphocytes % 10 % (24-48) Monocytes % 5 % (0-10) Eosinophils % 1 % (0-5) Toxic Granulation Slight Platelet Estimate Decreased (ADEQUATE) Polychromasia Slight Erythrocyte Sedimentation Rate 52 (0-15) Glucose (Fingerstick) 68 mg/dL (70-99) Prothrombin Time 16.0 SEC (11.7-14.0) Prothromb Time International Ratio 1.4 (0.8-1.1) Laboratory Tests Test 12/21/16 22:35 12/21/16 22:54 12/22/16 04:35 White Blood Count 10.3 x10^3/uL (4.0-11.0) Red Blood Count 4.56 x10^6/uL (4.30-5.70) Hemoglobin 12.4 g/dL (13.0-17.5) Hematocrit 38.6 % (39.0-53.0) Mean Corpuscular Volume 85 fL (79-100) Mean Corpuscular Hemoglobin 27 pg (25-35) Mean Corpuscular Hemoglobin Concent 32 g/dL (31-37) Red Cell Distribution Width 16.8 % (11.5-14.5) Platelet Count 114 x10^3/uL (140-400) Neutrophils (%) (Auto) 86 % (31-73) Lymphocytes (%) (Auto) 7 % (24-48) Monocytes (%) (Auto) 6 % (0-9) Eosinophils (%) (Auto) 1 % (0-3) Basophils (%) (Auto) 1 % (0-3) Neutrophils # (Auto) 8.9 x10^3uL (1.8-7.7) Lymphocytes # (Auto) 0.7 x10^3/uL (1.0-4.8) Monocytes # (Auto) 0.6 x10^3/uL (0.0-1.1) Eosinophils # (Auto) 0.1 x10^3/uL (0.0-0.7) Basophils # (Auto) 0.1 x10^3/uL (0.0-0.2) Segmented Neutrophils % 83 % (35-66) Band Neutrophils % 1 % (0-9) Lymphocytes % 10 % (24-48) Monocytes % 5 % (0-10) Eosinophils % 1 % (0-5) Toxic Granulation Slight Platelet Estimate Decreased (ADEQUATE) Polychromasia Slight Erythrocyte Sedimentation Rate 52 (0-15) Glucose (Fingerstick) 68 mg/dL (70-99) Prothrombin Time 16.0 SEC (11.7-14.0) Prothromb Time International Ratio 1.4 (0.8-1.1) VTE Prophylaxis Ordered VTE Prophylaxis Devices: Yes VTE Pharmacological Prophylaxi: Yes Assessment/Plan Assessment/Plan 1. Cocyygeal wound 2. ESDR on HD 3. Bilateral Amputee 4. AOCD 5. Dementia, chronic enceph 6, PVD 7. 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 Dw BEN TYLER MD December 22, 2016 10:23
--- NOTE | 2016-12-22 10:51 | PDOC2 ---
CONSULT Date of Consult Date of Consult DATE: 12/22/16 TIME: 10:47 Reason for Consult Reason for Consult: ESRD - missed HD Referring Physician Referring Physician: Dr Morfin Identification/Chief Complaint Chief Complaint Buttock wound Problems: Source Source: Caregiver, Patient History of Present Illness Reason for Visit: as dictated Past Medical History Past Medical History PAST MEDICAL HISTORY: Other than as outlined, is positive for cataract extraction, lens implants, chronic hearing aids, PTSD, CVA in the past, peripheral neuropathy, peripheral vascular disease, numerous intervention to his dialysis access, he has congestive heart failure, coronary artery disease, hypertension, COPD, off and on diarrhea/constipation, ESRD dialysis, right AKA, left BKA, joint replacements, as well as recent pubic ramus fracture, diabetes, 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 Cardiovascular: CAD, HTN, Other Pulmonary: COPD GI: Constipation Heme/Onc: Anemia NOS Musculoskeletal: Osteoarthritis Renal/: Chronic renal insuff Endocrine: Diabetes, Hyperparathyroidism Past Surgical History Past Surgical History: Other Family History Family History: No Significant, Diabetes, Heart Disease, Hypertension Social History No ALCOHOL: none Drugs: None Lives: with Family Current Medications Current Medications Current Medications Ondansetron HCl (Zofran) 4 mg PRN Q6HRS PRN IV NAUSEA/VOMITING; Start 12/21/16 at 18:15 Prochlorperazine Edisylate (Compazine) 10 mg PRN Q6HRS PRN IV NAUSEA/VOMITING; Start 12/21/16 at 18:15 Prochlorperazine (Compazine) 25 mg PRN Q12HR PRN MT NAUSEA/VOMITING; Start 12/21 at 18:15 Al Hydroxide/Mg Hydroxide (Mylanta Plus Xs) 30 ml PRN Q3HRS PRN PO HEARTBURN / GAS; Start 12/21/16 at 18:15 Calcium Carbonate/ Glycine (Tums) 500 mg PRN Q3HRS PRN PO UPSET STOMACH; Start 12/21/16 at 18:15 Oxycodone HCl (Roxicodone) 5 mg PRN Q3HRS PRN PO BREAKTHROUGH PAIN Last administered on 12/21/16 21:56; Start 12/21/16 at 18:15 Morphine Sulfate 1 mg PRN Q1HR PRN IV PAIN Last administered on 12/22/16 01:28 ; Start 12/21/16 at 18:15 Acetaminophen (Tylenol) 650 mg PRN Q6HRS PRN PO Headaches, Temp > 101.5F; Start 12/21/16 at 18:15 Docusate Sodium (Colace) 100 mg BID PO Last administered on 12/21/16 21:52; Start 12/21/16 at 21:00 Magnesium Hydroxide (Milk Of Magnesia) 2,400 mg PRN Q12HR PRN PO CONSTIPATION; Start 12/21/16 at 18:15 Bisacodyl (Dulcolax Supp) 10 mg PRN DAILY PRN MT CONSTIPATION; Start 12/21/16 at 18:15 Acetaminophen (Tylenol) 325 mg PRN Q4HRS PRN PO PAIN/FEVER; Start 12/21/16 at 18 :15 Amlodipine Besylate (Norvasc) 10 mg DAILY PO ; Start 12/22/16 at 09:00 Calcium Carbonate/ Glycine (Oscal) 500 mg TID PO Last administered on 12/21/16 21:51; Start 12/21/16 at 21:00 Vitamin D (Vitamin D3) 2,000 unit QODAY PO ; Start 12/23/16 at 09:00 Cinacalcet (Sensipar) 90 mg HS PO Last administered on 12/21/16 21:51; Start at 21:00 Colestipol HCl (Colestid) 1 gm BID PO Last administered on 12/21/16 21:51; Start 12/21/16 at 21:00 Ergocalciferol (Vitamin D2) 50,000 unit WEEKLY PO ; Start 12/28/16 at 09:00 Famotidine (Pepcid) 20 mg HS PO Last administered on 12/21/16 21:54; Start 12/21 at 21:00 Lanthanum Carbonate (Fosrenol) 1,000 mg TIDWMEALS PO ; Start 12/22/16 at 08:00; Stop 12/22/16 at 08:00; Status DC Lorazepam (Ativan) 0.25 mg PRN DAILY PRN PO ANXIETY Last administered on 21:54; Start 12/21/16 at 18:15 Mirtazapine (Remeron) 7.5 mg QHS PO Last administered on 5/5/17at 21:52; Start 12/21/16 at 21:00 Tramadol HCl (Ultram) 25 mg PRN Q6HRS PRN PO PAIN Last administered on t 21:53; Start 12/21/16 at 18:15 Darbepoetin Placido (Aranesp) 100 mcg WEEKLYHS SQ ; Start 12/22/16 at 21:00 Ferrous Sulfate (Feosol) 325 mg DAILYWBKFT PO ; Start 12/22/16 at 08:00 Vitamin B Complex/ Vitamin C (Blank-Cliff) 1 tab DAILY PO ; Start 12/22/16 at 09:00 Sertraline HCl (Zoloft) 200 mg DAILY PO ; Start 12/22/16 at 09:00 Non-Formulary Medication 1 each DAILY PO ; Start 12/22/16 at 09:00; Status UNV Lanthanum Carbonate (Fosrenol) 1,000 mg TIDAFTMEAL PO ; Start 12/22/16 at 09:00; Stop 12/22/16 at 09:00; Status DC Lanthanum Carbonate (Fosrenol) 1,000 mg TIDAFTMEAL PO ; Start 12/22/16 at 09:00 Vancomycin HCl 1.25 gm/Sodium Chloride 250 ml @ 166.667 mls/hr 1X ONCE IV Last administered on 12/21/16t 22:31; Start 12/21/16 at 20:00; Stop 12/21/16 at 21: 29; Status DC Morphine Sulfate 2 mg PRN Q2HR PRN IV PAIN; Start 12/22/16 at 02:15 Ondansetron HCl (Zofran) 4 mg PRN Q6HRS PRN IV NAUSEA/VOMITING; Start 12/22/16 at 09:00; Stop 12/22/16 at 18:00 Fentanyl Citrate (Fentanyl 2ml Vial) 25 mcg PRN Q5MIN PRN IV MILD PAIN; Start 12/22/16 at 09:00; Stop 12/22/16 at 18:00 Fentanyl Citrate (Fentanyl 2ml Vial) 50 mcg PRN Q5MIN PRN IV MODERATE PAIN; Start 12/22/16 at 09:00; Stop 12/22/16 at 18:00 Morphine Sulfate 1 mg PRN Q10MIN PRN IV SEVERE PAIN; Start 12/22/16 at 09:00; Stop 12/22/16 at 18:00 Ringer's Solution 1,000 ml @ 30 mls/hr Q24H IV ; Start 12/22/16 at 09:00; Stop 12/22/16 at 20:59 Lidocaine HCl 2 ml PRN 1X PRN ID PRIOR TO IV START; Start 12/22/16 at 09:00; Stop 12/22/16 at 18:00 Hydromorphone HCl (Dilaudid) 0.5 mg PRN Q10MIN PRN IV SEV PAIN, Second choice; Start 12/22/16 at 09:00; Stop 12/22/16 at 18:00 Prochlorperazine Edisylate (Compazine) 5 mg PACU PRN PRN IV NAUSEA, MRX1; Start 12/22/16 at 09:00; Stop 12/22/16 at 18:00 Active Scripts Active Reported Tylenol (Acetaminophen) 325 Mg Tablet 1 Tab PO PRN Q4HRS Tramadol Hcl 50 Mg Tablet 0.5 Tab PO PRN Q6HRS Colestid (Colestipol Hcl) 1 Gm Tablet 1 Gm PO BID Fosrenol (Lanthanum Carbonate) 1,000 Mg Tab.chew 1,000 Mg PO TIDWMEALS Amlodipine Besylate 10 Mg Tablet 10 Mg PO DAILY Mirtazapine 15 Mg Tablet 5 Tab PO QHS Eucerin Intensive Repair (Emollient Combination No.72) 250 Ml Lotion 250 Ml TP Amlodipine Besylate 10 Mg Tablet 10 Mg PO DAILY Vitamin B Complex 1 Each Capsule 1 Each PO DAILY Renal Caps Softgel (Folic Acid/Vitamin B Comp W-C) 1 Mg Capsule 1 Mg PO DAILY Lorazepam 0.5 Mg Tablet 0.25 Mg PO PRN DAILY PRN Vitamin D2 (Ergocalciferol (Vitamin D2)) 50,000 Unit Capsule 50,000 Unit PO WEEKLY Vitamin D3 (Cholecalciferol (Vitamin D3)) 1,000 Unit Tablet 2,000 Unit PO QODAY Epogen (Epoetin Placido) 20,000 Unit/1 Ml Vial 14,300 Unit IJ THREE TIMES A WEEK Zoloft (Sertraline Hcl) 100 Mg Tablet 200 Mg PO DAILY Ferrous Gluconate 325 Mg Tablet 325 Mg PO DAILY Famotidine 20 Mg Tablet 20 Mg PO HS Sensipar (Cinacalcet Hcl) 30 Mg Tablet 90 Mg PO HS Calcium Carbonate 500 Mg Tablet 500 Mg PO TID Allergies Allergies: Coded Allergies: aspirin (Verified Allergy, Intermediate, 07/19/15) 07/01 PER RN, PT REPORTS BEING TESTED AT [facility] [employer], HE CAN TOLERATE UP TO 81MG X 2 DAILY WITHOUT DIFFICULTIES. barium sulfate (Verified Allergy, Intermediate, 07/19/15) calcium acetate (Verified Allergy, Intermediate, 07/19/15) sevelamer (Verified Allergy, Intermediate, 07/19/15) Uncoded Allergies: dark paty (Adverse Reaction, Unknown, 12/07/16) ROS Review of System GEN: no Fevers no Chills EYES: no Visual Complaints ENT: no EN Drainage no Hearing deficiets CVS: no Orthopnea no CP RESP: no SOB no ESTEVEZ GI: no Nausea no Vomiting : no Dysuria no Urgency HEME: no easy bruising no Palp Ly Nodes NEURO no Focal Weakness no Sz PSYCH: no Suicidal Ideation + Depression SKIN: no Rashes Sacral wound ENDO: no Polyuria or Polydipsia no Hot/Cold Intolerance MU SK: no Arthraigia no Myalgia Physical Exam Physical Exam General Appearance: Awake Alert Oriented x 3 In min Distress Eyes: VIsion Unchanged Conjunctiva Normal EN: No EN Drainage Mucous Memb. dryish Neck: no JVD no JVP Supple no Thyromegaly CVS: S1 S2 + Murmur No Gallop No Rub no Edema Resp: no Rales no Rhonchi no Acc. Muscle use GI: BAS +ve NO Bruit Non Tender Non Distended : no CVA tenderness; no Suprapubic Tenderness SKIN: Sacral wound not opend Rashes Breast Exam deferred Mu.Sk: Adequate ROM ch Muscle Atrophy Obdulio lower ext amputation Heme: Unable to palpate Obvious LAD no palp Splenomegaly NEURO: Good Strength and Tone Cranial Nerves II - XII grossly intact Psych: Ch Depressed no Active hallucination Vital Signs Vital Signs Date Time Temp Pulse Resp B/P (MAP) Pulse Ox O2 Delivery O2 Flow Rate FiO2 12/22/16 07:00 98.0 68 20 128/62 (84) 97 Room Air 98.0 Assessment & Plan ESRD: Dialysis as below (Subject to change pending availibility of labs) F 180 NR 4.0 Hrs 3 K 2.5 Ca 140 Na 40 HC03 Qb 350 + Qd 500+ Heparin 0 Units Uf to dry weight as tolerated May give 25-50 gms of 25% Albumin if needed to maintain Hemodynamic stability Treatment plan reviewed and discussed with taper and floater Anemia: no Epogen ordered for hgb > 10; Transfuse with next HD as needed. HTN: Current BP meds reviewed. See orders for changes. Bone & Mineral: follow phos and alter binder regimen based on PO Inkate and trend of labs. Scral wound - will co-ordinate HD with Surgical debridement. Discussed Plan of Care and prognosis etc. at length with family () Labs Labs Laboratory Tests Test 12/21/16 22:35 12/21/16 22:54 12/22/16 04:35 White Blood Count 10.3 x10^3/uL (4.0-11.0) Red Blood Count 4.56 x10^6/uL (4.30-5.70) Hemoglobin 12.4 g/dL (13.0-17.5) Hematocrit 38.6 % (39.0-53.0) Mean Corpuscular Volume 85 fL (79-100) Mean Corpuscular Hemoglobin 27 pg (25-35) Mean Corpuscular Hemoglobin Concent 32 g/dL (31-37) Red Cell Distribution Width 16.8 % (11.5-14.5) Platelet Count 114 x10^3/uL (140-400) Neutrophils (%) (Auto) 86 % (31-73) Lymphocytes (%) (Auto) 7 % (24-48) Monocytes (%) (Auto) 6 % (0-9) Eosinophils (%) (Auto) 1 % (0-3) Basophils (%) (Auto) 1 % (0-3) Neutrophils # (Auto) 8.9 x10^3uL (1.8-7.7) Lymphocytes # (Auto) 0.7 x10^3/uL (1.0-4.8) Monocytes # (Auto) 0.6 x10^3/uL (0.0-1.1) Eosinophils # (Auto) 0.1 x10^3/uL (0.0-0.7) Basophils # (Auto) 0.1 x10^3/uL (0.0-0.2) Segmented Neutrophils % 83 % (35-66) Band Neutrophils % 1 % (0-9) Lymphocytes % 10 % (24-48) Monocytes % 5 % (0-10) Eosinophils % 1 % (0-5) Toxic Granulation Slight Platelet Estimate Decreased (ADEQUATE) Polychromasia Slight Erythrocyte Sedimentation Rate 52 (0-15) Glucose (Fingerstick) 68 mg/dL (70-99) Prothrombin Time 16.0 SEC (11.7-14.0) Prothromb Time International Ratio 1.4 (0.8-1.1) Laboratory Tests Test 12/21/16 22:35 12/21/16 22:54 12/22/16 04:35 White Blood Count 10.3 x10^3/uL (4.0-11.0) Red Blood Count 4.56 x10^6/uL (4.30-5.70) Hemoglobin 12.4 g/dL (13.0-17.5) Hematocrit 38.6 % (39.0-53.0) Mean Corpuscular Volume 85 fL (79-100) Mean Corpuscular Hemoglobin 27 pg (25-35) Mean Corpuscular Hemoglobin Concent 32 g/dL (31-37) Red Cell Distribution Width 16.8 % (11.5-14.5) Platelet Count 114 x10^3/uL (140-400) Neutrophils (%) (Auto) 86 % (31-73) Lymphocytes (%) (Auto) 7 % (24-48) Monocytes (%) (Auto) 6 % (0-9) Eosinophils (%) (Auto) 1 % (0-3) Basophils (%) (Auto) 1 % (0-3) Neutrophils # (Auto) 8.9 x10^3uL (1.8-7.7) Lymphocytes # (Auto) 0.7 x10^3/uL (1.0-4.8) Monocytes # (Auto) 0.6 x10^3/uL (0.0-1.1) Eosinophils # (Auto) 0.1 x10^3/uL (0.0-0.7) Basophils # (Auto) 0.1 x10^3/uL (0.0-0.2) Segmented Neutrophils % 83 % (35-66) Band Neutrophils % 1 % (0-9) Lymphocytes % 10 % (24-48) Monocytes % 5 % (0-10) Eosinophils % 1 % (0-5) Toxic Granulation Slight Platelet Estimate Decreased (ADEQUATE) Polychromasia Slight Erythrocyte Sedimentation Rate 52 (0-15) Glucose (Fingerstick) 68 mg/dL (70-99) Prothrombin Time 16.0 SEC (11.7-14.0) Prothromb Time International Ratio 1.4 (0.8-1.1) SHAQ KESSLER MD December 22, 2016 10:51
[2016-12-22] MEDS ORDERED: IV NORMAL SALINE 1000ML BAG 1,000 ML IV SCH (11:30)
[2016-12-22 11:43] LABS: CALCIUM 9.6 mg/dL (8.5-10.1); GFR 6.9
[2016-12-22 11:49] LABS: POTASSIUM 6.2 mmol/L (3.5-5.1)
[2016-12-22] MEDS ORDERED: DEXAMETHASONE SOD PHOS 20 MG/5 ML VIAL. ONE (11:52)
[2016-12-22] MEDS ORDERED: LIDOCAINE 2% PF Vial for OR 5 ML VIAL. ONE (11:52)
[2016-12-22] MEDS ORDERED: PROPOFOL 20 ML IV ONE (11:52)
[2016-12-22] MEDS ORDERED: ONDANSETRON PF 4 MG/2 ML VIAL. ONE (11:52)
[2016-12-22] MEDS ORDERED: BUPIVACAINE-EPI 0.25%-1:200000 MPF 30 ML VIAL. ONE (11:57)
[2016-12-22] MEDS ORDERED: ePHEDrine PF IN SALINE 50 MG/5 ML DISP.SYRIN IV ONE (12:11)
[2016-12-22] MEDS ORDERED: PHENYLEPHRINE in 0.9% NACL PF 1 MG/10 ML DISP.SYRIN. IV ONE (12:13)
--- NOTE | 2016-12-22 12:32 | PDOC ---
BRIEF OPERATIVE NOTE Date: December 22, 2016 Pre-Op Diagnosis Coccyx wound Post-Op Diagnosis Same Procedure Performed Sharp debridement Surgeon Booker Anesthesia Type: General Blood Loss 20ml Specimens Obtained cultures Findings as above wound [id number] Complications None AISLINN MAXWELL MD December 22, 2016 12:32
[2016-12-22] MEDS ORDERED: SEVOFLURANE 31 TO 60 MINUTES. IH ONE (12:40)
[2016-12-22] MEDS: MORPHINE SULFATE 2 MG/ML DISP.SYRIN. IV PRN ×2 (12:58→13:08)
[2016-12-22] MEDS ORDERED: DEXTROSE 50% 25 GM / 50ML DISP.SYRIN. IV ONE (13:45)
[2016-12-22] MEDS ORDERED: SODIUM BICARB ADULT 8.4% 50 MEQ/50 ML DISP.SYRIN. IV ONE (13:45)
[2016-12-22] MEDS ORDERED: SODIUM POLYSTYRENE SULFONATE 15 GM/60 ML ORAL.SUSP. PO ONE (13:45)
[2016-12-22] MEDS ORDERED: INSULIN REGULAR 100 UNIT/ML 10ML VIAL. IV ONE (13:45)
--- NOTE | 2016-12-22 14:06 | PDOC ---
Infectious Disease Note Vital Sign Vital Signs Vital Signs Date Time Temp Pulse Resp B/P (MAP) Pulse Ox O2 Delivery O2 Flow Rate FiO2 12/22/16 13:08 20 99 Nasal Cannula 2.0 12/22/16 12:59 59 106/75 12/22/16 12:29 97.6 97.6 Labs Lab Laboratory Tests Test 12/21/16 22:35 12/21/16 22:54 12/22/16 04:35 12/22/16 10:50 White Blood Count 10.3 x10^3/uL (4.0-11.0) Red Blood Count 4.56 x10^6/uL (4.30-5.70) Hemoglobin 12.4 g/dL (13.0-17.5) Hematocrit 38.6 % (39.0-53.0) Mean Corpuscular Volume 85 fL (79-100) Mean Corpuscular Hemoglobin 27 pg (25-35) Mean Corpuscular Hemoglobin Concent 32 g/dL (31-37) Red Cell Distribution Width 16.8 % (11.5-14.5) Platelet Count 114 x10^3/uL (140-400) Neutrophils (%) (Auto) 86 % (31-73) Lymphocytes (%) (Auto) 7 % (24-48) Monocytes (%) (Auto) 6 % (0-9) Eosinophils (%) (Auto) 1 % (0-3) Basophils (%) (Auto) 1 % (0-3) Neutrophils # (Auto) 8.9 x10^3uL (1.8-7.7) Lymphocytes # (Auto) 0.7 x10^3/uL (1.0-4.8) Monocytes # (Auto) 0.6 x10^3/uL (0.0-1.1) Eosinophils # (Auto) 0.1 x10^3/uL (0.0-0.7) Basophils # (Auto) 0.1 x10^3/uL (0.0-0.2) Segmented Neutrophils % 83 % (35-66) Band Neutrophils % 1 % (0-9) Lymphocytes % 10 % (24-48) Monocytes % 5 % (0-10) Eosinophils % 1 % (0-5) Toxic Granulation Slight Platelet Estimate Decreased (ADEQUATE) Polychromasia Slight Erythrocyte Sedimentation Rate 52 (0-15) Glucose (Fingerstick) 68 mg/dL (70-99) Prothrombin Time 16.0 SEC (11.7-14.0) Prothromb Time International Ratio 1.4 (0.8-1.1) Sodium Level 127 mmol/L (136-145) Potassium Level 6.2 mmol/L (3.5-5.1) Chloride Level 94 mmol/L (98-107) Carbon Dioxide Level 22 mmol/L (21-32) Anion Gap 11 (6-14) Blood Urea Nitrogen 75 mg/dL (8-26) Creatinine 9.0 mg/dL (0.7-1.3) Estimated GFR (Cockcroft-Gault) 6.9 Glucose Level 60 mg/dL (70-99) Calcium Level 9.6 mg/dL (8.5-10.1) Micro GRAM STAIN Final WBCS FEW GRAM POSITIVE COCCI FEW Objective Assessment Infected pressure wound of coccyx -Prior culture from [facility] 12/18 E. coli (R pip & amp) and Enterococcus PCN-S s/p I and D, 12/22. Intra-op GS: GPC Diabetes CKD on HD Recent closed fracture of pelvis Plan Plan of Care Darell Samaniego Flagyl f/u cultures Monitor labs Off load Thank you Attending Co-Sign Attending Co-Sign The patient was seen and interviewed as well as examined at the bedside. The chart was reviewed. The case was discussed. Agree with the plan of care. KELYL GARIBAY APRN December 22, 2016 14:06 EDWIN JACOME MD December 22, 2016 14:20
[2016-12-22] MEDS ORDERED: VANCOMYCIN 2 GM in IV NORMAL SALINE 500ML BAG 500 ML IV ONE (15:00)
--- NOTE | 2016-12-22 15:56 | OP ---
DATE OF SURGERY: 12/22/2016 PREOPERATIVE DIAGNOSIS: Coccyx decubitus ulcer with necrosis. POSTOPERATIVE DIAGNOSIS: Coccyx decubitus ulcer with necrosis. PROCEDURE: Sharp debridement of ulcer and wound. SURGEON: Roger Maxwell M.D. INDICATIONS: The patient is a 76-year-old gentleman who has had stroke and vascular path with bilateral amputation of his lower extremities developed a large coccyx wound with foul odor and necrosis. Procedure of debridement was explained to the patient and his in detail. Risks and benefits were also discussed including bleeding and infection. Alternatives of this procedure were also discussed with the patient who seemed to understand and gave verbal and written consent to have the procedure performed. DESCRIPTION OF PROCEDURE: The patient was taken to the Operating Room and placed in the left lateral decubitus position. He was intubated by Anesthesia. Once he was intubated, his buttocks and coccyx were prepped and draped in the usual sterile fashion using Betadine scrub and solution. The wound covered approximately 7 cm x 8 cm x 2 cm deep. There was quite a bit of necrosis there. Sharp debridement was done with a 10-blade scalpel to the necrotic skin, subcutaneous tissue down to the muscle and fascia down to basically exposed coccyx bone. There was good bleeding from the lateral tissues. Cultures were taken, and the wound was then dressed with Wet-to-Dry Kerlix and a dressing. The patient was awakened, extubated in the operating room, taken to recovery in stable condition. All sponge, needle, and instrument counts were listed as correct. Estimated blood loss was 20 mL. ROGER MAXWELL MD DR: SALVADOR/eb JOB#: [id number] / [id number]
[2016-12-22] MEDS: VANCOMYCIN PER PHARMACY MC PRN (16:08)
[2016-12-22] MEDS ORDERED: IV DEXTROSE 10% 500 ML IV ONE (16:30)
[2016-12-22] MEDS ORDERED: IV NORMAL SALINE 1000ML BAG 1,000 ML IV PRN ×2 (17:04)
[2016-12-22] MEDS ORDERED: DIALYSIS PATIENT. MC PRN (17:15)
[2016-12-22] MEDS ORDERED: diphenhydrAMINE 50 MG/ML VIAL IV PRN ×2 (17:15)
[2016-12-22 18:19] LABS: ALBUMIN 2.3 g/dL (3.4-5.0); ALBUMIN/GLOBULIN RATIO 0.5 (1.0-1.7); CALCIUM 8.1 mg/dL (8.5-10.1); CREATININE 3.9 mg/dL (0.7-1.3); GFR 18.2; MAGNESIUM 1.6 mg/dL (1.8-2.4); PHOSPHORUS 1.3 mg/dL (2.6-4.7); POTASSIUM 3.1 mmol/L (3.5-5.1); TOTAL BILIRUBIN 0.6 mg/dL (0.2-1.0)
[2016-12-22] MEDS: FAMOTIDINE 20 MG TABLET. PO SCH (21:00)
[2016-12-22] MEDS: DARBEPOETIN ALFA 100 MCG/0.5 ML DISP.SYRIN. SQ SCH (21:00)
--- NOTE | 2016-12-22 21:46 | CONS ---
DATE OF CONSULTATION: HISTORY OF PRESENT ILLNESS: The patient was admitted here in November with pubic fracture and was seen by Orthopedics and thereafter discharged to rehab. He apparently developed worsening sacral decubitus ulcer and eventually was found to have foul smelling discharge from it. He was thereafter transferred back to [facility] ER yesterday. His tells me that they felt that nothing could be done for him out there anymore even from the physical therapy standpoint. He was extremely tearful when his wounds were inspected in the ER and hence I did not open his wounds. For rest of details, see electronic records. SHAQ KESSLER MD DR: CECELIA/eb JOB#: [id number] / [id number]
[2016-12-22] MEDS: CINACALCET HCL 30 MG TABLET PO SCH (22:13)
[2016-12-22] MEDS: MIRTAZAPINE 15 MG TABLET PO SCH (22:13)
[2016-12-22] MEDS ORDERED: VANCOMYCIN 500 MG in IV NORMAL SALINE 100ML 100 ML IV ONE (23:00)
[2016-12-23 03:00] VITALS: BP 110/41
--- NOTE | 2016-12-23 03:04 | CONS ---
DATE OF CONSULTATION: 12/21/2016 REFERRING PHYSICIAN: Zenaida Morfin MD. REASON FOR CONSULTATION: Coccyx wound. HISTORY OF PRESENT ILLNESS: This patient is a 76-year-old -[place] male with a history of chronic kidney disease on hemodialysis, bilateral amputations and peripheral arterial disease. He was residing at [facility] after sustaining a closed pelvic fracture due to a fall. He developed a coccyx wound. A culture from December 18 at [facility] grew E. coli resistant to piperacillin and ampicillin, otherwise sensitive and Enterococcus faecalis penicillin sensitive. He was transferred to [facility] and underwent debridement by Dr. Celeste earlier today. Intraoperative Gram stain shows gram-positive cocci. ID has been consulted for antibiotic management. The patient is very sleepy post-surgery. HISTORY of present illness, past medical history and review of systems are limited at this time. REVIEW OF SYSTEMS: Limited. Per RN, the patient had had loose stool earlier. No fever or vomiting reported. PAST MEDICAL HISTORY: Chronic kidney disease, on hemodialysis, peripheral arterial disease, depression, hypertension, diabetes mellitus type 2, coronary artery disease, chronic obstructive pulmonary disease, osteoarthritis and anemia of chronic disease. 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 SOCIAL HISTORY: He is . Currently residing at [facility]. Nonsmoker. FAMILY HISTORY: Noncontributory. ALLERGIES: ASPIRIN, BARIUM, CALCIUM, DARK CHOCOLATES, SEVELAMER. MEDICATIONS: Reviewed on OCT. Currently, not on any antibiotics. PHYSICAL EXAMINATION: GENERAL: An -[place] male, resting quietly. No apparent distress. VITAL SIGNS: Temperature is 97.6, blood pressure 106/75, heart rate is 59, respiratory rate is 20, pulse oximetry 99% on 2 L nasal cannula, and weight is 201.06 pounds. HEENT: Pupils equally round, small. Normal conjunctivae. Oral mucosa is pink and dry. LUNGS: Clear to auscultation. HEART: Normal S1 and S2. ABDOMEN: Nondistended. Bowel sounds are present, soft, no grimace or guarding to palpation. EXTREMITIES: No gross edema or cyanosis. Bilateral lower extremity amputee. NEUROLOGIC: Arises easily to name, but decreased attention span, follows few simple commands. SKIN: Without rash. Warm to touch. Coccyx postop dressing. LABORATORY DATA: Recent WBC 10.3, hemoglobin 12.4, platelet count 114,000. Sed rate 52. Sodium 127, potassium 6.2, creatinine 9.0, BUN 75, glucose 60. Clostridium difficile PCR pending. Anaerobic-aerobic intraoperative culture pending. MRSA PCR pending. Blood culture is pending. No recent imaging. IMPRESSION: 1. Infected pressure wound of coccyx with recent culture from December 18, Escherichia coli and Enterococcus faecalis . 2. Status post I and D with intraoperative Gram stain showing gram-positive cocci. 3. Diabetes. 4. Chronic kidney disease, on hemodialysis. 5. Recent closed fracture of pelvis. PLAN: Initiate vancomycin, ceftriaxone and metronidazole. Monitor laboratory values and await culture results. Local wound care and offload. Thank you, Dr. Morfin, for asking us to participate in this patient's care. Should you have further questions or concerns, please call. EDWIN JACOME MD DR: DOV/eb JOB#: [id number] / [id number]
[2016-12-23 07:00] VITALS: BP 117/52
[2016-12-23] MEDS: DOCUSATE SODIUM 100 MG CAPSULE. PO SCH ×2 (07:48→20:07)
[2016-12-23] MEDS: oxyCODONE IR 5 MG TABLET PO PRN ×2 (08:05→13:38)
[2016-12-23] MEDS: CALCIUM CARBONATE 500 MG TABLET PO SCH ×3 (08:12→20:18)
[2016-12-23] MEDS: amLODIPine BESYLATE 10 MG TABLET PO SCH (08:41)
[2016-12-23] MEDS: LANTHANUM CARBONATE 500 MG TAB.CHEW PO SCH ×3 (08:41→18:00)
[2016-12-23] MEDS: FOLIC/VIT B COMP W-C (RENAL) TABLET. PO SCH (08:42)
[2016-12-23] MEDS: FERROUS SULFATE 325 MG TABLET. PO SCH (08:43)
[2016-12-23] MEDS: SERTRALINE 50 MG TABLET. PO SCH (08:43)
--- NOTE | 2016-12-23 09:17 | PDOC ---
SURYA RODRIGUEZ DIE REAMER 12/23/16 0917: SURGICAL PROGRESS NOTE Subjective on the phone bottom jose alejandro d/w nurse--operative dressing soiled, changed, aquacel in place Vital Signs Vital Signs Date Time Temp Pulse Resp B/P (MAP) Pulse Ox O2 Delivery O2 Flow Rate FiO2 12/23/16 08:41 77 117/52 12/23/16 07:00 98.0 20 98 Room Air 98.0 12/22/16 20:00 2.0 I&O Intake and Output 12/23/16 07:00 Intake Total 240 ml Output Total 0 ml Balance 240 ml Intake Oral 240 ml Output Urine Total 0 ml # Voids 1 # Bowel Movements 1 General: Alert, Oriented X3, Cooperative, No acute distress Skin: Other (dressing to coccyx) Labs Laboratory Tests Test 12/21/16 22:30 12/21/16 22:35 12/21/16 22:54 12/22/16 04:35 Nasal Screen MRSA (PCR) Negative (Negative) White Blood Count 10.3 x10^3/uL (4.0-11.0) Red Blood Count 4.56 x10^6/uL (4.30-5.70) Hemoglobin 12.4 g/dL (13.0-17.5) Hematocrit 38.6 % (39.0-53.0) Mean Corpuscular Volume 85 fL (79-100) Mean Corpuscular Hemoglobin 27 pg (25-35) Mean Corpuscular Hemoglobin Concent 32 g/dL (31-37) Red Cell Distribution Width 16.8 % (11.5-14.5) Platelet Count 114 x10^3/uL (140-400) Neutrophils (%) (Auto) 86 % (31-73) Lymphocytes (%) (Auto) 7 % (24-48) Monocytes (%) (Auto) 6 % (0-9) Eosinophils (%) (Auto) 1 % (0-3) Basophils (%) (Auto) 1 % (0-3) Neutrophils # (Auto) 8.9 x10^3uL (1.8-7.7) Lymphocytes # (Auto) 0.7 x10^3/uL (1.0-4.8) Monocytes # (Auto) 0.6 x10^3/uL (0.0-1.1) Eosinophils # (Auto) 0.1 x10^3/uL (0.0-0.7) Basophils # (Auto) 0.1 x10^3/uL (0.0-0.2) Segmented Neutrophils % 83 % (35-66) Band Neutrophils % 1 % (0-9) Lymphocytes % 10 % (24-48) Monocytes % 5 % (0-10) Eosinophils % 1 % (0-5) Toxic Granulation Slight Platelet Estimate Decreased (ADEQUATE) Polychromasia Slight Erythrocyte Sedimentation Rate 52 (0-15) Glucose (Fingerstick) 68 mg/dL (70-99) Prothrombin Time 16.0 SEC (11.7-14.0) Prothromb Time International Ratio 1.4 (0.8-1.1) Test 12/22/16 10:50 12/22/16 14:26 12/22/16 15:11 12/22/16 16:25 Sodium Level 127 mmol/L (136-145) Potassium Level 6.2 mmol/L (3.5-5.1) Chloride Level 94 mmol/L (98-107) Carbon Dioxide Level 22 mmol/L (21-32) Anion Gap 11 (6-14) Blood Urea Nitrogen 75 mg/dL (8-26) Creatinine 9.0 mg/dL (0.7-1.3) Estimated GFR (Cockcroft-Gault) 6.9 Glucose Level 60 mg/dL (70-99) Calcium Level 9.6 mg/dL (8.5-10.1) Glucose (Fingerstick) 49 mg/dL (70-99) 184 mg/dL (70-99) 55 mg/dL (70-99) Test 12/22/16 16:36 12/22/16 17:50 12/22/16 17:54 12/22/16 23:01 Glucose (Fingerstick) 48 mg/dL (70-99) 81 mg/dL (70-99) 55 mg/dL (70-99) Sodium Level 136 mmol/L (136-145) Potassium Level 3.1 mmol/L (3.5-5.1) Chloride Level 98 mmol/L (98-107) Carbon Dioxide Level 32 mmol/L (21-32) Anion Gap 6 (6-14) Blood Urea Nitrogen 30 mg/dL (8-26) Creatinine 3.9 mg/dL (0.7-1.3) Estimated GFR (Cockcroft-Gault) 18.2 BUN/Creatinine Ratio 8 (6-20) Glucose Level 83 mg/dL (70-99) Calcium Level 8.1 mg/dL (8.5-10.1) Phosphorus Level 1.3 mg/dL (2.6-4.7) Magnesium Level 1.6 mg/dL (1.8-2.4) Total Bilirubin 0.6 mg/dL (0.2-1.0) Aspartate Amino Transf (AST/SGOT) 18 U/L (15-37) Alanine Aminotransferase (ALT/SGPT) 27 U/L (16-63) Alkaline Phosphatase 89 U/L (46-116) Total Protein 7.0 g/dL (6.4-8.2) Albumin 2.3 g/dL (3.4-5.0) Albumin/Globulin Ratio 0.5 (1.0-1.7) Test 12/23/16 07:39 Glucose (Fingerstick) 63 mg/dL (70-99) Laboratory Tests Test 12/22/16 10:50 12/22/16 14:26 12/22/16 15:11 12/22/16 16:25 Sodium Level 127 mmol/L (136-145) Potassium Level 6.2 mmol/L (3.5-5.1) Chloride Level 94 mmol/L (98-107) Carbon Dioxide Level 22 mmol/L (21-32) Anion Gap 11 (6-14) Blood Urea Nitrogen 75 mg/dL (8-26) Creatinine 9.0 mg/dL (0.7-1.3) Estimated GFR (Cockcroft-Gault) 6.9 Glucose Level 60 mg/dL (70-99) Calcium Level 9.6 mg/dL (8.5-10.1) Glucose (Fingerstick) 49 mg/dL (70-99) 184 mg/dL (70-99) 55 mg/dL (70-99) Test 12/22/16 16:36 12/22/16 17:50 12/22/16 17:54 12/22/16 23:01 Glucose (Fingerstick) 48 mg/dL (70-99) 81 mg/dL (70-99) 55 mg/dL (70-99) Sodium Level 136 mmol/L (136-145) Potassium Level 3.1 mmol/L (3.5-5.1) Chloride Level 98 mmol/L (98-107) Carbon Dioxide Level 32 mmol/L (21-32) Anion Gap 6 (6-14) Blood Urea Nitrogen 30 mg/dL (8-26) Creatinine 3.9 mg/dL (0.7-1.3) Estimated GFR (Cockcroft-Gault) 18.2 BUN/Creatinine Ratio 8 (6-20) Glucose Level 83 mg/dL (70-99) Calcium Level 8.1 mg/dL (8.5-10.1) Phosphorus Level 1.3 mg/dL (2.6-4.7) Magnesium Level 1.6 mg/dL (1.8-2.4) Total Bilirubin 0.6 mg/dL (0.2-1.0) Aspartate Amino Transf (AST/SGOT) 18 U/L (15-37) Alanine Aminotransferase (ALT/SGPT) 27 U/L (16-63) Alkaline Phosphatase 89 U/L (46-116) Total Protein 7.0 g/dL (6.4-8.2) Albumin 2.3 g/dL (3.4-5.0) Albumin/Globulin Ratio 0.5 (1.0-1.7) Test 12/23/16 07:39 Glucose (Fingerstick) 63 mg/dL (70-99) Problem List s/p debridement wound care to see Saturday Problems: AISLINN MAXWELL MD 12/23/16 1209: SURGICAL PROGRESS NOTE Assessment/Plan Agree with Karlie's assessment and plan. Problems: SURYA RODRIGUEZ APRN December 23, 2016 09:17 AISLINN MAXWELL MD December 23, 2016 12:09
--- NOTE | 2016-12-23 10:16 | PDOC ---
PROGRESS NOTES Chief Complaint Chief Complaint 1. Cocyygeal wound s/p I and D 01/22/17 2. ESDR on HD 3. Bilateral Amputee 4. AOCD 5. Dementia, chronic enceph 6, PVD 7. 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 Hyperkalemnia, resolved -now hYPOKALemic 9. HYpoglycemia, persistent History of Present Illness History of Present Illness Hypoglycemia persists Eating PO Needed to give regular insulin saturday mid day as temporizing measure for the hyperkal - HD was done saturday night Some pain hip Did have BM after the kayexylate ID on board, no fever, no white ct PLAn: Dextrose iV or PO MOntior for further hypogly MIght need dextrose 5 if persists NOT on any insulin HD per renal Follow wound cx from I and D and adjust antibiotics accdgly PT/OT SW - pt lives at home - snu screen Vitals Vitals Vital Signs Date Time Temp Pulse Resp B/P (MAP) Pulse Ox O2 Delivery O2 Flow Rate FiO2 12/23/16 08:41 77 117/52 12/23/16 07:00 98.0 20 98 Room Air 98.0 12/22/16 20:00 2.0 Physical Exam General: Alert, Oriented X3, Cooperative, No acute distress Heart: Regular rate, Normal S1, Normal S2 Lungs: Clear Abdomen: Normal bowel sounds, Soft, No tenderness, No hepatosplenomegaly, No masses Extremities: Other (grade 3 coccygeal wound, pus draiange, foul smelling tender to inspection) Skin: Other (dressing to coccyx) Labs LABS Laboratory Tests Test 12/22/16 10:50 12/22/16 14:26 12/22/16 15:11 12/22/16 16:25 Sodium Level 127 mmol/L (136-145) Potassium Level 6.2 mmol/L (3.5-5.1) Chloride Level 94 mmol/L (98-107) Carbon Dioxide Level 22 mmol/L (21-32) Anion Gap 11 (6-14) Blood Urea Nitrogen 75 mg/dL (8-26) Creatinine 9.0 mg/dL (0.7-1.3) Estimated GFR (Cockcroft-Gault) 6.9 Glucose Level 60 mg/dL (70-99) Calcium Level 9.6 mg/dL (8.5-10.1) Glucose (Fingerstick) 49 mg/dL (70-99) 184 mg/dL (70-99) 55 mg/dL (70-99) Test 12/22/16 16:36 12/22/16 17:50 12/22/16 17:54 12/22/16 23:01 Glucose (Fingerstick) 48 mg/dL (70-99) 81 mg/dL (70-99) 55 mg/dL (70-99) Sodium Level 136 mmol/L (136-145) Potassium Level 3.1 mmol/L (3.5-5.1) Chloride Level 98 mmol/L (98-107) Carbon Dioxide Level 32 mmol/L (21-32) Anion Gap 6 (6-14) Blood Urea Nitrogen 30 mg/dL (8-26) Creatinine 3.9 mg/dL (0.7-1.3) Estimated GFR (Cockcroft-Gault) 18.2 BUN/Creatinine Ratio 8 (6-20) Glucose Level 83 mg/dL (70-99) Calcium Level 8.1 mg/dL (8.5-10.1) Phosphorus Level 1.3 mg/dL (2.6-4.7) Magnesium Level 1.6 mg/dL (1.8-2.4) Total Bilirubin 0.6 mg/dL (0.2-1.0) Aspartate Amino Transf (AST/SGOT) 18 U/L (15-37) Alanine Aminotransferase (ALT/SGPT) 27 U/L (16-63) Alkaline Phosphatase 89 U/L (46-116) Total Protein 7.0 g/dL (6.4-8.2) Albumin 2.3 g/dL (3.4-5.0) Albumin/Globulin Ratio 0.5 (1.0-1.7) Test 12/23/16 07:39 Glucose (Fingerstick) 63 mg/dL (70-99) Review of Systems Review of Systems butt pain, all else is neg Comment Review of Relevant I have reviewed the following items katherine (where applicable) has been applied. Labs Laboratory Tests Test 12/21/16 22:30 12/21/16 22:35 12/21/16 22:54 12/22/16 04:35 Nasal Screen MRSA (PCR) Negative (Negative) White Blood Count 10.3 x10^3/uL (4.0-11.0) Red Blood Count 4.56 x10^6/uL (4.30-5.70) Hemoglobin 12.4 g/dL (13.0-17.5) Hematocrit 38.6 % (39.0-53.0) Mean Corpuscular Volume 85 fL (79-100) Mean Corpuscular Hemoglobin 27 pg (25-35) Mean Corpuscular Hemoglobin Concent 32 g/dL (31-37) Red Cell Distribution Width 16.8 % (11.5-14.5) Platelet Count 114 x10^3/uL (140-400) Neutrophils (%) (Auto) 86 % (31-73) Lymphocytes (%) (Auto) 7 % (24-48) Monocytes (%) (Auto) 6 % (0-9) Eosinophils (%) (Auto) 1 % (0-3) Basophils (%) (Auto) 1 % (0-3) Neutrophils # (Auto) 8.9 x10^3uL (1.8-7.7) Lymphocytes # (Auto) 0.7 x10^3/uL (1.0-4.8) Monocytes # (Auto) 0.6 x10^3/uL (0.0-1.1) Eosinophils # (Auto) 0.1 x10^3/uL (0.0-0.7) Basophils # (Auto) 0.1 x10^3/uL (0.0-0.2) Segmented Neutrophils % 83 % (35-66) Band Neutrophils % 1 % (0-9) Lymphocytes % 10 % (24-48) Monocytes % 5 % (0-10) Eosinophils % 1 % (0-5) Toxic Granulation Slight Platelet Estimate Decreased (ADEQUATE) Polychromasia Slight Erythrocyte Sedimentation Rate 52 (0-15) Glucose (Fingerstick) 68 mg/dL (70-99) Prothrombin Time 16.0 SEC (11.7-14.0) Prothromb Time International Ratio 1.4 (0.8-1.1) Test 12/22/16 10:50 12/22/16 14:26 12/22/16 15:11 12/22/16 16:25 Sodium Level 127 mmol/L (136-145) Potassium Level 6.2 mmol/L (3.5-5.1) Chloride Level 94 mmol/L (98-107) Carbon Dioxide Level 22 mmol/L (21-32) Anion Gap 11 (6-14) Blood Urea Nitrogen 75 mg/dL (8-26) Creatinine 9.0 mg/dL (0.7-1.3) Estimated GFR (Cockcroft-Gault) 6.9 Glucose Level 60 mg/dL (70-99) Calcium Level 9.6 mg/dL (8.5-10.1) Glucose (Fingerstick) 49 mg/dL (70-99) 184 mg/dL (70-99) 55 mg/dL (70-99) Test 12/22/16 16:36 12/22/16 17:50 12/22/16 17:54 12/22/16 23:01 Glucose (Fingerstick) 48 mg/dL (70-99) 81 mg/dL (70-99) 55 mg/dL (70-99) Sodium Level 136 mmol/L (136-145) Potassium Level 3.1 mmol/L (3.5-5.1) Chloride Level 98 mmol/L (98-107) Carbon Dioxide Level 32 mmol/L (21-32) Anion Gap 6 (6-14) Blood Urea Nitrogen 30 mg/dL (8-26) Creatinine 3.9 mg/dL (0.7-1.3) Estimated GFR (Cockcroft-Gault) 18.2 BUN/Creatinine Ratio 8 (6-20) Glucose Level 83 mg/dL (70-99) Calcium Level 8.1 mg/dL (8.5-10.1) Phosphorus Level 1.3 mg/dL (2.6-4.7) Magnesium Level 1.6 mg/dL (1.8-2.4) Total Bilirubin 0.6 mg/dL (0.2-1.0) Aspartate Amino Transf (AST/SGOT) 18 U/L (15-37) Alanine Aminotransferase (ALT/SGPT) 27 U/L (16-63) Alkaline Phosphatase 89 U/L (46-116) Total Protein 7.0 g/dL (6.4-8.2) Albumin 2.3 g/dL (3.4-5.0) Albumin/Globulin Ratio 0.5 (1.0-1.7) Test 12/23/16 07:39 Glucose (Fingerstick) 63 mg/dL (70-99) Laboratory Tests Test 12/22/16 10:50 12/22/16 14:26 12/22/16 15:11 12/22/16 16:25 Sodium Level 127 mmol/L (136-145) Potassium Level 6.2 mmol/L (3.5-5.1) Chloride Level 94 mmol/L (98-107) Carbon Dioxide Level 22 mmol/L (21-32) Anion Gap 11 (6-14) Blood Urea Nitrogen 75 mg/dL (8-26) Creatinine 9.0 mg/dL (0.7-1.3) Estimated GFR (Cockcroft-Gault) 6.9 Glucose Level 60 mg/dL (70-99) Calcium Level 9.6 mg/dL (8.5-10.1) Glucose (Fingerstick) 49 mg/dL (70-99) 184 mg/dL (70-99) 55 mg/dL (70-99) Test 12/22/16 16:36 12/22/16 17:50 12/22/16 17:54 12/22/16 23:01 Glucose (Fingerstick) 48 mg/dL (70-99) 81 mg/dL (70-99) 55 mg/dL (70-99) Sodium Level 136 mmol/L (136-145) Potassium Level 3.1 mmol/L (3.5-5.1) Chloride Level 98 mmol/L (98-107) Carbon Dioxide Level 32 mmol/L (21-32) Anion Gap 6 (6-14) Blood Urea Nitrogen 30 mg/dL (8-26) Creatinine 3.9 mg/dL (0.7-1.3) Estimated GFR (Cockcroft-Gault) 18.2 BUN/Creatinine Ratio 8 (6-20) Glucose Level 83 mg/dL (70-99) Calcium Level 8.1 mg/dL (8.5-10.1) Phosphorus Level 1.3 mg/dL (2.6-4.7) Magnesium Level 1.6 mg/dL (1.8-2.4) Total Bilirubin 0.6 mg/dL (0.2-1.0) Aspartate Amino Transf (AST/SGOT) 18 U/L (15-37) Alanine Aminotransferase (ALT/SGPT) 27 U/L (16-63) Alkaline Phosphatase 89 U/L (46-116) Total Protein 7.0 g/dL (6.4-8.2) Albumin 2.3 g/dL (3.4-5.0) Albumin/Globulin Ratio 0.5 (1.0-1.7) Test 12/23/16 07:39 Glucose (Fingerstick) 63 mg/dL (70-99) Microbiology 12/21/16 Blood Culture - Preliminary, Resulted NO GROWTH AFTER 1 DAY 12/22/16 Gram Stain - Final, Complete Medications Current Medications Ondansetron HCl (Zofran) 4 mg PRN Q6HRS PRN IV NAUSEA/VOMITING; Start 12/21/16 at 18:15 Prochlorperazine Edisylate (Compazine) 10 mg PRN Q6HRS PRN IV NAUSEA/VOMITING; Start 12/21/16 at 18:15 Prochlorperazine (Compazine) 25 mg PRN Q12HR PRN DE NAUSEA/VOMITING; Start 12/21 at 18:15 Al Hydroxide/Mg Hydroxide (Mylanta Plus Xs) 30 ml PRN Q3HRS PRN PO HEARTBURN / GAS; Start 12/21/16 at 18:15 Calcium Carbonate/ Glycine (Tums) 500 mg PRN Q3HRS PRN PO UPSET STOMACH; Start 12/21/16 at 18:15 Oxycodone HCl (Roxicodone) 5 mg PRN Q3HRS PRN PO BREAKTHROUGH PAIN Last administered on 12/23/16 08:05; Start 12/21/16 at 18:15 Morphine Sulfate 1 mg PRN Q1HR PRN IV PAIN Last administered on 12/22/16 01:28 ; Start 12/21/16 at 18:15 Acetaminophen (Tylenol) 650 mg PRN Q6HRS PRN PO Headaches, Temp > 101.5F; Start 12/21/16 at 18:15 Docusate Sodium (Colace) 100 mg BID PO Last administered on 12/21/16 21:52; Start 12/21/16 at 21:00 Magnesium Hydroxide (Milk Of Magnesia) 2,400 mg PRN Q12HR PRN PO CONSTIPATION; Start 12/21/16 at 18:15 Bisacodyl (Dulcolax Supp) 10 mg PRN DAILY PRN DE CONSTIPATION; Start 12/21/16 at 18:15 Acetaminophen (Tylenol) 325 mg PRN Q4HRS PRN PO PAIN/FEVER; Start 12/21/16 at 18 :15 Amlodipine Besylate (Norvasc) 10 mg DAILY PO ; Start 12/22/16 at 09:00 Calcium Carbonate/ Glycine (Oscal) 500 mg TID PO Last administered on 12/23/16 08:12; Start 12/21/16 at 21:00 Vitamin D (Vitamin D3) 2,000 unit QODAY PO ; Start 12/23/16 at 09:00 Cinacalcet (Sensipar) 90 mg HS PO Last administered on 12/22/16 22:13; Start at 21:00 Colestipol HCl (Colestid) 1 gm BID PO Last administered on 12/21/16 21:51; Start 12/21/16 at 21:00 Ergocalciferol (Vitamin D2) 50,000 unit WEEKLY PO ; Start 12/28/16 at 09:00 Famotidine (Pepcid) 20 mg HS PO Last administered on 12/21/16 21:54; Start 12/21 at 21:00 Lanthanum Carbonate (Fosrenol) 1,000 mg TIDWMEALS PO ; Start 12/22/16 at 08:00; Stop 12/22/16 at 08:00; Status DC Lorazepam (Ativan) 0.25 mg PRN DAILY PRN PO ANXIETY Last administered on 21:54; Start 12/21/16 at 18:15 Mirtazapine (Remeron) 7.5 mg QHS PO Last administered on 12/22/16 22:13; Start 12/21/16 at 21:00 Tramadol HCl (Ultram) 25 mg PRN Q6HRS PRN PO PAIN Last administered on 21:53; Start 12/21/16 at 18:15 Darbepoetin Placido (Aranesp) 100 mcg WEEKLYHS SQ ; Start 12/22/16 at 21:00 Ferrous Sulfate (Feosol) 325 mg DAILYWBKFT PO Last administered on 12/23/16 08: 43; Start 12/22/16 at 08:00 Vitamin B Complex/ Vitamin C (Blank-Cliff) 1 tab DAILY PO Last administered on 08:42; Start 12/22/16 at 09:00 Sertraline HCl (Zoloft) 200 mg DAILY PO Last administered on 12/23/16 08:43; Start 12/22/16 at 09:00 Non-Formulary Medication 1 each DAILY PO ; Start 12/22/16 at 09:00; Status UNV Lanthanum Carbonate (Fosrenol) 1,000 mg TIDAFTMEAL PO ; Start 12/22/16 at 09:00; Stop 12/22/16 at 09:00; Status DC Lanthanum Carbonate (Fosrenol) 1,000 mg TIDAFTMEAL PO ; Start 12/22/16 at 09:00 Vancomycin HCl 1.25 gm/Sodium Chloride 250 ml @ 166.667 mls/hr 1X ONCE IV Last administered on 12/21/16 22:31; Start 12/21/16 at 20:00; Stop 12/21/16 at 21: 29; Status DC Morphine Sulfate 2 mg PRN Q2HR PRN IV PAIN; Start 12/22/16 at 02:15 Ondansetron HCl (Zofran) 4 mg PRN Q6HRS PRN IV NAUSEA/VOMITING; Start 12/22/16 at 09:00; Stop 12/22/16 at 18:00; Status DC Fentanyl Citrate (Fentanyl 2ml Vial) 25 mcg PRN Q5MIN PRN IV MILD PAIN; Start 12/22/16 at 09:00; Stop 12/22/16 at 18:00; Status DC Fentanyl Citrate (Fentanyl 2ml Vial) 50 mcg PRN Q5MIN PRN IV MODERATE PAIN; Start 12/22/16 at 09:00; Stop 12/22/16 at 18:00; Status DC Morphine Sulfate 1 mg PRN Q10MIN PRN IV SEVERE PAIN Last administered on 12:58; Start 12/22/16 at 09:00; Stop 12/22/16 at 18:00; Status DC Ringer's Solution 1,000 ml @ 30 mls/hr Q24H IV ; Start 12/22/16 at 09:00; Stop 12/22/16 at 20:59; Status DC Lidocaine HCl 2 ml PRN 1X PRN ID PRIOR TO IV START; Start 12/22/16 at 09:00; Stop 12/22/16 at 18:00; Status DC Hydromorphone HCl (Dilaudid) 0.5 mg PRN Q10MIN PRN IV SEV PAIN, Second choice; Start 12/22/16 at 09:00; Stop 12/22/16 at 18:00; Status DC Prochlorperazine Edisylate (Compazine) 5 mg PACU PRN PRN IV NAUSEA, MRX1; Start 12/22/16 at 09:00; Stop 12/22/16 at 18:00; Status DC Propofol 20 ml @ As Directed STK-MED ONCE IV ; Start 12/22/16 at 11:52; Stop 12/22 at 11:53; Status DC Lidocaine HCl (Lidocaine Pf 2% Vial) 5 ml STK-MED ONCE .ROUTE ; Start 12/22/16 at 11:52; Stop 12/22/16 at 11:53; Status DC Dexamethasone Sodium Phosphate (Decadron) 20 mg STK-MED ONCE .ROUTE ; Start 12/22 at 11:52; Stop 12/22/16 at 11:53; Status DC Ondansetron HCl (Zofran) 4 mg STK-MED ONCE .ROUTE ; Start 12/22/16 at 11:52; Stop 12/22/16 at 11:53; Status DC Bupivacaine HCl/ Epinephrine Bitart (Sensorcaine-Epi 0.25%-1:[id number] Mpf) 30 ml STK-MED ONCE .ROUTE ; Start 12/22/16 at 11:57; Stop 12/22/16 at 11:58; Status DC Ephedrine Sulfate 50 mg STK-MED ONCE IV ; Start 12/22/16 at 12:11; Stop 12/22/16 at 12:12; Status DC Phenylephrine HCl 1 mg STK-MED ONCE IV ; Start 12/22/16 at 12:13; Stop 12/22/16 at 12:14; Status DC Sevoflurane (Ultane) 30 ml STK-MED ONCE IH ; Start 12/22/16 at 12:40; Stop at 12:41; Status DC Sodium Chloride 1,000 ml @ 0 mls/hr Q0M IV ; Start 12/22/16 at 11:30 Sodium Polystyrene Sulfonate (Kayexalate) 30 gm 1X ONCE PO Last administered on 12/22/16t 14:29; Start 12/22/16 at 13:45; Stop 12/22/16 at 13:53; Status DC Sodium Bicarbonate 50 meq 1X ONCE IV Last administered on 12/22/16 14:29; Start 12/22/16 at 13:45; Stop 12/22/16 at 13:53; Status DC Dextrose (Dextrose 50%-Water Syringe) 50 gm 1X ONCE IV Last administered on 13:45; Start 12/22/16 at 13:45; Stop 12/22/16 at 13:53; Status DC Insulin Human Regular (Novolin R Vial) 10 unit 1X ONCE IV Last administered on 12/22/16 14:31; Start 12/22/16 at 13:45; Stop 12/22/16 at 13:53; Status DC Vancomycin HCl (Vanco Per Pharmacy) 1 each PRN DAILY PRN MC SEE COMMENTS Last administered on 12/22/16 16:08; Start 12/22/16 at 14:00 Ceftriaxone Sodium 1 gm/ Sodium Chloride 50 ml @ 100 mls/hr Q24H IV Last administered on 12/22/16 14:32; Start 12/22/16 at 14:00 Metronidazole 100 ml @ 100 mls/hr Q8HRS IV Last administered on 12/23/16 06:00 ; Start 12/22/16 at 14:00 Vancomycin HCl 2 gm/Sodium Chloride 500 ml @ 250 mls/hr 1X ONCE IV ; Start 12/22/16 at 15:00; Stop 12/22/16 at 16:59; Status Cancel Vancomycin HCl 500 mg/Sodium Chloride 100 ml @ 100 mls/hr 1X ONCE IV Last administered on 12/22/16 23:00; Start 12/22/16 at 23:00; Stop 12/22/16 at 23:59; Status DC Dextrose 500 ml @ 75 mls/hr 1X ONCE IV Last administered on 12/22/16 16:52; Start 12/22/16 at 16:30; Stop 12/22/16 at 23:09; Status DC Sodium Chloride 1,000 ml @ 1,000 mls/hr Q1H PRN IV hypotension; Start 12/22/16 at 17:04; Stop 12/22/16 at 23:03; Status DC Diphenhydramine HCl (Benadryl) 25 mg 1X PRN PRN IV ITCHING; Start 12/22/16 at 17 :15; Stop 12/23/16 at 17:14 Diphenhydramine HCl (Benadryl) 25 mg 1X PRN PRN IV ITCHING; Start 12/22/16 at 17 :15; Stop 12/23/16 at 17:14 Sodium Chloride 1,000 ml @ 400 mls/hr Q2H30M PRN IV PATENCY; Start 12/22/16 at 17:04; Stop 12/23/16 at 05:03; Status DC Info (PHARMACY MONITORING -- do not chart) 1 each PRN DAILY PRN MC SEE COMMENTS ; Start 12/22/16 at 17:15 Active Scripts Active Reported Tylenol (Acetaminophen) 325 Mg Tablet 1 Tab PO PRN Q4HRS Tramadol Hcl 50 Mg Tablet 0.5 Tab PO PRN Q6HRS Colestid (Colestipol Hcl) 1 Gm Tablet 1 Gm PO BID Fosrenol (Lanthanum Carbonate) 1,000 Mg Tab.chew 1,000 Mg PO TIDWMEALS Amlodipine Besylate 10 Mg Tablet 10 Mg PO DAILY Mirtazapine 15 Mg Tablet 5 Tab PO QHS Eucerin Intensive Repair (Emollient Combination No.72) 250 Ml Lotion 250 Ml TP Amlodipine Besylate 10 Mg Tablet 10 Mg PO DAILY Vitamin B Complex 1 Each Capsule 1 Each PO DAILY Renal Caps Softgel (Folic Acid/Vitamin B Comp W-C) 1 Mg Capsule 1 Mg PO DAILY Lorazepam 0.5 Mg Tablet 0.25 Mg PO PRN DAILY PRN Vitamin D2 (Ergocalciferol (Vitamin D2)) 50,000 Unit Capsule 50,000 Unit PO WEEKLY Vitamin D3 (Cholecalciferol (Vitamin D3)) 1,000 Unit Tablet 2,000 Unit PO QODAY Epogen (Epoetin Placido) 20,000 Unit/1 Ml Vial 14,300 Unit IJ THREE TIMES A WEEK Zoloft (Sertraline Hcl) 100 Mg Tablet 200 Mg PO DAILY Ferrous Gluconate 325 Mg Tablet 325 Mg PO DAILY Famotidine 20 Mg Tablet 20 Mg PO HS Sensipar (Cinacalcet Hcl) 30 Mg Tablet 90 Mg PO HS Calcium Carbonate 500 Mg Tablet 500 Mg PO TID Vitals/I & O Vital Sign - Last 24 Hours 12/22/16 12/22/16 12/22/16 12/22/16 11:43 12:29 12:29 12:44 Temp 97.0 97.6 97.0 97.6 Pulse 66 45 52 Resp 20 20 20 B/P (MAP) 118/96 93/45 108/50 Pulse Ox 94 98 O2 Delivery Room Air Mask Simple Mask Nasal Cannula O2 Flow Rate 10 10 2 12/22/16 12/22/16 12/22/16 12/22/16 12:58 12:59 13:08 13:30 Temp 97.2 97.2 Pulse 59 69 Resp 20 20 20 18 B/P (MAP) 106/75 114/56 (75) Pulse Ox 98 99 94 O2 Delivery Nasal Cannula Nasal Cannula Nasal Cannula Room Air O2 Flow Rate 2.0 2 2.0 12/22/16 12/22/16 12/22/16 12/22/16 13:45 14:00 15:00 15:30 Temp 97.4 97.6 97.0 97.4 97.6 97.0 Pulse 69 70 72 78 Resp 22 20 22 B/P (MAP) 110/48 (68) 115/49 (71) 123/47 (72) 121/52 (75) Pulse Ox 98 95 95 95 O2 Delivery Room Air Room Air Room Air Room Air 12/22/16 12/22/16 12/22/16 12/23/16 17:09 20:00 23:00 03:00 Temp 97.3 97.8 97.9 97.3 97.8 97.9 Pulse 72 76 66 Resp 18 16 16 B/P (MAP) 116/69 (85) 103/37 (59) 110/41 (64) Pulse Ox 96 92 94 O2 Delivery Room Air Nasal Cannula Room Air Room Air O2 Flow Rate 2.0 12/23/16 12/23/16 07:00 08:41 Temp 98.0 98.0 Pulse 77 77 Resp 20 B/P (MAP) 117/52 (73) 117/52 Pulse Ox 98 O2 Delivery Room Air Intake and Output 12/22/16 12/22/16 12/23/16 15:00 23:00 07:00 Intake Total 0 ml 240 ml Output Total 0 ml 0 ml 0 ml Balance 0 ml 240 ml 0 ml BEN THEODORE MD December 23, 2016 10:16
--- NOTE | 2016-12-23 10:25 | PDOC ---
Infectious Disease Note Subjective Subjective c/o "butt pain." ROS ROS GEN: Denies fevers, chills, sweats CV: Denies chest pain RESP: Denies shortness of air, cough GI: Denies n/v/d NEURO: Denies confusion, dizziness Vital Sign Vital Signs Vital Signs Date Time Temp Pulse Resp B/P (MAP) Pulse Ox O2 Delivery O2 Flow Rate FiO2 12/23/16 08:41 77 117/52 12/23/16 07:00 98.0 20 98 Room Air 98.0 12/22/16 20:00 2.0 Physical Exam PHYSICAL EXAM GENERAL: Resting, HEENT: OP/OC dry NECK: right-sided suture in place. LUNGS: Clear to auscultation. HEART: Normal S1 and S2. ABDOMEN: Nondistended. Bowel sounds are present, soft, NT EXTREMITIES: No gross edema or cyanosis. Bilateral lower extremity amputee. LUE AV shunt NEUROLOGIC: Arouses easily to name, responds appropriately SKIN: Without rash. Warm to touch. Coccyx dressing in place Labs Lab Laboratory Tests Test 12/22/16 10:50 12/22/16 14:26 12/22/16 15:11 12/22/16 16:25 Sodium Level 127 mmol/L (136-145) Potassium Level 6.2 mmol/L (3.5-5.1) Chloride Level 94 mmol/L (98-107) Carbon Dioxide Level 22 mmol/L (21-32) Anion Gap 11 (6-14) Blood Urea Nitrogen 75 mg/dL (8-26) Creatinine 9.0 mg/dL (0.7-1.3) Estimated GFR (Cockcroft-Gault) 6.9 Glucose Level 60 mg/dL (70-99) Calcium Level 9.6 mg/dL (8.5-10.1) Glucose (Fingerstick) 49 mg/dL (70-99) 184 mg/dL (70-99) 55 mg/dL (70-99) Test 12/22/16 16:36 12/22/16 17:50 12/22/16 17:54 12/22/16 23:01 Glucose (Fingerstick) 48 mg/dL (70-99) 81 mg/dL (70-99) 55 mg/dL (70-99) Sodium Level 136 mmol/L (136-145) Potassium Level 3.1 mmol/L (3.5-5.1) Chloride Level 98 mmol/L (98-107) Carbon Dioxide Level 32 mmol/L (21-32) Anion Gap 6 (6-14) Blood Urea Nitrogen 30 mg/dL (8-26) Creatinine 3.9 mg/dL (0.7-1.3) Estimated GFR (Cockcroft-Gault) 18.2 BUN/Creatinine Ratio 8 (6-20) Glucose Level 83 mg/dL (70-99) Calcium Level 8.1 mg/dL (8.5-10.1) Phosphorus Level 1.3 mg/dL (2.6-4.7) Magnesium Level 1.6 mg/dL (1.8-2.4) Total Bilirubin 0.6 mg/dL (0.2-1.0) Aspartate Amino Transf (AST/SGOT) 18 U/L (15-37) Alanine Aminotransferase (ALT/SGPT) 27 U/L (16-63) Alkaline Phosphatase 89 U/L (46-116) Total Protein 7.0 g/dL (6.4-8.2) Albumin 2.3 g/dL (3.4-5.0) Albumin/Globulin Ratio 0.5 (1.0-1.7) Test 12/23/16 07:39 Glucose (Fingerstick) 63 mg/dL (70-99) Micro BLOOD CULTURE Preliminary NO GROWTH AFTER 1 DAY GRAM STAIN Final WBCS FEW GRAM POSITIVE COCCI FEW ANAEROBIC-AEROBIC CULTURE PENDING ANAEROBIC RES 1 PENDING AEROBIC CULT Preliminary Preliminary report AEROBIC RES 1 Preliminary Gram negative rods Objective Assessment Infected pressure wound of coccyx -Prior culture from [facility] 12/18 E. coli (R pip & amp) and Enterococcus PCN-S s/p I and D, 12/22. Intra-op GS: GPC. cx: GNR Diabetes CKD on HD Recent closed fracture of pelvis Plan Plan of Care Cont Vanc, Errol Lozoya Overall improved f/u cultures Monitor labs Off load c. diff pending D/w family Attending Co-Sign Attending Co-Sign The patient was seen and interviewed as well as examined at the bedside. The chart was reviewed. The case was discussed. Agree with the plan of care. KELLY GARIBAY APRN December 23, 2016 10:25 EDWIN JACOME MD December 23, 2016 15:04
[2016-12-23 11:00] VITALS: BP 117/52
[2016-12-23] MEDS: COLESTIPOL HCL 1 GM TABLET PO SCH ×2 (11:44→20:17)
[2016-12-23] MEDS: CHOLECALCIFEROL (VITAMIN D3) 1,000 UNIT TABLET PO SCH (11:44)
--- NOTE | 2016-12-23 12:12 | EKG ---
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
[2016-12-23 14:10] LABS: HEP B SURFACE ABDY Non Reactive (.)
[2016-12-23 15:00] VITALS: BP 115/69
[2016-12-23 19:00] VITALS: BP 121/51
[2016-12-23] MEDS: FAMOTIDINE 20 MG TABLET. PO SCH (20:09)
[2016-12-23] MEDS: CINACALCET HCL 30 MG TABLET PO SCH (20:18)
[2016-12-23] MEDS: MIRTAZAPINE 15 MG TABLET PO SCH (20:18)
[2016-12-23 23:00] VITALS: BP 114/42
[2016-12-24 03:00] VITALS: BP 142/56
[2016-12-24 04:01] LABS: BASO % 0 % (0-3); EOS % 1 % (0-3); HEMATOCRIT 29.8 % (39.0-53.0); HEMOGLOBIN 9.6 g/dL (13.0-17.5); LYMPH # 0.6 x10^3/uL (1.0-4.8); LYMPH % 6 % (24-48); MEAN CORPUSCULAR HEMOGLOBIN 27 pg (25-35); MEAN CORPUSCULAR HGB CONC 32 g/dL (31-37); MEAN CORPUSCULAR VOLUME 85 fL (79-100); MONO % 6 % (0-9); NEUT % 87 % (31-73); PLATELET COUNT 112 x10^3/uL (140-400); RED BLOOD COUNT 3.52 x10^6/uL (4.30-5.70); WHITE BLOOD COUNT 8.9 x10^3/uL (4.0-11.0)
[2016-12-24 04:23] LABS: CALCIUM 8.8 mg/dL (8.5-10.1); CREATININE 6.6 mg/dL (0.7-1.3); GFR 9.9; POTASSIUM 4.6 mmol/L (3.5-5.1)
[2016-12-24] MEDS ORDERED: VANCOMYCIN RANDOM LEVEL. MC ONE (06:00)
[2016-12-24 07:10] VITALS: BP 138/54
[2016-12-24] MEDS: FERROUS SULFATE 325 MG TABLET. PO SCH (08:00)
--- NOTE | 2016-12-24 08:57 | PDOC ---
SURYA RODRIGUEZ DEMOLITION SPECIALIST 12/24/16 0857: SURGICAL PROGRESS NOTE Subjective seen during dialysis denies pain at this time wound not viewed Vital Signs Vital Signs Date Time Temp Pulse Resp B/P (MAP) Pulse Ox O2 Delivery O2 Flow Rate FiO2 12/24/16 07:10 97.4 77 15 138/54 (82) 93 Room Air 97.4 12/23/16 20:00 2.0 I&O Intake and Output 12/24/16 06:59 Intake Total 880 ml Output Total 0 ml Balance 880 ml Intake Oral 880 ml Output Urine Total 0 ml General: Alert, Oriented X3, Cooperative, No acute distress Abdomen: Soft Labs Laboratory Tests Test 12/22/16 10:50 12/22/16 14:26 12/22/16 15:11 12/22/16 16:25 Sodium Level 127 mmol/L (136-145) Potassium Level 6.2 mmol/L (3.5-5.1) Chloride Level 94 mmol/L (98-107) Carbon Dioxide Level 22 mmol/L (21-32) Anion Gap 11 (6-14) Blood Urea Nitrogen 75 mg/dL (8-26) Creatinine 9.0 mg/dL (0.7-1.3) Estimated GFR (Cockcroft-Gault) 6.9 Glucose Level 60 mg/dL (70-99) Calcium Level 9.6 mg/dL (8.5-10.1) Glucose (Fingerstick) 49 mg/dL (70-99) 184 mg/dL (70-99) 55 mg/dL (70-99) Test 12/22/16 16:36 12/22/16 17:50 12/22/16 17:54 12/22/16 23:01 Glucose (Fingerstick) 48 mg/dL (70-99) 81 mg/dL (70-99) 55 mg/dL (70-99) Sodium Level 136 mmol/L (136-145) Potassium Level 3.1 mmol/L (3.5-5.1) Chloride Level 98 mmol/L (98-107) Carbon Dioxide Level 32 mmol/L (21-32) Anion Gap 6 (6-14) Blood Urea Nitrogen 30 mg/dL (8-26) Creatinine 3.9 mg/dL (0.7-1.3) Estimated GFR (Cockcroft-Gault) 18.2 BUN/Creatinine Ratio 8 (6-20) Glucose Level 83 mg/dL (70-99) Calcium Level 8.1 mg/dL (8.5-10.1) Phosphorus Level 1.3 mg/dL (2.6-4.7) Magnesium Level 1.6 mg/dL (1.8-2.4) Total Bilirubin 0.6 mg/dL (0.2-1.0) Aspartate Amino Transf (AST/SGOT) 18 U/L (15-37) Alanine Aminotransferase (ALT/SGPT) 27 U/L (16-63) Alkaline Phosphatase 89 U/L (46-116) Total Protein 7.0 g/dL (6.4-8.2) Albumin 2.3 g/dL (3.4-5.0) Albumin/Globulin Ratio 0.5 (1.0-1.7) Test 12/23/16 04:25 12/23/16 07:39 12/23/16 12:15 12/23/16 16:34 Hepatitis B Surface Antigen Negative (Negative) Hepatitis B Surface Antibody Non reactive (.) Glucose (Fingerstick) 63 mg/dL (70-99) 75 mg/dL (70-99) 66 mg/dL (70-99) Test 12/23/16 20:36 12/24/16 03:50 Glucose (Fingerstick) 67 mg/dL (70-99) White Blood Count 8.9 x10^3/uL (4.0-11.0) Red Blood Count 3.52 x10^6/uL (4.30-5.70) Hemoglobin 9.6 g/dL (13.0-17.5) Hematocrit 29.8 % (39.0-53.0) Mean Corpuscular Volume 85 fL (79-100) Mean Corpuscular Hemoglobin 27 pg (25-35) Mean Corpuscular Hemoglobin Concent 32 g/dL (31-37) Red Cell Distribution Width 17.0 % (11.5-14.5) Platelet Count 112 x10^3/uL (140-400) Neutrophils (%) (Auto) 87 % (31-73) Lymphocytes (%) (Auto) 6 % (24-48) Monocytes (%) (Auto) 6 % (0-9) Eosinophils (%) (Auto) 1 % (0-3) Basophils (%) (Auto) 0 % (0-3) Neutrophils # (Auto) 7.7 x10^3uL (1.8-7.7) Lymphocytes # (Auto) 0.6 x10^3/uL (1.0-4.8) Monocytes # (Auto) 0.5 x10^3/uL (0.0-1.1) Eosinophils # (Auto) 0.0 x10^3/uL (0.0-0.7) Basophils # (Auto) 0.0 x10^3/uL (0.0-0.2) Sodium Level 134 mmol/L (136-145) Potassium Level 4.6 mmol/L (3.5-5.1) Chloride Level 98 mmol/L (98-107) Carbon Dioxide Level 30 mmol/L (21-32) Anion Gap 6 (6-14) Blood Urea Nitrogen 41 mg/dL (8-26) Creatinine 6.6 mg/dL (0.7-1.3) Estimated GFR (Cockcroft-Gault) 9.9 Glucose Level 80 mg/dL (70-99) Calcium Level 8.8 mg/dL (8.5-10.1) Random Vancomycin Level 14.0 mcg/mL Laboratory Tests Test 12/23/16 12:15 12/23/16 16:34 12/23/16 20:36 12/24/16 03:50 Glucose (Fingerstick) 75 mg/dL (70-99) 66 mg/dL (70-99) 67 mg/dL (70-99) White Blood Count 8.9 x10^3/uL (4.0-11.0) Red Blood Count 3.52 x10^6/uL (4.30-5.70) Hemoglobin 9.6 g/dL (13.0-17.5) Hematocrit 29.8 % (39.0-53.0) Mean Corpuscular Volume 85 fL (79-100) Mean Corpuscular Hemoglobin 27 pg (25-35) Mean Corpuscular Hemoglobin Concent 32 g/dL (31-37) Red Cell Distribution Width 17.0 % (11.5-14.5) Platelet Count 112 x10^3/uL (140-400) Neutrophils (%) (Auto) 87 % (31-73) Lymphocytes (%) (Auto) 6 % (24-48) Monocytes (%) (Auto) 6 % (0-9) Eosinophils (%) (Auto) 1 % (0-3) Basophils (%) (Auto) 0 % (0-3) Neutrophils # (Auto) 7.7 x10^3uL (1.8-7.7) Lymphocytes # (Auto) 0.6 x10^3/uL (1.0-4.8) Monocytes # (Auto) 0.5 x10^3/uL (0.0-1.1) Eosinophils # (Auto) 0.0 x10^3/uL (0.0-0.7) Basophils # (Auto) 0.0 x10^3/uL (0.0-0.2) Sodium Level 134 mmol/L (136-145) Potassium Level 4.6 mmol/L (3.5-5.1) Chloride Level 98 mmol/L (98-107) Carbon Dioxide Level 30 mmol/L (21-32) Anion Gap 6 (6-14) Blood Urea Nitrogen 41 mg/dL (8-26) Creatinine 6.6 mg/dL (0.7-1.3) Estimated GFR (Cockcroft-Gault) 9.9 Glucose Level 80 mg/dL (70-99) Calcium Level 8.8 mg/dL (8.5-10.1) Random Vancomycin Level 14.0 mcg/mL Problem List s/p debridement sacral wound wound care to eval, continue wound care Problems: AISLINN MAXWELL MD 12/24/16 0953: SURGICAL PROGRESS NOTE Assessment/Plan Local wound care. Agree with Karlie's assessment and plan. Problems: SURYA RODRIGUEZ DEMOLITION SPECIALIST December 24, 2016 08:57 AISLINN MAXWELL MD December 24, 2016 09:53
[2016-12-24] MEDS: COLESTIPOL HCL 1 GM TABLET PO SCH ×2 (09:00→21:00)
[2016-12-24] MEDS: FOLIC/VIT B COMP W-C (RENAL) TABLET. PO SCH (09:00)
[2016-12-24] MEDS: amLODIPine BESYLATE 10 MG TABLET PO SCH (09:00)
[2016-12-24] MEDS: LANTHANUM CARBONATE 500 MG TAB.CHEW PO SCH ×3 (09:00→17:21)
[2016-12-24] MEDS ORDERED: IV NORMAL SALINE 1000ML BAG 1,000 ML IV PRN (09:00)
[2016-12-24] MEDS: DOCUSATE SODIUM 100 MG CAPSULE. PO SCH ×2 (09:00→21:00)
[2016-12-24] MEDS: SERTRALINE 50 MG TABLET. PO SCH (09:00)
[2016-12-24] MEDS ORDERED: DIALYSIS PATIENT. MC PRN ×2 (09:00)
[2016-12-24] MEDS: CALCIUM CARBONATE 500 MG TABLET PO SCH ×3 (09:00→21:56)
--- NOTE | 2016-12-24 09:23 | PDOC ---
Infectious Disease Note Subjective Subjective Doing ok. Pain ok. Appetite better ROS ROS GEN: Denies fevers, chills, sweats HEENT: Denies blurred vision, sore throat CV: Denies chest pain RESP: Denies shortness of air, cough GI: Denies n/v/d NEURO: Denies confusion, dizziness Vital Sign Vital Signs Vital Signs Date Time Temp Pulse Resp B/P (MAP) Pulse Ox O2 Delivery O2 Flow Rate FiO2 12/24/16 07:10 97.4 77 15 138/54 (82) 93 Room Air 97.4 12/23/16 20:00 2.0 Physical Exam PHYSICAL EXAM GENERAL: NAD, Alert, in HD HEENT: PERRL, OC/OP - clear NECK: Supple, no JVD, no LN LUNGS: Clear HEART: S1S2, no gallop, no murmur ABD: Soft, NT, no organomegaly, no rebound EXT: B BKA FILLETER: Alert, oriented x 3, no focal neurologic deficit SKIN: No rash IV: ok Labs Lab Laboratory Tests Test 12/23/16 12:15 12/23/16 16:34 12/23/16 20:36 12/24/16 03:50 Glucose (Fingerstick) 75 mg/dL (70-99) 66 mg/dL (70-99) 67 mg/dL (70-99) White Blood Count 8.9 x10^3/uL (4.0-11.0) Red Blood Count 3.52 x10^6/uL (4.30-5.70) Hemoglobin 9.6 g/dL (13.0-17.5) Hematocrit 29.8 % (39.0-53.0) Mean Corpuscular Volume 85 fL (79-100) Mean Corpuscular Hemoglobin 27 pg (25-35) Mean Corpuscular Hemoglobin Concent 32 g/dL (31-37) Red Cell Distribution Width 17.0 % (11.5-14.5) Platelet Count 112 x10^3/uL (140-400) Neutrophils (%) (Auto) 87 % (31-73) Lymphocytes (%) (Auto) 6 % (24-48) Monocytes (%) (Auto) 6 % (0-9) Eosinophils (%) (Auto) 1 % (0-3) Basophils (%) (Auto) 0 % (0-3) Neutrophils # (Auto) 7.7 x10^3uL (1.8-7.7) Lymphocytes # (Auto) 0.6 x10^3/uL (1.0-4.8) Monocytes # (Auto) 0.5 x10^3/uL (0.0-1.1) Eosinophils # (Auto) 0.0 x10^3/uL (0.0-0.7) Basophils # (Auto) 0.0 x10^3/uL (0.0-0.2) Sodium Level 134 mmol/L (136-145) Potassium Level 4.6 mmol/L (3.5-5.1) Chloride Level 98 mmol/L (98-107) Carbon Dioxide Level 30 mmol/L (21-32) Anion Gap 6 (6-14) Blood Urea Nitrogen 41 mg/dL (8-26) Creatinine 6.6 mg/dL (0.7-1.3) Estimated GFR (Cockcroft-Gault) 9.9 Glucose Level 80 mg/dL (70-99) Calcium Level 8.8 mg/dL (8.5-10.1) Random Vancomycin Level 14.0 mcg/mL Objective Assessment Infected pressure wound of coccyx -Prior culture from [facility] 12/18 E. coli (R pip & amp) and Enterococcus PCN-S s/p I and D, 12/22. Intra-op GS: Enterococcus. cx: GNR Diabetes CKD on HD Recent closed fracture of pelvis Plan Plan of Care Cont Vanc, Rocephin, Flagyl Overall improved f/u cultures Monitor labs Off load c. diff pending but no diarrhea EDWIN JACOME MD December 24, 2016 09:23
--- NOTE | 2016-12-24 09:47 | PDOC ---
PROGRESS NOTES Chief Complaint Chief Complaint CC: Coccyx wound A/P 1. Coccygeal wound: Continue IV abx per ID recommendatons, wound wac, wound care , Pain control with IV morphine. 2. ESDR on HD: HD per nephrology. 3. Bilateral Amputee 4. AOCD 5. Dementia by hx 6, PVD 7. 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 Hyperkalemia, resolved 9. Hypoglycemia, : improving. 10. HTN: stable. History of Present Illness History of Present Illness alert, better no hypoglycemia feeling better. Vitals Vitals Vital Signs Date Time Temp Pulse Resp B/P (MAP) Pulse Ox O2 Delivery O2 Flow Rate FiO2 12/24/16 07:10 97.4 77 15 138/54 (82) 93 Room Air 97.4 12/23/16 20:00 2.0 Physical Exam General: Alert, Oriented X3, Cooperative, No acute distress Heart: Regular rate, Normal S1, Normal S2 Lungs: Clear Abdomen: Soft Extremities: Other (grade 3 coccygeal wound, pus draiange, foul smelling tender to inspection) Skin: Other (dressing to coccyx) Labs LABS Laboratory Tests Test 12/23/16 12:15 12/23/16 16:34 12/23/16 20:36 12/24/16 03:50 Glucose (Fingerstick) 75 mg/dL (70-99) 66 mg/dL (70-99) 67 mg/dL (70-99) White Blood Count 8.9 x10^3/uL (4.0-11.0) Red Blood Count 3.52 x10^6/uL (4.30-5.70) Hemoglobin 9.6 g/dL (13.0-17.5) Hematocrit 29.8 % (39.0-53.0) Mean Corpuscular Volume 85 fL (79-100) Mean Corpuscular Hemoglobin 27 pg (25-35) Mean Corpuscular Hemoglobin Concent 32 g/dL (31-37) Red Cell Distribution Width 17.0 % (11.5-14.5) Platelet Count 112 x10^3/uL (140-400) Neutrophils (%) (Auto) 87 % (31-73) Lymphocytes (%) (Auto) 6 % (24-48) Monocytes (%) (Auto) 6 % (0-9) Eosinophils (%) (Auto) 1 % (0-3) Basophils (%) (Auto) 0 % (0-3) Neutrophils # (Auto) 7.7 x10^3uL (1.8-7.7) Lymphocytes # (Auto) 0.6 x10^3/uL (1.0-4.8) Monocytes # (Auto) 0.5 x10^3/uL (0.0-1.1) Eosinophils # (Auto) 0.0 x10^3/uL (0.0-0.7) Basophils # (Auto) 0.0 x10^3/uL (0.0-0.2) Sodium Level 134 mmol/L (136-145) Potassium Level 4.6 mmol/L (3.5-5.1) Chloride Level 98 mmol/L (98-107) Carbon Dioxide Level 30 mmol/L (21-32) Anion Gap 6 (6-14) Blood Urea Nitrogen 41 mg/dL (8-26) Creatinine 6.6 mg/dL (0.7-1.3) Estimated GFR (Cockcroft-Gault) 9.9 Glucose Level 80 mg/dL (70-99) Calcium Level 8.8 mg/dL (8.5-10.1) Random Vancomycin Level 14.0 mcg/mL Comment Review of Relevant I have reviewed the following items katherine (where applicable) has been applied. Labs Laboratory Tests Test 12/22/16 10:50 12/22/16 14:26 12/22/16 15:11 12/22/16 16:25 Sodium Level 127 mmol/L (136-145) Potassium Level 6.2 mmol/L (3.5-5.1) Chloride Level 94 mmol/L (98-107) Carbon Dioxide Level 22 mmol/L (21-32) Anion Gap 11 (6-14) Blood Urea Nitrogen 75 mg/dL (8-26) Creatinine 9.0 mg/dL (0.7-1.3) Estimated GFR (Cockcroft-Gault) 6.9 Glucose Level 60 mg/dL (70-99) Calcium Level 9.6 mg/dL (8.5-10.1) Glucose (Fingerstick) 49 mg/dL (70-99) 184 mg/dL (70-99) 55 mg/dL (70-99) Test 12/22/16 16:36 12/22/16 17:50 12/22/16 17:54 12/22/16 23:01 Glucose (Fingerstick) 48 mg/dL (70-99) 81 mg/dL (70-99) 55 mg/dL (70-99) Sodium Level 136 mmol/L (136-145) Potassium Level 3.1 mmol/L (3.5-5.1) Chloride Level 98 mmol/L (98-107) Carbon Dioxide Level 32 mmol/L (21-32) Anion Gap 6 (6-14) Blood Urea Nitrogen 30 mg/dL (8-26) Creatinine 3.9 mg/dL (0.7-1.3) Estimated GFR (Cockcroft-Gault) 18.2 BUN/Creatinine Ratio 8 (6-20) Glucose Level 83 mg/dL (70-99) Calcium Level 8.1 mg/dL (8.5-10.1) Phosphorus Level 1.3 mg/dL (2.6-4.7) Magnesium Level 1.6 mg/dL (1.8-2.4) Total Bilirubin 0.6 mg/dL (0.2-1.0) Aspartate Amino Transf (AST/SGOT) 18 U/L (15-37) Alanine Aminotransferase (ALT/SGPT) 27 U/L (16-63) Alkaline Phosphatase 89 U/L (46-116) Total Protein 7.0 g/dL (6.4-8.2) Albumin 2.3 g/dL (3.4-5.0) Albumin/Globulin Ratio 0.5 (1.0-1.7) Test 12/23/16 04:25 12/23/16 07:39 12/23/16 12:15 12/23/16 16:34 Hepatitis B Surface Antigen Negative (Negative) Hepatitis B Surface Antibody Non reactive (.) Glucose (Fingerstick) 63 mg/dL (70-99) 75 mg/dL (70-99) 66 mg/dL (70-99) Test 12/23/16 20:36 12/24/16 03:50 Glucose (Fingerstick) 67 mg/dL (70-99) White Blood Count 8.9 x10^3/uL (4.0-11.0) Red Blood Count 3.52 x10^6/uL (4.30-5.70) Hemoglobin 9.6 g/dL (13.0-17.5) Hematocrit 29.8 % (39.0-53.0) Mean Corpuscular Volume 85 fL (79-100) Mean Corpuscular Hemoglobin 27 pg (25-35) Mean Corpuscular Hemoglobin Concent 32 g/dL (31-37) Red Cell Distribution Width 17.0 % (11.5-14.5) Platelet Count 112 x10^3/uL (140-400) Neutrophils (%) (Auto) 87 % (31-73) Lymphocytes (%) (Auto) 6 % (24-48) Monocytes (%) (Auto) 6 % (0-9) Eosinophils (%) (Auto) 1 % (0-3) Basophils (%) (Auto) 0 % (0-3) Neutrophils # (Auto) 7.7 x10^3uL (1.8-7.7) Lymphocytes # (Auto) 0.6 x10^3/uL (1.0-4.8) Monocytes # (Auto) 0.5 x10^3/uL (0.0-1.1) Eosinophils # (Auto) 0.0 x10^3/uL (0.0-0.7) Basophils # (Auto) 0.0 x10^3/uL (0.0-0.2) Sodium Level 134 mmol/L (136-145) Potassium Level 4.6 mmol/L (3.5-5.1) Chloride Level 98 mmol/L (98-107) Carbon Dioxide Level 30 mmol/L (21-32) Anion Gap 6 (6-14) Blood Urea Nitrogen 41 mg/dL (8-26) Creatinine 6.6 mg/dL (0.7-1.3) Estimated GFR (Cockcroft-Gault) 9.9 Glucose Level 80 mg/dL (70-99) Calcium Level 8.8 mg/dL (8.5-10.1) Random Vancomycin Level 14.0 mcg/mL Laboratory Tests Test 12/23/16 12:15 12/23/16 16:34 12/23/16 20:36 12/24/16 03:50 Glucose (Fingerstick) 75 mg/dL (70-99) 66 mg/dL (70-99) 67 mg/dL (70-99) White Blood Count 8.9 x10^3/uL (4.0-11.0) Red Blood Count 3.52 x10^6/uL (4.30-5.70) Hemoglobin 9.6 g/dL (13.0-17.5) Hematocrit 29.8 % (39.0-53.0) Mean Corpuscular Volume 85 fL (79-100) Mean Corpuscular Hemoglobin 27 pg (25-35) Mean Corpuscular Hemoglobin Concent 32 g/dL (31-37) Red Cell Distribution Width 17.0 % (11.5-14.5) Platelet Count 112 x10^3/uL (140-400) Neutrophils (%) (Auto) 87 % (31-73) Lymphocytes (%) (Auto) 6 % (24-48) Monocytes (%) (Auto) 6 % (0-9) Eosinophils (%) (Auto) 1 % (0-3) Basophils (%) (Auto) 0 % (0-3) Neutrophils # (Auto) 7.7 x10^3uL (1.8-7.7) Lymphocytes # (Auto) 0.6 x10^3/uL (1.0-4.8) Monocytes # (Auto) 0.5 x10^3/uL (0.0-1.1) Eosinophils # (Auto) 0.0 x10^3/uL (0.0-0.7) Basophils # (Auto) 0.0 x10^3/uL (0.0-0.2) Sodium Level 134 mmol/L (136-145) Potassium Level 4.6 mmol/L (3.5-5.1) Chloride Level 98 mmol/L (98-107) Carbon Dioxide Level 30 mmol/L (21-32) Anion Gap 6 (6-14) Blood Urea Nitrogen 41 mg/dL (8-26) Creatinine 6.6 mg/dL (0.7-1.3) Estimated GFR (Cockcroft-Gault) 9.9 Glucose Level 80 mg/dL (70-99) Calcium Level 8.8 mg/dL (8.5-10.1) Random Vancomycin Level 14.0 mcg/mL Microbiology 12/21/16 Blood Culture - Preliminary, Resulted NO GROWTH AFTER 2 DAYS 12/22/16 Anaerobic/Aerobic Culture, Resulted Pending 12/22/16 Anaerobic Culture Result 1 (SHAZIA), Resulted Pending 12/22/16 Aerobic Culture - Preliminary, Resulted 12/22/16 Aerobic Culture Result 1 (SHAZIA) - Preliminary, Resulted 12/22/16 Aerobic Culture Result 2 (SHAZIA) - Preliminary, Resulted Medications Current Medications Ondansetron HCl (Zofran) 4 mg PRN Q6HRS PRN IV NAUSEA/VOMITING; Start 12/21/16 at 18:15 Prochlorperazine Edisylate (Compazine) 10 mg PRN Q6HRS PRN IV NAUSEA/VOMITING; Start 12/21/16 at 18:15 Prochlorperazine (Compazine) 25 mg PRN Q12HR PRN [place] NAUSEA/VOMITING; Start 12/21 at 18:15 Al Hydroxide/Mg Hydroxide (Mylanta Plus Xs) 30 ml PRN Q3HRS PRN PO HEARTBURN / GAS; Start 12/21/16 at 18:15 Calcium Carbonate/ Glycine (Tums) 500 mg PRN Q3HRS PRN PO UPSET STOMACH; Start 12/21/16 at 18:15 Oxycodone HCl (Roxicodone) 5 mg PRN Q3HRS PRN PO BREAKTHROUGH PAIN Last administered on 12/23/16 13:38; Start 12/21/16 at 18:15 Morphine Sulfate 1 mg PRN Q1HR PRN IV PAIN Last administered on 12/22/16 01:28 ; Start 12/21/16 at 18:15 Acetaminophen (Tylenol) 650 mg PRN Q6HRS PRN PO Headaches, Temp > 101.5F; Start 12/21/16 at 18:15 Docusate Sodium (Colace) 100 mg BID PO Last administered on 12/21/16t 21:52; Start 12/21/16 at 21:00 Magnesium Hydroxide (Milk Of Magnesia) 2,400 mg PRN Q12HR PRN PO CONSTIPATION; Start 12/21/16 at 18:15 Bisacodyl (Dulcolax Supp) 10 mg PRN DAILY PRN [place] CONSTIPATION; Start 12/21/16 at 18:15 Acetaminophen (Tylenol) 325 mg PRN Q4HRS PRN PO PAIN/FEVER; Start 12/21/16 at 18 :15 Amlodipine Besylate (Norvasc) 10 mg DAILY PO ; Start 12/22/16 at 09:00 Calcium Carbonate/ Glycine (Oscal) 500 mg TID PO Last administered on 12/23/16 20:18; Start 12/21/16 at 21:00 Vitamin D (Vitamin D3) 2,000 unit QODAY PO Last administered on 12/23/16 11:44 ; Start 12/23/16 at 09:00 Cinacalcet (Sensipar) 90 mg HS PO Last administered on 12/23/16 20:18; Start at 21:00 Colestipol HCl (Colestid) 1 gm BID PO Last administered on 12/23/16 11:44; Start 12/21/16 at 21:00 Ergocalciferol (Vitamin D2) 50,000 unit WEEKLY PO ; Start 12/28/16 at 09:00 Famotidine (Pepcid) 20 mg HS PO Last administered on 12/21/16 21:54; Start 12/21 at 21:00 Lanthanum Carbonate (Fosrenol) 1,000 mg TIDWMEALS PO ; Start 12/22/16 at 08:00; Stop 12/22/16 at 08:00; Status DC Lorazepam (Ativan) 0.25 mg PRN DAILY PRN PO ANXIETY Last administered on 21:54; Start 12/21/16 at 18:15 Mirtazapine (Remeron) 7.5 mg QHS PO Last administered on 12/23/16 20:18; Start 12/21/16 at 21:00 Tramadol HCl (Ultram) 25 mg PRN Q6HRS PRN PO PAIN Last administered on 21:53; Start 12/21/16 at 18:15 Darbepoetin Placido (Aranesp) 100 mcg WEEKLYHS SQ ; Start 12/22/16 at 21:00 Ferrous Sulfate (Feosol) 325 mg DAILYWBKFT PO Last administered on 12/23/16 08: 43; Start 12/22/16 at 08:00 Vitamin B Complex/ Vitamin C (Blank-Cliff) 1 tab DAILY PO Last administered on 08:42; Start 12/22/16 at 09:00 Sertraline HCl (Zoloft) 200 mg DAILY PO Last administered on 12/23/16 08:43; Start 12/22/16 at 09:00 Non-Formulary Medication 1 each DAILY PO ; Start 12/22/16 at 09:00; Status UNV Lanthanum Carbonate (Fosrenol) 1,000 mg TIDAFTMEAL PO ; Start 12/22/16 at 09:00; Stop 12/22/16 at 09:00; Status DC Lanthanum Carbonate (Fosrenol) 1,000 mg TIDAFTMEAL PO ; Start 12/22/16 at 09:00 Vancomycin HCl 1.25 gm/Sodium Chloride 250 ml @ 166.667 mls/hr 1X ONCE IV Last administered on 12/21/16 22:31; Start 12/21/16 at 20:00; Stop 12/21/16 at 21: 29; Status DC Morphine Sulfate 2 mg PRN Q2HR PRN IV PAIN; Start 12/22/16 at 02:15 Ondansetron HCl (Zofran) 4 mg PRN Q6HRS PRN IV NAUSEA/VOMITING; Start 12/22/16 at 09:00; Stop 12/22/16 at 18:00; Status DC Fentanyl Citrate (Fentanyl 2ml Vial) 25 mcg PRN Q5MIN PRN IV MILD PAIN; Start 12/22/16 at 09:00; Stop 12/22/16 at 18:00; Status DC Fentanyl Citrate (Fentanyl 2ml Vial) 50 mcg PRN Q5MIN PRN IV MODERATE PAIN; Start 12/22/16 at 09:00; Stop 12/22/16 at 18:00; Status DC Morphine Sulfate 1 mg PRN Q10MIN PRN IV SEVERE PAIN Last administered on 12:58; Start 12/22/16 at 09:00; Stop 12/22/16 at 18:00; Status DC Ringer's Solution 1,000 ml @ 30 mls/hr Q24H IV ; Start 12/22/16 at 09:00; Stop 12/22/16 at 20:59; Status DC Lidocaine HCl 2 ml PRN 1X PRN ID PRIOR TO IV START; Start 12/22/16 at 09:00; Stop 12/22/16 at 18:00; Status DC Hydromorphone HCl (Dilaudid) 0.5 mg PRN Q10MIN PRN IV SEV PAIN, Second choice; Start 12/22/16 at 09:00; Stop 12/22/16 at 18:00; Status DC Prochlorperazine Edisylate (Compazine) 5 mg PACU PRN PRN IV NAUSEA, MRX1; Start 12/22/16 at 09:00; Stop 12/22/16 at 18:00; Status DC Propofol 20 ml @ As Directed STK-MED ONCE IV ; Start 12/22/16 at 11:52; Stop 12/22 at 11:53; Status DC Lidocaine HCl (Lidocaine Pf 2% Vial) 5 ml STK-MED ONCE .ROUTE ; Start 12/22/16 at 11:52; Stop 12/22/16 at 11:53; Status DC Dexamethasone Sodium Phosphate (Decadron) 20 mg STK-MED ONCE .ROUTE ; Start 12/22 at 11:52; Stop 12/22/16 at 11:53; Status DC Ondansetron HCl (Zofran) 4 mg STK-MED ONCE .ROUTE ; Start 12/22/16 at 11:52; Stop 12/22/16 at 11:53; Status DC Bupivacaine HCl/ Epinephrine Bitart (Sensorcaine-Epi 0.25%-1:[id number] Mpf) 30 ml STK-MED ONCE .ROUTE ; Start 12/22/16 at 11:57; Stop 12/22/16 at 11:58; Status DC Ephedrine Sulfate 50 mg STK-MED ONCE IV ; Start 12/22/16 at 12:11; Stop 12/22/16 at 12:12; Status DC Phenylephrine HCl 1 mg STK-MED ONCE IV ; Start 12/22/16 at 12:13; Stop 12/22/16 at 12:14; Status DC Sevoflurane (Ultane) 30 ml STK-MED ONCE IH ; Start 12/22/16 at 12:40; Stop at 12:41; Status DC Sodium Chloride 1,000 ml @ 0 mls/hr Q0M IV ; Start 12/22/16 at 11:30 Sodium Polystyrene Sulfonate (Kayexalate) 30 gm 1X ONCE PO Last administered on 12/22/16 14:29; Start 12/22/16 at 13:45; Stop 12/22/16 at 13:53; Status DC Sodium Bicarbonate 50 meq 1X ONCE IV Last administered on 12/22/16 14:29; Start 12/22/16 at 13:45; Stop 12/22/16 at 13:53; Status DC Dextrose (Dextrose 50%-Water Syringe) 50 gm 1X ONCE IV Last administered on 13:45; Start 12/22/16 at 13:45; Stop 12/22/16 at 13:53; Status DC Insulin Human Regular (Novolin R Vial) 10 unit 1X ONCE IV Last administered on 12/22/16 14:31; Start 12/22/16 at 13:45; Stop 12/22/16 at 13:53; Status DC Vancomycin HCl (Vanco Per Pharmacy) 1 each PRN DAILY PRN MC SEE COMMENTS Last administered on 12/22/16 16:08; Start 12/22/16 at 14:00 Ceftriaxone Sodium 1 gm/ Sodium Chloride 50 ml @ 100 mls/hr Q24H IV Last administered on 12/23/16 14:53; Start 12/22/16 at 14:00 Metronidazole 100 ml @ 100 mls/hr Q8HRS IV Last administered on 12/24/16 05:42 ; Start 12/22/16 at 14:00 Vancomycin HCl 2 gm/Sodium Chloride 500 ml @ 250 mls/hr 1X ONCE IV ; Start 12/22/16 at 15:00; Stop 12/22/16 at 16:59; Status Cancel Vancomycin HCl 500 mg/Sodium Chloride 100 ml @ 100 mls/hr 1X ONCE IV Last administered on 12/22/16 23:00; Start 12/22/16 at 23:00; Stop 12/22/16 at 23:59; Status DC Dextrose 500 ml @ 75 mls/hr 1X ONCE IV Last administered on 12/22/16 16:52; Start 12/22/16 at 16:30; Stop 12/22/16 at 23:09; Status DC Sodium Chloride 1,000 ml @ 1,000 mls/hr Q1H PRN IV hypotension; Start 12/22/16 at 17:04; Stop 12/22/16 at 23:03; Status DC Diphenhydramine HCl (Benadryl) 25 mg 1X PRN PRN IV ITCHING; Start 12/22/16 at 17 :15; Stop 12/23/16 at 17:14; Status DC Diphenhydramine HCl (Benadryl) 25 mg 1X PRN PRN IV ITCHING; Start 12/22/16 at 17 :15; Stop 12/23/16 at 17:14; Status DC Sodium Chloride 1,000 ml @ 400 mls/hr Q2H30M PRN IV PATENCY; Start 12/22/16 at 17:04; Stop 12/23/16 at 05:03; Status DC Info (PHARMACY MONITORING -- do not chart) 1 each PRN DAILY PRN MC SEE COMMENTS ; Start 12/22/16 at 17:15 Vancomycin HCl 1 each 1X ONCE MC Last administered on 12/24/16t 06:00; Start at 06:00; Stop 12/24/16 at 06:01; Status DC Sodium Chloride 1,000 ml @ 1,000 mls/hr Q1H PRN IV hypotension; Start 12/24/16 at 09:00; Stop 12/24/16 at 14:59 Info (PHARMACY MONITORING -- do not chart) 1 each PRN DAILY PRN MC SEE COMMENTS ; Start 12/24/16 at 09:00; Status UNV Info (PHARMACY MONITORING -- do not chart) 1 each PRN DAILY PRN MC SEE COMMENTS ; Start 12/24/16 at 09:00; Status UNV Active Scripts Active Reported Tylenol (Acetaminophen) 325 Mg Tablet 1 Tab PO PRN Q4HRS Tramadol Hcl 50 Mg Tablet 0.5 Tab PO PRN Q6HRS Colestid (Colestipol Hcl) 1 Gm Tablet 1 Gm PO BID Fosrenol (Lanthanum Carbonate) 1,000 Mg Tab.chew 1,000 Mg PO TIDWMEALS Amlodipine Besylate 10 Mg Tablet 10 Mg PO DAILY Mirtazapine 15 Mg Tablet 5 Tab PO QHS Eucerin Intensive Repair (Emollient Combination No.72) 250 Ml Lotion 250 Ml TP Amlodipine Besylate 10 Mg Tablet 10 Mg PO DAILY Vitamin B Complex 1 Each Capsule 1 Each PO DAILY Renal Caps Softgel (Folic Acid/Vitamin B Comp W-C) 1 Mg Capsule 1 Mg PO DAILY Lorazepam 0.5 Mg Tablet 0.25 Mg PO PRN DAILY PRN Vitamin D2 (Ergocalciferol (Vitamin D2)) 50,000 Unit Capsule 50,000 Unit PO WEEKLY Vitamin D3 (Cholecalciferol (Vitamin D3)) 1,000 Unit Tablet 2,000 Unit PO QODAY Epogen (Epoetin [place]) 20,000 Unit/1 Ml Vial 14,300 Unit IJ THREE TIMES A WEEK Zoloft (Sertraline Hcl) 100 Mg Tablet 200 Mg PO DAILY Ferrous Gluconate 325 Mg Tablet 325 Mg PO DAILY Famotidine 20 Mg Tablet 20 Mg PO HS Sensipar (Cinacalcet Hcl) 30 Mg Tablet 90 Mg PO HS Calcium Carbonate 500 Mg Tablet 500 Mg PO TID Vitals/I & O Vital Sign - Last 24 Hours 12/23/16 12/23/16 12/23/16 12/23/16 11:00 15:00 19:00 20:00 Temp 98.0 98.0 97.5 98.0 98.0 97.5 Pulse 77 72 81 Resp 20 22 B/P (MAP) 117/52 (73) 115/69 (84) 121/51 (74) Pulse Ox 99 99 96 O2 Delivery Room Air Room Air Nasal Cannula O2 Flow Rate 2.0 12/23/16 12/24/16 12/24/16 23:00 03:00 07:10 Temp 96.1 96.3 97.4 96.1 96.3 97.4 Pulse 69 77 77 Resp 20 20 15 B/P (MAP) 114/42 (66) 142/56 (84) 138/54 (82) Pulse Ox 95 93 O2 Delivery Room Air Room Air Intake and Output 12/23/16 12/23/16 12/24/16 14:59 22:59 06:59 Intake Total 480 ml 400 ml Output Total 0 ml Balance 480 ml 400 ml ALYSSA WU MD December 24, 2016 09:47
[2016-12-24] MEDS: VANCOMYCIN PER PHARMACY MC PRN (11:42)
[2016-12-24] MEDS: oxyCODONE IR 5 MG TABLET PO PRN (13:36)
[2016-12-24 15:05] VITALS: BP 88/38
[2016-12-24] MEDS ORDERED: VANCOMYCIN 500 MG in IV NORMAL SALINE 100ML 100 ML IV SCH (16:00)
[2016-12-24] MEDS: MORPHINE SULFATE 2 MG/ML DISP.SYRIN. IV PRN (16:19)
--- NOTE | 2016-12-24 16:21 | PDOC ---
Renal-Progress Notes Subjective Notes Notes NONE History of Present Illness Hx of present illness STABLE Vitals Vitals Vital Signs Date Time Temp Pulse Resp B/P (MAP) Pulse Ox O2 Delivery O2 Flow Rate FiO2 12/24/16 15:05 97.7 85 14 88/38 (55) 97 Room Air 97.7 12/23/16 20:00 2.0 Weight Weight [ ] I.O. Intake and Output Intake and Output 12/24/16 07:00 Intake Total 880 ml Output Total 0 ml Balance 880 ml Intake Oral 880 ml Output Urine Total 0 ml Labs Labs Laboratory Tests Test 12/23/16 16:34 12/23/16 20:36 12/24/16 03:50 Glucose (Fingerstick) 66 mg/dL (70-99) 67 mg/dL (70-99) White Blood Count 8.9 x10^3/uL (4.0-11.0) Red Blood Count 3.52 x10^6/uL (4.30-5.70) Hemoglobin 9.6 g/dL (13.0-17.5) Hematocrit 29.8 % (39.0-53.0) Mean Corpuscular Volume 85 fL (79-100) Mean Corpuscular Hemoglobin 27 pg (25-35) Mean Corpuscular Hemoglobin Concent 32 g/dL (31-37) Red Cell Distribution Width 17.0 % (11.5-14.5) Platelet Count 112 x10^3/uL (140-400) Neutrophils (%) (Auto) 87 % (31-73) Lymphocytes (%) (Auto) 6 % (24-48) Monocytes (%) (Auto) 6 % (0-9) Eosinophils (%) (Auto) 1 % (0-3) Basophils (%) (Auto) 0 % (0-3) Neutrophils # (Auto) 7.7 x10^3uL (1.8-7.7) Lymphocytes # (Auto) 0.6 x10^3/uL (1.0-4.8) Monocytes # (Auto) 0.5 x10^3/uL (0.0-1.1) Eosinophils # (Auto) 0.0 x10^3/uL (0.0-0.7) Basophils # (Auto) 0.0 x10^3/uL (0.0-0.2) Sodium Level 134 mmol/L (136-145) Potassium Level 4.6 mmol/L (3.5-5.1) Chloride Level 98 mmol/L (98-107) Carbon Dioxide Level 30 mmol/L (21-32) Anion Gap 6 (6-14) Blood Urea Nitrogen 41 mg/dL (8-26) Creatinine 6.6 mg/dL (0.7-1.3) Estimated GFR (Cockcroft-Gault) 9.9 Glucose Level 80 mg/dL (70-99) Calcium Level 8.8 mg/dL (8.5-10.1) Random Vancomycin Level 14.0 mcg/mL Micro Micro Microbiology 12/21/16 Blood Culture - Final, Complete 12/22/16 Anaerobic/Aerobic Culture, Resulted Pending 12/22/16 Anaerobic Culture Result 1 (SHAZIA), Resulted Pending 12/22/16 Aerobic Culture - Preliminary, Resulted 12/22/16 Aerobic Culture Result 1 (SHAZIA) - Preliminary, Resulted 12/22/16 Aerobic Culture Result 2 (SHAZIA) - Preliminary, Resulted Review of Systems Constitutional: yes: no symptom reported, alert Eyes: Yes: no symptom reported Cardiovascular: Yes no symptom reported Gastrointestional: Yes: no symptom reported Musculoskeletal: Yes: no symptom reported Psychiatric/Neurological: Yes: no symptom reported Physical Exam General Appearance: no apparent distress Skin: warm Respiratory: bilateral CTA Heart: S1S2 Abdomen: soft, bowel sounds present Neurology: alert, oriented Musculoskeletal: Osteoarthritis Assessment Assessment IMP ESRD ANEMIA PLAN HD TODAY UF TO CARLA STOVER MD December 24, 2016 16:21
[2016-12-24 17:29] VITALS: BP 124/57
[2016-12-24 19:00] VITALS: BP 133/60
[2016-12-24] MEDS: MIRTAZAPINE 15 MG TABLET PO SCH (21:00)
[2016-12-24] MEDS: FAMOTIDINE 20 MG TABLET. PO SCH (21:00)
[2016-12-24] MEDS: CINACALCET HCL 30 MG TABLET PO SCH (21:56)
[2016-12-24 23:00] VITALS: BP 104/47
[2016-12-25 07:10] VITALS: BP 138/47
[2016-12-25] MEDS: FERROUS SULFATE 325 MG TABLET. PO SCH (08:00)
[2016-12-25] MEDS: amLODIPine BESYLATE 10 MG TABLET PO SCH (09:00)
[2016-12-25] MEDS: COLESTIPOL HCL 1 GM TABLET PO SCH ×2 (09:00→20:49)
[2016-12-25] MEDS: FOLIC/VIT B COMP W-C (RENAL) TABLET. PO SCH (09:00)
[2016-12-25] MEDS: CHOLECALCIFEROL (VITAMIN D3) 1,000 UNIT TABLET PO SCH (09:00)
[2016-12-25] MEDS: LANTHANUM CARBONATE 500 MG TAB.CHEW PO SCH ×3 (09:00→17:25)
[2016-12-25] MEDS: CALCIUM CARBONATE 500 MG TABLET PO SCH ×3 (09:00→20:49)
[2016-12-25] MEDS: DOCUSATE SODIUM 100 MG CAPSULE. PO SCH ×2 (09:00→20:49)
[2016-12-25] MEDS: SERTRALINE 50 MG TABLET. PO SCH (09:08)
--- NOTE | 2016-12-25 09:57 | PDOC ---
PROGRESS NOTES Chief Complaint Chief Complaint CC: Coccyx wound A/P 1. Coccygeal wound: s/p debridement of ulcer and wound, IV abx per ID. 2. ESDR on HD: HD per nephrology. 3. Bilateral Amputee 4. AOCD 5. Dementia by hx 6, PVD 7. 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 Hyperkalemia, resolved 9. Hypoglycemia, : improving. 10. HTN: stable. History of Present Illness History of Present Illness alert, better no hypoglycemia feeling better. Vitals Vitals Vital Signs Date Time Temp Pulse Resp B/P (MAP) Pulse Ox O2 Delivery O2 Flow Rate FiO2 12/25/16 07:10 97.5 82 20 138/47 (77) 89 Room Air 97.5 12/24/16 23:00 2.0 Physical Exam General: Alert, Oriented X3, Cooperative, No acute distress Heart: Regular rate, Normal S1, Normal S2 Lungs: Clear Abdomen: Soft Extremities: Other (grade 3 coccygeal wound, pus draiange, foul smelling tender to inspection) Skin: Other (dressing to coccyx) Labs LABS Laboratory Tests Test 12/24/16 16:35 12/24/16 21:54 12/25/16 07:25 12/25/16 08:03 Glucose (Fingerstick) 70 mg/dL (70-99) 65 mg/dL (70-99) 60 mg/dL (70-99) 56 mg/dL (70-99) Test 12/25/16 08:35 Glucose (Fingerstick) 84 mg/dL (70-99) Comment Review of Relevant I have reviewed the following items katherine (where applicable) has been applied. Labs Laboratory Tests Test 12/23/16 12:15 12/23/16 16:34 12/23/16 20:36 12/24/16 03:50 Glucose (Fingerstick) 75 mg/dL (70-99) 66 mg/dL (70-99) 67 mg/dL (70-99) White Blood Count 8.9 x10^3/uL (4.0-11.0) Red Blood Count 3.52 x10^6/uL (4.30-5.70) Hemoglobin 9.6 g/dL (13.0-17.5) Hematocrit 29.8 % (39.0-53.0) Mean Corpuscular Volume 85 fL (79-100) Mean Corpuscular Hemoglobin 27 pg (25-35) Mean Corpuscular Hemoglobin Concent 32 g/dL (31-37) Red Cell Distribution Width 17.0 % (11.5-14.5) Platelet Count 112 x10^3/uL (140-400) Neutrophils (%) (Auto) 87 % (31-73) Lymphocytes (%) (Auto) 6 % (24-48) Monocytes (%) (Auto) 6 % (0-9) Eosinophils (%) (Auto) 1 % (0-3) Basophils (%) (Auto) 0 % (0-3) Neutrophils # (Auto) 7.7 x10^3uL (1.8-7.7) Lymphocytes # (Auto) 0.6 x10^3/uL (1.0-4.8) Monocytes # (Auto) 0.5 x10^3/uL (0.0-1.1) Eosinophils # (Auto) 0.0 x10^3/uL (0.0-0.7) Basophils # (Auto) 0.0 x10^3/uL (0.0-0.2) Sodium Level 134 mmol/L (136-145) Potassium Level 4.6 mmol/L (3.5-5.1) Chloride Level 98 mmol/L (98-107) Carbon Dioxide Level 30 mmol/L (21-32) Anion Gap 6 (6-14) Blood Urea Nitrogen 41 mg/dL (8-26) Creatinine 6.6 mg/dL (0.7-1.3) Estimated GFR (Cockcroft-Gault) 9.9 Glucose Level 80 mg/dL (70-99) Calcium Level 8.8 mg/dL (8.5-10.1) Random Vancomycin Level 14.0 mcg/mL Test 12/24/16 07:19 12/24/16 16:35 12/24/16 21:54 12/25/16 07:25 Glucose (Fingerstick) 70 mg/dL (70-99) 70 mg/dL (70-99) 65 mg/dL (70-99) 60 mg/dL (70-99) Test 12/25/16 08:03 12/25/16 08:35 Glucose (Fingerstick) 56 mg/dL (70-99) 84 mg/dL (70-99) Laboratory Tests Test 12/24/16 16:35 12/24/16 21:54 12/25/16 07:25 12/25/16 08:03 Glucose (Fingerstick) 70 mg/dL (70-99) 65 mg/dL (70-99) 60 mg/dL (70-99) 56 mg/dL (70-99) Test 12/25/16 08:35 Glucose (Fingerstick) 84 mg/dL (70-99) Microbiology 12/21/16 Blood Culture - Preliminary, Resulted 12/21/16 Blood Culture Result 1 (SHAZIA) - Preliminary, Resulted 12/22/16 Anaerobic/Aerobic Culture, Resulted Pending 12/22/16 Anaerobic Culture Result 1 (SHAZIA), Resulted Pending 12/22/16 Aerobic Culture - Preliminary, Resulted 12/22/16 Aerobic Culture Result 1 (SHAZIA) - Preliminary, Resulted 12/22/16 Aerobic Culture Result 2 (SHAZIA) - Preliminary, Resulted Medications Current Medications Ondansetron HCl (Zofran) 4 mg PRN Q6HRS PRN IV NAUSEA/VOMITING; Start 12/21/16 at 18:15 Prochlorperazine Edisylate (Compazine) 10 mg PRN Q6HRS PRN IV NAUSEA/VOMITING; Start 12/21/16 at 18:15 Prochlorperazine (Compazine) 25 mg PRN Q12HR PRN MT NAUSEA/VOMITING; Start 12/21 at 18:15 Al Hydroxide/Mg Hydroxide (Mylanta Plus Xs) 30 ml PRN Q3HRS PRN PO HEARTBURN / GAS; Start 12/21/16 at 18:15 Calcium Carbonate/ Glycine (Tums) 500 mg PRN Q3HRS PRN PO UPSET STOMACH; Start 12/21/16 at 18:15 Oxycodone HCl (Roxicodone) 5 mg PRN Q3HRS PRN PO BREAKTHROUGH PAIN Last administered on 12/24/16 13:36; Start 12/21/16 at 18:15 Morphine Sulfate 1 mg PRN Q1HR PRN IV PAIN Last administered on 12/22/16 01:28 ; Start 12/21/16 at 18:15 Acetaminophen (Tylenol) 650 mg PRN Q6HRS PRN PO Headaches, Temp > 101.5F; Start 12/21/16 at 18:15 Docusate Sodium (Colace) 100 mg BID PO Last administered on 12/21/16 21:52; Start 12/21/16 at 21:00 Magnesium Hydroxide (Milk Of Magnesia) 2,400 mg PRN Q12HR PRN PO CONSTIPATION; Start 12/21/16 at 18:15 Bisacodyl (Dulcolax Supp) 10 mg PRN DAILY PRN MT CONSTIPATION; Start 12/21/16 at 18:15 Acetaminophen (Tylenol) 325 mg PRN Q4HRS PRN PO PAIN/FEVER; Start 12/21/16 at 18 :15 Amlodipine Besylate (Norvasc) 10 mg DAILY PO ; Start 12/22/16 at 09:00 Calcium Carbonate/ Glycine (Oscal) 500 mg TID PO Last administered on 12/24/16 21:56; Start 12/21/16 at 21:00 Vitamin D (Vitamin D3) 2,000 unit QODAY PO Last administered on 12/23/16 11:44 ; Start 12/23/16 at 09:00 Cinacalcet (Sensipar) 90 mg HS PO Last administered on 12/24/16 21:56; Start at 21:00 Colestipol HCl (Colestid) 1 gm BID PO Last administered on 12/23/16 11:44; Start 12/21/16 at 21:00 Ergocalciferol (Vitamin D2) 50,000 unit WEEKLY PO ; Start 12/28/16 at 09:00 Famotidine (Pepcid) 20 mg HS PO Last administered on 12/21/16 21:54; Start 12/21 at 21:00 Lanthanum Carbonate (Fosrenol) 1,000 mg TIDWMEALS PO ; Start 12/22/16 at 08:00; Stop 12/22/16 at 08:00; Status DC Lorazepam (Ativan) 0.25 mg PRN DAILY PRN PO ANXIETY Last administered on 21:54; Start 12/21/16 at 18:15 Mirtazapine (Remeron) 7.5 mg QHS PO Last administered on 12/23/16 20:18; Start 12/21/16 at 21:00 Tramadol HCl (Ultram) 25 mg PRN Q6HRS PRN PO PAIN Last administered on 21:53; Start 12/21/16 at 18:15 Darbepoetin Placido (Aranesp) 100 mcg WEEKLYHS SQ ; Start 12/22/16 at 21:00 Ferrous Sulfate (Feosol) 325 mg DAILYWBKFT PO Last administered on 12/23/16 08: 43; Start 12/22/16 at 08:00 Vitamin B Complex/ Vitamin C (Blank-Cliff) 1 tab DAILY PO Last administered on 08:42; Start 12/22/16 at 09:00 Sertraline HCl (Zoloft) 200 mg DAILY PO Last administered on 12/25/16 09:08; Start 12/22/16 at 09:00 Non-Formulary Medication 1 each DAILY PO ; Start 12/22/16 at 09:00; Status UNV Lanthanum Carbonate (Fosrenol) 1,000 mg TIDAFTMEAL PO ; Start 12/22/16 at 09:00; Stop 12/22/16 at 09:00; Status DC Lanthanum Carbonate (Fosrenol) 1,000 mg TIDAFTMEAL PO Last administered on 17:21; Start 12/22/16 at 09:00 Vancomycin HCl 1.25 gm/Sodium Chloride 250 ml @ 166.667 mls/hr 1X ONCE IV Last administered on 12/21/16 22:31; Start 12/21/16 at 20:00; Stop 12/21/16 at 21: 29; Status DC Morphine Sulfate 2 mg PRN Q2HR PRN IV PAIN Last administered on 12/24/16 16:19 ; Start 12/22/16 at 02:15 Ondansetron HCl (Zofran) 4 mg PRN Q6HRS PRN IV NAUSEA/VOMITING; Start 12/22/16 at 09:00; Stop 12/22/16 at 18:00; Status DC Fentanyl Citrate (Fentanyl 2ml Vial) 25 mcg PRN Q5MIN PRN IV MILD PAIN; Start 12/22/16 at 09:00; Stop 12/22/16 at 18:00; Status DC Fentanyl Citrate (Fentanyl 2ml Vial) 50 mcg PRN Q5MIN PRN IV MODERATE PAIN; Start 12/22/16 at 09:00; Stop 12/22/16 at 18:00; Status DC Morphine Sulfate 1 mg PRN Q10MIN PRN IV SEVERE PAIN Last administered on t 12:58; Start 12/22/16 at 09:00; Stop 12/22/16 at 18:00; Status DC Ringer's Solution 1,000 ml @ 30 mls/hr Q24H IV ; Start 12/22/16 at 09:00; Stop 12/22/16 at 20:59; Status DC Lidocaine HCl 2 ml PRN 1X PRN ID PRIOR TO IV START; Start 12/22/16 at 09:00; Stop 12/22/16 at 18:00; Status DC Hydromorphone HCl (Dilaudid) 0.5 mg PRN Q10MIN PRN IV SEV PAIN, Second choice; Start 12/22/16 at 09:00; Stop 12/22/16 at 18:00; Status DC Prochlorperazine Edisylate (Compazine) 5 mg PACU PRN PRN IV NAUSEA, MRX1; Start 12/22/16 at 09:00; Stop 12/22/16 at 18:00; Status DC Propofol 20 ml @ As Directed STK-MED ONCE IV ; Start 12/22/16 at 11:52; Stop 12/22 at 11:53; Status DC Lidocaine HCl (Lidocaine Pf 2% Vial) 5 ml STK-MED ONCE .ROUTE ; Start 12/22/16 at 11:52; Stop 12/22/16 at 11:53; Status DC Dexamethasone Sodium Phosphate (Decadron) 20 mg STK-MED ONCE .ROUTE ; Start 12/22 at 11:52; Stop 12/22/16 at 11:53; Status DC Ondansetron HCl (Zofran) 4 mg STK-MED ONCE .ROUTE ; Start 12/22/16 at 11:52; Stop 12/22/16 at 11:53; Status DC Bupivacaine HCl/ Epinephrine Bitart (Sensorcaine-Epi 0.25%-1:398248 Mpf) 30 ml STK-MED ONCE .ROUTE ; Start 12/22/16 at 11:57; Stop 12/22/16 at 11:58; Status DC Ephedrine Sulfate 50 mg STK-MED ONCE IV ; Start 12/22/16 at 12:11; Stop 12/22/16 at 12:12; Status DC Phenylephrine HCl 1 mg STK-MED ONCE IV ; Start 12/22/16 at 12:13; Stop 12/22/16 at 12:14; Status DC Sevoflurane (Ultane) 30 ml STK-MED ONCE IH ; Start 12/22/16 at 12:40; Stop at 12:41; Status DC Sodium Chloride 1,000 ml @ 0 mls/hr Q0M IV ; Start 12/22/16 at 11:30 Sodium Polystyrene Sulfonate (Kayexalate) 30 gm 1X ONCE PO Last administered on 12/22/16 14:29; Start 12/22/16 at 13:45; Stop 12/22/16 at 13:53; Status DC Sodium Bicarbonate 50 meq 1X ONCE IV Last administered on 12/22/16 14:29; Start 12/22/16 at 13:45; Stop 12/22/16 at 13:53; Status DC Dextrose (Dextrose 50%-Water Syringe) 50 gm 1X ONCE IV Last administered on 13:45; Start 12/22/16 at 13:45; Stop 12/22/16 at 13:53; Status DC Insulin Human Regular (Novolin R Vial) 10 unit 1X ONCE IV Last administered on 12/22/16 14:31; Start 12/22/16 at 13:45; Stop 12/22/16 at 13:53; Status DC Vancomycin HCl (Vanco Per Pharmacy) 1 each PRN DAILY PRN MC SEE COMMENTS Last administered on 12/24/16 11:42; Start 12/22/16 at 14:00 Ceftriaxone Sodium 1 gm/ Sodium Chloride 50 ml @ 100 mls/hr Q24H IV Last administered on 12/24/16 13:37; Start 12/22/16 at 14:00 Metronidazole 100 ml @ 100 mls/hr Q8HRS IV Last administered on 12/25/16 06:04 ; Start 12/22/16 at 14:00 Vancomycin HCl 2 gm/Sodium Chloride 500 ml @ 250 mls/hr 1X ONCE IV ; Start 12/22/16 at 15:00; Stop 12/22/16 at 16:59; Status Cancel Vancomycin HCl 500 mg/Sodium Chloride 100 ml @ 100 mls/hr 1X ONCE IV Last administered on 12/22/16 23:00; Start 12/22/16 at 23:00; Stop 12/22/16 at 23:59; Status DC Dextrose 500 ml @ 75 mls/hr 1X ONCE IV Last administered on 12/22/16 16:52; Start 12/22/16 at 16:30; Stop 12/22/16 at 23:09; Status DC Sodium Chloride 1,000 ml @ 1,000 mls/hr Q1H PRN IV hypotension; Start 12/22/16 at 17:04; Stop 12/22/16 at 23:03; Status DC Diphenhydramine HCl (Benadryl) 25 mg 1X PRN PRN IV ITCHING; Start 12/22/16 at 17 :15; Stop 12/23/16 at 17:14; Status DC Diphenhydramine HCl (Benadryl) 25 mg 1X PRN PRN IV ITCHING; Start 12/22/16 at 17 :15; Stop 12/23/16 at 17:14; Status DC Sodium Chloride 1,000 ml @ 400 mls/hr Q2H30M PRN IV PATENCY; Start 12/22/16 at 17:04; Stop 12/23/16 at 05:03; Status DC Info (PHARMACY MONITORING -- do not chart) 1 each PRN DAILY PRN MC SEE COMMENTS ; Start 12/22/16 at 17:15 Vancomycin HCl 1 each 1X ONCE MC Last administered on 12/24/16 06:00; Start at 06:00; Stop 12/24/16 at 06:01; Status DC Sodium Chloride 1,000 ml @ 1,000 mls/hr Q1H PRN IV hypotension; Start 12/24/16 at 09:00; Stop 12/24/16 at 14:59; Status DC Info (PHARMACY MONITORING -- do not chart) 1 each PRN DAILY PRN MC SEE COMMENTS ; Start 12/24/16 at 09:00; Status UNV Info (PHARMACY MONITORING -- do not chart) 1 each PRN DAILY PRN MC SEE COMMENTS ; Start 12/24/16 at 09:00; Status UNV Vancomycin HCl 500 mg/Sodium Chloride 100 ml @ 100 mls/hr QMWF IV Last administered on 12/24/16 17:21; Start 12/24/16 at 16:00 Active Scripts Active Reported Tylenol (Acetaminophen) 325 Mg Tablet 1 Tab PO PRN Q4HRS Tramadol Hcl 50 Mg Tablet 0.5 Tab PO PRN Q6HRS Colestid (Colestipol Hcl) 1 Gm Tablet 1 Gm PO BID Fosrenol (Lanthanum Carbonate) 1,000 Mg Tab.chew 1,000 Mg PO TIDWMEALS Amlodipine Besylate 10 Mg Tablet 10 Mg PO DAILY Mirtazapine 15 Mg Tablet 5 Tab PO QHS Eucerin Intensive Repair (Emollient Combination No.72) 250 Ml Lotion 250 Ml TP Amlodipine Besylate 10 Mg Tablet 10 Mg PO DAILY Vitamin B Complex 1 Each Capsule 1 Each PO DAILY Renal Caps Softgel (Folic Acid/Vitamin B Comp W-C) 1 Mg Capsule 1 Mg PO DAILY Lorazepam 0.5 Mg Tablet 0.25 Mg PO PRN DAILY PRN Vitamin D2 (Ergocalciferol (Vitamin D2)) 50,000 Unit Capsule 50,000 Unit PO WEEKLY Vitamin D3 (Cholecalciferol (Vitamin D3)) 1,000 Unit Tablet 2,000 Unit PO QODAY Epogen (Epoetin Placido) 20,000 Unit/1 Ml Vial 14,300 Unit IJ THREE TIMES A WEEK Zoloft (Sertraline Hcl) 100 Mg Tablet 200 Mg PO DAILY Ferrous Gluconate 325 Mg Tablet 325 Mg PO DAILY Famotidine 20 Mg Tablet 20 Mg PO HS Sensipar (Cinacalcet Hcl) 30 Mg Tablet 90 Mg PO HS Calcium Carbonate 500 Mg Tablet 500 Mg PO TID Vitals/I & O Vital Sign - Last 24 Hours 12/24/16 12/24/16 12/24/16 12/24/16 15:05 17:29 19:00 20:00 Temp 97.7 98.4 97.7 98.4 Pulse 85 78 Resp 14 20 B/P (MAP) 88/38 (55) 124/57 (79) 133/60 (84) Pulse Ox 97 97 O2 Delivery Room Air Room Air Nasal Cannula O2 Flow Rate 2.0 12/24/16 12/25/16 23:00 07:10 Temp 98.0 97.5 98.0 97.5 Pulse 85 82 Resp 20 20 B/P (MAP) 104/47 (66) 138/47 (77) Pulse Ox 92 89 O2 Delivery Room Air O2 Flow Rate 2.0 Intake and Output 12/24/16 12/24/16 12/25/16 14:59 22:59 06:59 Intake Total 0 ml 120 ml 250 ml Balance 0 ml 120 ml 250 ml ALYSSA WU MD December 25, 2016 09:57
--- NOTE | 2016-12-25 10:00 | PDOC ---
Infectious Disease Note Subjective Subjective Doing ok. Pain ok. Appetite ok but vomited this am ROS ROS GEN: Denies fevers, chills, sweats HEENT: Denies blurred vision, sore throat CV: Denies chest pain RESP: Denies shortness of air, cough GI: Denies d NEURO: Denies confusion, dizziness MSK: Denies weakness, joint pain/swelling Vital Sign Vital Signs Vital Signs Date Time Temp Pulse Resp B/P (MAP) Pulse Ox O2 Delivery O2 Flow Rate FiO2 12/25/16 07:10 97.5 82 20 138/47 (77) 89 Room Air 97.5 12/24/16 23:00 2.0 Physical Exam PHYSICAL EXAM GENERAL: NAD, Alert, on right side HEENT: PERRL, OC/OP - clear NECK: Supple, no JVD, no LN LUNGS: Clear HEART: S1S2, no gallop, no murmur ABD: Soft, NT, no organomegaly, no rebound EXT: B BKA. 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 Vac to sacral area IV: ok Labs Lab Laboratory Tests Test 12/24/16 16:35 12/24/16 21:54 12/25/16 07:25 12/25/16 08:03 Glucose (Fingerstick) 70 mg/dL (70-99) 65 mg/dL (70-99) 60 mg/dL (70-99) 56 mg/dL (70-99) Test 12/25/16 08:35 Glucose (Fingerstick) 84 mg/dL (70-99) Micro Mixed anaerobic organisms, none predominating. AEROBIC CULT Preliminary Preliminary report AEROBIC RES 1 Preliminary Escherichia coli Moderate growth AEROBIC RES 2 Preliminary Enterococcus species Moderate growth AEROBIC RES 3 Preliminary Enterococcus species Moderate growth ANTIMICROBIAL SUSCEPTIBILITY Preliminary Comment S = Susceptible; I = Intermediate; R = Resistant P = Positive; N = Negative MICS are expressed in micrograms per mL Antibiotic RSLT#1 RSLT#2 RSLT#3 RSLT#4 Amoxicillin/Clavulanic Acid S Ampicillin R Cefepime S Ceftriaxone S Cefuroxime S CONTINUED ON NEXT PAGE RUN DATE: 12/24/16 PAGE 2 RUN TIME: 1423 [facility] [address] [place] [address] Awais Denise M.D., [employer] SPEC: [id number] PATIENT: AISLINN RYAN [id number] ( Continued) Procedure Result ANTIMICROBIAL SUSCEPTIBILITY Preliminary (continued) Ciprofloxacin S Ertapenem S Gentamicin S Imipenem S Levofloxacin S Piperacillin R Tetracycline S Tobramycin S Trimethoprim/Sulfa S Objective Assessment Infected pressure wound of coccyx - wound down to exposed bone per Op note -Prior culture from [facility] 12/18 E. coli (R pip & amp) and Enterococcus PCN-S s/p I and D, 12/22. Intra-op GS: Enterococcus. cx: GNR Diabetes CKD on HD Recent closed fracture of pelvis Plan Plan of Care Will have to treat as bone infection since wound went down to "exposed bone" per op note Discont Darell Samaniego, yl with nausea ? flagyl. Begin Zosyn Will need approval from Renal for snf access for 5 to 6 weeks Overall improved f/u cultures Monitor labs Off load EDWIN JACOME MD December 25, 2016 10:00
[2016-12-25 10:40] VITALS: BP 128/55
--- NOTE | 2016-12-25 11:56 | PDOC ---
Renal-Progress Notes Subjective Notes Notes NONE History of Present Illness Hx of present illness NO CHANGE Vitals Vitals Vital Signs Date Time Temp Pulse Resp B/P (MAP) Pulse Ox O2 Delivery O2 Flow Rate FiO2 12/25/16 10:40 96.9 89 20 128/55 (79) 93 Room Air 96.9 12/24/16 23:00 2.0 Weight Weight [ ] I.O. Intake and Output Intake and Output 12/25/16 06:59 Intake Total 370 ml Balance 370 ml Intake Oral 270 ml IV Total 100 ml # Voids 1 Labs Labs Laboratory Tests Test 12/24/16 16:35 12/24/16 21:54 12/25/16 07:25 12/25/16 08:03 Glucose (Fingerstick) 70 mg/dL (70-99) 65 mg/dL (70-99) 60 mg/dL (70-99) 56 mg/dL (70-99) Test 12/25/16 08:35 12/25/16 11:29 Glucose (Fingerstick) 84 mg/dL (70-99) 94 mg/dL (70-99) Micro Micro Microbiology 12/21/16 Blood Culture - Preliminary, Resulted 12/21/16 Blood Culture Result 1 (SHAZIA) - Preliminary, Resulted 12/22/16 Anaerobic/Aerobic Culture, Resulted Pending 12/22/16 Anaerobic Culture Result 1 (SHAZIA), Resulted Pending 12/22/16 Aerobic Culture - Preliminary, Resulted 12/22/16 Aerobic Culture Result 1 (SHAZIA) - Preliminary, Resulted 12/22/16 Aerobic Culture Result 2 (SHAZIA) - Preliminary, Resulted Review of Systems Constitutional: yes: no symptom reported, alert Eyes: Yes: no symptom reported Cardiovascular: Yes no symptom reported Gastrointestional: Yes: no symptom reported Musculoskeletal: Yes: no symptom reported Psychiatric/Neurological: Yes: no symptom reported Physical Exam General Appearance: no apparent distress Skin: warm Respiratory: bilateral CTA Heart: S1S2 Abdomen: soft, bowel sounds present Neurology: alert, oriented Musculoskeletal: Osteoarthritis Assessment Assessment IMP ESRD ANEMIA PLAN HD TOMORROW IF LONG-TERM IV IS NEEDED SUGGEST CENTRAL LINE SINCE HIS CURRENT FOREARM AVF IS MARGINAL AT BEST AND WOULD LIKE TO AVOID ANY PICC LINES CARLA BARRETO MD December 25, 2016 11:56
[2016-12-25] MEDS: PIPERACILLIN/TAZOBACTAM 2.25 GM in IV NORMAL SALINE 50ML 50 ML IV SCH ×2 (13:30→20:53)
[2016-12-25 14:35] VITALS: BP 168/66
[2016-12-25 19:00] VITALS: BP 116/49
[2016-12-25] MEDS: CINACALCET HCL 30 MG TABLET PO SCH (20:49)
[2016-12-25] MEDS: MIRTAZAPINE 15 MG TABLET PO SCH (20:50)
[2016-12-25] MEDS: FAMOTIDINE 20 MG TABLET. PO SCH (20:50)
[2016-12-25 23:00] VITALS: BP 130/56
[2016-12-26] MEDS: PIPERACILLIN/TAZOBACTAM 2.25 GM in IV NORMAL SALINE 50ML 50 ML IV SCH ×3 (05:25→20:34)
[2016-12-26 06:25] LABS: CALCIUM 8.2 mg/dL (8.5-10.1); CREATININE 5.7 mg/dL (0.7-1.3); GFR 11.8; POTASSIUM 4.7 mmol/L (3.5-5.1)
[2016-12-26 07:00] VITALS: BP 124/46
[2016-12-26] MEDS: FERROUS SULFATE 325 MG TABLET. PO SCH (08:00)
[2016-12-26] MEDS: LANTHANUM CARBONATE 500 MG TAB.CHEW PO SCH ×3 (09:00→18:00)
[2016-12-26] MEDS: FOLIC/VIT B COMP W-C (RENAL) TABLET. PO SCH (09:00)
[2016-12-26] MEDS: SERTRALINE 50 MG TABLET. PO SCH (09:00)
[2016-12-26] MEDS: amLODIPine BESYLATE 10 MG TABLET PO SCH (09:00)
[2016-12-26] MEDS: CALCIUM CARBONATE 500 MG TABLET PO SCH ×3 (09:00→20:38)
[2016-12-26] MEDS: DOCUSATE SODIUM 100 MG CAPSULE. PO SCH ×2 (09:00→20:38)
[2016-12-26] MEDS: COLESTIPOL HCL 1 GM TABLET PO SCH ×2 (09:00→20:38)
--- NOTE | 2016-12-26 09:51 | PDOC ---
PROGRESS NOTES Chief Complaint Chief Complaint CC: Coccyx wound A/P 1. Coccygeal wound: s/p debridement of ulcer and wound, IV abx per ID, need exterminator termite, IV access by IR TODAY 2. ESDR on HD: HD per nephrology. 3. Bilateral Amputee 4. AOCD 5. Dementia by hx 6, PVD 7. 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 Hyperkalemia, resolved 9. Hypoglycemia, BETTER NOT ON INSULIN UNKNOWN ETIOLOGY, ENCOURAGE ORAL INTAKE 10. HTN: stable. History of Present Illness History of Present Illness alert, better hypoglycemia feeling better. Vitals Vitals Vital Signs Date Time Temp Pulse Resp B/P (MAP) Pulse Ox O2 Delivery O2 Flow Rate FiO2 12/26/16 07:00 97.9 87 20 124/46 (72) 90 Room Air 97.9 12/25/16 20:07 2.0 Physical Exam General: Alert, Oriented X3, Cooperative, No acute distress Heart: Regular rate, Normal S1, Normal S2 Lungs: Clear Abdomen: Soft Extremities: Other (grade 3 coccygeal wound, pus draiange, foul smelling tender to inspection) Skin: Other (dressing to coccyx) Labs LABS Laboratory Tests Test 12/25/16 11:29 12/25/16 16:31 12/25/16 21:43 12/26/16 05:10 Glucose (Fingerstick) 94 mg/dL (70-99) 74 mg/dL (70-99) 66 mg/dL (70-99) Sodium Level 135 mmol/L (136-145) Potassium Level 4.7 mmol/L (3.5-5.1) Chloride Level 98 mmol/L (98-107) Carbon Dioxide Level 26 mmol/L (21-32) Anion Gap 11 (6-14) Blood Urea Nitrogen 31 mg/dL (8-26) Creatinine 5.7 mg/dL (0.7-1.3) Estimated GFR (Cockcroft-Gault) 11.8 Glucose Level 71 mg/dL (70-99) Calcium Level 8.2 mg/dL (8.5-10.1) Test 12/26/16 07:42 Glucose (Fingerstick) 64 mg/dL (70-99) Comment Review of Relevant I have reviewed the following items katherine (where applicable) has been applied. Labs Laboratory Tests Test 12/24/16 16:35 12/24/16 21:54 12/25/16 07:25 12/25/16 08:03 Glucose (Fingerstick) 70 mg/dL (70-99) 65 mg/dL (70-99) 60 mg/dL (70-99) 56 mg/dL (70-99) Test 12/25/16 08:35 12/25/16 11:29 12/25/16 16:31 12/25/16 21:43 Glucose (Fingerstick) 84 mg/dL (70-99) 94 mg/dL (70-99) 74 mg/dL (70-99) 66 mg/dL (70-99) Test 12/26/16 05:10 12/26/16 07:42 Sodium Level 135 mmol/L (136-145) Potassium Level 4.7 mmol/L (3.5-5.1) Chloride Level 98 mmol/L (98-107) Carbon Dioxide Level 26 mmol/L (21-32) Anion Gap 11 (6-14) Blood Urea Nitrogen 31 mg/dL (8-26) Creatinine 5.7 mg/dL (0.7-1.3) Estimated GFR (Cockcroft-Gault) 11.8 Glucose Level 71 mg/dL (70-99) Calcium Level 8.2 mg/dL (8.5-10.1) Glucose (Fingerstick) 64 mg/dL (70-99) Laboratory Tests Test 12/25/16 11:29 12/25/16 16:31 12/25/16 21:43 12/26/16 05:10 Glucose (Fingerstick) 94 mg/dL (70-99) 74 mg/dL (70-99) 66 mg/dL (70-99) Sodium Level 135 mmol/L (136-145) Potassium Level 4.7 mmol/L (3.5-5.1) Chloride Level 98 mmol/L (98-107) Carbon Dioxide Level 26 mmol/L (21-32) Anion Gap 11 (6-14) Blood Urea Nitrogen 31 mg/dL (8-26) Creatinine 5.7 mg/dL (0.7-1.3) Estimated GFR (Cockcroft-Gault) 11.8 Glucose Level 71 mg/dL (70-99) Calcium Level 8.2 mg/dL (8.5-10.1) Test 12/26/16 07:42 Glucose (Fingerstick) 64 mg/dL (70-99) Microbiology 12/21/16 Blood Culture - Preliminary, Resulted 12/21/16 Blood Culture Result 1 (SHAZIA) - Preliminary, Resulted 12/22/16 Anaerobic/Aerobic Culture - Preliminary, Resulted 12/22/16 Anaerobic Culture Result 1 (SHAZIA) - Preliminary, Resulted 12/22/16 Aerobic Culture - Preliminary, Resulted 12/22/16 Aerobic Culture Result 1 (SHAZIA) - Preliminary, Resulted 12/22/16 Aerobic Culture Result 2 (SHAZIA) - Preliminary, Resulted 12/22/16 Antimicrobic Susceptibility - Preliminary, Resulted Medications Current Medications Ondansetron HCl (Zofran) 4 mg PRN Q6HRS PRN IV NAUSEA/VOMITING, 1ST CHOICE; Start 12/21/16 at 18:15 Prochlorperazine Edisylate (Compazine) 10 mg PRN Q6HRS PRN IV NAUSEA/VOMITING, 2ND CHOICE; Start 12/21/16 at 18:15 Prochlorperazine (Compazine) 25 mg PRN Q12HR PRN [place] NAUSEA/VOMITING; Start 12/21 at 18:15 Al Hydroxide/Mg Hydroxide (Mylanta Plus Xs) 30 ml PRN Q3HRS PRN PO HEARTBURN / GAS; Start 12/21/16 at 18:15 Calcium Carbonate/ Glycine (Tums) 500 mg PRN Q3HRS PRN PO UPSET STOMACH; Start 12/21/16 at 18:15 Oxycodone HCl (Roxicodone) 5 mg PRN Q3HRS PRN PO BREAKTHROUGH PAIN Last administered on 12/24/16 13:36; Start 12/21/16 at 18:15 Morphine Sulfate 1 mg PRN Q1HR PRN IV PAIN Last administered on 12/22/16 01:28 ; Start 12/21/16 at 18:15; Stop 12/25/16 at 12:55; Status DC Acetaminophen (Tylenol) 650 mg PRN Q6HRS PRN PO Headaches, Temp > 101.5F; Start 12/21/16 at 18:15 Docusate Sodium (Colace) 100 mg BID PO Last administered on 12/21/16 21:52; Start 12/21/16 at 21:00 Magnesium Hydroxide (Milk Of Magnesia) 2,400 mg PRN Q12HR PRN PO CONSTIPATION; Start 12/21/16 at 18:15 Bisacodyl (Dulcolax Supp) 10 mg PRN DAILY PRN [place] CONSTIPATION; Start 12/21/16 at 18:15 Acetaminophen (Tylenol) 325 mg PRN Q4HRS PRN PO MILD PAIN/FEVER; Start 12/21/16 at 18:15 Amlodipine Besylate (Norvasc) 10 mg DAILY PO ; Start 12/22/16 at 09:00 Calcium Carbonate/ Glycine (Oscal) 500 mg TID PO Last administered on 12/25/16 20:49; Start 12/21/16 at 21:00 Vitamin D (Vitamin D3) 2,000 unit QODAY PO Last administered on 12/23/16 11:44 ; Start 12/23/16 at 09:00 Cinacalcet (Sensipar) 90 mg HS PO Last administered on 12/25/16 20:49; Start at 21:00 Colestipol HCl (Colestid) 1 gm BID PO Last administered on 12/23/16 11:44; Start 12/21/16 at 21:00 Ergocalciferol (Vitamin D2) 50,000 unit WEEKLY PO ; Start 12/28/16 at 09:00 Famotidine (Pepcid) 20 mg HS PO Last administered on 12/21/16 21:54; Start 12/21 at 21:00 Lanthanum Carbonate (Fosrenol) 1,000 mg TIDWMEALS PO ; Start 12/22/16 at 08:00; Stop 12/22/16 at 08:00; Status DC Lorazepam (Ativan) 0.25 mg PRN DAILY PRN PO ANXIETY Last administered on 21:54; Start 12/21/16 at 18:15 Mirtazapine (Remeron) 7.5 mg QHS PO Last administered on 12/23/16 20:18; Start 12/21/16 at 21:00 Tramadol HCl (Ultram) 25 mg PRN Q6HRS PRN PO MODERATE PAIN Last administered on 12/21/16 21:53; Start 12/21/16 at 18:15 Darbepoetin Placido (Aranesp) 100 mcg WEEKLYHS SQ ; Start 12/22/16 at 21:00 Ferrous Sulfate (Feosol) 325 mg DAILYWBKFT PO Last administered on 12/23/16 08: 43; Start 12/22/16 at 08:00 Vitamin B Complex/ Vitamin C (Blank-Cliff) 1 tab DAILY PO Last administered on 08:42; Start 12/22/16 at 09:00 Sertraline HCl (Zoloft) 200 mg DAILY PO Last administered on 12/25/16 09:08; Start 12/22/16 at 09:00 Non-Formulary Medication 1 each DAILY PO ; Start 12/22/16 at 09:00; Status UNV Lanthanum Carbonate (Fosrenol) 1,000 mg TIDAFTMEAL PO ; Start 12/22/16 at 09:00; Stop 12/22/16 at 09:00; Status DC Lanthanum Carbonate (Fosrenol) 1,000 mg TIDAFTMEAL PO Last administered on 17:21; Start 12/22/16 at 09:00 Vancomycin HCl 1.25 gm/Sodium Chloride 250 ml @ 166.667 mls/hr 1X ONCE IV Last administered on 12/21/16 22:31; Start 12/21/16 at 20:00; Stop 12/21/16 at 21: 29; Status DC Morphine Sulfate 2 mg PRN Q2HR PRN IV PAIN Last administered on 12/24/16 16:19 ; Start 12/22/16 at 02:15 Ondansetron HCl (Zofran) 4 mg PRN Q6HRS PRN IV NAUSEA/VOMITING; Start 12/22/16 at 09:00; Stop 12/22/16 at 18:00; Status DC Fentanyl Citrate (Fentanyl 2ml Vial) 25 mcg PRN Q5MIN PRN IV MILD PAIN; Start 12/22/16 at 09:00; Stop 12/22/16 at 18:00; Status DC Fentanyl Citrate (Fentanyl 2ml Vial) 50 mcg PRN Q5MIN PRN IV MODERATE PAIN; Start 12/22/16 at 09:00; Stop 12/22/16 at 18:00; Status DC Morphine Sulfate 1 mg PRN Q10MIN PRN IV SEVERE PAIN Last administered on 12:58; Start 12/22/16 at 09:00; Stop 12/22/16 at 18:00; Status DC Ringer's Solution 1,000 ml @ 30 mls/hr Q24H IV ; Start 12/22/16 at 09:00; Stop 12/22/16 at 20:59; Status DC Lidocaine HCl 2 ml PRN 1X PRN ID PRIOR TO IV START; Start 12/22/16 at 09:00; Stop 12/22/16 at 18:00; Status DC Hydromorphone HCl (Dilaudid) 0.5 mg PRN Q10MIN PRN IV SEV PAIN, Second choice; Start 12/22/16 at 09:00; Stop 12/22/16 at 18:00; Status DC Prochlorperazine Edisylate (Compazine) 5 mg PACU PRN PRN IV NAUSEA, MRX1; Start 12/22/16 at 09:00; Stop 12/22/16 at 18:00; Status DC Propofol 20 ml @ As Directed STK-MED ONCE IV ; Start 12/22/16 at 11:52; Stop 12/22 at 11:53; Status DC Lidocaine HCl (Lidocaine Pf 2% Vial) 5 ml STK-MED ONCE .ROUTE ; Start 12/22/16 at 11:52; Stop 12/22/16 at 11:53; Status DC Dexamethasone Sodium Phosphate (Decadron) 20 mg STK-MED ONCE .ROUTE ; Start 12/22 at 11:52; Stop 12/22/16 at 11:53; Status DC Ondansetron HCl (Zofran) 4 mg STK-MED ONCE .ROUTE ; Start 12/22/16 at 11:52; Stop 12/22/16 at 11:53; Status DC Bupivacaine HCl/ Epinephrine Bitart (Sensorcaine-Epi 0.25%-1:911369 Mpf) 30 ml STK-MED ONCE .ROUTE ; Start 12/22/16 at 11:57; Stop 12/22/16 at 11:58; Status DC Ephedrine Sulfate 50 mg STK-MED ONCE IV ; Start 12/22/16 at 12:11; Stop 12/22/16 at 12:12; Status DC Phenylephrine HCl 1 mg STK-MED ONCE IV ; Start 12/22/16 at 12:13; Stop 12/22/16 at 12:14; Status DC Sevoflurane (Ultane) 30 ml STK-MED ONCE IH ; Start 12/22/16 at 12:40; Stop at 12:41; Status DC Sodium Chloride 1,000 ml @ 0 mls/hr Q0M IV ; Start 12/22/16 at 11:30 Sodium Polystyrene Sulfonate (Kayexalate) 30 gm 1X ONCE PO Last administered on 12/22/16 14:29; Start 12/22/16 at 13:45; Stop 12/22/16 at 13:53; Status DC Sodium Bicarbonate 50 meq 1X ONCE IV Last administered on 12/22/16 14:29; Start 12/22/16 at 13:45; Stop 12/22/16 at 13:53; Status DC Dextrose (Dextrose 50%-Water Syringe) 50 gm 1X ONCE IV Last administered on 13:45; Start 12/22/16 at 13:45; Stop 12/22/16 at 13:53; Status DC Insulin Human Regular (Novolin R Vial) 10 unit 1X ONCE IV Last administered on 12/22/16 14:31; Start 12/22/16 at 13:45; Stop 12/22/16 at 13:53; Status DC Vancomycin HCl (Vanco Per Pharmacy) 1 each PRN DAILY PRN MC SEE COMMENTS Last administered on 12/24/16 11:42; Start 12/22/16 at 14:00; Stop 12/25/16 at 09:59; Status DC Ceftriaxone Sodium 1 gm/ Sodium Chloride 50 ml @ 100 mls/hr Q24H IV Last administered on 12/24/16 13:37; Start 12/22/16 at 14:00; Stop 12/25/16 at 09:59; Status DC Metronidazole 100 ml @ 100 mls/hr Q8HRS IV Last administered on 12/25/16 06:04 ; Start 12/22/16 at 14:00; Stop 12/25/16 at 09:59; Status DC Vancomycin HCl 2 gm/Sodium Chloride 500 ml @ 250 mls/hr 1X ONCE IV ; Start 12/22/16 at 15:00; Stop 12/22/16 at 16:59; Status Cancel Vancomycin HCl 500 mg/Sodium Chloride 100 ml @ 100 mls/hr 1X ONCE IV Last administered on 12/22/16 23:00; Start 12/22/16 at 23:00; Stop 12/22/16 at 23:59; Status DC Dextrose 500 ml @ 75 mls/hr 1X ONCE IV Last administered on 12/22/16 16:52; Start 12/22/16 at 16:30; Stop 12/22/16 at 23:09; Status DC Sodium Chloride 1,000 ml @ 1,000 mls/hr Q1H PRN IV hypotension; Start 12/22/16 at 17:04; Stop 12/22/16 at 23:03; Status DC Diphenhydramine HCl (Benadryl) 25 mg 1X PRN PRN IV ITCHING; Start 12/22/16 at 17 :15; Stop 12/23/16 at 17:14; Status DC Diphenhydramine HCl (Benadryl) 25 mg 1X PRN PRN IV ITCHING; Start 12/22/16 at 17 :15; Stop 12/23/16 at 17:14; Status DC Sodium Chloride 1,000 ml @ 400 mls/hr Q2H30M PRN IV PATENCY; Start 12/22/16 at 17:04; Stop 12/23/16 at 05:03; Status DC Info (PHARMACY MONITORING -- do not chart) 1 each PRN DAILY PRN MC SEE COMMENTS ; Start 12/22/16 at 17:15 Vancomycin HCl 1 each 1X ONCE MC Last administered on 12/24/16 06:00; Start at 06:00; Stop 12/24/16 at 06:01; Status DC Sodium Chloride 1,000 ml @ 1,000 mls/hr Q1H PRN IV hypotension; Start 12/24/16 at 09:00; Stop 12/24/16 at 14:59; Status DC Info (PHARMACY MONITORING -- do not chart) 1 each PRN DAILY PRN MC SEE COMMENTS ; Start 12/24/16 at 09:00; Status UNV Info (PHARMACY MONITORING -- do not chart) 1 each PRN DAILY PRN MC SEE COMMENTS ; Start 12/24/16 at 09:00; Status UNV Vancomycin HCl 500 mg/Sodium Chloride 100 ml @ 100 mls/hr QMWF IV Last administered on 12/24/16 17:21; Start 12/24/16 at 16:00; Stop 12/25/16 at 09:59; Status DC Piperacillin Sod/ Tazobactam Sod 2.25 gm/Sodium Chloride 50 ml @ 100 mls/hr Q8HRS IV Last administered on 12/26/16t 05:25; Start 12/25/16 at 11:00 Active Scripts Active Reported Tylenol (Acetaminophen) 325 Mg Tablet 1 Tab PO PRN Q4HRS Tramadol Hcl 50 Mg Tablet 0.5 Tab PO PRN Q6HRS Colestid (Colestipol Hcl) 1 Gm Tablet 1 Gm PO BID Fosrenol (Lanthanum Carbonate) 1,000 Mg Tab.chew 1,000 Mg PO TIDWMEALS Amlodipine Besylate 10 Mg Tablet 10 Mg PO DAILY Mirtazapine 15 Mg Tablet 5 Tab PO QHS Eucerin Intensive Repair (Emollient Combination No.72) 250 Ml Lotion 250 Ml TP Amlodipine Besylate 10 Mg Tablet 10 Mg PO DAILY Vitamin B Complex 1 Each Capsule 1 Each PO DAILY Renal Caps Softgel (Folic Acid/Vitamin B Comp W-C) 1 Mg Capsule 1 Mg PO DAILY Lorazepam 0.5 Mg Tablet 0.25 Mg PO PRN DAILY PRN Vitamin D2 (Ergocalciferol (Vitamin D2)) 50,000 Unit Capsule 50,000 Unit PO WEEKLY Vitamin D3 (Cholecalciferol (Vitamin D3)) 1,000 Unit Tablet 2,000 Unit PO QODAY Epogen (Epoetin Placido) 20,000 Unit/1 Ml Vial 14,300 Unit IJ THREE TIMES A WEEK Zoloft (Sertraline Hcl) 100 Mg Tablet 200 Mg PO DAILY Ferrous Gluconate 325 Mg Tablet 325 Mg PO DAILY Famotidine 20 Mg Tablet 20 Mg PO HS Sensipar (Cinacalcet Hcl) 30 Mg Tablet 90 Mg PO HS Calcium Carbonate 500 Mg Tablet 500 Mg PO TID Vitals/I & O Vital Sign - Last 24 Hours 12/25/16 12/25/16 12/25/16 12/25/16 10:40 14:35 19:00 20:07 Temp 96.9 96.6 97.5 96.9 96.6 97.5 Pulse 89 86 89 Resp 20 20 18 B/P (MAP) 128/55 (79) 168/66 (100) 116/49 (71) Pulse Ox 93 92 97 O2 Delivery Room Air Room Air Room Air Nasal Cannula O2 Flow Rate 2.0 12/25/16 12/26/16 12/26/16 23:00 03:00 07:00 Temp 98.1 97.9 98.1 97.9 Pulse 84 87 Resp 18 20 B/P (MAP) 130/56 (80) 124/46 (72) Pulse Ox 96 90 O2 Delivery Room Air Room Air Room Air Intake and Output 12/25/16 12/25/16 12/26/16 15:00 23:00 07:00 Intake Total 300 ml 350 ml 370 ml Balance 300 ml 350 ml 370 ml ALYSSA WU MD December 26, 2016 09:51
--- NOTE | 2016-12-26 10:42 | PDOC ---
Infectious Disease Note Subjective Subjective Doing ok. Nausea better Pain ok. Appetite ok ROS ROS GEN: Denies fevers, chills, sweats HEENT: Denies blurred vision, sore throat CV: Denies chest pain RESP: Denies shortness of air, cough GI: Denies n/v/d NEURO: Denies confusion, dizziness MSK: Denies weakness, joint pain/swelling Vital Sign Vital Signs Vital Signs Date Time Temp Pulse Resp B/P (MAP) Pulse Ox O2 Delivery O2 Flow Rate FiO2 12/26/16 07:00 97.9 87 20 124/46 (72) 90 Room Air 97.9 12/25/16 20:07 2.0 Physical Exam PHYSICAL EXAM GENERAL: NAD, Alert, on right side HEENT: PERRL, OC/OP - clear NECK: Supple, no JVD, no LN LUNGS: Clear HEART: S1S2, no gallop, no murmur ABD: Soft, NT, no organomegaly, no rebound EXT: B BKA. 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 Vac to sacral area IV: AV site clean Labs Lab Laboratory Tests Test 12/25/16 11:29 12/25/16 16:31 12/25/16 21:43 12/26/16 05:10 Glucose (Fingerstick) 94 mg/dL (70-99) 74 mg/dL (70-99) 66 mg/dL (70-99) Sodium Level 135 mmol/L (136-145) Potassium Level 4.7 mmol/L (3.5-5.1) Chloride Level 98 mmol/L (98-107) Carbon Dioxide Level 26 mmol/L (21-32) Anion Gap 11 (6-14) Blood Urea Nitrogen 31 mg/dL (8-26) Creatinine 5.7 mg/dL (0.7-1.3) Estimated GFR (Cockcroft-Gault) 11.8 Glucose Level 71 mg/dL (70-99) Calcium Level 8.2 mg/dL (8.5-10.1) Test 12/26/16 07:42 Glucose (Fingerstick) 64 mg/dL (70-99) Micro Mixed anaerobic organisms, none predominating. AEROBIC CULT Preliminary Preliminary report AEROBIC RES 1 Preliminary Escherichia coli Moderate growth AEROBIC RES 2 Preliminary Enterococcus species Moderate growth AEROBIC RES 3 Preliminary Enterococcus species Moderate growth ANTIMICROBIAL SUSCEPTIBILITY Preliminary Comment S = Susceptible; I = Intermediate; R = Resistant P = Positive; N = Negative MICS are expressed in micrograms per mL Antibiotic RSLT#1 RSLT#2 RSLT#3 RSLT#4 Amoxicillin/Clavulanic Acid S Ampicillin R Cefepime S Ceftriaxone S Cefuroxime S CONTINUED ON NEXT PAGE RUN DATE: 12/24/16 PAGE 2 RUN TIME: [id number] [facility] [address] [place] [address] Awais Denise M.D., Residential Youth Counselor SPEC: [id number] PATIENT: AISLINN RYAN [id number] ( Continued) Procedure Result ANTIMICROBIAL SUSCEPTIBILITY Preliminary (continued) Ciprofloxacin S Ertapenem S Gentamicin S Imipenem S Levofloxacin S Piperacillin R Tetracycline S Tobramycin S Trimethoprim/Sulfa S Objective Assessment Infected pressure wound of coccyx - wound down to exposed bone per Op note -Prior culture from [facility] 12/18 E. coli (R pip & amp) and Enterococcus PCN-S s/p I and D, 12/22. Intra-op GS: Enterococcus. cx: Ecoli Diabetes CKD on HD Recent closed fracture of pelvis Plan Plan of Care Cont Zosyn Line today for 5 to [address] Oglesby's input Overall improved f/u cultures Monitor labs Off load EDWIN JACOME MD December 26, 2016 10:42
[2016-12-26] MEDS ORDERED: IV NORMAL SALINE 1000ML BAG 1,000 ML IV PRN (10:49)
[2016-12-26 10:51] VITALS: BP 122/48
[2016-12-26] MEDS ORDERED: DIALYSIS PATIENT. MC PRN ×2 (11:00)
--- NOTE | 2016-12-26 12:02 | PDOC ---
Renal-Progress Notes Subjective Notes Notes NONE History of Present Illness Hx of present illness NO CHANGE Vitals Vitals Vital Signs Date Time Temp Pulse Resp B/P (MAP) Pulse Ox O2 Delivery O2 Flow Rate FiO2 12/26/16 10:51 97.9 85 20 122/48 (72) 91 Room Air 97.9 12/25/16 20:07 2.0 Weight Weight [ ] I.O. Intake and Output Intake and Output 12/26/16 07:00 Intake Total 1020 ml Balance 1020 ml Intake Oral 920 ml IV Total 100 ml # Bowel Movements 3 Labs Labs Laboratory Tests Test 12/25/16 16:31 12/25/16 21:43 12/26/16 05:10 12/26/16 07:42 Glucose (Fingerstick) 74 mg/dL (70-99) 66 mg/dL (70-99) 64 mg/dL (70-99) Sodium Level 135 mmol/L (136-145) Potassium Level 4.7 mmol/L (3.5-5.1) Chloride Level 98 mmol/L (98-107) Carbon Dioxide Level 26 mmol/L (21-32) Anion Gap 11 (6-14) Blood Urea Nitrogen 31 mg/dL (8-26) Creatinine 5.7 mg/dL (0.7-1.3) Estimated GFR (Cockcroft-Gault) 11.8 Glucose Level 71 mg/dL (70-99) Calcium Level 8.2 mg/dL (8.5-10.1) Test 12/26/16 10:05 Glucose (Fingerstick) 71 mg/dL (70-99) Micro Micro Microbiology 12/21/16 Blood Culture - Final, Complete 12/21/16 Blood Culture Result 1 (SHAZIA) - Final, Complete 12/21/16 Antimicrobic Susceptibility - Final, Complete 12/22/16 Anaerobic/Aerobic Culture - Preliminary, Resulted 12/22/16 Anaerobic Culture Result 1 (SHAZIA) - Preliminary, Resulted 12/22/16 Aerobic Culture - Preliminary, Resulted 12/22/16 Aerobic Culture Result 1 (SHAZIA) - Preliminary, Resulted 12/22/16 Aerobic Culture Result 2 (SHAZIA) - Preliminary, Resulted 12/22/16 Aerobic Culture Result 3 (SHAZIA) - Preliminary, Resulted 12/22/16 Antimicrobic Susceptibility - Preliminary, Resulted Review of Systems Constitutional: yes: no symptom reported, alert Eyes: Yes: no symptom reported Cardiovascular: Yes no symptom reported Gastrointestional: Yes: no symptom reported Musculoskeletal: Yes: no symptom reported Psychiatric/Neurological: Yes: no symptom reported Physical Exam General Appearance: no apparent distress Skin: warm Respiratory: bilateral CTA Heart: S1S2 Abdomen: soft, bowel sounds present Neurology: alert, oriented Musculoskeletal: Osteoarthritis Assessment Assessment IMP ESRD ANEMIA COCCYX WOUND PLAN HD TODAY UF TO DW ANTIBIOTICS CARLA BARRETO MD December 26, 2016 12:02
[2016-12-26 14:38] VITALS: BP 102/39
[2016-12-26] MEDS ORDERED: HEPARIN PF 500 UNIT/5 ML DISP.SYRIN. IV ONE (14:41)
[2016-12-26] MEDS ORDERED: LIDOCAINE 1%/EPI 1:100,000 20 ML VIAL. ONE (14:41)
[2016-12-26] MEDS ORDERED: fentaNYL PF VIAL 250 MCG/5 ML VIAL ONE (14:53)
[2016-12-26] MEDS ORDERED: LIDOCAINE 1% / SOD BICARB 8.4% 20 ML VIAL. IJ ONE ×2 (14:58→15:00)
[2016-12-26] MEDS ORDERED: fentaNYL PF VIAL 250 MCG/5 ML VIAL IV ONE (15:00)
--- NOTE | 2016-12-26 15:23 | RAD ---
Indication: Line insertion. Time of exam 1519 hours. A right upper extremity PICC line appears to have the tip overlying the upper SVC. No pneumothorax is identified. A left subclavian stent is noted. Impression: PICC line placement, as described.
--- NOTE | 2016-12-26 15:34 | PDOC ---
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 Right upper extremity central venous occlusion, by history. Post-Procedure Diagnosis Post-Procedure Diagnosis Same Procedure Performed Procedure Performed Sono guided rt UE midline Power Picc insertion Type of Anesthesia Type of Anesthesia Local + fentanyl analgesia Estimated Blood Loss EBL: Minimal Drain/Tubes Drains/Tubes Right brachial 5F 2L 30cm Midline Power Picc Condition of Patient Condition of Patient No change. No apparent complication. Disposition Disposition From IR return to [facility]. OK to use midline Power Picc for non-hypertonic infusions and for blood draws. Full report to follow. KATLYN MCGUIRE MD December 26, 2016 15:34
--- NOTE | 2016-12-26 15:42 | RAD ---
Exam performed: One view chest. History: PICC line repositioning. Date of service: 12/26/16. Comparison: Single view chest from 12/26/16 Single AP supine view chest findings: Tip of the right PICC line is seen in the right subclavian vein overlying the right clavicle. Heart size is mildly enlarged. Atheromatous calcification of the aortic knob. A stent in seen below the medial left clavicle. Mild central vascular congestion is seen. No pleural effusion or pneumothorax. Impression: Tip of the right arm PICC line is seen in the right subclavian vein. This needs to be advanced for appropriate positioning at the atriocaval junction. No pneumothorax.
[2016-12-26] MEDS: MORPHINE SULFATE 2 MG/ML DISP.SYRIN. IV PRN (15:56)
[2016-12-26 19:00] VITALS: BP 84/11
[2016-12-26] MEDS: CINACALCET HCL 30 MG TABLET PO SCH (20:38)
[2016-12-26] MEDS: FAMOTIDINE 20 MG TABLET. PO SCH (20:39)
[2016-12-26] MEDS: MIRTAZAPINE 15 MG TABLET PO SCH (20:39)
[2016-12-26 23:02] VITALS: BP 143/114
[2016-12-27] MEDS: MORPHINE SULFATE 2 MG/ML DISP.SYRIN. IV PRN (00:58)
[2016-12-27] MEDS: PIPERACILLIN/TAZOBACTAM 2.25 GM in IV NORMAL SALINE 50ML 50 ML IV SCH ×3 (06:00→21:47)
[2016-12-27 07:00] VITALS: BP 132/82
[2016-12-27] MEDS: FERROUS SULFATE 325 MG TABLET. PO SCH (08:00)
[2016-12-27] MEDS: DOCUSATE SODIUM 100 MG CAPSULE. PO SCH ×2 (09:00→20:30)
[2016-12-27] MEDS: LANTHANUM CARBONATE 500 MG TAB.CHEW PO SCH ×3 (09:00→18:00)
[2016-12-27] MEDS: amLODIPine BESYLATE 10 MG TABLET PO SCH (09:00)
--- NOTE | 2016-12-27 09:42 | RAD ---
Bedside ultrasound guided midline power PICC placement Indication: 76-year-old male with coccygeal wound requiring long-term IV antibiotics. He has end-stage renal disease, with left functioning forearm AV fistula. No left IJ or EJ venous access was demonstrated on a recent AV fistulogram, with central venous intervention. By history, the patient has right upper extremity central venous occlusion. Therefore, placement of a right upper extremity midline PICC was selected as the procedure of choice. Referring design technology teacher was notified of this decision. Anesthesia: Local only Sterility: All elements of maximal sterile barrier technique were utilized, including cap, mask, sterile gown, sterile gloves, large sterile sheet, appropriate hand hygiene, and 2% chlorhexidine for cutaneous antisepsis. Fluoroscopy time: None Procedure: Informed consent was obtained from the patient's . This procedure was performed in the angiography suite. The patient could not lie on his back due to coccygeal pain, therefore, this procedure was performed with the patient in his hospital bed in the supine, MATUTE position. Preliminary ultrasound examination of right upper arm revealed wide patency of right brachial vein, which was documented with a single hard copy ultrasound image. Right upper arm was then prepped and draped in the usual sterile fashion, utilizing all elements of maximal sterile barrier technique, as described above. Using aseptic technique, local anesthesia, direct ultrasound guidance, and the micropuncture system, successful percutaneous entry was achieved into right brachial vein at level of distal humerus. A 5 Bangladeshi dual lumen Power PICC was trimmed to 40 cm in length, was inserted through a 5 Bangladeshi peel-away sheath, and was advanced centrally. A stat portable chest x-ray was obtained, which revealed redundancy of the 40 cm power PICC, with its tip projected at the level of right innominate vein, presumably at the level of historically present central venous occlusion. Therefore, using aseptic technique, the 40 cm long power PICC was exchanged for a 5 Bangladeshi dual-lumen 30 cm power PICC. A repeat portable chest x-ray was obtained, which revealed tip of the midline PICC to lie within right subclavian vein, without redundancy. This midline PICC was demonstrated to flush and aspirate normally and was secured at the skin exit site utilizing suture and sterile dressing. Patient tolerated the procedure well without apparent complication. Impression: Successful, uneventful ultrasound-guided insertion of a right brachial vein 5 Bangladeshi dual-lumen 30 cm midline power PICC, with this tip projected over right subclavian vein. This midline power PICC is satisfactory to use for blood draws and for non-hypertonic infusions.
[2016-12-27] MEDS: CHOLECALCIFEROL (VITAMIN D3) 1,000 UNIT TABLET PO SCH (10:02)
[2016-12-27] MEDS: COLESTIPOL HCL 1 GM TABLET PO SCH ×2 (10:02→20:33)
[2016-12-27] MEDS: FOLIC/VIT B COMP W-C (RENAL) TABLET. PO SCH (10:02)
[2016-12-27] MEDS: CALCIUM CARBONATE 500 MG TABLET PO SCH ×3 (10:02→20:33)
[2016-12-27] MEDS: SERTRALINE 50 MG TABLET. PO SCH (10:03)
--- NOTE | 2016-12-27 10:04 | PDOC ---
Infectious Disease Note Subjective Subjective Doing ok. Nausea better Pain ok. Appetite ok ROS ROS GEN: Denies fevers, chills, sweats HEENT: Denies blurred vision, sore throat CV: Denies chest pain RESP: Denies shortness of air, cough GI: Denies n/v/d NEURO: Denies confusion, dizziness MSK: Denies weakness Vital Sign Vital Signs Vital Signs Date Time Temp Pulse Resp B/P (MAP) Pulse Ox O2 Delivery O2 Flow Rate FiO2 12/27/16 07:00 97.4 75 18 132/82 (99) Nasal Cannula 97.4 12/26/16 23:02 92 Physical Exam PHYSICAL EXAM GENERAL: NAD, Alert, on right side again HEENT: PERRL, OC/OP - clear NECK: Supple, no JVD, no LN LUNGS: Clear HEART: S1S2, no gallop, no murmur ABD: Soft, NT, no organomegaly, no rebound EXT: B BKA. 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 Vac to sacral area IV: AV site clean PICC RUE clean Labs Lab Laboratory Tests Test 12/26/16 10:05 12/26/16 16:19 12/26/16 20:28 12/27/16 07:09 Glucose (Fingerstick) 71 mg/dL (70-99) 51 mg/dL (70-99) 92 mg/dL (70-99) 66 mg/dL (70-99) Test 12/27/16 07:56 Glucose (Fingerstick) 74 mg/dL (70-99) Micro Mixed anaerobic organisms, none predominating. AEROBIC CULT Preliminary Preliminary report AEROBIC RES 1 Preliminary Escherichia coli Moderate growth AEROBIC RES 2 Preliminary Enterococcus species Moderate growth AEROBIC RES 3 Preliminary Enterococcus species Moderate growth ANTIMICROBIAL SUSCEPTIBILITY Preliminary Comment S = Susceptible; I = Intermediate; R = Resistant P = Positive; N = Negative MICS are expressed in micrograms per mL Antibiotic RSLT#1 RSLT#2 RSLT#3 RSLT#4 Amoxicillin/Clavulanic Acid S Ampicillin R Cefepime S Ceftriaxone S Cefuroxime S CONTINUED ON NEXT PAGE RUN DATE: 12/24/16 PAGE 2 RUN TIME: 1423 [facility] [address] [place] [address] Awais Denise M.D., Foundry Melt Supervisor SPEC: [id number] PATIENT: AISLINN RYAN [id number] ( Continued) Procedure Result ANTIMICROBIAL SUSCEPTIBILITY Preliminary (continued) Ciprofloxacin S Ertapenem S Gentamicin S Imipenem S Levofloxacin S Piperacillin R Tetracycline S Tobramycin S Trimethoprim/Sulfa S Objective Assessment Infected pressure wound of coccyx - wound down to exposed bone per Op note -Prior culture from [facility] 12/18 E. coli (R pip & amp) and Enterococcus PCN-S s/p I and D, 12/22. Intra-op GS: Enterococcus. cx: Ecoli, MSSA - d/w micro Diabetes CKD on HD Recent closed fracture of pelvis Plan Plan of Care Cont Zosyn for 5 weeks CBC/sed rate Q mondays Fax to [phone] F/u ID office in 2 weeks [phone] Ok to transfer from ID standpoint Off load EDWIN JACOME MD December 27, 2016 10:04
--- NOTE | 2016-12-27 10:48 | PDOC ---
Renal-Progress Notes Subjective Notes Notes NONE History of Present Illness Hx of present illness STABLE Vitals Vitals Vital Signs Date Time Temp Pulse Resp B/P (MAP) Pulse Ox O2 Delivery O2 Flow Rate FiO2 12/27/16 09:00 75 132/82 12/27/16 07:00 97.4 18 Nasal Cannula 97.4 12/26/16 23:02 92 Weight Weight [ ] I.O. Intake and Output Intake and Output 12/27/16 07:00 Intake Total 850 ml Balance 850 ml Intake Oral 850 ml # Bowel Movements 1 Labs Labs Laboratory Tests Test 12/26/16 16:19 12/26/16 20:28 12/27/16 07:09 12/27/16 07:56 Glucose (Fingerstick) 51 mg/dL (70-99) 92 mg/dL (70-99) 66 mg/dL (70-99) 74 mg/dL (70-99) Micro Micro Microbiology 12/21/16 Blood Culture - Final, Complete 12/21/16 Blood Culture Result 1 (SHAZIA) - Final, Complete 12/21/16 Antimicrobic Susceptibility - Final, Complete 12/22/16 Anaerobic/Aerobic Culture - Final, Resulted 12/22/16 Anaerobic Culture Result 1 (SHAZIA) - Final, Resulted 12/22/16 Aerobic Culture - Preliminary, Resulted 12/22/16 Aerobic Culture Result 1 (SHAZIA) - Preliminary, Resulted 12/22/16 Aerobic Culture Result 2 (SHAZIA) - Preliminary, Resulted 12/22/16 Aerobic Culture Result 3 (SHAZIA) - Preliminary, Resulted 12/22/16 Antimicrobic Susceptibility - Preliminary, Resulted Review of Systems Constitutional: yes: no symptom reported, alert Eyes: Yes: no symptom reported Cardiovascular: Yes no symptom reported Gastrointestional: Yes: no symptom reported Musculoskeletal: Yes: no symptom reported Psychiatric/Neurological: Yes: no symptom reported Physical Exam General Appearance: no apparent distress Skin: warm Respiratory: bilateral CTA Heart: S1S2 Abdomen: soft, bowel sounds present Neurology: alert, oriented Musculoskeletal: Osteoarthritis Assessment Assessment IMP ESRD ANEMIA COCCYX WOUND PLAN HD TOMORROW LABS IN AM ANTIBIOTICS CARLA BARRETO MD December 27, 2016 10:48
[2016-12-27 10:49] VITALS: BP 197/121
[2016-12-27] MEDS: IV DEXTROSE 5% - 0.9 % NACL 1,000 ML IV SCH (14:54)
--- NOTE | 2016-12-27 15:15 | PDOC ---
PROGRESS NOTES Chief Complaint Chief Complaint CC: Coccyx wound 1. Coccygeal wound: s/p debridement of ulcer and wound, IV abx per ID, need exterminator, IV access by IR TODAY 2. ESDR on HD: HD per nephrology. 3. Bilateral Amputee 4. AOCD 5. Dementia by hx 6, PVD 7. 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 Hyperkalemia, resolved 9. Hypoglycemia, improved 10. HTN: stable. History of Present Illness History of Present Illness alert, better hypoglycemia feeling better. needs placement for 5 weeks IV abx, wound care, turn, PT and OT Vitals Vitals Vital Signs Date Time Temp Pulse Resp B/P (MAP) Pulse Ox O2 Delivery O2 Flow Rate FiO2 12/27/16 10:49 98.4 84 18 197/121 (146) 84 Nasal Cannula 4.0 98.4 Physical Exam General: Alert, Oriented X3, Cooperative, No acute distress Heart: Regular rate, Normal S1, Normal S2 Lungs: Clear Abdomen: Soft Extremities: Other (grade 3 coccygeal wound, pus draiange, foul smelling tender to inspection) Skin: Other (dressing to coccyx) Labs LABS Laboratory Tests Test 12/26/16 16:19 12/26/16 20:28 12/27/16 07:09 12/27/16 07:56 Glucose (Fingerstick) 51 mg/dL (70-99) 92 mg/dL (70-99) 66 mg/dL (70-99) 74 mg/dL (70-99) Test 12/27/16 11:05 Glucose (Fingerstick) 90 mg/dL (70-99) Review of Systems Review of Systems buttock pain no new issue Comment Review of Relevant I have reviewed the following items katherine (where applicable) has been applied. Labs Laboratory Tests Test 12/25/16 16:31 12/25/16 21:43 12/26/16 05:10 12/26/16 07:42 Glucose (Fingerstick) 74 mg/dL (70-99) 66 mg/dL (70-99) 64 mg/dL (70-99) Sodium Level 135 mmol/L (136-145) Potassium Level 4.7 mmol/L (3.5-5.1) Chloride Level 98 mmol/L (98-107) Carbon Dioxide Level 26 mmol/L (21-32) Anion Gap 11 (6-14) Blood Urea Nitrogen 31 mg/dL (8-26) Creatinine 5.7 mg/dL (0.7-1.3) Estimated GFR (Cockcroft-Gault) 11.8 Glucose Level 71 mg/dL (70-99) Calcium Level 8.2 mg/dL (8.5-10.1) Test 12/26/16 10:05 12/26/16 16:19 12/26/16 20:28 12/27/16 07:09 Glucose (Fingerstick) 71 mg/dL (70-99) 51 mg/dL (70-99) 92 mg/dL (70-99) 66 mg/dL (70-99) Test 12/27/16 07:56 12/27/16 11:05 Glucose (Fingerstick) 74 mg/dL (70-99) 90 mg/dL (70-99) Laboratory Tests Test 12/26/16 16:19 12/26/16 20:28 12/27/16 07:09 12/27/16 07:56 Glucose (Fingerstick) 51 mg/dL (70-99) 92 mg/dL (70-99) 66 mg/dL (70-99) 74 mg/dL (70-99) Test 12/27/16 11:05 Glucose (Fingerstick) 90 mg/dL (70-99) Microbiology 12/21/16 Blood Culture - Final, Complete 12/21/16 Blood Culture Result 1 (SHAZIA) - Final, Complete 12/21/16 Antimicrobic Susceptibility - Final, Complete 12/22/16 Anaerobic/Aerobic Culture - Final, Complete 12/22/16 Anaerobic Culture Result 1 (SHAZIA) - Final, Complete 12/22/16 Aerobic Culture - Final, Complete 12/22/16 Aerobic Culture Result 1 (SHAZIA) - Final, Complete 12/22/16 Aerobic Culture Result 2 (SHAZIA) - Final, Complete 12/22/16 Aerobic Culture Result 3 (SHAZIA) - Final, Complete 12/22/16 Antimicrobic Susceptibility - Final, Complete Medications Current Medications Ondansetron HCl (Zofran) 4 mg PRN Q6HRS PRN IV NAUSEA/VOMITING, 1ST CHOICE; Start 12/21/16 at 18:15 Prochlorperazine Edisylate (Compazine) 10 mg PRN Q6HRS PRN IV NAUSEA/VOMITING, 2ND CHOICE; Start 12/21/16 at 18:15 Prochlorperazine (Compazine) 25 mg PRN Q12HR PRN MN NAUSEA/VOMITING; Start 12/21 at 18:15 Al Hydroxide/Mg Hydroxide (Mylanta Plus Xs) 30 ml PRN Q3HRS PRN PO HEARTBURN / GAS; Start 12/21/16 at 18:15 Calcium Carbonate/ Glycine (Tums) 500 mg PRN Q3HRS PRN PO UPSET STOMACH; Start 12/21/16 at 18:15 Oxycodone HCl (Roxicodone) 5 mg PRN Q3HRS PRN PO BREAKTHROUGH PAIN Last administered on 12/24/16 13:36; Start 12/21/16 at 18:15 Morphine Sulfate 1 mg PRN Q1HR PRN IV PAIN Last administered on 12/22/16 01:28 ; Start 12/21/16 at 18:15; Stop 12/25/16 at 12:55; Status DC Acetaminophen (Tylenol) 650 mg PRN Q6HRS PRN PO Headaches, Temp > 101.5F; Start 12/21/16 at 18:15 Docusate Sodium (Colace) 100 mg BID PO Last administered on 12/21/16 21:52; Start 12/21/16 at 21:00 Magnesium Hydroxide (Milk Of Magnesia) 2,400 mg PRN Q12HR PRN PO CONSTIPATION; Start 12/21/16 at 18:15 Bisacodyl (Dulcolax Supp) 10 mg PRN DAILY PRN MN CONSTIPATION; Start 12/21/16 at 18:15 Acetaminophen (Tylenol) 325 mg PRN Q4HRS PRN PO MILD PAIN/FEVER; Start 12/21/16 at 18:15 Amlodipine Besylate (Norvasc) 10 mg DAILY PO ; Start 12/22/16 at 09:00 Calcium Carbonate/ Glycine (Oscal) 500 mg TID PO Last administered on 14:49; Start 12/21/16 at 21:00 Vitamin D (Vitamin D3) 2,000 unit QODAY PO Last administered on 12/27/16 10:02 ; Start 12/23/16 at 09:00 Cinacalcet (Sensipar) 90 mg HS PO Last administered on 12/26/16 20:38; Start 12/21/16 at 21:00 Colestipol HCl (Colestid) 1 gm BID PO Last administered on 12/27/16 10:02; Start 12/21/16 at 21:00 Ergocalciferol (Vitamin D2) 50,000 unit WEEKLY PO ; Start 12/28/16 at 09:00 Famotidine (Pepcid) 20 mg HS PO Last administered on 12/21/16 21:54; Start 12/21 at 21:00 Lanthanum Carbonate (Fosrenol) 1,000 mg TIDWMEALS PO ; Start 12/22/16 at 08:00; Stop 12/22/16 at 08:00; Status DC Lorazepam (Ativan) 0.25 mg PRN DAILY PRN PO ANXIETY Last administered on 21:54; Start 12/21/16 at 18:15 Mirtazapine (Remeron) 7.5 mg QHS PO Last administered on 12/23/16 20:18; Start 12/21/16 at 21:00 Tramadol HCl (Ultram) 25 mg PRN Q6HRS PRN PO MODERATE PAIN Last administered on 12/21/16 21:53; Start 12/21/16 at 18:15 Darbepoetin Placido (Aranesp) 100 mcg WEEKLYHS SQ ; Start 12/22/16 at 21:00 Ferrous Sulfate (Feosol) 325 mg DAILYWBKFT PO Last administered on 12/23/16 08: 43; Start 12/22/16 at 08:00 Vitamin B Complex/ Vitamin C (Blank-Cliff) 1 tab DAILY PO Last administered on 10:02; Start 12/22/16 at 09:00 Sertraline HCl (Zoloft) 200 mg DAILY PO Last administered on 12/27/16 10:03; Start 12/22/16 at 09:00 Non-Formulary Medication 1 each DAILY PO ; Start 12/22/16 at 09:00; Status UNV Lanthanum Carbonate (Fosrenol) 1,000 mg TIDAFTMEAL PO ; Start 12/22/16 at 09:00; Stop 12/22/16 at 09:00; Status DC Lanthanum Carbonate (Fosrenol) 1,000 mg TIDAFTMEAL PO Last administered on 17:21; Start 12/22/16 at 09:00 Vancomycin HCl 1.25 gm/Sodium Chloride 250 ml @ 166.667 mls/hr 1X ONCE IV Last administered on 12/21/16 22:31; Start 12/21/16 at 20:00; Stop 12/21/16 at 21: 29; Status DC Morphine Sulfate 2 mg PRN Q2HR PRN IV PAIN Last administered on 12/27/16 00:58 ; Start 12/22/16 at 02:15 Ondansetron HCl (Zofran) 4 mg PRN Q6HRS PRN IV NAUSEA/VOMITING; Start 12/22/16 at 09:00; Stop 12/22/16 at 18:00; Status DC Fentanyl Citrate (Fentanyl 2ml Vial) 25 mcg PRN Q5MIN PRN IV MILD PAIN; Start 12/22/16 at 09:00; Stop 12/22/16 at 18:00; Status DC Fentanyl Citrate (Fentanyl 2ml Vial) 50 mcg PRN Q5MIN PRN IV MODERATE PAIN; Start 12/22/16 at 09:00; Stop 12/22/16 at 18:00; Status DC Morphine Sulfate 1 mg PRN Q10MIN PRN IV SEVERE PAIN Last administered on 12:58; Start 12/22/16 at 09:00; Stop 12/22/16 at 18:00; Status DC Ringer's Solution 1,000 ml @ 30 mls/hr Q24H IV ; Start 12/22/16 at 09:00; Stop 12/22/16 at 20:59; Status DC Lidocaine HCl 2 ml PRN 1X PRN ID PRIOR TO IV START; Start 12/22/16 at 09:00; Stop 12/22/16 at 18:00; Status DC Hydromorphone HCl (Dilaudid) 0.5 mg PRN Q10MIN PRN IV SEV PAIN, Second choice; Start 12/22/16 at 09:00; Stop 12/22/16 at 18:00; Status DC Prochlorperazine Edisylate (Compazine) 5 mg PACU PRN PRN IV NAUSEA, MRX1; Start 12/22/16 at 09:00; Stop 12/22/16 at 18:00; Status DC Propofol 20 ml @ As Directed STK-MED ONCE IV ; Start 12/22/16 at 11:52; Stop 12/22 at 11:53; Status DC Lidocaine HCl (Lidocaine Pf 2% Vial) 5 ml STK-MED ONCE .ROUTE ; Start 12/22/16 at 11:52; Stop 12/22/16 at 11:53; Status DC Dexamethasone Sodium Phosphate (Decadron) 20 mg STK-MED ONCE .ROUTE ; Start 12/22 at 11:52; Stop 12/22/16 at 11:53; Status DC Ondansetron HCl (Zofran) 4 mg STK-MED ONCE .ROUTE ; Start 12/22/16 at 11:52; Stop 12/22/16 at 11:53; Status DC Bupivacaine HCl/ Epinephrine Bitart (Sensorcaine-Epi 0.25%-1:180937 Mpf) 30 ml STK-MED ONCE .ROUTE ; Start 12/22/16 at 11:57; Stop 12/22/16 at 11:58; Status DC Ephedrine Sulfate 50 mg STK-MED ONCE IV ; Start 12/22/16 at 12:11; Stop 12/22/16 at 12:12; Status DC Phenylephrine HCl 1 mg STK-MED ONCE IV ; Start 12/22/16 at 12:13; Stop 12/22/16 at 12:14; Status DC Sevoflurane (Ultane) 30 ml STK-MED ONCE IH ; Start 12/22/16 at 12:40; Stop at 12:41; Status DC Sodium Chloride 1,000 ml @ 0 mls/hr Q0M IV ; Start 12/22/16 at 11:30 Sodium Polystyrene Sulfonate (Kayexalate) 30 gm 1X ONCE PO Last administered on 12/22/16 14:29; Start 12/22/16 at 13:45; Stop 12/22/16 at 13:53; Status DC Sodium Bicarbonate 50 meq 1X ONCE IV Last administered on 12/22/16 14:29; Start 12/22/16 at 13:45; Stop 12/22/16 at 13:53; Status DC Dextrose (Dextrose 50%-Water Syringe) 50 gm 1X ONCE IV Last administered on 13:45; Start 12/22/16 at 13:45; Stop 12/22/16 at 13:53; Status DC Insulin Human Regular (Novolin R Vial) 10 unit 1X ONCE IV Last administered on 12/22/16 14:31; Start 12/22/16 at 13:45; Stop 12/22/16 at 13:53; Status DC Vancomycin HCl (Vanco Per Pharmacy) 1 each PRN DAILY PRN MC SEE COMMENTS Last administered on 12/24/16 11:42; Start 12/22/16 at 14:00; Stop 12/25/16 at 09:59; Status DC Ceftriaxone Sodium 1 gm/ Sodium Chloride 50 ml @ 100 mls/hr Q24H IV Last administered on 12/24/16 13:37; Start 12/22/16 at 14:00; Stop 12/25/16 at 09:59; Status DC Metronidazole 100 ml @ 100 mls/hr Q8HRS IV Last administered on 12/25/16 06:04 ; Start 12/22/16 at 14:00; Stop 12/25/16 at 09:59; Status DC Vancomycin HCl 2 gm/Sodium Chloride 500 ml @ 250 mls/hr 1X ONCE IV ; Start 12/22/16 at 15:00; Stop 12/22/16 at 16:59; Status Cancel Vancomycin HCl 500 mg/Sodium Chloride 100 ml @ 100 mls/hr 1X ONCE IV Last administered on 12/22/16 23:00; Start 12/22/16 at 23:00; Stop 12/22/16 at 23:59; Status DC Dextrose 500 ml @ 75 mls/hr 1X ONCE IV Last administered on 12/22/16 16:52; Start 12/22/16 at 16:30; Stop 12/22/16 at 23:09; Status DC Sodium Chloride 1,000 ml @ 1,000 mls/hr Q1H PRN IV hypotension; Start 12/22/16 at 17:04; Stop 12/22/16 at 23:03; Status DC Diphenhydramine HCl (Benadryl) 25 mg 1X PRN PRN IV ITCHING; Start 12/22/16 at 17 :15; Stop 12/23/16 at 17:14; Status DC Diphenhydramine HCl (Benadryl) 25 mg 1X PRN PRN IV ITCHING; Start 12/22/16 at 17 :15; Stop 12/23/16 at 17:14; Status DC Sodium Chloride 1,000 ml @ 400 mls/hr Q2H30M PRN IV PATENCY; Start 12/22/16 at 17:04; Stop 12/23/16 at 05:03; Status DC Info (PHARMACY MONITORING -- do not chart) 1 each PRN DAILY PRN MC SEE COMMENTS ; Start 12/22/16 at 17:15; Stop 12/26/16 at 13:39; Status DC Vancomycin HCl 1 each 1X ONCE MC Last administered on 12/24/16 06:00; Start at 06:00; Stop 12/24/16 at 06:01; Status DC Sodium Chloride 1,000 ml @ 1,000 mls/hr Q1H PRN IV hypotension; Start 12/24/16 at 09:00; Stop 12/24/16 at 14:59; Status DC Info (PHARMACY MONITORING -- do not chart) 1 each PRN DAILY PRN MC SEE COMMENTS ; Start 12/24/16 at 09:00; Status UNV Info (PHARMACY MONITORING -- do not chart) 1 each PRN DAILY PRN MC SEE COMMENTS ; Start 12/24/16 at 09:00; Status UNV Vancomycin HCl 500 mg/Sodium Chloride 100 ml @ 100 mls/hr QMWF IV Last administered on 12/24/16 17:21; Start 12/24/16 at 16:00; Stop 12/25/16 at 09:59; Status DC Piperacillin Sod/ Tazobactam Sod 2.25 gm/Sodium Chloride 50 ml @ 100 mls/hr Q8HRS IV Last administered on 12/27/16 14:50; Start 12/25/16 at 11:00 Sodium Chloride 1,000 ml @ 1,000 mls/hr Q1H PRN IV hypotension; Start 12/26/16 at 10:49; Stop 12/26/16 at 16:48; Status DC Info (PHARMACY MONITORING -- do not chart) 1 each PRN DAILY PRN MC SEE COMMENTS ; Start 12/26/16 at 11:00; Status UNV Info (PHARMACY MONITORING -- do not chart) 1 each PRN DAILY PRN MC SEE COMMENTS ; Start 12/26/16 at 11:00 Heparin Sodium (Porcine) (Hep Lock Adult) 500 unit STK-MED ONCE IV ; Start 12/26 at 14:41; Stop 12/26/16 at 14:42; Status DC Lidocaine/ Epinephrine (Xylocaine 1%-Epi 1:100,000) 20 ml STK-MED ONCE .ROUTE ; Start 12/26/16 at 14:41; Stop 12/26/16 at 14:42; Status DC Heparin Sodium/ Sodium Chloride 500 ml @ As Directed STK-MED ONCE .ROUTE ; Start 12/26/16 at 14:41; Stop 12/26/16 at 14:42; Status DC Fentanyl Citrate (Fentanyl 5ml Vial) 250 mcg STK-MED ONCE .ROUTE ; Start at 14:53; Stop 12/26/16 at 14:54; Status DC Fentanyl Citrate (Fentanyl 5ml Vial) 250 mcg 1X ONCE IV Last administered on 15:00; Start 12/26/16 at 15:00; Stop 12/26/16 at 15:03; Status DC Lidocaine/Sodium Bicarbonate (Buffered Lidocaine 1%) 20 ml STK-MED ONCE IJ ; Start 12/26/16 at 14:58; Stop 12/26/16 at 14:59; Status DC Heparin Sodium/ Sodium Chloride 1,000 unit 1X ONCE IART Last administered on 15:00; Start 12/26/16 at 15:00; Stop 12/26/16 at 15:03; Status DC Lidocaine/Sodium Bicarbonate (Buffered Lidocaine 1%) 20 ml 1X ONCE IJ Last administered on 12/26/16 15:00; Start 12/26/16 at 15:00; Stop 12/26/16 at 15:03 ; Status DC Dextrose/Sodium Chloride 1,000 ml @ 30 mls/hr Q24H IV Last administered on 14:54; Start 12/27/16 at 07:30 Active Scripts Active Reported Tylenol (Acetaminophen) 325 Mg Tablet 1 Tab PO PRN Q4HRS Tramadol Hcl 50 Mg Tablet 0.5 Tab PO PRN Q6HRS Colestid (Colestipol Hcl) 1 Gm Tablet 1 Gm PO BID Fosrenol (Lanthanum Carbonate) 1,000 Mg Tab.chew 1,000 Mg PO TIDWMEALS Amlodipine Besylate 10 Mg Tablet 10 Mg PO DAILY Mirtazapine 15 Mg Tablet 5 Tab PO QHS Eucerin Intensive Repair (Emollient Combination No.72) 250 Ml Lotion 250 Ml TP Amlodipine Besylate 10 Mg Tablet 10 Mg PO DAILY Vitamin B Complex 1 Each Capsule 1 Each PO DAILY Renal Caps Softgel (Folic Acid/Vitamin B Comp W-C) 1 Mg Capsule 1 Mg PO DAILY Lorazepam 0.5 Mg Tablet 0.25 Mg PO PRN DAILY PRN Vitamin D2 (Ergocalciferol (Vitamin D2)) 50,000 Unit Capsule 50,000 Unit PO WEEKLY Vitamin D3 (Cholecalciferol (Vitamin D3)) 1,000 Unit Tablet 2,000 Unit PO QODAY Epogen (Epoetin Placido) 20,000 Unit/1 Ml Vial 14,300 Unit IJ THREE TIMES A WEEK Zoloft (Sertraline Hcl) 100 Mg Tablet 200 Mg PO DAILY Ferrous Gluconate 325 Mg Tablet 325 Mg PO DAILY Famotidine 20 Mg Tablet 20 Mg PO HS Sensipar (Cinacalcet Hcl) 30 Mg Tablet 90 Mg PO HS Calcium Carbonate 500 Mg Tablet 500 Mg PO TID Vitals/I & O Vital Sign - Last 24 Hours 12/26/16 12/26/16 12/26/16 12/27/16 19:00 20:00 23:02 00:58 Temp 97.5 98.9 97.5 98.9 Pulse 84 78 Resp 18 19 23 B/P (MAP) 84/11 (35) 143/114 (124) Pulse Ox 96 92 O2 Delivery Room Air Room Air Room Air Room Air 12/27/16 12/27/16 12/27/16 12/27/16 02:00 07:00 09:00 10:49 Temp 97.4 98.4 97.4 98.4 Pulse 75 75 84 Resp 18 18 18 B/P (MAP) 132/82 (99) 132/82 197/121 (146) Pulse Ox 84 O2 Delivery Room Air Nasal Cannula Nasal Cannula O2 Flow Rate 4.0 Intake and Output 12/26/16 12/26/16 12/27/16 15:00 23:00 07:00 Intake Total 450 ml 400 ml Balance 450 ml 400 ml WILSON JONES MD December 27, 2016 15:15
[2016-12-27 15:17] VITALS: BP 120/90
[2016-12-27 19:00] VITALS: BP 99/34
[2016-12-27] MEDS: FAMOTIDINE 20 MG TABLET. PO SCH (20:33)
[2016-12-27] MEDS: MIRTAZAPINE 15 MG TABLET PO SCH (20:33)
[2016-12-27] MEDS: CINACALCET HCL 30 MG TABLET PO SCH (20:34)
[2016-12-27] MEDS ORDERED: DEXTROSE 50% 25 GM / 50ML DISP.SYRIN. IV ONE ×2 (20:58→22:00)
[2016-12-27] MEDS ORDERED: IV DEXTROSE 5% 250 ML BAG. IV ONE (21:00)
[2016-12-27 23:00] VITALS: BP 89/22
[2016-12-28] VITALS (7 sets, daily range): BP systolic 80–114; BP diastolic 16–65
[2016-12-28] MEDS: PIPERACILLIN/TAZOBACTAM 2.25 GM in IV NORMAL SALINE 50ML 50 ML IV SCH ×3 (05:29→21:49)
[2016-12-28 05:56] LABS: HEMATOCRIT 33.3 % (39.0-53.0); HEMOGLOBIN 10.7 g/dL (13.0-17.5); RED BLOOD COUNT 3.96 x10^6/uL (4.30-5.70); RED CELL DISTRIBUTION WIDTH 16.9 % (11.5-14.5); WHITE BLOOD COUNT 11.1 x10^3/uL (4.0-11.0)
[2016-12-28 06:09] LABS: CALCIUM 8.4 mg/dL (8.5-10.1); CREATININE 5.4 mg/dL (0.7-1.3); GFR 12.5
[2016-12-28] MEDS ORDERED: IV NORMAL SALINE 1000ML BAG 1,000 ML IV PRN (07:29)
[2016-12-28] MEDS: IV DEXTROSE 5% - 0.9 % NACL 1,000 ML IV SCH (07:30)
[2016-12-28] MEDS ORDERED: DIALYSIS PATIENT. MC PRN ×2 (07:30)
[2016-12-28] MEDS: DOCUSATE SODIUM 100 MG CAPSULE. PO SCH ×2 (09:00→21:00)
[2016-12-28] MEDS ORDERED: ERGOCALCIFEROL (VITAMIN D2) 50,000 UNIT CAPSULE. PO SCH (09:00)
--- NOTE | 2016-12-28 09:43 | PDOC ---
Infectious Disease Note Subjective Subjective Doing ok. Nausea better Pain ok. Appetite ok LUE a little tired ROS ROS GEN: Denies fevers, chills, sweats HEENT: Denies blurred vision, sore throat CV: Denies chest pain RESP: Denies shortness of air, cough GI: Denies n/v/d NEURO: Denies confusion, dizziness MSK: Denies weakness, joint pain/swelling Vital Sign Vital Signs Vital Signs Date Time Temp Pulse Resp B/P (MAP) Pulse Ox O2 Delivery O2 Flow Rate FiO2 12/28/16 03:00 98.2 82 16 114/35 (61) 100 Nasal Cannula 2.0 98.2 Physical Exam PHYSICAL EXAM GENERAL: NAD, Alert, on right side again in HD HEENT: PERRL, OC/OP - clear NECK: Supple, no JVD, no LN LUNGS: Clear HEART: S1S2, no gallop, no murmur ABD: Soft, NT, no organomegaly, no rebound EXT: B BKA. Dressings in place. LUE without swelling/erythema or warmth. 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 Vac to sacral area IV: AV site clean PICC RUE clean Labs Lab Laboratory Tests Test 12/27/16 11:05 12/27/16 16:20 12/27/16 20:47 12/27/16 22:14 Glucose (Fingerstick) 90 mg/dL (70-99) 76 mg/dL (70-99) 69 mg/dL (70-99) 88 mg/dL (70-99) Test 12/28/16 05:20 White Blood Count 11.1 x10^3/uL (4.0-11.0) Red Blood Count 3.96 x10^6/uL (4.30-5.70) Hemoglobin 10.7 g/dL (13.0-17.5) Hematocrit 33.3 % (39.0-53.0) Mean Corpuscular Volume 84 fL (79-100) Mean Corpuscular Hemoglobin 27 pg (25-35) Mean Corpuscular Hemoglobin Concent 32 g/dL (31-37) Red Cell Distribution Width 16.9 % (11.5-14.5) Platelet Count 101 x10^3/uL (140-400) Sodium Level 137 mmol/L (136-145) Potassium Level 5.0 mmol/L (3.5-5.1) Chloride Level 99 mmol/L (98-107) Carbon Dioxide Level 27 mmol/L (21-32) Anion Gap 11 (6-14) Blood Urea Nitrogen 26 mg/dL (8-26) Creatinine 5.4 mg/dL (0.7-1.3) Estimated GFR (Cockcroft-Gault) 12.5 Glucose Level 90 mg/dL (70-99) Calcium Level 8.4 mg/dL (8.5-10.1) Micro Mixed anaerobic organisms, none predominating. AEROBIC CULT Preliminary Preliminary report AEROBIC RES 1 Preliminary Escherichia coli Moderate growth AEROBIC RES 2 Preliminary Enterococcus species Moderate growth AEROBIC RES 3 Preliminary Enterococcus species Moderate growth ANTIMICROBIAL SUSCEPTIBILITY Preliminary Comment S = Susceptible; I = Intermediate; R = Resistant P = Positive; N = Negative MICS are expressed in micrograms per mL Antibiotic RSLT#1 RSLT#2 RSLT#3 RSLT#4 Amoxicillin/Clavulanic Acid S Ampicillin R Cefepime S Ceftriaxone S Cefuroxime S CONTINUED ON NEXT PAGE RUN DATE: 12/24/16 PAGE 2 RUN TIME: 1423 [facility] [address] [place] [address] Awais Denise M.D., Plating Engineer SPEC: [id number] PATIENT: AISLINN RYAN [id number] ( Continued) Procedure Result ANTIMICROBIAL SUSCEPTIBILITY Preliminary (continued) Ciprofloxacin S Ertapenem S Gentamicin S Imipenem S Levofloxacin S Piperacillin R Tetracycline S Tobramycin S Trimethoprim/Sulfa S Objective Assessment mild leukocytosis - ? low glucose reaction. clinically ok. AF Infected pressure wound of coccyx - wound down to exposed bone per Op note -Prior culture from [facility] 12/18 E. coli (R pip & amp) and Enterococcus PCN-S s/p I and D, 12/22. Intra-op GS: Enterococcus. cx: Ecoli, MSSA - d/w micro STCN /12/21 - contamination Diabetes CKD on HD Recent closed fracture of pelvis Plan Plan of Care Cont Zosyn for 5 weeks CBC/sed rate Q mondays Fax to [phone] F/u ID office in 2 weeks [phone] Ok to transfer from ID standpoint Off load EDWIN JACOME MD December 28, 2016 09:43
--- NOTE | 2016-12-28 11:40 | PDOC ---
Renal-Progress Notes Subjective Notes Notes NO NEW COMPLAINTS History of Present Illness Hx of present illness NO CHANGES Vitals Vitals Vital Signs Date Time Temp Pulse Resp B/P (MAP) Pulse Ox O2 Delivery O2 Flow Rate FiO2 12/28/16 03:00 98.2 82 16 114/35 (61) 100 Nasal Cannula 2.0 98.2 Weight Weight [ ] I.O. Intake and Output Intake and Output 12/28/16 07:00 Intake Total 370 ml Output Total 2 ml Balance 368 ml Intake Oral 370 ml Stool Total 2 ml # Bowel Movements 1 Labs Labs Laboratory Tests Test 12/27/16 16:20 12/27/16 20:47 12/27/16 22:14 12/28/16 05:20 Glucose (Fingerstick) 76 mg/dL (70-99) 69 mg/dL (70-99) 88 mg/dL (70-99) White Blood Count 11.1 x10^3/uL (4.0-11.0) Red Blood Count 3.96 x10^6/uL (4.30-5.70) Hemoglobin 10.7 g/dL (13.0-17.5) Hematocrit 33.3 % (39.0-53.0) Mean Corpuscular Volume 84 fL (79-100) Mean Corpuscular Hemoglobin 27 pg (25-35) Mean Corpuscular Hemoglobin Concent 32 g/dL (31-37) Red Cell Distribution Width 16.9 % (11.5-14.5) Platelet Count 101 x10^3/uL (140-400) Sodium Level 137 mmol/L (136-145) Potassium Level 5.0 mmol/L (3.5-5.1) Chloride Level 99 mmol/L (98-107) Carbon Dioxide Level 27 mmol/L (21-32) Anion Gap 11 (6-14) Blood Urea Nitrogen 26 mg/dL (8-26) Creatinine 5.4 mg/dL (0.7-1.3) Estimated GFR (Cockcroft-Gault) 12.5 Glucose Level 90 mg/dL (70-99) Calcium Level 8.4 mg/dL (8.5-10.1) Micro Micro Microbiology 12/21/16 Blood Culture - Final, Complete 12/21/16 Blood Culture Result 1 (SHAZIA) - Final, Complete 12/21/16 Antimicrobic Susceptibility - Final, Complete 12/22/16 Anaerobic/Aerobic Culture - Final, Complete 12/22/16 Anaerobic Culture Result 1 (SHAZIA) - Final, Complete 12/22/16 Aerobic Culture - Final, Complete 12/22/16 Aerobic Culture Result 1 (SHAZIA) - Final, Complete 12/22/16 Aerobic Culture Result 2 (SHAZIA) - Final, Complete 12/22/16 Aerobic Culture Result 3 (SHAZIA) - Final, Complete 12/22/16 Antimicrobic Susceptibility - Final, Complete Review of Systems Constitutional: yes: no symptom reported, alert Eyes: Yes: no symptom reported Cardiovascular: Yes no symptom reported Gastrointestional: Yes: no symptom reported Musculoskeletal: Yes: no symptom reported Psychiatric/Neurological: Yes: no symptom reported Physical Exam General Appearance: no apparent distress Skin: warm Respiratory: bilateral CTA Heart: S1S2 Abdomen: soft, bowel sounds present Neurology: alert, oriented Musculoskeletal: Osteoarthritis Assessment Assessment IMP ESRD ANEMIA COCCYX WOUND SEVERE DECONDITIONING PLAN HD TODAY UF TO DW ANTIBIOTICS SELECT SCREEN CARLA BARRETO MD December 28, 2016 11:40
[2016-12-28] MEDS: CALCIUM CARBONATE 500 MG TABLET PO SCH ×3 (12:40→21:00)
[2016-12-28] MEDS: FOLIC/VIT B COMP W-C (RENAL) TABLET. PO SCH (12:41)
[2016-12-28] MEDS: SERTRALINE 50 MG TABLET. PO SCH (12:41)
[2016-12-28] MEDS: FERROUS SULFATE 325 MG TABLET. PO SCH (12:45)
[2016-12-28] MEDS: LANTHANUM CARBONATE 500 MG TAB.CHEW PO SCH ×3 (12:48→18:00)
[2016-12-28] MEDS: COLESTIPOL HCL 1 GM TABLET PO SCH ×2 (12:48→21:00)
[2016-12-28] MEDS: amLODIPine BESYLATE 10 MG TABLET PO SCH (12:48)
--- NOTE | 2016-12-28 13:05 | PDOC ---
PROGRESS NOTES Chief Complaint Chief Complaint CC: Coccyx wound 1. Coccygeal wound: s/p debridement of ulcer and wound, IV abx per ID, need terminal system operator, IV access by IR TODAY 2. ESDR on HD: HD per nephrology. 3. Bilateral Amputee 4. AOCD 5. Dementia by hx 6, PVD 7. Moderate to severe malnutrition, POA 8. Hyperkalemia, resolved 9. Hypoglycemia, w/o meds or DM diagnosis, check TSH and cortisol 10. HTN: stable. History of Present Illness History of Present Illness not currently safe for discharge to SNU sacral wound, poor nutrition, weakness, cannot even sit up to eat. Palliative discussion at length with patient and today, would liek to try PT and OT and SNU. not ready yet for above issues hospice at some point was offered, and should be considered if no meaningful improvement in the interim, but will need 5 weeks of abx and has a solid chance of meaningful recovery at this point feeling better. needs placement for 5 weeks IV abx, wound care, Vitals Vitals Vital Signs Date Time Temp Pulse Resp B/P (MAP) Pulse Ox O2 Delivery O2 Flow Rate FiO2 12/28/16 12:48 60 80/53 12/28/16 11:00 97.0 18 96 Room Air 97.0 12/28/16 03:00 2.0 Physical Exam General: Alert, Oriented X3, Cooperative, No acute distress Heart: Regular rate, Normal S1, Normal S2 Lungs: Clear Abdomen: Soft Extremities: Other (grade 3 coccygeal wound, pus draiange, foul smelling tender to inspection) Skin: Other (dressing to coccyx) Labs LABS Laboratory Tests Test 12/27/16 16:20 12/27/16 20:47 12/27/16 22:14 12/28/16 05:20 Glucose (Fingerstick) 76 mg/dL (70-99) 69 mg/dL (70-99) 88 mg/dL (70-99) White Blood Count 11.1 x10^3/uL (4.0-11.0) Red Blood Count 3.96 x10^6/uL (4.30-5.70) Hemoglobin 10.7 g/dL (13.0-17.5) Hematocrit 33.3 % (39.0-53.0) Mean Corpuscular Volume 84 fL (79-100) Mean Corpuscular Hemoglobin 27 pg (25-35) Mean Corpuscular Hemoglobin Concent 32 g/dL (31-37) Red Cell Distribution Width 16.9 % (11.5-14.5) Platelet Count 101 x10^3/uL (140-400) Sodium Level 137 mmol/L (136-145) Potassium Level 5.0 mmol/L (3.5-5.1) Chloride Level 99 mmol/L (98-107) Carbon Dioxide Level 27 mmol/L (21-32) Anion Gap 11 (6-14) Blood Urea Nitrogen 26 mg/dL (8-26) Creatinine 5.4 mg/dL (0.7-1.3) Estimated GFR (Cockcroft-Gault) 12.5 Glucose Level 90 mg/dL (70-99) Calcium Level 8.4 mg/dL (8.5-10.1) Test 12/28/16 11:34 Glucose (Fingerstick) 78 mg/dL (70-99) Review of Systems Review of Systems weakness buttock pain no n.v.d poor po intake Comment Review of Relevant I have reviewed the following items katherine (where applicable) has been applied. Labs Laboratory Tests Test 12/26/16 16:19 12/26/16 20:28 12/27/16 07:09 12/27/16 07:56 Glucose (Fingerstick) 51 mg/dL (70-99) 92 mg/dL (70-99) 66 mg/dL (70-99) 74 mg/dL (70-99) Test 12/27/16 11:05 12/27/16 16:20 12/27/16 20:47 12/27/16 22:14 Glucose (Fingerstick) 90 mg/dL (70-99) 76 mg/dL (70-99) 69 mg/dL (70-99) 88 mg/dL (70-99) Test 12/28/16 05:20 12/28/16 11:34 White Blood Count 11.1 x10^3/uL (4.0-11.0) Red Blood Count 3.96 x10^6/uL (4.30-5.70) Hemoglobin 10.7 g/dL (13.0-17.5) Hematocrit 33.3 % (39.0-53.0) Mean Corpuscular Volume 84 fL (79-100) Mean Corpuscular Hemoglobin 27 pg (25-35) Mean Corpuscular Hemoglobin Concent 32 g/dL (31-37) Red Cell Distribution Width 16.9 % (11.5-14.5) Platelet Count 101 x10^3/uL (140-400) Sodium Level 137 mmol/L (136-145) Potassium Level 5.0 mmol/L (3.5-5.1) Chloride Level 99 mmol/L (98-107) Carbon Dioxide Level 27 mmol/L (21-32) Anion Gap 11 (6-14) Blood Urea Nitrogen 26 mg/dL (8-26) Creatinine 5.4 mg/dL (0.7-1.3) Estimated GFR (Cockcroft-Gault) 12.5 Glucose Level 90 mg/dL (70-99) Calcium Level 8.4 mg/dL (8.5-10.1) Glucose (Fingerstick) 78 mg/dL (70-99) Laboratory Tests Test 12/27/16 16:20 12/27/16 20:47 12/27/16 22:14 12/28/16 05:20 Glucose (Fingerstick) 76 mg/dL (70-99) 69 mg/dL (70-99) 88 mg/dL (70-99) White Blood Count 11.1 x10^3/uL (4.0-11.0) Red Blood Count 3.96 x10^6/uL (4.30-5.70) Hemoglobin 10.7 g/dL (13.0-17.5) Hematocrit 33.3 % (39.0-53.0) Mean Corpuscular Volume 84 fL (79-100) Mean Corpuscular Hemoglobin 27 pg (25-35) Mean Corpuscular Hemoglobin Concent 32 g/dL (31-37) Red Cell Distribution Width 16.9 % (11.5-14.5) Platelet Count 101 x10^3/uL (140-400) Sodium Level 137 mmol/L (136-145) Potassium Level 5.0 mmol/L (3.5-5.1) Chloride Level 99 mmol/L (98-107) Carbon Dioxide Level 27 mmol/L (21-32) Anion Gap 11 (6-14) Blood Urea Nitrogen 26 mg/dL (8-26) Creatinine 5.4 mg/dL (0.7-1.3) Estimated GFR (Cockcroft-Gault) 12.5 Glucose Level 90 mg/dL (70-99) Calcium Level 8.4 mg/dL (8.5-10.1) Test 12/28/16 11:34 Glucose (Fingerstick) 78 mg/dL (70-99) Microbiology 12/21/16 Blood Culture - Final, Complete 12/21/16 Blood Culture Result 1 (SHAZIA) - Final, Complete 12/21/16 Antimicrobic Susceptibility - Final, Complete 12/22/16 Anaerobic/Aerobic Culture - Final, Complete 12/22/16 Anaerobic Culture Result 1 (SHAZIA) - Final, Complete 12/22/16 Aerobic Culture - Final, Complete 12/22/16 Aerobic Culture Result 1 (SHAZIA) - Final, Complete 12/22/16 Aerobic Culture Result 2 (SHAZIA) - Final, Complete 12/22/16 Aerobic Culture Result 3 (SHAZIA) - Final, Complete 12/22/16 Antimicrobic Susceptibility - Final, Complete Medications Current Medications Ondansetron HCl (Zofran) 4 mg PRN Q6HRS PRN IV NAUSEA/VOMITING, 1ST CHOICE; Start 12/21/16 at 18:15 Prochlorperazine Edisylate (Compazine) 10 mg PRN Q6HRS PRN IV NAUSEA/VOMITING, 2ND CHOICE; Start 12/21/16 at 18:15 Prochlorperazine (Compazine) 25 mg PRN Q12HR PRN DE NAUSEA/VOMITING; Start 12/21 at 18:15 Al Hydroxide/Mg Hydroxide (Mylanta Plus Xs) 30 ml PRN Q3HRS PRN PO HEARTBURN / GAS; Start 12/21/16 at 18:15 Calcium Carbonate/ Glycine (Tums) 500 mg PRN Q3HRS PRN PO UPSET STOMACH; Start 12/21/16 at 18:15 Oxycodone HCl (Roxicodone) 5 mg PRN Q3HRS PRN PO BREAKTHROUGH PAIN Last administered on 12/24/16 13:36; Start 12/21/16 at 18:15 Morphine Sulfate 1 mg PRN Q1HR PRN IV PAIN Last administered on 12/22/16 01:28 ; Start 12/21/16 at 18:15; Stop 12/25/16 at 12:55; Status DC Acetaminophen (Tylenol) 650 mg PRN Q6HRS PRN PO Headaches, Temp > 101.5F; Start 12/21/16 at 18:15 Docusate Sodium (Colace) 100 mg BID PO Last administered on 12/21/16 21:52; Start 12/21/16 at 21:00 Magnesium Hydroxide (Milk Of Magnesia) 2,400 mg PRN Q12HR PRN PO CONSTIPATION; Start 12/21/16 at 18:15 Bisacodyl (Dulcolax Supp) 10 mg PRN DAILY PRN DE CONSTIPATION; Start 12/21/16 at 18:15 Acetaminophen (Tylenol) 325 mg PRN Q4HRS PRN PO MILD PAIN/FEVER; Start 12/21/16 at 18:15 Amlodipine Besylate (Norvasc) 10 mg DAILY PO ; Start 12/22/16 at 09:00 Calcium Carbonate/ Glycine (Oscal) 500 mg TID PO Last administered on 12:40; Start 12/21/16 at 21:00 Vitamin D (Vitamin D3) 2,000 unit QODAY PO Last administered on 12/27/16 10:02 ; Start 12/23/16 at 09:00 Cinacalcet (Sensipar) 90 mg HS PO Last administered on 12/27/16 20:34; Start 12/21/16 at 21:00 Colestipol HCl (Colestid) 1 gm BID PO Last administered on 12/27/16 10:02; Start 12/21/16 at 21:00 Ergocalciferol (Vitamin D2) 50,000 unit WEEKLY PO Last administered on 12:41; Start 12/28/16 at 09:00 Famotidine (Pepcid) 20 mg HS PO Last administered on 12/21/16 21:54; Start 12/21 at 21:00 Lanthanum Carbonate (Fosrenol) 1,000 mg TIDWMEALS PO ; Start 12/22/16 at 08:00; Stop 12/22/16 at 08:00; Status DC Lorazepam (Ativan) 0.25 mg PRN DAILY PRN PO ANXIETY Last administered on 21:54; Start 12/21/16 at 18:15 Mirtazapine (Remeron) 7.5 mg QHS PO Last administered on 12/23/16 20:18; Start 12/21/16 at 21:00 Tramadol HCl (Ultram) 25 mg PRN Q6HRS PRN PO MODERATE PAIN Last administered on 12/21/16 21:53; Start 12/21/16 at 18:15 Darbepoetin Placido (Aranesp) 100 mcg WEEKLYHS SQ ; Start 12/22/16 at 21:00 Ferrous Sulfate (Feosol) 325 mg DAILYWBKFT PO Last administered on 12/23/16 08: 43; Start 12/22/16 at 08:00 Vitamin B Complex/ Vitamin C (Blank-Cliff) 1 tab DAILY PO Last administered on 12:41; Start 12/22/16 at 09:00 Sertraline HCl (Zoloft) 200 mg DAILY PO Last administered on 12/28/16 12:41; Start 12/22/16 at 09:00 Non-Formulary Medication 1 each DAILY PO ; Start 12/22/16 at 09:00; Status UNV Lanthanum Carbonate (Fosrenol) 1,000 mg TIDAFTMEAL PO ; Start 12/22/16 at 09:00; Stop 12/22/16 at 09:00; Status DC Lanthanum Carbonate (Fosrenol) 1,000 mg TIDAFTMEAL PO Last administered on 17:21; Start 12/22/16 at 09:00 Vancomycin HCl 1.25 gm/Sodium Chloride 250 ml @ 166.667 mls/hr 1X ONCE IV Last administered on 12/21/16 22:31; Start 12/21/16 at 20:00; Stop 12/21/16 at 21: 29; Status DC Morphine Sulfate 2 mg PRN Q2HR PRN IV PAIN Last administered on 12/27/16 00:58 ; Start 12/22/16 at 02:15 Ondansetron HCl (Zofran) 4 mg PRN Q6HRS PRN IV NAUSEA/VOMITING; Start 12/22/16 at 09:00; Stop 12/22/16 at 18:00; Status DC Fentanyl Citrate (Fentanyl 2ml Vial) 25 mcg PRN Q5MIN PRN IV MILD PAIN; Start 12/22/16 at 09:00; Stop 12/22/16 at 18:00; Status DC Fentanyl Citrate (Fentanyl 2ml Vial) 50 mcg PRN Q5MIN PRN IV MODERATE PAIN; Start 12/22/16 at 09:00; Stop 12/22/16 at 18:00; Status DC Morphine Sulfate 1 mg PRN Q10MIN PRN IV SEVERE PAIN Last administered on t 12:58; Start 12/22/16 at 09:00; Stop 12/22/16 at 18:00; Status DC Ringer's Solution 1,000 ml @ 30 mls/hr Q24H IV ; Start 12/22/16 at 09:00; Stop 12/22/16 at 20:59; Status DC Lidocaine HCl 2 ml PRN 1X PRN ID PRIOR TO IV START; Start 12/22/16 at 09:00; Stop 12/22/16 at 18:00; Status DC Hydromorphone HCl (Dilaudid) 0.5 mg PRN Q10MIN PRN IV SEV PAIN, Second choice; Start 12/22/16 at 09:00; Stop 12/22/16 at 18:00; Status DC Prochlorperazine Edisylate (Compazine) 5 mg PACU PRN PRN IV NAUSEA, MRX1; Start 12/22/16 at 09:00; Stop 12/22/16 at 18:00; Status DC Propofol 20 ml @ As Directed STK-MED ONCE IV ; Start 12/22/16 at 11:52; Stop 12/22 at 11:53; Status DC Lidocaine HCl (Lidocaine Pf 2% Vial) 5 ml STK-MED ONCE .ROUTE ; Start 12/22/16 at 11:52; Stop 12/22/16 at 11:53; Status DC Dexamethasone Sodium Phosphate (Decadron) 20 mg STK-MED ONCE .ROUTE ; Start 12/22 at 11:52; Stop 12/22/16 at 11:53; Status DC Ondansetron HCl (Zofran) 4 mg STK-MED ONCE .ROUTE ; Start 12/22/16 at 11:52; Stop 12/22/16 at 11:53; Status DC Bupivacaine HCl/ Epinephrine Bitart (Sensorcaine-Epi 0.25%-1:[id number] Mpf) 30 ml STK-MED ONCE .ROUTE ; Start 12/22/16 at 11:57; Stop 12/22/16 at 11:58; Status DC Ephedrine Sulfate 50 mg STK-MED ONCE IV ; Start 12/22/16 at 12:11; Stop 12/22/16 at 12:12; Status DC Phenylephrine HCl 1 mg STK-MED ONCE IV ; Start 12/22/16 at 12:13; Stop 12/22/16 at 12:14; Status DC Sevoflurane (Ultane) 30 ml STK-MED ONCE IH ; Start 12/22/16 at 12:40; Stop at 12:41; Status DC Sodium Chloride 1,000 ml @ 0 mls/hr Q0M IV ; Start 12/22/16 at 11:30 Sodium Polystyrene Sulfonate (Kayexalate) 30 gm 1X ONCE PO Last administered on 12/22/16 14:29; Start 12/22/16 at 13:45; Stop 12/22/16 at 13:53; Status DC Sodium Bicarbonate 50 meq 1X ONCE IV Last administered on 12/22/16 14:29; Start 12/22/16 at 13:45; Stop 12/22/16 at 13:53; Status DC Dextrose (Dextrose 50%-Water Syringe) 50 gm 1X ONCE IV Last administered on 13:45; Start 12/22/16 at 13:45; Stop 12/22/16 at 13:53; Status DC Insulin Human Regular (Novolin R Vial) 10 unit 1X ONCE IV Last administered on 12/22/16 14:31; Start 12/22/16 at 13:45; Stop 12/22/16 at 13:53; Status DC Vancomycin HCl (Vanco Per Pharmacy) 1 each PRN DAILY PRN MC SEE COMMENTS Last administered on 12/24/16 11:42; Start 12/22/16 at 14:00; Stop 12/25/16 at 09:59; Status DC Ceftriaxone Sodium 1 gm/ Sodium Chloride 50 ml @ 100 mls/hr Q24H IV Last administered on 12/24/16 13:37; Start 12/22/16 at 14:00; Stop 12/25/16 at 09:59; Status DC Metronidazole 100 ml @ 100 mls/hr Q8HRS IV Last administered on 5/9/17at 06:04 ; Start 12/22/16 at 14:00; Stop 12/25/16 at 09:59; Status DC Vancomycin HCl 2 gm/Sodium Chloride 500 ml @ 250 mls/hr 1X ONCE IV ; Start 12/22/16 at 15:00; Stop 12/22/16 at 16:59; Status Cancel Vancomycin HCl 500 mg/Sodium Chloride 100 ml @ 100 mls/hr 1X ONCE IV Last administered on 12/22/16 23:00; Start 12/22/16 at 23:00; Stop 12/22/16 at 23:59; Status DC Dextrose 500 ml @ 75 mls/hr 1X ONCE IV Last administered on 12/22/16 16:52; Start 12/22/16 at 16:30; Stop 12/22/16 at 23:09; Status DC Sodium Chloride 1,000 ml @ 1,000 mls/hr Q1H PRN IV hypotension; Start 12/22/16 at 17:04; Stop 12/22/16 at 23:03; Status DC Diphenhydramine HCl (Benadryl) 25 mg 1X PRN PRN IV ITCHING; Start 12/22/16 at 17 :15; Stop 12/23/16 at 17:14; Status DC Diphenhydramine HCl (Benadryl) 25 mg 1X PRN PRN IV ITCHING; Start 12/22/16 at 17 :15; Stop 12/23/16 at 17:14; Status DC Sodium Chloride 1,000 ml @ 400 mls/hr Q2H30M PRN IV PATENCY; Start 12/22/16 at 17:04; Stop 12/23/16 at 05:03; Status DC Info (PHARMACY MONITORING -- do not chart) 1 each PRN DAILY PRN MC SEE COMMENTS ; Start 12/22/16 at 17:15; Stop 12/26/16 at 13:39; Status DC Vancomycin HCl 1 each 1X ONCE MC Last administered on 12/24/16 06:00; Start at 06:00; Stop 12/24/16 at 06:01; Status DC Sodium Chloride 1,000 ml @ 1,000 mls/hr Q1H PRN IV hypotension; Start 12/24/16 at 09:00; Stop 12/24/16 at 14:59; Status DC Info (PHARMACY MONITORING -- do not chart) 1 each PRN DAILY PRN MC SEE COMMENTS ; Start 12/24/16 at 09:00; Status UNV Info (PHARMACY MONITORING -- do not chart) 1 each PRN DAILY PRN MC SEE COMMENTS ; Start 12/24/16 at 09:00; Status UNV Vancomycin HCl 500 mg/Sodium Chloride 100 ml @ 100 mls/hr QMWF IV Last administered on 12/24/16 17:21; Start 12/24/16 at 16:00; Stop 12/25/16 at 09:59; Status DC Piperacillin Sod/ Tazobactam Sod 2.25 gm/Sodium Chloride 50 ml @ 100 mls/hr Q8HRS IV Last administered on 12/28/16 05:29; Start 12/25/16 at 11:00 Sodium Chloride 1,000 ml @ 1,000 mls/hr Q1H PRN IV hypotension; Start 12/26/16 at 10:49; Stop 12/26/16 at 16:48; Status DC Info (PHARMACY MONITORING -- do not chart) 1 each PRN DAILY PRN MC SEE COMMENTS ; Start 12/26/16 at 11:00; Status UNV Info (PHARMACY MONITORING -- do not chart) 1 each PRN DAILY PRN MC SEE COMMENTS ; Start 12/26/16 at 11:00 Heparin Sodium (Porcine) (Hep Lock Adult) 500 unit STK-MED ONCE IV ; Start 12/26 at 14:41; Stop 12/26/16 at 14:42; Status DC Lidocaine/ Epinephrine (Xylocaine 1%-Epi 1:100,000) 20 ml STK-MED ONCE .ROUTE ; Start 12/26/16 at 14:41; Stop 12/26/16 at 14:42; Status DC Heparin Sodium/ Sodium Chloride 500 ml @ As Directed STK-MED ONCE .ROUTE ; Start 12/26/16 at 14:41; Stop 12/26/16 at 14:42; Status DC Fentanyl Citrate (Fentanyl 5ml Vial) 250 mcg STK-MED ONCE .ROUTE ; Start at 14:53; Stop 12/26/16 at 14:54; Status DC Fentanyl Citrate (Fentanyl 5ml Vial) 250 mcg 1X ONCE IV Last administered on 15:00; Start 12/26/16 at 15:00; Stop 12/26/16 at 15:03; Status DC Lidocaine/Sodium Bicarbonate (Buffered Lidocaine 1%) 20 ml STK-MED ONCE IJ ; Start 12/26/16 at 14:58; Stop 12/26/16 at 14:59; Status DC Heparin Sodium/ Sodium Chloride 1,000 unit 1X ONCE IART Last administered on 15:00; Start 12/26/16 at 15:00; Stop 12/26/16 at 15:03; Status DC Lidocaine/Sodium Bicarbonate (Buffered Lidocaine 1%) 20 ml 1X ONCE IJ Last administered on 12/26/16 15:00; Start 12/26/16 at 15:00; Stop 12/26/16 at 15:03 ; Status DC Dextrose/Sodium Chloride 1,000 ml @ 30 mls/hr Q24H IV Last administered on 14:54; Start 12/27/16 at 07:30 Dextrose (Dextrose 50%-Water Syringe) 25 gm STK-MED ONCE IV ; Start 12/27/16 at 20:58; Stop 12/27/16 at 20:59; Status DC Dextrose (Dextrose 50%-Water Syringe) 25 gm 1X ONCE IV ; Start 12/27/16 at 22: 00; Stop 12/27/16 at 22:01; Status DC Sodium Chloride 1,000 ml @ 1,000 mls/hr Q1H PRN IV hypotension; Start 12/28/16 at 07:29; Stop 12/28/16 at 13:28 Info (PHARMACY MONITORING -- do not chart) 1 each PRN DAILY PRN MC SEE COMMENTS ; Start 12/28/16 at 07:30; Status UNV Info (PHARMACY MONITORING -- do not chart) 1 each PRN DAILY PRN MC SEE COMMENTS ; Start 12/28/16 at 07:30; Status UNV Dextrose 250 ml STK-MED ONCE IV ; Start 12/27/16 at 21:00; Stop 12/28/16 at 08: 23; Status DC Active Scripts Active Reported Tylenol (Acetaminophen) 325 Mg Tablet 1 Tab PO PRN Q4HRS Tramadol Hcl 50 Mg Tablet 0.5 Tab PO PRN Q6HRS Colestid (Colestipol Hcl) 1 Gm Tablet 1 Gm PO BID Fosrenol (Lanthanum Carbonate) 1,000 Mg Tab.chew 1,000 Mg PO TIDWMEALS Amlodipine Besylate 10 Mg Tablet 10 Mg PO DAILY Mirtazapine 15 Mg Tablet 5 Tab PO QHS Eucerin Intensive Repair (Emollient Combination No.72) 250 Ml Lotion 250 Ml TP Amlodipine Besylate 10 Mg Tablet 10 Mg PO DAILY Vitamin B Complex 1 Each Capsule 1 Each PO DAILY Renal Caps Softgel (Folic Acid/Vitamin B Comp W-C) 1 Mg Capsule 1 Mg PO DAILY Lorazepam 0.5 Mg Tablet 0.25 Mg PO PRN DAILY PRN Vitamin D2 (Ergocalciferol (Vitamin D2)) 50,000 Unit Capsule 50,000 Unit PO WEEKLY Vitamin D3 (Cholecalciferol (Vitamin D3)) 1,000 Unit Tablet 2,000 Unit PO QODAY Epogen (Epoetin Placido) 20,000 Unit/1 Ml Vial 14,300 Unit IJ THREE TIMES A WEEK Zoloft (Sertraline Hcl) 100 Mg Tablet 200 Mg PO DAILY Ferrous Gluconate 325 Mg Tablet 325 Mg PO DAILY Famotidine 20 Mg Tablet 20 Mg PO HS Sensipar (Cinacalcet Hcl) 30 Mg Tablet 90 Mg PO HS Calcium Carbonate 500 Mg Tablet 500 Mg PO TID Vitals/I & O Vital Sign - Last 24 Hours 12/27/16 12/27/16 12/27/16 12/27/16 15:17 17:38 19:00 20:00 Temp 97.6 97.4 97.6 97.4 Pulse 91 84 Resp 18 16 B/P (MAP) 120/90 (100) 99/34 (55) Pulse Ox 84 100 93 O2 Delivery Nasal Cannula Nasal Cannula Nasal Cannula O2 Flow Rate 4.0 3.0 2.0 2.0 12/27/16 12/28/16 12/28/16 12/28/16 23:00 01:05 01:40 03:00 Temp 97.7 98.2 97.7 98.2 Pulse 81 81 79 82 Resp 16 16 16 B/P (MAP) 89/22 (44) 83/35 (51) 110/16 (47) 114/35 (61) Pulse Ox 100 100 100 O2 Delivery Nasal Cannula Nasal Cannula O2 Flow Rate 2.0 2.0 12/28/16 12/28/16 11:00 12:48 Temp 97.0 97.0 Pulse 60 60 Resp 18 B/P (MAP) 80/53 (62) 80/53 Pulse Ox 96 O2 Delivery Room Air Intake and Output 12/27/16 12/27/16 12/28/16 15:00 23:00 07:00 Intake Total 120 ml 250 ml Output Total 1 ml 1 ml Balance -1 ml 119 ml 250 ml WILSON JONES MD December 28, 2016 13:05
[2016-12-28] MEDS ORDERED: AMINO AC 3%/ELECTROLYTE/GLYCER 1,000 ML IV PRN (13:15)
--- NOTE | 2016-12-28 13:48 | PDOC2 ---
PALLIATIVE CARE Palliative Care Note Palliative Care Consult requested by Dr. Rdz to address goals/plan of care Diagnosis: ESRD--HD: wound coccyx; PVD;Bilateral amputee; dementia/chronic encephalopathy; anemia Spoke with patient alone and with Rut. Reviewed medical condition as above along with Dr. Rdz. Patient will need 5 weeks of antibiotics with aggressive wound care; PT/OT Reviewed reasons for low albumin and importance of good nutrition / extra protein for healing. Patient and his want to continue with aggressive care. Understands that if patient does not progress comfort care could be an option. Discussed Code Status; Patient prefers to remain full code. Risks and benefits discussed. Per Dr. Rdz patient will likely to to [facility] in [place] next week for ongoing rehab, IV antibiotics. Patient adamant about not going to [facility]. Will continue to follow and support. AMAYA PALUMBO December 28, 2016 13:48
[2016-12-28] MEDS: AMINO AC 3%/ELECTROLYTE/GLYCER 1,000 ML IV SCH (17:11)
[2016-12-28] MEDS: FAMOTIDINE 20 MG TABLET. PO SCH (21:00)
[2016-12-28] MEDS: MIRTAZAPINE 15 MG TABLET PO SCH (21:00)
[2016-12-28] MEDS: CINACALCET HCL 30 MG TABLET PO SCH (21:00)
--- NOTE | 2016-12-29 03:43 | EKG ---
[facility] [address] [place] [address] Test Date: 2016-12-29 Test Time: 02:36:01 Pat Name: AISLINN RYAN Department: Room: [facility] Gender: M Saw Superintendent: NAZIA : 1940 Requested By: BEN THEODORE Order Number: [id number] Reading MD: Vaibhav Pickett Measurements Intervals [place] Rate: 125 P: NE: QRS: 93 QRSD: 178 T: -138 QT: 354 QTc: 513 Interpretive Statements BASELINE ARTIFACT SINUS RHYTHM RBBB Electronically Signed On 12-31-2016 14:57:04 CDT by Vaibhav Pickett
[2016-12-29 04:04] VITALS: BP 93/59
[2016-12-29] MEDS: MORPHINE SULFATE 2 MG/ML DISP.SYRIN. IV PRN (05:24)
[2016-12-29] MEDS: AMINO AC 3%/ELECTROLYTE/GLYCER 1,000 ML IV SCH (05:25)
[2016-12-29] MEDS: PIPERACILLIN/TAZOBACTAM 2.25 GM in IV NORMAL SALINE 50ML 50 ML IV SCH ×2 (05:29→13:57)
[2016-12-29 07:00] VITALS: BP 128/50
[2016-12-29] MEDS: CHOLECALCIFEROL (VITAMIN D3) 1,000 UNIT TABLET PO SCH (08:12)
[2016-12-29] MEDS: SERTRALINE 50 MG TABLET. PO SCH (08:12)
[2016-12-29] MEDS: FERROUS SULFATE 325 MG TABLET. PO SCH (08:12)
[2016-12-29] MEDS: CALCIUM CARBONATE 500 MG TABLET PO SCH ×2 (08:12→13:57)
[2016-12-29] MEDS: FOLIC/VIT B COMP W-C (RENAL) TABLET. PO SCH (08:12)
[2016-12-29 08:30] LABS: BASO % 0 % (0-3); EOS % 0 % (0-3); HEMATOCRIT 30.9 % (39.0-53.0); HEMOGLOBIN 9.8 g/dL (13.0-17.5); LYMPH # 0.6 x10^3/uL (1.0-4.8); LYMPH % 5 % (24-48); MEAN CORPUSCULAR HEMOGLOBIN 27 pg (25-35); MEAN CORPUSCULAR HGB CONC 32 g/dL (31-37); MEAN CORPUSCULAR VOLUME 84 fL (79-100); MONO % 8 % (0-9); NEUT % 86 % (31-73); PLATELET COUNT 79 x10^3/uL (140-400); RED BLOOD COUNT 3.68 x10^6/uL (4.30-5.70); RED CELL DISTRIBUTION WIDTH 17.3 % (11.5-14.5); WHITE BLOOD COUNT 11.1 x10^3/uL (4.0-11.0)
[2016-12-29 08:33] LABS: ALBUMIN 2.1 g/dL (3.4-5.0); ALBUMIN/GLOBULIN RATIO 0.4 (1.0-1.7); CALCIUM 8.5 mg/dL (8.5-10.1); CREATININE 4.7 mg/dL (0.7-1.3); GFR 14.7; POTASSIUM 4.8 mmol/L (3.5-5.1); TOTAL BILIRUBIN 0.7 mg/dL (0.2-1.0); TOTAL PROTEIN 7.1 g/dL (6.4-8.2)
--- NOTE | 2016-12-29 08:50 | PDOC ---
PROGRESS NOTES Subjective Subjective SEEN IN FOLLOW UP OF ESRD Objective Objective Vital Signs Date Time Temp Pulse Resp B/P (MAP) Pulse Ox O2 Delivery O2 Flow Rate FiO2 12/29/16 07:00 98.1 82 20 128/50 (76) 96 Nasal Cannula 2.0 98.1 Intake and Output 12/29/16 07:00 Intake Total 740 ml Output Total 0 ml Balance 740 ml Intake Oral 740 ml Output Urine Total 0 ml Physical Exam Abdomen: Normal bowel sounds, Soft, No tenderness, No hepatosplenomegaly, No masses Heart: Regular rate, Normal S1, Normal S2, No murmurs, Gallops Extremities: No clubbing, No cyanosis, No edema, Normal pulses, No tenderness/ swelling General: Alert, Oriented X3, Cooperative, No acute distress Lungs: Clear to auscultation, Normal air movement Psych/Mental Status: Mental status NL, Mood NL Diagnosis RENAL FAILURE: ESRD Plan Plan of Care FOR DIALYSIS SATURDAY. CONT WOUND CARE Comment Review of Relevant I have reviewed the following items katherine (where applicable) has been applied. Labs Laboratory Tests Test 12/27/16 11:05 12/27/16 16:20 12/27/16 20:47 12/27/16 22:14 Glucose (Fingerstick) 90 mg/dL (70-99) 76 mg/dL (70-99) 69 mg/dL (70-99) 88 mg/dL (70-99) Test 12/28/16 05:20 12/28/16 11:34 12/28/16 16:39 12/28/16 21:36 White Blood Count 11.1 x10^3/uL (4.0-11.0) Red Blood Count 3.96 x10^6/uL (4.30-5.70) Hemoglobin 10.7 g/dL (13.0-17.5) Hematocrit 33.3 % (39.0-53.0) Mean Corpuscular Volume 84 fL (79-100) Mean Corpuscular Hemoglobin 27 pg (25-35) Mean Corpuscular Hemoglobin Concent 32 g/dL (31-37) Red Cell Distribution Width 16.9 % (11.5-14.5) Platelet Count 101 x10^3/uL (140-400) Sodium Level 137 mmol/L (136-145) Potassium Level 5.0 mmol/L (3.5-5.1) Chloride Level 99 mmol/L (98-107) Carbon Dioxide Level 27 mmol/L (21-32) Anion Gap 11 (6-14) Blood Urea Nitrogen 26 mg/dL (8-26) Creatinine 5.4 mg/dL (0.7-1.3) Estimated GFR (Cockcroft-Gault) 12.5 Glucose Level 90 mg/dL (70-99) Calcium Level 8.4 mg/dL (8.5-10.1) Glucose (Fingerstick) 78 mg/dL (70-99) 104 mg/dL (70-99) 95 mg/dL (70-99) Test 12/29/16 03:22 12/29/16 07:45 12/29/16 07:52 Glucose (Fingerstick) 93 mg/dL (70-99) 59 mg/dL (70-99) Sodium Level 135 mmol/L (136-145) Potassium Level 4.8 mmol/L (3.5-5.1) Chloride Level 97 mmol/L (98-107) Carbon Dioxide Level 27 mmol/L (21-32) Anion Gap 11 (6-14) Blood Urea Nitrogen 23 mg/dL (8-26) Creatinine 4.7 mg/dL (0.7-1.3) Estimated GFR (Cockcroft-Gault) 14.7 BUN/Creatinine Ratio 5 (6-20) Glucose Level 112 mg/dL (70-99) Calcium Level 8.5 mg/dL (8.5-10.1) Total Bilirubin 0.7 mg/dL (0.2-1.0) Aspartate Amino Transf (AST/SGOT) 31 U/L (15-37) Alanine Aminotransferase (ALT/SGPT) 22 U/L (16-63) Alkaline Phosphatase 93 U/L (46-116) Total Protein 7.1 g/dL (6.4-8.2) Albumin 2.1 g/dL (3.4-5.0) Albumin/Globulin Ratio 0.4 (1.0-1.7) Laboratory Tests Test 12/28/16 11:34 12/28/16 16:39 12/28/16 21:36 12/29/16 03:22 Glucose (Fingerstick) 78 mg/dL (70-99) 104 mg/dL (70-99) 95 mg/dL (70-99) 93 mg/dL (70-99) Test 12/29/16 07:45 12/29/16 07:52 Sodium Level 135 mmol/L (136-145) Potassium Level 4.8 mmol/L (3.5-5.1) Chloride Level 97 mmol/L (98-107) Carbon Dioxide Level 27 mmol/L (21-32) Anion Gap 11 (6-14) Blood Urea Nitrogen 23 mg/dL (8-26) Creatinine 4.7 mg/dL (0.7-1.3) Estimated GFR (Cockcroft-Gault) 14.7 BUN/Creatinine Ratio 5 (6-20) Glucose Level 112 mg/dL (70-99) Calcium Level 8.5 mg/dL (8.5-10.1) Total Bilirubin 0.7 mg/dL (0.2-1.0) Aspartate Amino Transf (AST/SGOT) 31 U/L (15-37) Alanine Aminotransferase (ALT/SGPT) 22 U/L (16-63) Alkaline Phosphatase 93 U/L (46-116) Total Protein 7.1 g/dL (6.4-8.2) Albumin 2.1 g/dL (3.4-5.0) Albumin/Globulin Ratio 0.4 (1.0-1.7) Glucose (Fingerstick) 59 mg/dL (70-99) Microbiology 12/21/16 Blood Culture - Final, Complete 12/21/16 Blood Culture Result 1 (SHAZIA) - Final, Complete 12/21/16 Antimicrobic Susceptibility - Final, Complete 12/22/16 Anaerobic/Aerobic Culture - Final, Complete 12/22/16 Anaerobic Culture Result 1 (SHAZIA) - Final, Complete 12/22/16 Aerobic Culture - Final, Complete 12/22/16 Aerobic Culture Result 1 (SHAZIA) - Final, Complete 12/22/16 Aerobic Culture Result 2 (SHAZIA) - Final, Complete 12/22/16 Aerobic Culture Result 3 (SHAZIA) - Final, Complete 12/22/16 Antimicrobic Susceptibility - Final, Complete Medications Current Medications Ondansetron HCl (Zofran) 4 mg PRN Q6HRS PRN IV NAUSEA/VOMITING, 1ST CHOICE; Start 12/21/16 at 18:15 Prochlorperazine Edisylate (Compazine) 10 mg PRN Q6HRS PRN IV NAUSEA/VOMITING, 2ND CHOICE Last administered on 12/29/16 03:26; Start 12/21/16 at 18:15 Prochlorperazine (Compazine) 25 mg PRN Q12HR PRN TN NAUSEA/VOMITING; Start 12/21 at 18:15 Al Hydroxide/Mg Hydroxide (Mylanta Plus Xs) 30 ml PRN Q3HRS PRN PO HEARTBURN / GAS; Start 12/21/16 at 18:15 Calcium Carbonate/ Glycine (Tums) 500 mg PRN Q3HRS PRN PO UPSET STOMACH; Start 12/21/16 at 18:15 Oxycodone HCl (Roxicodone) 5 mg PRN Q3HRS PRN PO BREAKTHROUGH PAIN Last administered on 12/24/16 13:36; Start 12/21/16 at 18:15 Morphine Sulfate 1 mg PRN Q1HR PRN IV PAIN Last administered on 12/22/16 01:28 ; Start 12/21/16 at 18:15; Stop 12/25/16 at 12:55; Status DC Acetaminophen (Tylenol) 650 mg PRN Q6HRS PRN PO Headaches, Temp > 101.5F; Start 12/21/16 at 18:15 Docusate Sodium (Colace) 100 mg BID PO Last administered on 12/21/16 21:52; Start 12/21/16 at 21:00 Magnesium Hydroxide (Milk Of Magnesia) 2,400 mg PRN Q12HR PRN PO CONSTIPATION; Start 12/21/16 at 18:15 Bisacodyl (Dulcolax Supp) 10 mg PRN DAILY PRN TN CONSTIPATION; Start 12/21/16 at 18:15 Acetaminophen (Tylenol) 325 mg PRN Q4HRS PRN PO MILD PAIN/FEVER; Start 12/21/16 at 18:15 Amlodipine Besylate (Norvasc) 10 mg DAILY PO ; Start 12/22/16 at 09:00 Calcium Carbonate/ Glycine (Oscal) 500 mg TID PO Last administered on 08:12; Start 12/21/16 at 21:00 Vitamin D (Vitamin D3) 2,000 unit QODAY PO Last administered on 12/29/16 08:12 ; Start 12/23/16 at 09:00 Cinacalcet (Sensipar) 90 mg HS PO Last administered on 12/27/16 20:34; Start 12/21/16 at 21:00 Colestipol HCl (Colestid) 1 gm BID PO Last administered on 12/27/16 10:02; Start 12/21/16 at 21:00 Ergocalciferol (Vitamin D2) 50,000 unit WEEKLY PO Last administered on 12:41; Start 12/28/16 at 09:00 Famotidine (Pepcid) 20 mg HS PO Last administered on 12/21/16 21:54; Start 12/21 at 21:00 Lanthanum Carbonate (Fosrenol) 1,000 mg TIDWMEALS PO ; Start 12/22/16 at 08:00; Stop 12/22/16 at 08:00; Status DC Lorazepam (Ativan) 0.25 mg PRN DAILY PRN PO ANXIETY Last administered on 21:54; Start 12/21/16 at 18:15 Mirtazapine (Remeron) 7.5 mg QHS PO Last administered on 12/23/16 20:18; Start 12/21/16 at 21:00 Tramadol HCl (Ultram) 25 mg PRN Q6HRS PRN PO MODERATE PAIN Last administered on 12/21/16 21:53; Start 12/21/16 at 18:15 Darbepoetin Placido (Aranesp) 100 mcg WEEKLYHS SQ ; Start 12/22/16 at 21:00 Ferrous Sulfate (Feosol) 325 mg DAILYWBKFT PO Last administered on 12/29/16 08 :12; Start 12/22/16 at 08:00 Vitamin B Complex/ Vitamin C (Blank-Cliff) 1 tab DAILY PO Last administered on 08:12; Start 12/22/16 at 09:00 Sertraline HCl (Zoloft) 200 mg DAILY PO Last administered on 12/29/16 08:12; Start 12/22/16 at 09:00 Non-Formulary Medication 1 each DAILY PO ; Start 12/22/16 at 09:00; Status UNV Lanthanum Carbonate (Fosrenol) 1,000 mg TIDAFTMEAL PO ; Start 12/22/16 at 09:00; Stop 12/22/16 at 09:00; Status DC Lanthanum Carbonate (Fosrenol) 1,000 mg TIDAFTMEAL PO Last administered on 17:21; Start 12/22/16 at 09:00 Vancomycin HCl 1.25 gm/Sodium Chloride 250 ml @ 166.667 mls/hr 1X ONCE IV Last administered on 12/21/16 22:31; Start 12/21/16 at 20:00; Stop 12/21/16 at 21: 29; Status DC Morphine Sulfate 2 mg PRN Q2HR PRN IV PAIN Last administered on 12/29/16 05:24 ; Start 12/22/16 at 02:15 Ondansetron HCl (Zofran) 4 mg PRN Q6HRS PRN IV NAUSEA/VOMITING; Start 12/22/16 at 09:00; Stop 12/22/16 at 18:00; Status DC Fentanyl Citrate (Fentanyl 2ml Vial) 25 mcg PRN Q5MIN PRN IV MILD PAIN; Start 12/22/16 at 09:00; Stop 12/22/16 at 18:00; Status DC Fentanyl Citrate (Fentanyl 2ml Vial) 50 mcg PRN Q5MIN PRN IV MODERATE PAIN; Start 12/22/16 at 09:00; Stop 12/22/16 at 18:00; Status DC Morphine Sulfate 1 mg PRN Q10MIN PRN IV SEVERE PAIN Last administered on 12:58; Start 12/22/16 at 09:00; Stop 12/22/16 at 18:00; Status DC Ringer's Solution 1,000 ml @ 30 mls/hr Q24H IV ; Start 12/22/16 at 09:00; Stop 12/22/16 at 20:59; Status DC Lidocaine HCl 2 ml PRN 1X PRN ID PRIOR TO IV START; Start 12/22/16 at 09:00; Stop 12/22/16 at 18:00; Status DC Hydromorphone HCl (Dilaudid) 0.5 mg PRN Q10MIN PRN IV SEV PAIN, Second choice; Start 12/22/16 at 09:00; Stop 12/22/16 at 18:00; Status DC Prochlorperazine Edisylate (Compazine) 5 mg PACU PRN PRN IV NAUSEA, MRX1; Start 12/22/16 at 09:00; Stop 12/22/16 at 18:00; Status DC Propofol 20 ml @ As Directed STK-MED ONCE IV ; Start 12/22/16 at 11:52; Stop 12/22 at 11:53; Status DC Lidocaine HCl (Lidocaine Pf 2% Vial) 5 ml STK-MED ONCE .ROUTE ; Start 12/22/16 at 11:52; Stop 12/22/16 at 11:53; Status DC Dexamethasone Sodium Phosphate (Decadron) 20 mg STK-MED ONCE .ROUTE ; Start 12/22 at 11:52; Stop 12/22/16 at 11:53; Status DC Ondansetron HCl (Zofran) 4 mg STK-MED ONCE .ROUTE ; Start 12/22/16 at 11:52; Stop 12/22/16 at 11:53; Status DC Bupivacaine HCl/ Epinephrine Bitart (Sensorcaine-Epi 0.25%-1:752140 Mpf) 30 ml STK-MED ONCE .ROUTE ; Start 12/22/16 at 11:57; Stop 12/22/16 at 11:58; Status DC Ephedrine Sulfate 50 mg STK-MED ONCE IV ; Start 12/22/16 at 12:11; Stop 12/22/16 at 12:12; Status DC Phenylephrine HCl 1 mg STK-MED ONCE IV ; Start 12/22/16 at 12:13; Stop 12/22/16 at 12:14; Status DC Sevoflurane (Ultane) 30 ml STK-MED ONCE IH ; Start 12/22/16 at 12:40; Stop at 12:41; Status DC Sodium Chloride 1,000 ml @ 0 mls/hr Q0M IV ; Start 12/22/16 at 11:30 Sodium Polystyrene Sulfonate (Kayexalate) 30 gm 1X ONCE PO Last administered on 12/22/16 14:29; Start 12/22/16 at 13:45; Stop 12/22/16 at 13:53; Status DC Sodium Bicarbonate 50 meq 1X ONCE IV Last administered on 12/22/16 14:29; Start 12/22/16 at 13:45; Stop 12/22/16 at 13:53; Status DC Dextrose (Dextrose 50%-Water Syringe) 50 gm 1X ONCE IV Last administered on 13:45; Start 12/22/16 at 13:45; Stop 12/22/16 at 13:53; Status DC Insulin Human Regular (Novolin R Vial) 10 unit 1X ONCE IV Last administered on 12/22/16 14:31; Start 12/22/16 at 13:45; Stop 12/22/16 at 13:53; Status DC Vancomycin HCl (Vanco Per Pharmacy) 1 each PRN DAILY PRN MC SEE COMMENTS Last administered on 12/24/16 11:42; Start 12/22/16 at 14:00; Stop 12/25/16 at 09:59; Status DC Ceftriaxone Sodium 1 gm/ Sodium Chloride 50 ml @ 100 mls/hr Q24H IV Last administered on 12/24/16 13:37; Start 12/22/16 at 14:00; Stop 12/25/16 at 09:59; Status DC Metronidazole 100 ml @ 100 mls/hr Q8HRS IV Last administered on 12/25/16 06:04 ; Start 12/22/16 at 14:00; Stop 12/25/16 at 09:59; Status DC Vancomycin HCl 2 gm/Sodium Chloride 500 ml @ 250 mls/hr 1X ONCE IV ; Start 12/22/16 at 15:00; Stop 12/22/16 at 16:59; Status Cancel Vancomycin HCl 500 mg/Sodium Chloride 100 ml @ 100 mls/hr 1X ONCE IV Last administered on 12/22/16 23:00; Start 12/22/16 at 23:00; Stop 12/22/16 at 23:59; Status DC Dextrose 500 ml @ 75 mls/hr 1X ONCE IV Last administered on 12/22/16 16:52; Start 12/22/16 at 16:30; Stop 12/22/16 at 23:09; Status DC Sodium Chloride 1,000 ml @ 1,000 mls/hr Q1H PRN IV hypotension; Start 12/22/16 at 17:04; Stop 12/22/16 at 23:03; Status DC Diphenhydramine HCl (Benadryl) 25 mg 1X PRN PRN IV ITCHING; Start 12/22/16 at 17 :15; Stop 12/23/16 at 17:14; Status DC Diphenhydramine HCl (Benadryl) 25 mg 1X PRN PRN IV ITCHING; Start 12/22/16 at 17 :15; Stop 12/23/16 at 17:14; Status DC Sodium Chloride 1,000 ml @ 400 mls/hr Q2H30M PRN IV PATENCY; Start 12/22/16 at 17:04; Stop 12/23/16 at 05:03; Status DC Info (PHARMACY MONITORING -- do not chart) 1 each PRN DAILY PRN MC SEE COMMENTS ; Start 12/22/16 at 17:15; Stop 12/26/16 at 13:39; Status DC Vancomycin HCl 1 each 1X ONCE MC Last administered on 12/24/16 06:00; Start at 06:00; Stop 12/24/16 at 06:01; Status DC Sodium Chloride 1,000 ml @ 1,000 mls/hr Q1H PRN IV hypotension; Start 12/24/16 at 09:00; Stop 12/24/16 at 14:59; Status DC Info (PHARMACY MONITORING -- do not chart) 1 each PRN DAILY PRN MC SEE COMMENTS ; Start 12/24/16 at 09:00; Status UNV Info (PHARMACY MONITORING -- do not chart) 1 each PRN DAILY PRN MC SEE COMMENTS ; Start 12/24/16 at 09:00; Status UNV Vancomycin HCl 500 mg/Sodium Chloride 100 ml @ 100 mls/hr QMWF IV Last administered on 12/24/16 17:21; Start 12/24/16 at 16:00; Stop 12/25/16 at 09:59; Status DC Piperacillin Sod/ Tazobactam Sod 2.25 gm/Sodium Chloride 50 ml @ 100 mls/hr Q8HRS IV Last administered on 12/29/16 05:29; Start 12/25/16 at 11:00 Sodium Chloride 1,000 ml @ 1,000 mls/hr Q1H PRN IV hypotension; Start 12/26/16 at 10:49; Stop 12/26/16 at 16:48; Status DC Info (PHARMACY MONITORING -- do not chart) 1 each PRN DAILY PRN MC SEE COMMENTS ; Start 12/26/16 at 11:00; Status UNV Info (PHARMACY MONITORING -- do not chart) 1 each PRN DAILY PRN MC SEE COMMENTS ; Start 12/26/16 at 11:00 Heparin Sodium (Porcine) (Hep Lock Adult) 500 unit STK-MED ONCE IV ; Start 12/26 at 14:41; Stop 12/26/16 at 14:42; Status DC Lidocaine/ Epinephrine (Xylocaine 1%-Epi 1:100,000) 20 ml STK-MED ONCE .ROUTE ; Start 12/26/16 at 14:41; Stop 12/26/16 at 14:42; Status DC Heparin Sodium/ Sodium Chloride 500 ml @ As Directed STK-MED ONCE .ROUTE ; Start 12/26/16 at 14:41; Stop 12/26/16 at 14:42; Status DC Fentanyl Citrate (Fentanyl 5ml Vial) 250 mcg STK-MED ONCE .ROUTE ; Start at 14:53; Stop 12/26/16 at 14:54; Status DC Fentanyl Citrate (Fentanyl 5ml Vial) 250 mcg 1X ONCE IV Last administered on 15:00; Start 12/26/16 at 15:00; Stop 12/26/16 at 15:03; Status DC Lidocaine/Sodium Bicarbonate (Buffered Lidocaine 1%) 20 ml STK-MED ONCE IJ ; Start 12/26/16 at 14:58; Stop 12/26/16 at 14:59; Status DC Heparin Sodium/ Sodium Chloride 1,000 unit 1X ONCE IART Last administered on 15:00; Start 12/26/16 at 15:00; Stop 12/26/16 at 15:03; Status DC Lidocaine/Sodium Bicarbonate (Buffered Lidocaine 1%) 20 ml 1X ONCE IJ Last administered on 12/26/16 15:00; Start 12/26/16 at 15:00; Stop 12/26/16 at 15:03 ; Status DC Dextrose/Sodium Chloride 1,000 ml @ 30 mls/hr Q24H IV Last administered on 14:54; Start 12/27/16 at 07:30; Stop 12/28/16 at 13:07; Status DC Dextrose (Dextrose 50%-Water Syringe) 25 gm STK-MED ONCE IV ; Start 12/27/16 at 20:58; Stop 12/27/16 at 20:59; Status DC Dextrose (Dextrose 50%-Water Syringe) 25 gm 1X ONCE IV ; Start 12/27/16 at 22: 00; Stop 12/27/16 at 22:01; Status DC Sodium Chloride 1,000 ml @ 1,000 mls/hr Q1H PRN IV hypotension; Start 12/28/16 at 07:29; Stop 12/28/16 at 13:28; Status DC Info (PHARMACY MONITORING -- do not chart) 1 each PRN DAILY PRN MC SEE COMMENTS ; Start 12/28/16 at 07:30; Status UNV Info (PHARMACY MONITORING -- do not chart) 1 each PRN DAILY PRN MC SEE COMMENTS ; Start 12/28/16 at 07:30; Status UNV Dextrose 250 ml STK-MED ONCE IV ; Start 12/27/16 at 21:00; Stop 12/28/16 at 08: 23; Status DC Amino Acids/ Glycerin/ Electrolytes 1,000 ml @ 80 mls/hr [id number] PRN IV .; Start 12/28/16 at 13:15; Stop 12/28/16 at 17:05; Status DC Amino Acids/ Glycerin/ Electrolytes 1,000 ml @ 80 mls/hr [id number] IV Last administered on 12/29/16t 05:25; Start 12/28/16 at 17:15 Active Scripts Active Reported Tylenol (Acetaminophen) 325 Mg Tablet 1 Tab PO PRN Q4HRS Tramadol Hcl 50 Mg Tablet 0.5 Tab PO PRN Q6HRS Colestid (Colestipol Hcl) 1 Gm Tablet 1 Gm PO BID Fosrenol (Lanthanum Carbonate) 1,000 Mg Tab.chew 1,000 Mg PO TIDWMEALS Amlodipine Besylate 10 Mg Tablet 10 Mg PO DAILY Mirtazapine 15 Mg Tablet 5 Tab PO QHS Eucerin Intensive Repair (Emollient Combination No.72) 250 Ml Lotion 250 Ml TP Amlodipine Besylate 10 Mg Tablet 10 Mg PO DAILY Vitamin B Complex 1 Each Capsule 1 Each PO DAILY Renal Caps Softgel (Folic Acid/Vitamin B Comp W-C) 1 Mg Capsule 1 Mg PO DAILY Lorazepam 0.5 Mg Tablet 0.25 Mg PO PRN DAILY PRN Vitamin D2 (Ergocalciferol (Vitamin D2)) 50,000 Unit Capsule 50,000 Unit PO WEEKLY Vitamin D3 (Cholecalciferol (Vitamin D3)) 1,000 Unit Tablet 2,000 Unit PO QODAY Epogen (Epoetin Placido) 20,000 Unit/1 Ml Vial 14,300 Unit IJ THREE TIMES A WEEK Zoloft (Sertraline Hcl) 100 Mg Tablet 200 Mg PO DAILY Ferrous Gluconate 325 Mg Tablet 325 Mg PO DAILY Famotidine 20 Mg Tablet 20 Mg PO HS Sensipar (Cinacalcet Hcl) 30 Mg Tablet 90 Mg PO HS Calcium Carbonate 500 Mg Tablet 500 Mg PO TID Vitals/I & O Vital Sign - Last 24 Hours 12/28/16 12/28/16 12/28/16 12/28/16 11:00 12:10 12:48 15:00 Temp 97.0 97.5 97.0 97.5 Pulse 60 60 60 Resp 18 18 B/P (MAP) 80/53 (62) 80/53 86/51 (63) Pulse Ox 96 95 O2 Delivery Room Air Nasal Cannula Room Air O2 Flow Rate 2.0 12/28/16 12/28/16 12/29/16 12/29/16 19:00 22:30 04:04 05:24 Temp 97.8 97.6 97.8 97.6 Pulse 81 84 81 Resp 20 20 18 20 B/P (MAP) 83/26 (45) 111/65 (80) 93/59 (70) Pulse Ox 90 100 94 O2 Delivery Room Air Nasal Cannula Nasal Cannula Nasal Cannula O2 Flow Rate 2.0 2.0 2.0 12/29/16 12/29/16 05:58 07:00 Temp 98.1 98.1 Pulse 82 Resp 16 20 B/P (MAP) 128/50 (76) Pulse Ox 96 O2 Delivery Nasal Cannula Nasal Cannula O2 Flow Rate 2.0 2.0 Intake and Output 12/28/16 12/28/16 12/29/16 15:00 23:00 07:00 Intake Total 120 ml 620 ml Output Total 0 ml Balance 120 ml 620 ml NOEMI KAPLAN MD December 29, 2016 08:50
[2016-12-29] MEDS: COLESTIPOL HCL 1 GM TABLET PO SCH (09:00)
[2016-12-29] MEDS: DOCUSATE SODIUM 100 MG CAPSULE. PO SCH (09:00)
[2016-12-29] MEDS: LANTHANUM CARBONATE 500 MG TAB.CHEW PO SCH ×3 (09:00→16:53)
[2016-12-29] MEDS: amLODIPine BESYLATE 10 MG TABLET PO SCH (09:00)
[2016-12-29 09:29] LABS: NUCLEATED RBC 1
[2016-12-29 09:30] LABS: PLT ESTIMATE DECREASED (ADEQUATE)
[2016-12-29 10:52] VITALS: BP 100/22
[2016-12-29] MEDS ORDERED: DEXTROSE 50% 25 GM / 50ML DISP.SYRIN. IV ONE (12:00)
[2016-12-29] MEDS ORDERED: LIDOCAINE 2% 100 MG/5 ML SYRINGE. ONE (12:00)
[2016-12-29] MEDS ORDERED: AMIODARONE 150 MG/3 ML VIAL ONE (12:00)
[2016-12-29] MEDS ORDERED: SODIUM BICARB ADULT 8.4% 50 MEQ/50 ML DISP.SYRIN. ONE (12:00)
[2016-12-29] MEDS ORDERED: EPINEPHrine SYRINGE 1 MG/10 ML SYRINGE ONE (12:00)
[2016-12-29] MEDS ORDERED: CALCIUM CHLORIDE 1,000 MG/10 ML DISP.SYRIN IV ONE (12:00)
--- NOTE | 2016-12-29 12:05 | PDOC ---
PROGRESS NOTES Chief Complaint Chief Complaint CC: Coccyx wound History of Present Illness History of Present Illness Pt was lying in bed w/ NAD Reports feeling improvement Vitals Vitals Vital Signs Date Time Temp Pulse Resp B/P (MAP) Pulse Ox O2 Delivery O2 Flow Rate FiO2 12/29/16 10:52 97.5 53 20 100/22 (48) 97 Nasal Cannula 2.0 97.5 Physical Exam General: Alert, Oriented X3, Cooperative, No acute distress Heart: Regular rate, Normal S1, Normal S2, No murmurs, Gallops Lungs: Clear, Other (no wheezing) Abdomen: Normal bowel sounds, Soft, No tenderness, No hepatosplenomegaly, No masses Extremities: No clubbing, No cyanosis, No edema, Normal pulses, No tenderness/ swelling Skin: No rashes, Other (dressing to coccyx) Labs LABS Laboratory Tests Test 12/28/16 16:39 12/28/16 21:36 12/29/16 03:22 12/29/16 07:45 Glucose (Fingerstick) 104 mg/dL (70-99) 95 mg/dL (70-99) 93 mg/dL (70-99) White Blood Count 11.1 x10^3/uL (4.0-11.0) Red Blood Count 3.68 x10^6/uL (4.30-5.70) Hemoglobin 9.8 g/dL (13.0-17.5) Hematocrit 30.9 % (39.0-53.0) Mean Corpuscular Volume 84 fL (79-100) Mean Corpuscular Hemoglobin 27 pg (25-35) Mean Corpuscular Hemoglobin Concent 32 g/dL (31-37) Red Cell Distribution Width 17.3 % (11.5-14.5) Platelet Count 79 x10^3/uL (140-400) Neutrophils (%) (Auto) 86 % (31-73) Lymphocytes (%) (Auto) 5 % (24-48) Monocytes (%) (Auto) 8 % (0-9) Eosinophils (%) (Auto) 0 % (0-3) Basophils (%) (Auto) 0 % (0-3) Neutrophils # (Auto) 9.6 x10^3uL (1.8-7.7) Lymphocytes # (Auto) 0.6 x10^3/uL (1.0-4.8) Monocytes # (Auto) 0.9 x10^3/uL (0.0-1.1) Eosinophils # (Auto) 0.0 x10^3/uL (0.0-0.7) Basophils # (Auto) 0.0 x10^3/uL (0.0-0.2) Segmented Neutrophils % 87 % (35-66) Band Neutrophils % 2 % (0-9) Lymphocytes % 3 % (24-48) Monocytes % 8 % (0-10) Nucleated Red Blood Cells 1 Platelet Estimate Decreased (ADEQUATE) Sodium Level 135 mmol/L (136-145) Potassium Level 4.8 mmol/L (3.5-5.1) Chloride Level 97 mmol/L (98-107) Carbon Dioxide Level 27 mmol/L (21-32) Anion Gap 11 (6-14) Blood Urea Nitrogen 23 mg/dL (8-26) Creatinine 4.7 mg/dL (0.7-1.3) Estimated GFR (Cockcroft-Gault) 14.7 BUN/Creatinine Ratio 5 (6-20) Glucose Level 112 mg/dL (70-99) Calcium Level 8.5 mg/dL (8.5-10.1) Total Bilirubin 0.7 mg/dL (0.2-1.0) Aspartate Amino Transf (AST/SGOT) 31 U/L (15-37) Alanine Aminotransferase (ALT/SGPT) 22 U/L (16-63) Alkaline Phosphatase 93 U/L (46-116) Total Protein 7.1 g/dL (6.4-8.2) Albumin 2.1 g/dL (3.4-5.0) Albumin/Globulin Ratio 0.4 (1.0-1.7) Thyroid Stimulating Hormone (TSH) 2.287 uIU/mL (0.358-3.74) Test 12/29/16 07:52 12/29/16 11:05 Glucose (Fingerstick) 59 mg/dL (70-99) 132 mg/dL (70-99) Review of Systems Review of Systems Denies chest pain Denies SOA Assessment and Plan Assessmemt and Plan Assessment: 1. Coccygeal wound: s/p debridement of ulcer and wound, IV abx per ID, need fci, IV access by IR yesterday 2. ESDR on HD: HD per nephrology. 3. Bilateral Amputee 4. AOCD 5. Dementia by hx 6, PVD 7. Moderate to severe malnutrition, POA 8. Hyperkalemia, resolved 9. Hypoglycemia, w/o meds or DM diagnosis, check TSH and cortisol 10. HTN: stable. Plan: Cultures reviewed - continue abx per ID Continue nephrology recommendations - HD on Saturday Continue wound care Check labs in am PT/OT Problems: Comment Review of Relevant I have reviewed the following items katherine (where applicable) has been applied. Labs Laboratory Tests Test 12/27/16 16:20 12/27/16 20:47 12/27/16 22:14 12/28/16 05:20 Glucose (Fingerstick) 76 mg/dL (70-99) 69 mg/dL (70-99) 88 mg/dL (70-99) White Blood Count 11.1 x10^3/uL (4.0-11.0) Red Blood Count 3.96 x10^6/uL (4.30-5.70) Hemoglobin 10.7 g/dL (13.0-17.5) Hematocrit 33.3 % (39.0-53.0) Mean Corpuscular Volume 84 fL (79-100) Mean Corpuscular Hemoglobin 27 pg (25-35) Mean Corpuscular Hemoglobin Concent 32 g/dL (31-37) Red Cell Distribution Width 16.9 % (11.5-14.5) Platelet Count 101 x10^3/uL (140-400) Sodium Level 137 mmol/L (136-145) Potassium Level 5.0 mmol/L (3.5-5.1) Chloride Level 99 mmol/L (98-107) Carbon Dioxide Level 27 mmol/L (21-32) Anion Gap 11 (6-14) Blood Urea Nitrogen 26 mg/dL (8-26) Creatinine 5.4 mg/dL (0.7-1.3) Estimated GFR (Cockcroft-Gault) 12.5 Glucose Level 90 mg/dL (70-99) Calcium Level 8.4 mg/dL (8.5-10.1) Test 12/28/16 11:34 12/28/16 16:39 12/28/16 21:36 12/29/16 03:22 Glucose (Fingerstick) 78 mg/dL (70-99) 104 mg/dL (70-99) 95 mg/dL (70-99) 93 mg/dL (70-99) Test 12/29/16 07:45 12/29/16 07:52 12/29/16 11:05 White Blood Count 11.1 x10^3/uL (4.0-11.0) Red Blood Count 3.68 x10^6/uL (4.30-5.70) Hemoglobin 9.8 g/dL (13.0-17.5) Hematocrit 30.9 % (39.0-53.0) Mean Corpuscular Volume 84 fL (79-100) Mean Corpuscular Hemoglobin 27 pg (25-35) Mean Corpuscular Hemoglobin Concent 32 g/dL (31-37) Red Cell Distribution Width 17.3 % (11.5-14.5) Platelet Count 79 x10^3/uL (140-400) Neutrophils (%) (Auto) 86 % (31-73) Lymphocytes (%) (Auto) 5 % (24-48) Monocytes (%) (Auto) 8 % (0-9) Eosinophils (%) (Auto) 0 % (0-3) Basophils (%) (Auto) 0 % (0-3) Neutrophils # (Auto) 9.6 x10^3uL (1.8-7.7) Lymphocytes # (Auto) 0.6 x10^3/uL (1.0-4.8) Monocytes # (Auto) 0.9 x10^3/uL (0.0-1.1) Eosinophils # (Auto) 0.0 x10^3/uL (0.0-0.7) Basophils # (Auto) 0.0 x10^3/uL (0.0-0.2) Segmented Neutrophils % 87 % (35-66) Band Neutrophils % 2 % (0-9) Lymphocytes % 3 % (24-48) Monocytes % 8 % (0-10) Nucleated Red Blood Cells 1 Platelet Estimate Decreased (ADEQUATE) Sodium Level 135 mmol/L (136-145) Potassium Level 4.8 mmol/L (3.5-5.1) Chloride Level 97 mmol/L (98-107) Carbon Dioxide Level 27 mmol/L (21-32) Anion Gap 11 (6-14) Blood Urea Nitrogen 23 mg/dL (8-26) Creatinine 4.7 mg/dL (0.7-1.3) Estimated GFR (Cockcroft-Gault) 14.7 BUN/Creatinine Ratio 5 (6-20) Glucose Level 112 mg/dL (70-99) Calcium Level 8.5 mg/dL (8.5-10.1) Total Bilirubin 0.7 mg/dL (0.2-1.0) Aspartate Amino Transf (AST/SGOT) 31 U/L (15-37) Alanine Aminotransferase (ALT/SGPT) 22 U/L (16-63) Alkaline Phosphatase 93 U/L (46-116) Total Protein 7.1 g/dL (6.4-8.2) Albumin 2.1 g/dL (3.4-5.0) Albumin/Globulin Ratio 0.4 (1.0-1.7) Thyroid Stimulating Hormone (TSH) 2.287 uIU/mL (0.358-3.74) Glucose (Fingerstick) 59 mg/dL (70-99) 132 mg/dL (70-99) Laboratory Tests Test 12/28/16 16:39 12/28/16 21:36 12/29/16 03:22 12/29/16 07:45 Glucose (Fingerstick) 104 mg/dL (70-99) 95 mg/dL (70-99) 93 mg/dL (70-99) White Blood Count 11.1 x10^3/uL (4.0-11.0) Red Blood Count 3.68 x10^6/uL (4.30-5.70) Hemoglobin 9.8 g/dL (13.0-17.5) Hematocrit 30.9 % (39.0-53.0) Mean Corpuscular Volume 84 fL (79-100) Mean Corpuscular Hemoglobin 27 pg (25-35) Mean Corpuscular Hemoglobin Concent 32 g/dL (31-37) Red Cell Distribution Width 17.3 % (11.5-14.5) Platelet Count 79 x10^3/uL (140-400) Neutrophils (%) (Auto) 86 % (31-73) Lymphocytes (%) (Auto) 5 % (24-48) Monocytes (%) (Auto) 8 % (0-9) Eosinophils (%) (Auto) 0 % (0-3) Basophils (%) (Auto) 0 % (0-3) Neutrophils # (Auto) 9.6 x10^3uL (1.8-7.7) Lymphocytes # (Auto) 0.6 x10^3/uL (1.0-4.8) Monocytes # (Auto) 0.9 x10^3/uL (0.0-1.1) Eosinophils # (Auto) 0.0 x10^3/uL (0.0-0.7) Basophils # (Auto) 0.0 x10^3/uL (0.0-0.2) Segmented Neutrophils % 87 % (35-66) Band Neutrophils % 2 % (0-9) Lymphocytes % 3 % (24-48) Monocytes % 8 % (0-10) Nucleated Red Blood Cells 1 Platelet Estimate Decreased (ADEQUATE) Sodium Level 135 mmol/L (136-145) Potassium Level 4.8 mmol/L (3.5-5.1) Chloride Level 97 mmol/L (98-107) Carbon Dioxide Level 27 mmol/L (21-32) Anion Gap 11 (6-14) Blood Urea Nitrogen 23 mg/dL (8-26) Creatinine 4.7 mg/dL (0.7-1.3) Estimated GFR (Cockcroft-Gault) 14.7 BUN/Creatinine Ratio 5 (6-20) Glucose Level 112 mg/dL (70-99) Calcium Level 8.5 mg/dL (8.5-10.1) Total Bilirubin 0.7 mg/dL (0.2-1.0) Aspartate Amino Transf (AST/SGOT) 31 U/L (15-37) Alanine Aminotransferase (ALT/SGPT) 22 U/L (16-63) Alkaline Phosphatase 93 U/L (46-116) Total Protein 7.1 g/dL (6.4-8.2) Albumin 2.1 g/dL (3.4-5.0) Albumin/Globulin Ratio 0.4 (1.0-1.7) Thyroid Stimulating Hormone (TSH) 2.287 uIU/mL (0.358-3.74) Test 12/29/16 07:52 12/29/16 11:05 Glucose (Fingerstick) 59 mg/dL (70-99) 132 mg/dL (70-99) Microbiology 12/21/16 Blood Culture - Final, Complete 12/21/16 Blood Culture Result 1 (SHAZIA) - Final, Complete 12/21/16 Antimicrobic Susceptibility - Final, Complete 12/22/16 Anaerobic/Aerobic Culture - Final, Complete 12/22/16 Anaerobic Culture Result 1 (SHAZIA) - Final, Complete 12/22/16 Aerobic Culture - Final, Complete 12/22/16 Aerobic Culture Result 1 (SHAZIA) - Final, Complete 12/22/16 Aerobic Culture Result 2 (SHAZIA) - Final, Complete 12/22/16 Aerobic Culture Result 3 (SHAZIA) - Final, Complete 12/22/16 Antimicrobic Susceptibility - Final, Complete Medications Current Medications Ondansetron HCl (Zofran) 4 mg PRN Q6HRS PRN IV NAUSEA/VOMITING, 1ST CHOICE; Start 12/21/16 at 18:15 Prochlorperazine Edisylate (Compazine) 10 mg PRN Q6HRS PRN IV NAUSEA/VOMITING, 2ND CHOICE Last administered on 12/29/16 03:26; Start 12/21/16 at 18:15 Prochlorperazine (Compazine) 25 mg PRN Q12HR PRN HI NAUSEA/VOMITING; Start 12/21 at 18:15 Al Hydroxide/Mg Hydroxide (Mylanta Plus Xs) 30 ml PRN Q3HRS PRN PO HEARTBURN / GAS; Start 12/21/16 at 18:15 Calcium Carbonate/ Glycine (Tums) 500 mg PRN Q3HRS PRN PO UPSET STOMACH; Start 12/21/16 at 18:15 Oxycodone HCl (Roxicodone) 5 mg PRN Q3HRS PRN PO BREAKTHROUGH PAIN Last administered on 12/24/16 13:36; Start 12/21/16 at 18:15 Morphine Sulfate 1 mg PRN Q1HR PRN IV PAIN Last administered on 12/22/16 01:28 ; Start 12/21/16 at 18:15; Stop 12/25/16 at 12:55; Status DC Acetaminophen (Tylenol) 650 mg PRN Q6HRS PRN PO Headaches, Temp > 101.5F; Start 12/21/16 at 18:15 Docusate Sodium (Colace) 100 mg BID PO Last administered on 12/21/16 21:52; Start 12/21/16 at 21:00 Magnesium Hydroxide (Milk Of Magnesia) 2,400 mg PRN Q12HR PRN PO CONSTIPATION; Start 12/21/16 at 18:15 Bisacodyl (Dulcolax Supp) 10 mg PRN DAILY PRN HI CONSTIPATION; Start 12/21/16 at 18:15 Acetaminophen (Tylenol) 325 mg PRN Q4HRS PRN PO MILD PAIN/FEVER; Start 12/21/16 at 18:15 Amlodipine Besylate (Norvasc) 10 mg DAILY PO ; Start 12/22/16 at 09:00 Calcium Carbonate/ Glycine (Oscal) 500 mg TID PO Last administered on 08:12; Start 12/21/16 at 21:00 Vitamin D (Vitamin D3) 2,000 unit QODAY PO Last administered on 12/29/16 08:12 ; Start 12/23/16 at 09:00 Cinacalcet (Sensipar) 90 mg HS PO Last administered on 12/27/16 20:34; Start 12/21/16 at 21:00 Colestipol HCl (Colestid) 1 gm BID PO Last administered on 12/27/16 10:02; Start 12/21/16 at 21:00 Ergocalciferol (Vitamin D2) 50,000 unit WEEKLY PO Last administered on 12:41; Start 12/28/16 at 09:00 Famotidine (Pepcid) 20 mg HS PO Last administered on 12/21/16 21:54; Start 12/21 at 21:00 Lanthanum Carbonate (Fosrenol) 1,000 mg TIDWMEALS PO ; Start 12/22/16 at 08:00; Stop 12/22/16 at 08:00; Status DC Lorazepam (Ativan) 0.25 mg PRN DAILY PRN PO ANXIETY Last administered on 21:54; Start 12/21/16 at 18:15 Mirtazapine (Remeron) 7.5 mg QHS PO Last administered on 12/23/16 20:18; Start 12/21/16 at 21:00 Tramadol HCl (Ultram) 25 mg PRN Q6HRS PRN PO MODERATE PAIN Last administered on 12/21/16 21:53; Start 12/21/16 at 18:15 Darbepoetin Placido (Aranesp) 100 mcg WEEKLYHS SQ ; Start 12/22/16 at 21:00 Ferrous Sulfate (Feosol) 325 mg DAILYWBKFT PO Last administered on 12/29/16 08 :12; Start 12/22/16 at 08:00 Vitamin B Complex/ Vitamin C (Blank-Cliff) 1 tab DAILY PO Last administered on 08:12; Start 12/22/16 at 09:00 Sertraline HCl (Zoloft) 200 mg DAILY PO Last administered on 12/29/16 08:12; Start 12/22/16 at 09:00 Non-Formulary Medication 1 each DAILY PO ; Start 12/22/16 at 09:00; Status UNV Lanthanum Carbonate (Fosrenol) 1,000 mg TIDAFTMEAL PO ; Start 12/22/16 at 09:00; Stop 12/22/16 at 09:00; Status DC Lanthanum Carbonate (Fosrenol) 1,000 mg TIDAFTMEAL PO Last administered on 17:21; Start 12/22/16 at 09:00 Vancomycin HCl 1.25 gm/Sodium Chloride 250 ml @ 166.667 mls/hr 1X ONCE IV Last administered on 12/21/16 22:31; Start 12/21/16 at 20:00; Stop 12/21/16 at 21: 29; Status DC Morphine Sulfate 2 mg PRN Q2HR PRN IV PAIN Last administered on 12/29/16 05:24 ; Start 12/22/16 at 02:15 Ondansetron HCl (Zofran) 4 mg PRN Q6HRS PRN IV NAUSEA/VOMITING; Start 12/22/16 at 09:00; Stop 12/22/16 at 18:00; Status DC Fentanyl Citrate (Fentanyl 2ml Vial) 25 mcg PRN Q5MIN PRN IV MILD PAIN; Start 12/22/16 at 09:00; Stop 12/22/16 at 18:00; Status DC Fentanyl Citrate (Fentanyl 2ml Vial) 50 mcg PRN Q5MIN PRN IV MODERATE PAIN; Start 12/22/16 at 09:00; Stop 12/22/16 at 18:00; Status DC Morphine Sulfate 1 mg PRN Q10MIN PRN IV SEVERE PAIN Last administered on t 12:58; Start 12/22/16 at 09:00; Stop 12/22/16 at 18:00; Status DC Ringer's Solution 1,000 ml @ 30 mls/hr Q24H IV ; Start 12/22/16 at 09:00; Stop 12/22/16 at 20:59; Status DC Lidocaine HCl 2 ml PRN 1X PRN ID PRIOR TO IV START; Start 12/22/16 at 09:00; Stop 12/22/16 at 18:00; Status DC Hydromorphone HCl (Dilaudid) 0.5 mg PRN Q10MIN PRN IV SEV PAIN, Second choice; Start 12/22/16 at 09:00; Stop 12/22/16 at 18:00; Status DC Prochlorperazine Edisylate (Compazine) 5 mg PACU PRN PRN IV NAUSEA, MRX1; Start 12/22/16 at 09:00; Stop 12/22/16 at 18:00; Status DC Propofol 20 ml @ As Directed STK-MED ONCE IV ; Start 12/22/16 at 11:52; Stop 12/22 at 11:53; Status DC Lidocaine HCl (Lidocaine Pf 2% Vial) 5 ml STK-MED ONCE .ROUTE ; Start 12/22/16 at 11:52; Stop 12/22/16 at 11:53; Status DC Dexamethasone Sodium Phosphate (Decadron) 20 mg STK-MED ONCE .ROUTE ; Start 12/22 at 11:52; Stop 12/22/16 at 11:53; Status DC Ondansetron HCl (Zofran) 4 mg STK-MED ONCE .ROUTE ; Start 12/22/16 at 11:52; Stop 12/22/16 at 11:53; Status DC Bupivacaine HCl/ Epinephrine Bitart (Sensorcaine-Epi 0.25%-1:[id number] Mpf) 30 ml STK-MED ONCE .ROUTE ; Start 12/22/16 at 11:57; Stop 12/22/16 at 11:58; Status DC Ephedrine Sulfate 50 mg STK-MED ONCE IV ; Start 12/22/16 at 12:11; Stop 12/22/16 at 12:12; Status DC Phenylephrine HCl 1 mg STK-MED ONCE IV ; Start 12/22/16 at 12:13; Stop 12/22/16 at 12:14; Status DC Sevoflurane (Ultane) 30 ml STK-MED ONCE IH ; Start 12/22/16 at 12:40; Stop at 12:41; Status DC Sodium Chloride 1,000 ml @ 0 mls/hr Q0M IV ; Start 12/22/16 at 11:30 Sodium Polystyrene Sulfonate (Kayexalate) 30 gm 1X ONCE PO Last administered on 12/22/16 14:29; Start 12/22/16 at 13:45; Stop 12/22/16 at 13:53; Status DC Sodium Bicarbonate 50 meq 1X ONCE IV Last administered on 12/22/16 14:29; Start 12/22/16 at 13:45; Stop 12/22/16 at 13:53; Status DC Dextrose (Dextrose 50%-Water Syringe) 50 gm 1X ONCE IV Last administered on 13:45; Start 12/22/16 at 13:45; Stop 12/22/16 at 13:53; Status DC Insulin Human Regular (Novolin R Vial) 10 unit 1X ONCE IV Last administered on 12/22/16 14:31; Start 12/22/16 at 13:45; Stop 12/22/16 at 13:53; Status DC Vancomycin HCl (Vanco Per Pharmacy) 1 each PRN DAILY PRN MC SEE COMMENTS Last administered on 12/24/16 11:42; Start 12/22/16 at 14:00; Stop 12/25/16 at 09:59; Status DC Ceftriaxone Sodium 1 gm/ Sodium Chloride 50 ml @ 100 mls/hr Q24H IV Last administered on 12/24/16 13:37; Start 12/22/16 at 14:00; Stop 12/25/16 at 09:59; Status DC Metronidazole 100 ml @ 100 mls/hr Q8HRS IV Last administered on 12/25/16 06:04 ; Start 12/22/16 at 14:00; Stop 12/25/16 at 09:59; Status DC Vancomycin HCl 2 gm/Sodium Chloride 500 ml @ 250 mls/hr 1X ONCE IV ; Start 12/22/16 at 15:00; Stop 12/22/16 at 16:59; Status Cancel Vancomycin HCl 500 mg/Sodium Chloride 100 ml @ 100 mls/hr 1X ONCE IV Last administered on 12/22/16 23:00; Start 12/22/16 at 23:00; Stop 12/22/16 at 23:59; Status DC Dextrose 500 ml @ 75 mls/hr 1X ONCE IV Last administered on 12/22/16 16:52; Start 12/22/16 at 16:30; Stop 12/22/16 at 23:09; Status DC Sodium Chloride 1,000 ml @ 1,000 mls/hr Q1H PRN IV hypotension; Start 12/22/16 at 17:04; Stop 12/22/16 at 23:03; Status DC Diphenhydramine HCl (Benadryl) 25 mg 1X PRN PRN IV ITCHING; Start 12/22/16 at 17 :15; Stop 12/23/16 at 17:14; Status DC Diphenhydramine HCl (Benadryl) 25 mg 1X PRN PRN IV ITCHING; Start 12/22/16 at 17 :15; Stop 12/23/16 at 17:14; Status DC Sodium Chloride 1,000 ml @ 400 mls/hr Q2H30M PRN IV PATENCY; Start 12/22/16 at 17:04; Stop 12/23/16 at 05:03; Status DC Info (PHARMACY MONITORING -- do not chart) 1 each PRN DAILY PRN MC SEE COMMENTS ; Start 12/22/16 at 17:15; Stop 12/26/16 at 13:39; Status DC Vancomycin HCl 1 each 1X ONCE MC Last administered on 12/24/16 06:00; Start at 06:00; Stop 12/24/16 at 06:01; Status DC Sodium Chloride 1,000 ml @ 1,000 mls/hr Q1H PRN IV hypotension; Start 12/24/16 at 09:00; Stop 12/24/16 at 14:59; Status DC Info (PHARMACY MONITORING -- do not chart) 1 each PRN DAILY PRN MC SEE COMMENTS ; Start 12/24/16 at 09:00; Status UNV Info (PHARMACY MONITORING -- do not chart) 1 each PRN DAILY PRN MC SEE COMMENTS ; Start 12/24/16 at 09:00; Status UNV Vancomycin HCl 500 mg/Sodium Chloride 100 ml @ 100 mls/hr QMWF IV Last administered on 12/24/16 17:21; Start 12/24/16 at 16:00; Stop 12/25/16 at 09:59; Status DC Piperacillin Sod/ Tazobactam Sod 2.25 gm/Sodium Chloride 50 ml @ 100 mls/hr Q8HRS IV Last administered on 12/29/16 05:29; Start 12/25/16 at 11:00 Sodium Chloride 1,000 ml @ 1,000 mls/hr Q1H PRN IV hypotension; Start 12/26/16 at 10:49; Stop 12/26/16 at 16:48; Status DC Info (PHARMACY MONITORING -- do not chart) 1 each PRN DAILY PRN MC SEE COMMENTS ; Start 12/26/16 at 11:00; Status UNV Info (PHARMACY MONITORING -- do not chart) 1 each PRN DAILY PRN MC SEE COMMENTS ; Start 12/26/16 at 11:00 Heparin Sodium (Porcine) (Hep Lock Adult) 500 unit STK-MED ONCE IV ; Start 12/26 at 14:41; Stop 12/26/16 at 14:42; Status DC Lidocaine/ Epinephrine (Xylocaine 1%-Epi 1:100,000) 20 ml STK-MED ONCE .ROUTE ; Start 12/26/16 at 14:41; Stop 12/26/16 at 14:42; Status DC Heparin Sodium/ Sodium Chloride 500 ml @ As Directed STK-MED ONCE .ROUTE ; Start 12/26/16 at 14:41; Stop 12/26/16 at 14:42; Status DC Fentanyl Citrate (Fentanyl 5ml Vial) 250 mcg STK-MED ONCE .ROUTE ; Start at 14:53; Stop 12/26/16 at 14:54; Status DC Fentanyl Citrate (Fentanyl 5ml Vial) 250 mcg 1X ONCE IV Last administered on 15:00; Start 12/26/16 at 15:00; Stop 12/26/16 at 15:03; Status DC Lidocaine/Sodium Bicarbonate (Buffered Lidocaine 1%) 20 ml STK-MED ONCE IJ ; Start 12/26/16 at 14:58; Stop 12/26/16 at 14:59; Status DC Heparin Sodium/ Sodium Chloride 1,000 unit 1X ONCE IART Last administered on 15:00; Start 12/26/16 at 15:00; Stop 12/26/16 at 15:03; Status DC Lidocaine/Sodium Bicarbonate (Buffered Lidocaine 1%) 20 ml 1X ONCE IJ Last administered on 12/26/16 15:00; Start 12/26/16 at 15:00; Stop 12/26/16 at 15:03 ; Status DC Dextrose/Sodium Chloride 1,000 ml @ 30 mls/hr Q24H IV Last administered on 14:54; Start 12/27/16 at 07:30; Stop 12/28/16 at 13:07; Status DC Dextrose (Dextrose 50%-Water Syringe) 25 gm STK-MED ONCE IV ; Start 12/27/16 at 20:58; Stop 12/27/16 at 20:59; Status DC Dextrose (Dextrose 50%-Water Syringe) 25 gm 1X ONCE IV ; Start 12/27/16 at 22: 00; Stop 12/27/16 at 22:01; Status DC Sodium Chloride 1,000 ml @ 1,000 mls/hr Q1H PRN IV hypotension; Start 12/28/16 at 07:29; Stop 12/28/16 at 13:28; Status DC Info (PHARMACY MONITORING -- do not chart) 1 each PRN DAILY PRN MC SEE COMMENTS ; Start 12/28/16 at 07:30; Status UNV Info (PHARMACY MONITORING -- do not chart) 1 each PRN DAILY PRN MC SEE COMMENTS ; Start 12/28/16 at 07:30; Status UNV Dextrose 250 ml STK-MED ONCE IV ; Start 12/27/16 at 21:00; Stop 12/28/16 at 08: 23; Status DC Amino Acids/ Glycerin/ Electrolytes 1,000 ml @ 80 mls/hr [id number] PRN IV .; Start 12/28/16 at 13:15; Stop 12/28/16 at 17:05; Status DC Amino Acids/ Glycerin/ Electrolytes 1,000 ml @ 80 mls/hr [id number] IV Last administered on 12/29/16 05:25; Start 12/28/16 at 17:15 Active Scripts Active Reported Tylenol (Acetaminophen) 325 Mg Tablet 1 Tab PO PRN Q4HRS Tramadol Hcl 50 Mg Tablet 0.5 Tab PO PRN Q6HRS Colestid (Colestipol Hcl) 1 Gm Tablet 1 Gm PO BID Fosrenol (Lanthanum Carbonate) 1,000 Mg Tab.chew 1,000 Mg PO TIDWMEALS Amlodipine Besylate 10 Mg Tablet 10 Mg PO DAILY Mirtazapine 15 Mg Tablet 5 Tab PO QHS Eucerin Intensive Repair (Emollient Combination No.72) 250 Ml Lotion 250 Ml TP Amlodipine Besylate 10 Mg Tablet 10 Mg PO DAILY Vitamin B Complex 1 Each Capsule 1 Each PO DAILY Renal Caps Softgel (Folic Acid/Vitamin B Comp W-C) 1 Mg Capsule 1 Mg PO DAILY Lorazepam 0.5 Mg Tablet 0.25 Mg PO PRN DAILY PRN Vitamin D2 (Ergocalciferol (Vitamin D2)) 50,000 Unit Capsule 50,000 Unit PO WEEKLY Vitamin D3 (Cholecalciferol (Vitamin D3)) 1,000 Unit Tablet 2,000 Unit PO QODAY Epogen (Epoetin Placido) 20,000 Unit/1 Ml Vial 14,300 Unit IJ THREE TIMES A WEEK Zoloft (Sertraline Hcl) 100 Mg Tablet 200 Mg PO DAILY Ferrous Gluconate 325 Mg Tablet 325 Mg PO DAILY Famotidine 20 Mg Tablet 20 Mg PO HS Sensipar (Cinacalcet Hcl) 30 Mg Tablet 90 Mg PO HS Calcium Carbonate 500 Mg Tablet 500 Mg PO TID Vitals/I & O Vital Sign - Last 24 Hours 12/28/16 12/28/16 12/28/16 12/28/16 12:10 12:48 15:00 19:00 Temp 97.5 97.8 97.5 97.8 Pulse 60 60 81 Resp 18 20 B/P (MAP) 80/53 86/51 (63) 83/26 (45) Pulse Ox 95 90 O2 Delivery Nasal Cannula Room Air Room Air O2 Flow Rate 2.0 12/28/16 12/29/16 12/29/16 12/29/16 22:30 04:04 05:24 05:58 Temp 97.6 97.6 Pulse 84 81 Resp 20 18 20 16 B/P (MAP) 111/65 (80) 93/59 (70) Pulse Ox 100 94 O2 Delivery Nasal Cannula Nasal Cannula Nasal Cannula Nasal Cannula O2 Flow Rate 2.0 2.0 2.0 2.0 12/29/16 12/29/16 12/29/16 07:00 08:00 10:52 Temp 98.1 97.5 98.1 97.5 Pulse 82 53 Resp 20 20 B/P (MAP) 128/50 (76) 100/22 (48) Pulse Ox 96 97 O2 Delivery Nasal Cannula Nasal Cannula Nasal Cannula O2 Flow Rate 2.0 2.0 2.0 Intake and Output 12/28/16 12/28/16 12/29/16 15:00 23:00 07:00 Intake Total 120 ml 620 ml Output Total 0 ml Balance 120 ml 620 ml SHAQ BADILLO III DO December 29, 2016 12:05
[2016-12-29 14:52] VITALS: BP 149/123
[2016-12-29] MEDS ORDERED: DEXTROSE 50% 25 GM / 50ML DISP.SYRIN. IV PRN (16:30)
[2016-12-29 17:47] LABS: CALCIUM 8.1 mg/dL (8.5-10.1); CREATININE 4.8 mg/dL (0.7-1.3); GFR 14.3; POTASSIUM 5.7 mmol/L (3.5-5.1)
[2016-12-29] MEDS ORDERED: ETOMIDATE 20 MG/10 ML VIAL. IV ONE (17:58)
[2016-12-29] MEDS ORDERED: ROCURONIUM 50 MG/5 ML VIAL. ONE (17:59)
--- NOTE | 2017-01-08 12:02 | DS ---
DATE OF DISCHARGE: 12/30/2016 SUMMARY ADMISSION DIAGNOSES: Coccygeal wound, end-stage renal disease, bilateral amputee, severe peripheral vascular disease, malnutrition, hypoglycemia, dementia, and coronary artery disease. CAUSE OF : Severe hypoglycemia with code blue. HOSPITAL COURSE: The patient is a pleasant elderly male presented with multiple medical issues including wounds on his coccyx, and he has had a long history of multiple medical problems. Please see above. Basically, we admitted the patient. We did consult Surgery. He was taken for debridement of the coccygeal wound. We also consulted Infectious Disease. We had him on IV antibiotics. We also consulted Nephrology. We were doing dialysis. On 12/29/2016, he suddenly became very weak and had mental status changes. He was noted to be very hypoglycemic. We tried to give glucose, but that did not work. He then coded. The patient did not survive his code and was pronounced on 12/29/2016. SHAQ BADILLO DO DR: MARIA ELENA/eb JOB#: [id number] / [id number]
== END 2016-12-29 21:40 | disposition expired | DRG 264 ==
LOC: 5 SOUTH 15:47
PROVIDERS: ADMIT Internal Medicine; ATTEND Internal Medicine
PROC: 02HV33Z Insertion of Infusion Device into Superior Vena Cava, Percutaneous Approach (ICD-10-PCS; 2016-12-22)
PROC: B5181ZA Fluoroscopy of Superior Vena Cava using Low Osmolar Contrast, Guidance (ICD-10-PCS; 2016-12-22)
PROC: 5A1D60Z (ICD-10-PCS; 2016-12-22)
PROC: 0JB90ZZ Excision of Buttock Subcutaneous Tissue and Fascia, Open Approach (ICD-10-PCS; principal; 2016-12-22 10:30)
DX: E11.51 Type 2 diabetes mellitus with diabetic peripheral angiopathy without gangrene (principal); E43 Unspecified severe protein-calorie malnutrition; N18.6 End stage renal disease; I13.2 Hypertensive heart and chronic kidney disease with heart failure and with stage 5 chronic kidney disease, or end stage renal disease; L89.159 Pressure ulcer of sacral region, unspecified stage; D63.8 Anemia in other chronic diseases classified elsewhere; E11.22 Type 2 diabetes mellitus with diabetic chronic kidney disease; E11.42 Type 2 diabetes mellitus with diabetic polyneuropathy; E11.649 Type 2 diabetes mellitus with hypoglycemia without coma; E87.5 Hyperkalemia; E87.6 Hypokalemia; F03.90 Unspecified dementia, unspecified severity, without behavioral disturbance, psychotic disturbance, mood disturbance, and anxiety; F43.10 Post-traumatic stress disorder, unspecified; I25.10 Atherosclerotic heart disease of native coronary artery without angina pectoris; I50.9 Heart failure, unspecified; J44.9 Chronic obstructive pulmonary disease, unspecified; Z82.49 Family history of ischemic heart disease and other diseases of the circulatory system; Z83.3 Family history of diabetes mellitus; Z86.73 Personal history of transient ischemic attack (TIA), and cerebral infarction without residual deficits; Z89.611 Acquired absence of right leg above knee; Z89.512 Acquired absence of left leg below knee; Z96.1 Presence of intraocular lens; Z99.2 Dependence on renal dialysis; F32.9 Major depressive disorder, single episode, unspecified; M19.90 Unspecified osteoarthritis, unspecified site; Z74.01 Bed confinement status; Z88.6 Allergy status to analgesic agent; Z88.8 Allergy status to other drugs, medicaments and biological substances
CPT/HCPCS: 36415; 36569; 71010; 76937; 80048; 80053; 80202; 82533; 82962; 83735; 84100; 84443; 85007; 85027; 85610; 85651; 86706; 87040; 87071; 87075; 87186; 87205; 87324; 87340; 87341; 87641; 93005; C1751; C1892; J0171; J0282; J0696; J0780; J0881; J1100; J1815; J2270; J2370; J2405; J2543; J2704; J3010; J3370; J3490; J7042; J7050; 92610; 97110; J7030